=== PATIENT | male | born 1935 | race Caucasian/White ===

== ENCOUNTER 2023-03-13 15:35 | Outpatient (OUT) | payer MEDICARE, SELFPAY ==
--- NOTE | 2023-03-13 15:51 | XR_ITS ---
The [address] [address] Patient Name: UMESH DICKEY MRN: [id number] date: 1935 Sex: M Assigned Patient Location: LAB Current Patient Location: Accession/Order Number: [id number] Exam Date: 03/13/2023 16:05 Report Date: 03/14/2023 07:42 At the request of: LISA VELAZCO Procedure: XR sinus min 3V EXAMINATION: XR sinus min 3V HISTORY: CHRONIC SINUSITIS J32.9 COMPARISON: No relevant comparison available. FINDINGS: MAXILLARY: No mucosal thickening or fluid level. ETHMOID: No mucosal thickening or fluid level. FRONTAL: No mucosal thickening or fluid level. SPHENOID: No mucosal thickening or fluid level. OTHER: Negative. XR/XR sinus min 3V IMPRESSION: Clear paranasal sinuses Electronically authenticated by: FLO LEROY Date: 03/14/2023 07:42
== END 2023-03-13 15:36 | disposition home or self-care (01) ==
LOC: LAB 15:39
PROVIDERS: PCP Internal Medicine; Visit Provider Otolaryngology
DX: J32.9 Chronic sinusitis, unspecified (principal)
CPT/HCPCS: 70220

== ENCOUNTER 2023-07-31 20:53 | Outpatient (OUT) | payer MEDICARE, SELFPAY | END 2023-07-31 20:54 | disposition home or self-care (01) | LOC: SLEEP 20:54 | PROVIDERS: PCP Internal Medicine; Visit Provider Internal Medicine | DX: G47.33 Obstructive sleep apnea (adult) (pediatric) (principal) | CPT/HCPCS: 95810 ==

== ENCOUNTER 2024-03-29 11:13 | Outpatient (OUT) | payer MEDICARE, SELFPAY ==
--- OUTSIDE RECORDS SUMMARY | 2024-03-29 11:26 | XMS_ITS ---
Patient Summarization (C-CDA 2.1 CCD) Created on: March 29, 2024 Juan Oates : 1935 Sex: Male Author Organization Sample organization Care Team Providers Care Environmental Epidemiologist Name Role Phone MAGGIE WYNN Unavailable Unavailable AROBELIDZE, RASHI Unavailable Unavailable TABBAA, MOUSAB Unavailable Unavailable BALL, DR MONTANO Admitting Unavailable BALL, DR MONTANO Attending Unavailable BALL, DR MONTANO Primary Care Unavailable BALL, DR MONTANO Consulting Unavailable BALL, DR MONTANO Admitting Unavailable BALL, DR MONTANO Attending Unavailable BALL, DR MONTANO Primary Care Unavailable BALL, DR MONTANO Consulting Unavailable PARRA, FELICIA Admitting Unavailable PARRA, FELICIA Attending Unavailable BALL, DR MONTANO Primary Care Unavailable PARRA, FELICIA Consulting Unavailable BALL, DR MONTANO Admitting Unavailable BALL, DR MONTANO Attending Unavailable BALL, DR MONTANO Primary Care Unavailable BALL, DR MONTANO Admitting Unavailable BALL, DR MONTANO Attending Unavailable BALL, DR MONTANO Primary Care Unavailable BALL, DR MONTANO Consulting Unavailable Ball, Main Unavailable Main Holt DO Primary Care Provider Main Holt MD Primary Care Provider QUINTIN PERKINS Attending Unavailable NAYLA, QUINTIN G Referring Unavailable BALL, MAIN Botello Primary Care Unavailable NAYLA, QUINTIN G Referring Unavailable BALL, MAIN Botello Primary Care Unavailable BALL, MAIN Botello Referring Unavailable BALL, MAIN E Primary Care Unavailable NAYLA, QUINTIN G Attending Unavailable BALL, MAIN E Referring Unavailable BALL, MAIN Botello Primary Care Unavailable NAYLA, QUINTIN G Attending Unavailable BALL, MAIN Botello Referring Unavailable BALL, MAIN E Primary Care Unavailable NAYLA, QUINTIN G Referring Unavailable BALL, MAIN Botello Primary Care Unavailable Allergies Allergy Classification Reported Allergen(s) Allergy Type Date of Onset Reaction(s) Facility (1 source) patient allergy list reviewed by nurse or physicia Propensity to adverse reactions 8 Comment:Done [facility] Other Encounters Encounter Date Encounter Type Care Provider Facility Start: 03-28-2024 End: 03-28-2024 [facility] Work Phone: Start: 03-28-2024 End: 03-28-2024 Patient encounter procedure [facility] Work Phone: Start: 03-11-2024 End: 03-11-2024 [facility] Start: 01-08-2024 End: 01-08-2024 ambulatory QUINTIN G [facility] Start: 12-10-2023 End: 12-11-2023 ambulatory [facility] Start: 11-20-2023 End: 11-20-2023 ambulatory QUINTIN G NAYLA [facility] Start: 11-20-2023 End: 11-20-2023 Office outpatient visit 15 minutes Quintin Perkins MD Work Phone: [facility] Comment on above: Calculus of other lo wer urinary tract location (Primary Dx); Hypogonadism male Start: 11-13-2023 End: 11-14-2023 ambulatory QUINTIN PERKINS [facility] Start: 10-08-2023 Chart abstracting Evelia clements MD Work Phone: [facility] Start: 09-07-2023 Telephone encounter Quintin Perkins MD Work Phone: [facility] Start: 07-04-2023 End: 07-04-2023 ambulatory Main Holt Other [facility] Other Start: 07-04-2023 Office outpatient vi sit 15 minutes Main Holt [facility] Start: 02-13-2023 End: 02-13-2023 ambulatory Main Holt Other [facility] Other Start: 02-13-2023 Office outpatient vi sit 15 minutes Main Holt [facility] Start: 10-15-2022 End: 10-16-[address] MAIN HOLT Facility:[facility] Start: 10-14-2022 End: 10-15-[address] MAIN HOLT Facility:[facility] Start: 10-13-2022 Office outpatient vi sit 15 minutes Main Holt [facility] Start: 10-13-2022 End: 10-14-2022 ambulatory FELICIA PARRA Facility:[facility] Start: 04-24-2022 End: 04-25-[address] MAIN HOLT Facility:[facility] Start: 03-29-2022 Adult health examination Main Holt Other [facility] Other Start: 12-12-2021 End: 12-13-[address] MAIN HOLT Facility:[facility] Start: 02-17-2017 End: 02-19-2017 Evaluation and management of inpatient [facility] Medical Equipment Procedure Code Equipment Code Equipment Origin al Text Equipment Identifier Dates Stnt Uret 6fr 28 cm Pgtl Crv Rpl [id number] - Sna - [id number] Start: 03-12-2018 Stnt Uret 6fr 28 cm Pgtl Crv Rpl [id number] - [id number] Start: 04-10-2018 Goals Date Patient Goal Desired Activity /State Personal health goal Comment on above: Formatting of this n ote might be different from the original. Evaluation of progress towards goal: Patient plans to discharge home. Care Navigation team will continue to follow. - Kanika Traore RN [employer] 04/11/18 1:35 PM Immunizations Immunization Date Immunization Notes Care Provider Chad landry 04-21-2018 influenza virus vaccine, split virus (incl. purified surface antigen) Main Holt Other [facility] Other 04-21-2018 influenza virus vaccine, unspecified formulation [facility] 04-21-2018 pneumococcal conjuga te vaccine, 13 valent Main Holt Other [facility] Medications Current Medications Medication Drug Class(es) Dates Sig (Normalized) Sig (Original) acetaminophen 325 mg / HYDROcodone bitartrate 5 mg oral tablet (2 sources) Opioid Agonist Start: 09-23-2019 HYDROcodone-acetamin ophen (NORCO) 5-325 mg per tablet Indications: Calculus of other lower urinary tract location Take 1 tablet by mouth every 6 (six) hours as needed for pain for up to 8 doses. Max Daily Amount: 4 tablets 8 tablet 0 09/23/2019 Active Matilda Hives 24HR 180 MG (1 source) Start: 02-13-2023 take 1 tablet by mouth once daily Matilda Hives 24HR 180 MG 1 tablet Swallow whole with water; do not take with fruit juices. Orally Once a day for 30 days Jan, Active allopurinol 100 mg oral tablet (1 source) Xanthine Oxidase Inhibitor take 1 tablet by mouth in the morning allopurinol (Zyloprim) 100 MG tablet Take 100 mg by mouth in the morning. 0 Active amoxicillin 875 mg oral tablet (2 sources) Penicillin-class Antibacterial Start: 02-13-2023 take 1 tablet by mouth every twelve hours Amoxicillin 875 MG 1 tablet Orally Twice a day for 5 day(s) Jan, Active amoxicillin 875 mg / clavulanate 125 mg oral tablet (1 source) Penicillin-class Antibacterial Start: 07-04-2023 take 1 tablet by mouth every twelve hours Amoxicillin-Pot Clavulanate 875-125 MG 1 tablet Orally every 12 hrs for 7 days Jun, Active ascorbic acid 1000 mg oral tablet (2 sources) Vitamin C take 1 tablet by mouth in the morning ascorbic acid, vitamin C, (VITAMIN C) 1000 mg tablet Take 1 tablet (1,000 mg total) by mouth in the morning. 0 Active azelastine hydrochloride 0.5 mg/ml ophthalmic solution (1 source) Histamine-1 Receptor Antagonist Start: 05-14-2023 End: 05-13-2024 take 1 drop(s) into the eye(s) in the morning azelastine (Optivar) 0.05 % ophthalmic solution Indications: Allergic rhinitis due to pollen , Xerophthalmia Administer 1 drop into both eyes in the morning and 1 drop before bedtime. 18 mL 3 05/14/2023 05/13/2024 Active b complex vitamins capsule (2 sources) take 1 capsule by mouth in the morning b complex vitamins capsule Take 1 capsule by mouth in the morning. 0 Active cholecalciferol 0.075 mg oral tablet (1 source) Vitamin D cholecalciferol (Vitamin D-3) 75 MCG (3000 UT) tablet Take 7,000 Units by mouth. 0 Active DOCOSAHEXANOIC ACID/EPA (FISH OIL ORAL) (2 sources) take 1 capsule by mouth once daily DOCOSAHEXANOIC ACID/EPA (FISH OIL ORAL) Take 1 capsule by mouth daily. 0 Active erythromycin 0.005 mg/mg ophthalmic ointment (3 sources) Macrolide, Macrolide Antimicrobial Start: 10-13-2022 Erythromycin 5 MG/GM 1 application into the lower eyelid of affected eye Ophthalmic Four times a day for 10 day(s) Sep, Active fexofenadine hydrochloride 180 mg oral tablet (2 sources) Histamine-1 Receptor Antagonist Start: 03-28-2024 take 1 tablet by mouth once daily Fexofenadine (Matilda Allergy) 180 mg tablet Active 180 MG PO Daily March 28, 2024 12:00am Start: 02-13-2023 take 1 tablet by mouth once da kalani Matilda Hives 24HR 180 MG 1 tablet Swallow whole with water; do not take with fruit juices. Orally Once a day for 30 days Jan, Active Fish Oils (1 source) omega-3 (FISH OI L) 300 MG capsule 1,000 mg. 0 Active fluticasone propionate 0.05 mg/actuat metered dose nasal spray (2 sources) Corticosteroid Start: 02-14-20 take 1 spray(s) nasal route once daily Flonase Allergy Relief 50 MCG/ACT 1 spray in each nostril Nasally Once a day for 30 days Jan, Active garlic preparation 1 mg oral capsule (2 sources) Non-Standardized Food Allergenic Extract take 1 capsule by mouth once daily garlic 1 mg capsule Take 1 capsule by mouth daily. 0 Active ipratropium bromide 0.042 mg/actuat metered dose nasal spray (1 source) Anticholinergic Start: 03-07-20 End: 03-06-20 take 2 spray(s) nasal route in the morning, then take 2 spray(s) nasal route in the evening, then take 2 spray(s) nasal route at bedtime ipratropium (Atrovent) 0.06 % nasal spray Indications: Vasomotor rhinitis Administer 2 sprays into each nostril in the morning and 2 sprays in the evening and 2 sprays before bedtime. 15 mL 11 03/07/2023 03/06/2024 Active milk thistle extract 175 mg oral capsule (3 sources) take 175 mg by mouth in the morning MILK THISTLE EXTRACT PO Take 175 mg by mouth in the morning. 0 Active take 1 tablet by mouth in the mo rning milk thistle 175 mg tablet Take 1 tablet (175 mg total) by mouth in the morning. 0 Active multivitamin (Theragran) tablet (1 source) take 1 tablet by mouth in the morning multivitamin (Theragran) tablet Take 1 tablet by mouth in the morning. 0 Active Multivitamin preparation (2 sources) take 1 tablet by mouth once daily MULTIVITAMIN (MULTIPLE VITAMINS ORAL) Take 1 tablet by mouth daily. 0 Active tamsulosin hydrochloride 0.4 mg oral capsule (1 source) alpha-Adrenergic Ankur take 1 capsule by mouth every twenty-four hours in the morning tamsulosin (Flomax) 0.4 MG 24 hr capsule Take 0.4 mg by mouth in the morning. 0 Active 1 ml testosterone cypionate 200 mg/ml injection (3 sources) Androgen Start: 3 testosterone cypionate (Depo-Testosterone) 200 MG/ML injection Inject 200 mg into the shoulder, thigh, or buttocks every 14 (fourteen) days. 0 02/08/2023 Active Start: 05-07-2019 End: 11-20-2023 testosterone (ANDROGEL) 1 % (50 mg/5 gram) gel in packet Indications: Hypogonadism in male Place 1 packet (50 mg total) on the skin daily. 30 packet 5 05/07/2019 11/20/2023 Discontinued thiamine 100 mg oral tablet (1 source) take 1 tablet by humberto th in the morning thiamine (Vitamin B-1) 100 MG tablet Take 100 mg by mouth in the morning. 0 Active Thyroid (Pork) (Gypsum Thyroid) 60 mg tablet (1 source) Start: 10-15-2023 take 1 tablet by mouth once daily Thyroid (Pork) (Gypsum Thyroid) 60 mg tablet Active 60 MG PO Daily 90 90 October 15, 2023 1:00am thyroid (long-term) 120 mg oral tablet (6 sources) take 1 tablet by humberto th once daily thyroid, pork, (ARMOUR) 120 mg tablet Take 1 tablet (120 mg total) by mouth nightly. 0 Active take 1 tablet by mouth once lena y thyroid (Gypsum) 60 MG tablet Take 60 mg by mouth 1 (one) time each day at the same time. 0 Active ubidecarenone 30 mg oral capsule (3 sources) take 1 capsule by mo uth once in the morning, then take 1 capsule by mouth at bedtime coenzyme Q10 30 mg capsule Take 1 capsule (30 mg total) by mouth in the morning and 1 capsule (30 mg total) before bedtime. 0 Active take 1 capsule by mouth in the m orning co-enzyme Q-10 30 MG capsule Take 30 mg by mouth in the morning and 30 mg in the evening. 0 Active Payers Date Payer Category Payer Medicare [id number] 1959 Medicare [id number] 1935 Unknown [id number] 2.16.84 [id number] 1935 Unknown [id number] 2.16.84 [id number] 1935 Unknown [id number] 2.16.84 [id number] 1935 Unknown [id number] 2.16.84 [id number] 1935 Unknown [id number] 2.16.84 [id number] 1935 Unknown [id number] 2.16.8 [id number] 1935 Unknown [id number] 2.16.8 [id number] 1935 Unknown [id number] 2.16.8 [id number] 1935 Unknown [id number] 2.16.8 [id number] 1935 Unknown [id number] 2.16.8 [id number] 1935 Unknown [id number] 2.16.8 [id number] Self-pay Self Pay [id number] Plan of Treatment Date Care Activity Detail Author Start: 11-25-2024 End: 11-25-2024 Patient encounter procedure 11/25/2024 2:45 PM EDT Office Visit [facility] [address] [place] [phone] Quintin Perknis MD [address] [place] [id number] [facility] Start: 11-19-2024 End: 11-19-2025 XR Abdomen AP X-ray abdomen ap 1 view Imaging Routine Hypogonadism male Expected: 11/19/2024, Expires: 11/19/2025 [facility] Work Phone: Comment on above: Expected: 11/19/2024 , Expires: 11/19/2025 Start: 07-03-2024 Tobacco Screening Tobacco Screening [facility] Start: 01-04-2024 Adult BMI Screening Adult BMI Screen ing [facility] Start: 11-20-2023 End: 11-20-2023 Patient encounter procedure 11/20/2023 2:45 PM EDT Office Visit [facility] [address] [place] [phone] Quintin Perkins MD [address] [place] [id number] [facility] Start: 04-27-2023 Influenza vaccination Influenza Vacc ine [facility] Start: 11-26-2000 Fall Risk Screening Fall Risk Screen ing [facility] Start: 11-26-1985 Administration of varicella zoster vaccine Zoster (Shingles) Vaccine (1 of 2) [facility] Start: 11-26-1954 DTaP,Tdap and Td Vac cines (1 - Tdap) DTaP,Tdap and Td Vaccines (1 - Tdap) [facility] Start: 11-26-1953 Adult BMI Follow Up Plan Adult BMI Follow Up Plan [facility] Start: 1947 Depression Screening Depression Scre ening [facility] Start: 1935 Medicare Annual Well ness Visit Medicare [facility] Comprehensive metabo lic 2000 panel - Serum or Plasma [facility] End: 02-20-2024 Testosterone [Mass/volume] in Serum or Plasma Testosterone Lab Routine Hypogonadism male 1 month for 3 Occurrences starting 11/20/2023 until 02/20/2024 [facility] Comment on above: 1 month for 3 Occurr ences starting 11/20/2023 until 02/20/[address] [facility] Problems Active Problems Problem Classification Problem Date Documented Date Episodic/Chronic Aortic; peripheral; and visceral artery aneurysms (1 source) Dilatation of aorta; Translations: [Thoracic aortic ectasia] Onset: 05-03-2019 Chronic Calculus of urinary tract (16 sources) History of calculus of kidney; Translations: [Personal history of urinary calculi] Onset: 03-12-2018 Resolved: 02-20-2023 11-14-2022 Episodic Cancer of colon (7 sources) History of malignant neoplasm of colon; Translations: [Personal history of other malignant neoplasm of large intestine] Onset: 09-01-2015 03-27-2024 Episodic Complications of surgical procedures or medical care (2 sources) Postoperative hypothyroidism; Translations: [Postprocedural hypothyroidism] Onset: 09-01-2015 02-20-2023 Chronic Deficiency and other anemia (4 sources) Anemia; Translations: [Anemia, unspecified] Episodic Disorders of lipid metabolism (11 sources) Hyperlipidemia, unspecified; Translations: [Hypercholesterolemia ] Onset: 12-14-2021 Chronic Diverticulosis and diverticulitis (3 sources) Diverticular disease; Translations: [Diverticulosis of intestine, part unspecified, without perforation or abscess without bleeding] Onset: 12-30-2022 Resolved: 02-20-2023 01-03-2023 Chronic Genitourinary symptoms and ill-defined conditions (1 source) Delay when starting to pass urine; Translations: [Hesitancy of micturition] Episodic Hyperplasia of prostate (11 sources) Lower urinary tract symptoms due to benign prostatic hypertrophy; Translations: [Benign prostatic hyperplasia with lower urinary tract symptoms] Onset: 09-01-2015 Resolved: 02-20-2023 10-11-2021 Chronic Inflammation; infection of eye (except that caused by tuberculosis or sexually transmitteddisease) (6 sources) Unspecified blepharitis unspecified eye, unspecified eyelid; Translations: [Acute conjunctivitis] Onset: 10-15-2022 Episodic Inflammatory conditions of male genital organs (4 sources) Acute prostatitis; Translations: [Acute prostatitis] Episodic Malaise and fatigue (9 sources) Other fatigue; Translations: [Other malaise] Onset: 12-14-2021 Episodic Osteoarthritis (7 sources) Bilateral arthritis of knees; 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] Onset: 02-20-2023 Resolved: 02-20-2023 02-20-2023 Chronic Other connective tissue disease (1 source) Other symptoms and signs involving the nervous system Episodic Other ear and sense organ disorders (2 sources) Sensorineural hearing loss, bilateral; Translations: [Sensorineural hearing loss, bilateral] Onset: 02-20-2023 02-20-2023 Chronic Other ear and sense organ disorders (3 sources) Hearing loss; Translations: [Unspecified hearing loss, unspecified ear] Onset: 11-12-2018 Resolved: 02-20-2023 11-12-2018 Chronic Other endocrine disorders (7 sources) Testicular hypofunction; Translations: [TESTICULAR HYPOFUNCTION] Onset: 04-25-2022 Chronic Other endocrine disorders (3 sources) Deficiency of testosterone biosynthesis; 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 Other endocrine disorders (1 source) Androgen resistance syndrome; 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] Onset: 09-01-2015 Chronic Other endocrine disorders (1 source) Testicular hypofunction; 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 Other endocrine disorders (1 source) Hyperparathyroidism; Translations: [Hyperparathyroidism, unspecified] Chronic Other endocrine disorders (4 sources) Male hypogonadism; Translations: [Testicular hypofunction] Onset: 04-09-2017 Resolved: 02-20-2023 07-03-2023 Chronic Other fractures (1 source) Fracture of one rib; Translations: [Fracture of one rib, right side, subsequent encounter for fracture with routine healing] Episodic Other injuries and conditions due to external causes (1 source) History of fall; Translations: [History of falling] Episodic Other male genital disorders (3 sources) Male erectile dysfunction, unspecified; Translations: [Impotence of organic origin] Onset: 04-10-2017 Resolved: 02-20-2023 11-13-2022 Chronic Other nutritional; endocrine; and metabolic disorders (1 source) Body mass index 30+ - obesity; Translations: [Body mass index 31.0-31.9, adult] Onset: 05-15-2016 Chronic Other nutritional; endocrine; and metabolic disorders (1 source) Obesity; Translations: [Obesity, unspecified] Onset: 12-13-2021 Chronic Other nutritional; endocrine; and metabolic disorders (1 source) Simple obesity ; Translations: [Other obesity due to excess calories] Onset: 05-15-2016 Chronic Other upper respiratory disease (2 sources) Allergic rhinitis due to pollen; Translations: [Allergic rhinitis due to pollen] Chronic Other upper respiratory disease (1 source) Allergic rhinitis due to pollen Chronic Other upper respiratory disease (1 source) Vasomotor rhinitis; 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] Onset: 03-07-2023 03-07-2023 Chronic Other upper respiratory infections (1 source) Chronic sinusitis; Translations: [Chronic sinusitis, unspecified] Onset: 03-01-2023 03-01-2023 Chronic Other upper respiratory infections (3 sources) Acute maxillary sinusitis, unspecified; Translations: [Acute maxillary sinusitis] Episodic Residual codes; unclassified (5 sources) Obstructive sleep apnea syndrome; Translations: [Obstructive sleep apnea (adult) (pediatric)] 03-27-2024 Chronic Residual codes; unclassified (1 source) Obstructive sleep apnea (adult) (pediatric); Translations: [Obstructive sleep apnea (adult)(pediatric)] 03-28-2024 Chronic Retinal detachments; defects; vascular occlusion; and retinopathy (1 source) Retinal hemorrhage; Translations: [Retinal hemorrhage, unspecified eye] Onset: 03-04-2019 Chronic Spondylosis; intervertebral disc disorders; other back problems (1 source) Lumbosacral spondylosis without myelopathy; Translations: [Spondylosis without myelopathy or radiculopathy, lumbar region] Chronic Sprains and strains (1 source) Neck sprain; Translations: [Strain of muscle, fascia and tendon at neck level, initial encounter] Episodic Thyroid disorders (13 sources) Autoimmune thyroiditis; 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] Onset: 09-01-2015 Chronic Past or Other Problems Problem Classification Problem Date Documented Da te Episodic/Chronic Cancer of colon (5 sources) Malignant tumor of colon; Translations: [Malignant neoplasm of colon, unspecified] Onset: 3 Resolved: 3 02-20-2023 Chronic Fracture of neck of femur (hip) (1 source) Late effect of fracture of neck of femur; Translations: [Fracture of unspecified part of neck of right femur, sequela] Resolved: 2 Episodic Gastrointestinal hemorrhage (4 sources) Gastrointestinal hemorrhage, unspecified; Translations: [Blood-tinged feces] Onset: 7 Resolved: 3 01-03-2023 Episodic Gout and other crystal arthropathies (3 sources) Gout; Translations: [Gout, unspecified] Onset: 6 Resolved: 3 02-20-2023 Chronic Heart valve disorders (1 source) O/E - cardiac murmur; Translations: [Cardiac murmur, unspecified] Onset: 9 Episodic Other aftercare (1 source) Long-term current use of drug therapy; Translations: [Other residential (current) drug therapy] Resolved: 2 Episodic Other circulatory disease (1 source) Cardiovascular symptoms; Translations: [Other specified symptoms and signs involving the circulatory and respiratory systems] Onset: 9 Episodic Other ear and sense organ disorders (3 sources) Excessive cerumen in ear canal ; Translations: [Impacted cerumen, bilateral] Onset: 9 11-12-2018 Episodic Other ear and sense organ disorders (1 source) Bilateral tinnitus; Translations: [Tinnitus, bilateral] Onset: 3 02-20-2023 Episodic Other lower respiratory disease (1 source) Dyspnea; Translations: [Other forms of dyspnea] Onset: 6 Episodic Other nutritional; endocrine; and metabolic disorders (1 source) Overweight; Translations: [Overweight] Onset: 6 Episodic Septicemia (except in labor) (3 sources) Sepsis; Translations: [Sepsis, unspecified organism] Onset: 8 Resolved: 3 08-13-2018 Episodic Urinary tract infections (4 sources) Urinary tract infectious disease; Translations: [Urinary tract infection, site not specified] Onset: 1 Resolved: 3 06-15-2021 Episodic Procedures Date Procedure Procedure Detail Performing Clinician Start: 11-20-2023 Follow-up visit Follow-up QUINTIN PERKINS Start: 03-04-2019 Diabetes mellitus screening Main [facility] Other Start: 03-04-2019 Hyperlipidemia screening Main Holt Other Depression screening Almaz Holt Other Results Test Name Value Interpretation Reference Range Facility URINE CULTUREon 03-11-2024 Bacteria identified Cx Nom (U) SPECIMEN NOTES URINE RECEIVED WITHOUT PRESERVATIVE CULTURE RESULTS >100,000 ORGANISMS/mL KLEBSIELLA OXYTOCA URINE RECEIVED WITHOUT PRESERVATIVE-DELAYS IN TRANSPORT MAY AFFECT RESULTS.INTERPRET WITH CAUTION AND CLINICAL CORRELATION IS RECOMMENDED. [ S = SUSCEPTIBLE R = RESISTANT I = INTERMEDIATE S-DO = Susceptible-dose dependent NS = Non-suscceptible NO = No Interpretation ] Organism: KLEBSIELLA OXYTOCA Antibiotic Interpretation ELIESER Status AMPICILLIN R 16 F AMP/SULBACTAM S 4/2 F CEFAZOLIN S 8 F CEFTRIAXONE S <=1 F CIPROFLOXACIN S <=0.25 F GENTAMICIN S <=1 F LEVOFLOXACIN S <=0.12 F NITROFURANTOIN S <=16 F PIPERACIL/TAZOBACTAM S <=4 F TOBRAMYCIN S <=1 F TRIMETH/SULFAMETHOXAZOLE S <=1/19 F Susceptible [facility] Comment on above: Performed By: #### 6 30-4 #### [facility] ([id number]) Critical access hospital[facility], [address] [place] [address] Testosterone [Mass/Vol]on TESTOSTERONE 0.84 ng/mL Low 1.68-7.46 [facility] Comment on above: Performed By: #### 2 986-8 #### [facility] ([id number]) [address] [place] [address] XR ABDOMEN AP 1 VWon 024 XR ABDOMEN AP 1 VW XR ABDOMEN AP 1 VW XR ABDOMEN AP 1 VW HISTORY: Renal calculus screening and follow-up. COMPARISON: Abdominal radiograph 11/07/2022. CT abdomen pelvis with contrast 12/30/2022. FINDINGS: Nonobstructive bowel gas pattern. Moderate stool burden. 1 cm calcification projecting over the right renal fossa. There is a probable punctate calcification projecting over the left renal fossa, however evaluation of the left kidney is limited by overlying bowel content. IMPRESSION: * Bilateral nephrolithiasis. Approved by Resident Kris Goldsmith MD on 11/14/2023 7:36 AM I, Manjinder Lai MD have personally reviewed the image(s) and agree with and/or edited the report Finalized by Manjinder Lai MD on 11/14/2023 10:24 AM Normal [facility] COMPLETE BLOOD COUNTon 11-12 Erythrocyte distribution width (RBC) [Ratio] 13.1 % Normal 11.5-15.0 [facility] Comment on above: Performed By: #### Jones BRICENO 2986-8, LIVR #### [facility] ([id number]) [address] [place] [address] Hematocrit (Bld) [Volume fraction] 40.8 % Normal 39-49 [facility] Comment on above: Performed By: #### Jones BRICENO, 2986-8, LIVR #### [facility] ([id number]) [address] [place] [address] Hemoglobin (Bld) [Mass/Vol] 13.9 g/dL Normal 13.0-17.0 [facility] Comment on above: Performed By: #### Jones BRICENO, 2986-8, LIVR #### [facility] ([id number]) [address] [place] [address] MCH (RBC) [Entitic mass] 33.3 pg Normal 27-34 [facility] Comment on above: Performed By: #### Jones BRICENO, 2986-8, LIVR #### [facility] ([id number]) [address] [facility] [place] [address] MCHC (RBC) [Mass/Vol] 34.2 g/dL Normal 32-36 [facility] Comment on above: Performed By: #### Jones BRICENO 2986-8, LIVR #### [facility] ([id number]) [address] [facility] [address] [place] [address] MCV (RBC) [Entitic vol] 98 fL Normal 80-100 [facility] Comment on above: Performed By: #### Jones BRICENO, 2986-03, LIVR #### [facility] ([id number]) [address] [address] [place] [address] Platelet mean volume (Bld) [Entitic vol] 8.6 fL Normal 7-12 [facility] Comment on above: Performed By: #### Jones BRICENO 2988, LIVR #### [facility] ([id number]) [address] [facility] [address] [place] [address] Platelets (Bld) [#/Vol] 206 10*3/uL Normal 150-450 [facility] Comment on above: Performed By: #### Jones BRICENO 2986, LIVR #### [facility] ([id number]) [address] [facility] [address] [place] [address] RBC COUNT 4.19 X10E12/L Normal 4.10-5.70 [facility] Comment on above: Performed By: #### Jones BRICENO 2986, LIVR #### [facility] ([id number]) [address] [facility] [address] [place] [address] WBC (Bld) [#/Vol] 8.8 10*3/uL Normal 4.0-11.0 [facility] Comment on above: Performed By: #### Jones BRICENO 2986-8, LIVR #### [facility] ([id number]) [address], [address] [place] [address] LIVER PANELon 11-13-2023 Albumin [Mass/Vol] 4.0 g/dL Normal 3.2-5.3 [facility] Comment on above: Performed By: #### Jones BRICENO, 2986-8, LIVR #### [facility] ([id number]) [address], [address] [place] [address] ALP [Catalytic activity/Vol] 120 U/L Normal 39-130 [facility] Comment on above: Performed By: #### Jones BRICENO, 298-8, LIVR #### [facility] ([id number]) [address], [address] [place] [address] ALT [Catalytic activity/Vol] 12 U/L Normal 0-40 [facility] Comment on above: Performed By: #### Jones BRICENO, 2986-8, LIVR #### [facility] ([id number]) [address], [address] [place] [address] AST [Catalytic activity/Vol] 16 U/L Normal 0-41 [facility] Comment on above: Performed By: #### Jones BRICENO, 2986-8, LIVR #### [facility] ([id number]) [address], [address] [place] [address] Bilirubin [Mass/Vol] 1.0 mg/dL Normal 0.3-1.2 [facility] Comment on above: Performed By: #### Jones BRICENO, 29868, LIVR #### [facility] ([id number]) [address], [address] [place] [address] Bilirubin.direct [Mass/Vol] 0.2 mg/dL Normal 0.0-0.4 [facility] Comment on above: Performed By: #### Jones BRICENO, 2986-8, LIVR #### [facility] ([id number]) [address], [address] [place] [address] Protein [Mass/Vol] 6.7 g/dL Normal 6.0-8.0 [facility] Comment on above: Performed By: #### C BC, 2986-8, LIVR #### [facility] ([id number]) [address], [address] [place] [address] Testosterone [Mass/Vol]on TESTOSTERONE 1.74 ng/mL Normal 1.68-7.46 [facility] Comment on above: Performed By: #### C BC, 2986-8, LIVR #### [facility] ([id number]) [address] [place] [address] [facility] Thyroid Stimulating Hormone [employer] Other TESTOSTERONE, TOTALon 2022 Testosterone [Mass/Vol] 696 ng/dL Normal 264-916 [facility] Comment on above: Result Comment: Adul t male reference interval is based on a population of healthy nonobese males (BMI <30) between 19 and 39 years old. Nitish, et.al. JCEM 2017,102;3481-2082. PMID: [id number]. Performed By: #### T ESTTOT #### [facility] [address] [place] [address] Dr. Fatmata Mays TSHon 10-14-2022 TSH 0.698 uIU/mL Normal 0.358-3.740 [facility] Comment on above: Performed By: #### T SH #### [facility] [address] [address] [address] Fatmata Mays TESTOSTERONE, TOTALon 2021 Testosterone [Mass/Vol] 34 ng/dL Critically low 264-916 [facility] Comment on above: Result Comment: Adul t male reference interval is based on a population of healthy nonobese males (BMI <30) between 19 and 39 years old. Nitish et.al. JCEM 2017,102;2375-8593. PMID: 36996345. Performed By: #### T ESTTOT #### [facility] [address] [address] [address] Fatmata Mays TSHon 04-24-2022 TSH 0.878 uIU/mL Normal 0.358-3.740 [facility] Comment on above: Performed By: #### T SH #### [facility] [address] [place] [address] Dr. Fatmata Mays CBC AUTO DIFFon 12-12-2021 BASO # 0.0 103/ul Normal 0.0-0.1 [facility] Comment on above: Performed By: #### C BC #### [facility] [address] [place] [address] Dr. Fatmata Mays Basophils/100 WBC (Bld) 0.6 % Normal 0.2-2.0 [facility] Comment on above: Performed By: #### C BC #### [facility] [address] [place] [address] Dr. Fatmata Mays EO # 0.1 103/ul Normal 0.0-0.7 [facility] Comment on above: Performed By: #### C BC #### [facility] [address] [place] [address] Dr. Fatmata Mays Eosinophils/100 WBC (Bld) 1.0 % Normal 0.9-7.0 [facility] Comment on above: Performed By: #### C BC #### [facility] [address] [place] [address] Dr. Fatmata Mays Erythrocyte distribution width (RBC) [Ratio] 13.0 % Normal 11.0-15.0 [facility] Comment on above: Performed By: #### C BC #### [facility] [address] [place] [address] Dr. Fatmata Mays Hematocrit (Bld) [Volume fraction] 41.2 % Critically low 42.0-54.0 [facility] Comment on above: Performed By: #### C BC #### [facility] [address] [place] [address] Dr. Fatmata Mays Hemoglobin (Bld) [Mass/Vol] 13.8 g/dL Critically low 14.0-18.0 [facility] Comment on above: Performed By: #### C BC #### [facility] [address] [place] [address] Dr. Fatmata Mays IG # 0.02 10e3/ul Normal 0.00-0.03 [facility] Comment on above: Performed By: #### C BC #### [facility] [address] [place] [address] Dr. Fatmata Mays IG % 0.3 % Normal 0.0-0.5 [facility] Comment on above: Performed By: #### C BC #### [facility] [address] [place] [address] Dr. Fatmata Mays LYMPH # 1.5 103/ul Normal 1.2-3.8 [facility] Comment on above: Performed By: #### C BC #### [facility] [address] [place] [address] Dr. Fatmata Mays Lymphocytes/100 WBC (Bld) 21.9 % Normal 20.5-60.0 [facility] Comment on above: Performed By: #### C BC #### [facility] [address] [place] [address] Dr. Fatmata Mays MANUAL DIFF REQ NO Normal [facility] Comment on above: Performed By: #### C BC #### [facility] [address] [place] [address] Dr. Fatmata Mays MCH (RBC) [Entitic mass] 32.4 pg Normal 25.9-34.0 [facility] Comment on above: Performed By: #### C BC #### [facility] [address] [place] [address] Dr. Fatmata Mays MCHC (RBC) [Mass/Vol] 33.5 g/dL Normal 29.9-35.2 [facility] Comment on above: Performed By: #### C BC #### [facility] [address] [place] [address] Dr. Fatmata Mays MCV (RBC) [Entitic vol] 96.7 fL Critically high 80.0-94.0 [facility] Comment on above: Performed By: #### C BC #### [facility] [address] [address] [address] Fatmata Mays MONO # 1.0 103/ul Critically high 0.3-0.8 [facility] Comment on above: Performed By: #### C BC #### [facility] [address] [place] [address] Dr. Fatmata Mays Monocytes/100 WBC (Bld) 13.8 % Critically high 1.7-12.0 [facility] Comment on above: Performed By: #### C BC #### [facility] [address] [place] [address] Dr. Fatmata Mays NEUT # 4.4 103/ul Normal 1.4-6.5 [facility] Comment on above: Performed By: #### C BC #### [facility] [address] [place] [address] Dr. Fatmata Mays Neutrophils/100 WBC (Bld) 62.4 % Normal 43.0-75.0 [facility] Comment on above: Performed By: #### C BC #### [facility] [address] [place] [address] Dr. Fatmata Mays Platelet mean volume (Bld) [Entitic vol] 9.7 fL Normal 9.5-13.5 [facility] Comment on above: Performed By: #### C BC #### [facility] [address] [place] [address] Dr. Fatmata Mays PLT 163 103/ul Normal 150-450 [facility] Comment on above: Performed By: #### C BC #### [facility] [address] [place] [address] Dr. Fatmata Mays RBC 4.26 106/ul Critically low 4.70-6.10 [facility] Comment on above: Performed By: #### C BC #### [facility] [address] [place] [address] Dr. Fatmata Mays WBC 7.0 103/ul Normal 4.0-11.0 [facility] Comment on above: Performed By: #### C BC #### [facility] [address] [place] [address] Dr. Fatmata Mays LIPID PROFILEon 12-12-2021 CHOL-HDL RATIO NORM SEE BELOW Normal [facility] Comment on above: Result Comment: 3.3 - 4.4 LOW RISK 4.4 - 7.1 AVERAGE RISK 7.1 - 11.0 MODERATE RISK >11.0 HIGH RISK Performed By: #### C MP, TSH, LIPID #### [facility] [address] [place], [place] [address] Dr. Fatmata Mays Cholesterol [Mass/Vol] 193 mg/dL Normal <=200 [facility] Comment on above: Performed By: #### C MP, TSH, LIPID #### [facility] [address] [address] [address] Fatmata Mays Cholesterol in HDL [Mass/Vol] 81 mg/dL Critically high 40-60 [facility] Comment on above: Performed By: #### C MP, TSH, LIPID #### [facility] [address] [address] [address] Fatmata Mays Cholesterol in LDL [Mass/Vol] 94.0 mg/dL Normal [facility] Comment on above: Performed By: #### C MP, TSH, LIPID #### [facility] [address] [address] [address] Fatmata Mays Cholesterol.total/ Cholesterol in HDL [Mass ratio] 2.4 {ratio} Normal [facility] Comment on above: Performed By: #### C MP, TSH, LIPID #### [facility] [address] [address] [address] Fatmata Mays HDL NORMAL > or = 60 mg/dl - LO W CARDIOVASCULAR RISK <40 mg/dl - HIGH CARDIOVASCULAR RISK Normal [facility] Comment on above: Performed By: #### C MP, TSH, LIPID #### [facility] [address] [address] [address] Fatmata Mays LDL CALC NORMAL SEE BELOW Normal [facility] Comment on above: Result Comment: <100 mg/dl OPTIMAL 100 - 129 mg/dl NEAR OR ABOVE OPTIMAL 130 - 159 mg/dl BORDERLINE HIGH 160 - 189 mg/dl HIGH >190 mg/dl VERY HIGH Performed By: #### C MP, TSH, LIPID #### [facility] [address] [address] [address] Fatmata aMys Triglyceride [Mass/Vol] 90 mg/dL Normal <=150 [facility] Comment on above: Performed By: #### C MP, TSH, LIPID #### [facility] [address] [address] [address] Fatmata Mays VLDL CALC 18.0 mg/dL Normal [facility] Comment on above: Performed By: #### C MP, TSH, LIPID #### [facility] [address] [place] [address] Dr. Fatmata Mays PROF 14(COMP METB)on 022 Albumin [Mass/Vol] 3.3 g/dL Critically low 3.4-5.[address] [facility] Comment on above: Performed By: #### C MP, TSH, LIPID #### [facility] [address] [place] [address] Dr. Fatmata Mays Albumin/Globulin [Mass ratio] 1.0 {ratio} Normal [facility] Comment on above: Performed By: #### C MP, TSH, LIPID #### [facility] [address] [place] [address] Dr. Fatmata Mays ALP [Catalytic activity/Vol] 153 U/L Critically high 46-116 [facility] Comment on above: Performed By: #### C MP, TSH, LIPID #### [facility] [address] [place] [address] Dr. Fatmata Mays ALT [Catalytic activity/Vol] 22 U/L Normal 16-63 [facility] Comment on above: Performed By: #### C MP, TSH, LIPID #### [facility] [address] [place] [address] Dr. Fatmata Mays Anion gap [Moles/Vol] 10.6 mmol/L Normal [facility] Comment on above: Performed By: #### C MP, TSH, LIPID #### [facility] [address] [place] [address] Dr. Fatmata Mays AST [Catalytic activity/Vol] 11 U/L Critically low 15-37 [facility] Comment on above: Performed By: #### C MP, TSH, LIPID #### [facility] [address] [address] [address] Fatmata Mays Bilirubin [Mass/Vol] 0.8 mg/dL Normal 0.2-1.3 [facility] Comment on above: Performed By: #### C MP, TSH, LIPID #### [facility] [address] [place] [address] Dr. Fatmata Mays Calcium [Mass/Vol] 8.2 mg/dL Critically low 8.5-10.[address] [facility] Comment on above: Performed By: #### C MP, TSH, LIPID #### [facility] [address] [place] [address] Dr. Fatmata Mays Chloride [Moles/Vol] 104 mmol/L Normal 98-107 [facility] Comment on above: Performed By: #### C MP, TSH, LIPID #### [facility] [address] [place] [address] Dr. Fatmata Mays CO2 [Moles/Vol] 30.0 mmol/L Normal 22.0-30.0 [facility] Comment on above: Performed By: #### C MP, TSH, LIPID #### [facility] [address] [place] [address] Dr. Fatmata Mays Creatinine [Mass/Vol] 0.85 mg/dL Normal 0.66-1.25 [facility] Comment on above: Performed By: #### C MP, TSH, LIPID #### [facility] [address] [place] [address] Dr. Fatmata Mays EGFR-AF ETHIOPIAN >60 Normal >=60 [facility] Comment on above: Performed By: #### C MP, TSH, LIPID #### [facility] [address] [place] [address] Dr. Fatmata Mays EGFR-NON AF ETHIOPIAN >60 Normal >=60 [facility] Comment on above: Performed By: #### C MP, TSH, LIPID #### [facility] [address] [place] [address] Dr. Fatmata Mays Globulin (S) [Mass/Vol] 3.4 g/dL Normal [facility] Comment on above: Performed By: #### C MP, TSH, LIPID #### [facility] [address] [address] [address] Fatmata Mays Glucose [Mass/Vol] 113 mg/dL Critically high 74-106 [facility] Comment on above: Performed By: #### C MP, TSH, LIPID #### [facility] [address] [place] [address] Dr. Fatmata Mays Potassium [Moles/Vol] 4.6 mmol/L Normal 3.4-5.0 [facility] Comment on above: Performed By: #### C MP, TSH, LIPID #### [facility] [address] [place] [address] Dr. Fatmata Mays Protein [Mass/Vol] 6.7 g/dL Normal 6.1-8.2 [facility] Comment on above: Performed By: #### C MP, TSH, LIPID #### [facility] [address] [place] [address] Dr. Fatmata Mays Sodium [Moles/Vol] 140 mmol/L Normal 137-145 [facility] Comment on above: Performed By: #### C MP, TSH, LIPID #### [facility] [address] [place] [address] Dr. Fatmata Mays Urea nitrogen [Mass/Vol] 16.0 mg/dL Normal 7.0-18.0 [facility] Comment on above: Performed By: #### C MP, TSH, LIPID #### [facility] [address] [place] [address] Dr. Fatmata Mays Urea nitrogen/Creatinin e [Mass ratio] 18.8 mg/mg Normal [facility] Comment on above: Performed By: #### C MP, TSH, LIPID #### [facility] [address] [place] [address] Dr. Fatmata Mays TSHon 12-12-2021 TSH 1.468 uIU/mL Normal 0.470-4.680 [facility] Comment on above: Performed By: #### C MP, TSH, LIPID #### [facility] [address] [place] [address] Dr. Fatmata Mays TSH RANGE SEE BELOW Normal [facility] Comment on above: Result Comment: <0.3 4 UIU/ml HYPERTHYROID 0.34-5.60 UIU/ml EUTHYROID >5.60 UIU/ml HYPOTHYROID Performed By: #### C MP, TSH, LIPID #### [facility] [address] [address] [address] Fatmata Mays Otolaryngology Office/Clinic Noteon 07-13-2021 Otolaryngology Office/Clinic Note Chief Complaint Pt states here for ear cleaning, I want my hearing checked History of Present Illness History of Present Illness HPI: Pt here for ear cleaning. Pt also wants his hearing and sinuses checked.Pt complains of sinus pressure and heaviness Review of Systems General Adult ROS Fatigue: No Appetite change: No Other General: No Weakness: No Weight gain: No Weight Loss: No Cardiovascular EENMT Bleeding gums: No Dental pain: No Ear drainage: No Ear pain: No Facial pain: No Hearing loss: No Hoarseness: No Mouth lesions: No Nasal congestion: No Nasal discharge: No Nosebleeds: No Other EENMT: No Postnasal drainage: No Sore_throat: No Tinnitus: No Vision Changes: No Gastrointestinal Abdominal pain: No Constipation: No Diarrhea: No Dysphagia: No Heartburn: No Nausea: No Genitourinary Hematologic/Lymphatic Musculoskeletal Neurological Psychiatric Respiratory Cough: No Shortness_of_breath: No Snoring: No Wheezing: No Skin Physical Exam Vitals & Measurements T: 36.5 ?C (Temporal Artery) HT: 185 cm WT: 102.7 kg WT: 102.7 kg (Dosing) BMI: 30.01 Overall:[Communication mode is clear, normal] [Appearance- no acute distress, appears stated age and is well nourished] Assistive device:[ none] Head:[normocephalic, no trauma, lesions or asymmetry] Ocular appearance:[ Conjuctiva- clear and bright, no drainage or infection. EOM intact] Ears:[ external ear- normal shape, no signs of infection, mass, lesion or asymmetry bilaterally. Ear canal shows wax impaction, bilaterally. This was cleaned and removed with microinstrumentation as adequate view of eardrum was not possible. Once removed ear exam was normal] [Eardrum-healthy, no sign of infection, trauma, perforation or infection] [Middle ear- healthy, no obvious fluid present or infection] Nose:[ External- healthy, no sign of asymmetry, lesion or infection] Septum:[ Midline, no sign of perforation, infection or deviation] Turbinates:[ normal, no hypertrophy, mass or polyp] Nasal passages:[ clear, no infection, drainage or obstruction] Oral cavity:[ Normal, tongue healthy no mass, lesion or infection. Soft and hard palate normal. Bimanual palpation is normal. Mucosa moist, free from infection][ Benign gingiva, good dental hygiene][Tonsil size is normal, no asymmetry, mass or lesionn][oropharynx- clear, no evidence of post nasal drip, cobblestoning or other abnormalities] Mental Status:[Alert and oriented x3][Mood and affect normal][Gait is normal]. Additional Vitals No qualifying data available. Assessment/Plan 1. Impacted cerumen, bilateral Pt has wax present on exam , this was removed with microinstrumentation without issue. Pt was not scheduled for hearing test and was very upset about this. offered pt to wait 10 min for this. He said he would wait but if after 10 min he would leave and is never coming back Unfortunately pt left before this could be completed. Discussed flonase for sinus pressure and pt will pick otc Medical Decision Making Chronic conditions NOT treated during this visit that affected my overall medical decision making: [] Treatment plans discussed but not opted for at this time: [] Prescribed medication that requires intensive monitoring for toxicity: [] I have reviewed the patient?s medication list for medication interactions/contraindic ations and/or for upcoming procedures: [yes or no] Time Spent with the Patient I have personally spent [] minutes on this date, directly related to today's patient visit, including pre and post visit work, for this date of service. Time listed does not include time spent on separately billable services. Problem List/Past Medical History Ongoing Hypothyroid Historical No qualifying data Procedure/Surgical History Kidney stones Medications Gypsum Thyroid 60 mg oral tablet, 60 mg= 1 tabs, Daily Allergies No Known Medication Allergies Social History Alcohol Current, Beer, Several times per day Substance Abuse Denies All Tobacco Never (less than 100 in lifetime) Use:. Family History Family history is unknown Electronically signed by _ Lola Reardon PA-C 07/14/21 11:[address] [facility] Otolaryngology Office/Clinic Noteon 07-20-2020 Otolaryngology Office/Clinic Note Chief Complaint I want my ears cleaned per patient History of Present Illness History of Present Illness HPI: Patient is here today as a new patient, self referral for an ear cleaning. He feels he has occasional ringing but otherwise is hearing ok. He wanted to be sure his ears were not plugged with wax but he denies and significant issues. no other concerns today Review of Systems General Adult ROS Fatigue: No Appetite change: No Weight gain: No Weight Loss: No Cardiovascular Chest pain/pressure: No Palpitations: No EENMT Ear pain: No Hearing loss: Yes Hoarseness: No Nasal congestion: No Nasal discharge: No Sore_throat: No Tinnitus: No Gastrointestinal Dysphagia: No Heartburn: No Genitourinary Decreased urine output: No Frequency: No Hematologic/Lymphatic Bleeding tendencies: No Bruising: No Musculoskeletal Back pain: No Joint pain: Yes Joint stiffness: Yes Neurological Abnormal Gait: No Headache: No Psychiatric Anxiety: No Depression: No Respiratory Cough: No Shortness_of_breath: No Wheezing: No Skin Itching: No Rash: No Physical Exam Vitals & Measurements T: 36.4 ?C (Temporal Artery) HT: 185 cm WT: 106.7 kg BMI: 31.18 Overall:[Communication mode is clear, normal] [Appearance- no acute distress, appears stated age and is well nourished] Assistive device:[ none] Head:[normocephalic, no trauma, lesions or asymmetry] Ocular appearance:[ Conjuctiva- clear and bright, no drainage or infection. EOM intact] Ears:[ external ear- normal shape, no signs of infection, mass, lesion or asymmetry bilaterally. Ear canal is healthy, free from infection, bilaterally]He has bilateral mild cerumen, this was removed without issue [Eardrum-healthy, no sign of infection, trauma, perforation or infection] [Middle ear- healthy, no obvious fluid present or infection] Nose:[ External- healthy, no sign of asymmetry, lesion or infection] Septum:[ Midline, no sign of perforation, infection or deviation] Turbinates:[ normal, no hypertrophy, mass or polyp] Nasal passages:[ clear, no infection, drainage or obstruction] Oral cavity:[ Normal, tongue healthy no mass, lesion or infection. Soft and hard palate normal. Bimanual palpation is normal. Mucosa moist, free from infection][ Benign gingiva, good dental hygiene][Tonsil size is normal, no asymmetry, mass or lesionn][oropharynx- clear, no evidence of post nasal drip, cobblestoning or other abnormalities] Neck:[ Salivary gland exam is normal, no enlargement or tenderness. No lymph node enlargement. TMJ exam is normal, no tenderness noted][ Thyroid exam is normal, no masses or tenderness] Mental Status:[Alert and oriented x3][Mood and affect normal][Gait is normal]. Additional Vitals Body Mass Index Measured: 31.18 kg/m2 Assessment/Plan 1. Ceruminosis Ears checked and cleaned. Offered to have his hearing testing but hehas refused. Recheck prn problems Problem List/Past Medical History Ongoing Hypothyroid Historical No qualifying data Procedure/Surgical History Kidney stones Medications Gypsum Thyroid 60 mg oral tablet, 60 mg, 1 tabs, Daily Allergies No Known Medication Allergies Social History Tobacco Never (less than 100 in lifetime) Use:. Family History Family history is unknown Diagnostic Results No qualifying data available (XRay) No qualifying data available (CT) No qualifying data available (Ultrasound) No qualifying data available (MRI) Electronically signed by _ Lola Reardon PA-C 07/20/20 15:[address] [facility] Social History Date Type Detail Facility Start: 10-08-2023 Alcohol intake Ex-drinker (finding) [facility] Start: 10-07-2020 End: 07-03-2023 Sex Assigned At [facility] [email or web address] Other Start: 07-03-2023 End: 11-20-2023 Alcohol intake Current drinker of alcohol (finding) [facility] Start: 10-07-2020 End: 07-03-2023 Alcohol intake [facility] Start: 02-20-2023 Tobacco smoking stat [facility] Ex-smoker [facility] Start: 02-20-2023 Tobacco use and exposure Smokeless tobacco non-user [facility] Start: 12-30-2022 Alcohol Comment 2-3 drinks per day P [facility] Start: 11-14-2022 Tobacco smoking stat [facility] Never smoked tobacco [facility] Start: 11-14-2022 Tobacco use and exposure Former smokeless tobacco user [facility] Start: 1935 Sex Assigned At Not on file P [facility] Start: 1935 Sex Assigned At Male F [facility] End: 04-03-1988 History of tobacco use Snuff User [facility] Housing Instability Unknown [facility] End: 08-27-2012 History of tobacco use Current smoker [facility] End: 08-27-2012 History of tobacco use Cigarette Smoker [facility] Vital Signs Date Time Vital Sign Value Performing Clinician Facility 03-28-2024 11:47-0400 Body height 182.[address] [facility] 03-28-2024 11:47-0400 Body mass index (BMI) [Ratio] 26.3 kg/m2 [facility] 03-28-2024 11:47-0400 Body weight 88.[address] [facility] 03-28-2024 11:47-0400 Diastolic blood pressure 65 mm[Hg] [facility] 03-28-2024 11:47-0400 Heart rate 73 /min [facility] 03-28-2024 11:47-0400 Respiratory rate 12 /min [facility] 03-28-2024 11:47-0400 Systolic blood pressure 136 mm[Hg] [facility] 11-20-2023 15:01-0400 Body height 185.4 cm Quintin Perkins MD Work Phone: [facility] 11-20-2023 15:01-0400 Body mass index (BMI) [Ratio] 26.78 kg/m2 Quintin Perkins MD Work Phone: [facility] 11-20-2023 15:01-0400 Body weight 92.08 kg Quintin Perkins MD Work Phone: [facility] 11-20-2023 15:01-0400 Diastolic blood pressure 92 mm[Hg] Quintin Perkins MD Work Phone: [facility] 11-20-2023 15:01-0400 Heart rate 83 /min Quintin Perkins MD Work Phone: [facility] 11-20-2023 15:01-0400 Systolic blood pressure 153 mm[Hg] Quintin Perkins MD Work Phone: [facility] 07-04-2023 12:15-0500 Body height 182.88 cm [facility] Other 07-04-2023 12:15-0500 Body mass index (BMI) [Ratio] 28.07 kg/m2 [facility] Other 07-04-2023 12:15-0500 Body weight 93.9 kg [facility] Other 02-13-2023 10:45-0400 Body height 182.88 cm [facility] Other 02-13-2023 10:45-0400 Body mass index (BMI) [Ratio] 28.07 kg/m2 [facility] Other 02-13-2023 10:45-0400 Body weight 93.9 kg [facility] Other 02-13-2023 10:45-0400 Diastolic blood pressure 82 mm[Hg] [facility] Other 02-13-2023 10:45-0400 Respiratory rate 12 /min [facility] Other 02-13-2023 10:45-0400 Systolic blood pressure 169 mm[Hg] [facility] Other 10-13-2022 14:00-0500 Body height 182.88 cm [facility] Other 10-13-2022 14:00-0500 Body mass index (BMI) [Ratio] 28.91 kg/m2 [facility] Other 10-13-2022 14:00-0500 Body weight 96.71 kg [facility] Other 10-13-2022 14:00-0500 Diastolic blood pressure 68 mm[Hg] [facility] Other 10-13-2022 14:00-0500 Respiratory rate 20 /min [facility] Other [facility] Other 10-13-2022 14:00-0500 Systolic blood pressure 118 mm[Hg] [facility] Other Clinical Notes 10-13-2022 to 11-20-2023 Quintin Perkins MD - 11/20/2023 2:45 PM EDTTelephone Encounter - Emma E Pete - 09/07/2023 11:48 AM ESTTelephone Encounter - Emma E Pete - 09/07/2023 11:48 AM EST Note Date & Type Note Facility 11-20-2023 History of Presen t illness Narrative Images from the original note were not included. [address] [place] [address] [place] [id number] Patient: Juan Oates Date of : 1935 Encounter Date: 11/20/2023 History of Present Illness: The patient is a 87 y.o. male, an established patient, and is here for followup. He has a history of kidney stones and had a right ureteroscopy and a left percutaneous nephrolithotomy in March 2018. Also has a history of urinary retention. He was going to get a turp but elected not to proceed and has been performing intermittent self catheterization about 3 times per day. He is able to void about half of his bladder volume and then drains the rest with the catheter. He occasionally but not often gets a symptomatic breakthrough infection. he has a known right nonobstructing renal stone which is being followed and remains stable. Additionally patient with hypogonadism and had been on testosterone injections. This was switched to testopel injection June 2023 His follow-up blood work shows a normal testosterone still. Did a KUB which we reviewed together showing a stable right renal stone. He possibly has a small left renal stone on KUB which was not present on a CT in December 2022. Summary of old records: Urinalysis today: No results for input(s): EXTPOCURCO , EXTPOCURCH , EXTPOCAPP , EXTPOCURBS , EXTPOCURBIL , EXTPOCUKET , EXTPOCUSPG , EXTPOCUHGB , EXTPOCUPRO , EXTPOCUURO , EXTPOCULEU , EXTPOCUNIT , EXTPOCUWBC , EXTPOCUBLD , EXTPOCURBC , EXTPOCUCRY , EXTPOCUBAC , EXTPOCUTREP , EXTPOCUPH in the last 72 hours. Last BUN and creatinine: Lab Results Component Value Date BUN 8 01/02/2023 Lab Results Component Value Date CREATININE 0.77 01/02/2023 Last PSA: Lab Results Component Value Date PSA 3.19 11/20/2022 PSA 2.01 05/07/2019 PSA 1.46 03/09/2018 PSA 1.21 10/16/2017 PSA 1.22 03/28/2017 No results found for: PROSTATICSP Additional Lab/Culture results: None Imaging Reviewed during this Office Visit: None (Results were independently reviewed by physician and radiology report verified) Past Medical, Family, and Social History Update: The following portions of the patient's history were reviewed and updated as appropriate: allergies, current medications, past family history, past medical history, past social history, past surgical history and problem list. Past Medical History: Diagnosis Date Anemia Arthritis Back pain Benign prostatic hypertrophy without urinary obstruction Calculus, renal Disease of thyroid gland Hypertension Hypogonadism in male Hypothyroidism Sleep apnea has cpap doesnt use Urinary retention Urinary tract infection Visual impairment glasses Past Surgical History: Procedure Laterality Date ADENOIDECTOMY COLECTOMY COLONOSCOPY COLONOSCOPY N/A 01/02/2023 Performed by Loyd Marvin MD at [facility] CYSTO RETROGRADE GENERAL Right 09/23/2019 Performed by Quintin Perkins MD at [facility] CYSTOSCOPY HOLMIUM LASER BLADDER STONE N/A 03/12/2018 Performed by Quintin Perkins MD at [facility] CYSTOSCOPY HOLMIUM LASER URETEROSCOPY Right 09/23/2019 Performed by Quintin Perkins MD at [facility] CYSTOSCOPY HOLMIUM LASER URETEROSCOPY Left 03/12/2018 Performed by Quintin Perkins MD at [facility] CYSTOSCOPY INSERTION STENT Left 03/26/2018 Performed by Quintin Rangel MD at [facility] CYSTOSCOPY INSERTION STENT Bilateral 03/12/2018 Performed by Quintin Perkins MD at [facility] CYSTOSCOPY RETROGRADE PYELOGRAM Bilateral 03/12/2018 Performed by Quintin Perkins MD at [facility] CYSTOSCOPY URETEROSCOPY Right 03/12/2018 Performed by Quintin Perkins MD at [facility] CYSTOSCOPY URETEROSCOPY LEFT WITH HOLMIUM LASER; LEFT STENT REPLACEMENT Left 04/10/2018 Performed by Quintin Perkins MD at [facility] CYTOSCOPY WITH INSERTION BALLOON OCCLUSION CATHETER RIGHT Right 04/10/2018 Performed by Quintin Perkins MD at [facility] EXAM UNDER ANESTHESIA DIGITAL RECTAL N/A 06/10/2019 Performed by Quintin Perkins MD at [facility] EXTRACORPOREAL SHOCK WAVE LITHOTRIPSY Right 06/10/2019 Performed by Quintin Prekins MD at [facility] LITHOTRIPSY PARATHYROIDECTOMY PERCUTANEOUS NEPHROLITHOTOMY KIDNEY RIGHT Right 04/10/2018 Performed by Quintin Perkins MD at [facility] TESTOSTERONE TOTAL, 06/20/10 pellets implanted TONSILLECTOMY Family History Problem Relation Age of Onset Cancer Mother Heart attack Father Anesthesia problems Neg Hx Current Outpatient Medications Medication Sig Dispense Refill ascorbic acid, vitamin C, (VITAMIN C) 1000 mg tablet Take 1 tablet (1,000 mg total) by mouth in the morning. b complex vitamins capsule Take 1 capsule by mouth in the morning. coenzyme Q10 30 mg capsule Take 1 capsule (30 mg total) by mouth in the morning and 1 capsule (30 mg total) before bedtime. DOCOSAHEXANOIC ACID/EPA (FISH OIL ORAL) Take 1 capsule by mouth daily. garlic 1 mg capsule Take 1 capsule by mouth daily. milk thistle 175 mg tablet Take 1 tablet (175 mg total) by mouth in the morning. MULTIVITAMIN (MULTIPLE VITAMINS ORAL) Take 1 tablet by mouth daily. thyroid, pork, (ARMOUR) 120 mg tablet Take 1 tablet (120 mg total) by mouth nightly. HYDROcodone-acetaminophen (NORCO) 5-325 mg per tablet Take 1 tablet by mouth every 6 (six) hours as needed for pain for up to 8 doses. Max Daily Amount: 4 tablets (Patient not taking: Reported on 12/30/2022) 8 tablet 0 No current facility-administered medications for this visit. (All medications reviewed and updated by provider since last office visit or hospitalization) Allergies: Patient has no known allergies. Tobacco History: Social History Tobacco Use Smoking Status Never Smokeless Tobacco Former Types: Snuff Quit date: 04/03/1988 (If patient a smoker, smoking cessation counseling offered) Social History: Social History Substance and Sexual Activity Alcohol Use Yes Alcohol/week: 20.0 standard drinks of alcohol Types: 20 Cans of beer per week Comment: 2-3 drinks per day Review of Systems: General: Negative for chills and fever. Cardiovascular: Negative for chest pain and shortness of breath. Gastrointestinal: Negative for constipation, diarrhea, nausea, and vomitting. Physical Exam: BP (!) 153/92 Pulse 83 Ht 185.4 cm (6' 1 ) Wt 92.1 kg (203 lb) BMI 26.78 kg/m Assessment and Plan: Dejan was seen today for follow-up. Diagnoses and all orders for this visit: Calculus of other lower urinary tract location Hypogonadism male - X-ray abdomen ap 1 view; Future - Testosterone; Standing Problem List Endocrine Hypogonadism male Overview Hypogonadism treated successfully with AndroGel 5 g per day 04/02/18: He had decreased the use of this and is having fatigue. Recommended using daily 05/07/19: Refilled today. Will check labs and call with results 09/21/22: Recently started testosterone injections. He is not sure if it is helping with his fatigue we discussed a drug holiday. He will take this into consideration. We will check his testosterone levels in 1 week. 10/06/22: It appears he has decided to continue with injections 11/14/22: Doing well using testosterone replacement. vcheck labs now, 6 months and a year 07/03/23: testopel 6 pellets 11/20/23: Follow-up testosterone still normal. Plan to recheck monthly and replace testopel when hypo gonadal Relevant Orders X-ray abdomen ap 1 view Testosterone Genitourinary Stones, urinary tract - Primary Overview Bilateral ureteral stones, right partial staghorn 03/1303/12/18: Left ureteroscopy with laser of stone, right stent placement, no ureteral calculus, bladder stone seen next to ureter orifice which was removed 03/26/18: Left proximal stone s/p stent 04/02/18: Plan for right pcnl and left ureteroscopy with laser lithotripsy 05/07/19: 8-9 mm nonobstructing stone in the right kidney detected on CT from October 2018 and KUB 05/06/2019. Options discussed. He would like to undergo treatment, but would like some time to decide between ureteroscopy and ESWL. He will call with his decision 06/10/19: ESWL 06/24/19: KUB ordered. Will call with results 09/23/19: Right renal calcifications seen on KUB, additionally seen on CT; cysto showing bladder stone, right ureteroscopy with intrarenal calcifications, none within collecting system. Bladder stone removed with laser 10/08/19: Doing well after the procedure. We will see him back in 4 months with KUB or sooner if any problems 02/11/20: KUB shows 8mm calcification over right kidney which appears to be the same stone that was found to be parenchymal. He has had some bilateral lower back pain. Description is more consistent with a musculoskeletal issue but he wants to rule out Urologic source. We will check renal US to make sure there is no obstruction. 08/17/20: Plan kub when returns 04/20/21: Chronic lower back pain. Wants to make sure no new stones. We will check KUB and call with results. 04/21/21: KUB with bowel content. Right parenchymal stone visible but no other obvious stones 06/15/21: Bilateral lower back pain. No CVA tenderness. Appears to be musculoskeletal. 10/11/21: Stable stone right 01/18/22: Recent back pain. KUB stable. By description, his pain appears to be musculoskeletal. 11/14/22: kub with stable right calcifications. Plan KUB 1 year 11/20/23: kub with stable right calcifications, possible left small stone. Plan kub 1 year Follow-up: Quintin Perkins MD This note was created with the assistance of a speech recognition program. While intending to generate a timely document that accurately reflects the content of the visit, no guarantee can be provided that every grammatical or spelling mistake has been or will be identified or corrected. Thank you for your understanding. [facility] encounter [facility]-07-2023 Miscellaneous Notes Formattin g of this note might be different from the original. 09/07/23-Test[employer]el auth # [id number] good 04/03/23 to 08/26/24//fw-pgus documented in this encounter [facility] 09-07-2023 Telephone encount er Note 09/07/23-[employer] auth # [id number] good 04/03/23 to 08/26/24//fw-pgus [facility] 07-04-2023 Evaluation note Encounter Date Diagnosis Assessment Notes Jun, Subacute maxillary sinusitis (ICD-10 - J01.00) Instructed to use Robitussin or Mucinex for cough, saline or Flonase NS for congestion, Tylenol for pain and fever. Jun, Suspected sleep apnea (ICD-10 - R29.818) STOP BANG 4 Refer to sleep lab [facility] Other 06-20-2023 Evaluation note* Encounter Date Diagnosis Assessment Notes Treatment Notes Treatment Clinical Notes Jan, Seasonal allergic rhinitis due to pollen (ICD-10 - J30.1) Avoid allergens Begin Flonase and Matilda daily Jan, Acute non-recurrent maxillary sinusitis (ICD-10 - J01.00) Instructed to use Robitussin or Mucinex for cough, saline or Flonase NS for congestion, Tylenol for pain and fever. 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 [facility] Other Evaluation note* Diagnosis Calculus of other lower urinary tract location- Primary 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 [facility] Diagnosis Onset Date Resolution Status Benign prostatic hyperplasia with lower urinary tract symptoms acute History of nephrolithiasis a cute Hx of malignant neoplasm of colon acute Hypercholesterolemia acute Hypothyroid acute MARIXA (obstructive sleep apnea) acute Primary osteoarthritis of both knees acute [facility] Work Phone: History general Narrative - Reported* Type Description Date Medical History Androgen deficiency Medical History Primary osteoarthritis of knees, bilateral Medical History Obstructive sleep apnea Medical History Benign non-nodular p rostatic hyperplasia with lower urinary tract symptoms Medical History Acquired autoimmune hypothyroidi sm Medical History Anemia, unspecified type Medical History Malaise Medical History Acute prostatitis without hematu shun Medical History Fatigue Medical History History of colon cancer Medical History History of nephrolithiasis Medical History Hyperlipemia Surgical History CYSTOSCOPY 2019 Surgical History FRAGMENTING OF KIDNEY STONE 201 9 Surgical History COLONOSCOPY 2018 Surgical History HEMICOLECTOMY 2012 Surgical History APPENDECTOMY 2012 Hospitalization History SEE SURGICAL HX [facility] general Narrative - Reported* Type Description Date Medical History Androgen deficiency Medical History Primary osteoarthritis of knees, bilateral Medical History Obstructive sleep apnea Medical History Benign non-nodular p rostatic hyperplasia with lower urinary tract symptoms Medical History Acquired autoimmune hypothyroidi sm Medical History Anemia, unspecified type Medical History Malaise Medical History Acute prostatitis without hematu shun Medical History Fatigue Medical History History of colon cancer Medical History History of nephrolithiasis Medical History Hyperlipemia Surgical History CYSTOSCOPY 2019 Surgical History FRAGMENTING OF KIDNEY STONE 201 9 Surgical History COLONOSCOPY 2018 Surgical History HEMICOLECTOMY 2012 Surgical History APPENDECTOMY 2012 Surgical History Colonoscopy, polypectomy 12/2022 Hospitalization History SEE SURGICAL HX [facility] Other InstructionsNot on filedocumented in this encounter [facility]* Attachments The following attachments cannot be sent through Care Everywhere. * Benign prostatic hyperplasia (enlarged prostate) (Danish) documented in this encounterProThe Rainmaker Group [facility] SystemReason for referral (narrative)* Reason *FU 02/20 Referral for allergy symptoms Diagnosis 1 Seasonal allergic rh initis due to pollen (J30.1) Referral Organization [facility] Jonathon benavidez Referring Provider First Name Main Referring Provider Last Name Jonathon Referring Provider Specialty Internal Me dicine Referred Organization [facility] Referred Provider Saurabh Ramos Referred Address ,[place], [place],[address] Referred Provider Specialty Allergy/Immu nology Referral Priority Routine General Notes Patient w/ tearing, rhinorrhea, cough, phlegm and facial pressure. Requested referral for allergy evaluation. Fadia Oviedo 02/13/2023 12:48:55 PM >received today, notes locked, ins attached, referral faxed [facility] Other Summary Purpose Family History No Family History Records FoundNo Family History Records FoundNo Family History Records FoundNo Family History Records FoundNo Family History Records FoundNo Family History Records Found Advance Directives Latest Code Status on File Code Status Date Activated Date Inactivated Comments Full Code 12/30/2022 8:54 PM 01/03/2023 1:00 PM Code Status History Code Status Date Activated Date Inactivated Comments Full Code 04/08/2018 7:39 PM 04/12/2018 4:49 PM Full Code 03/25/2018 7:09 PM 03/27/2018 1:20 PM Advance Directive Response Recorded Date/ Time Advance Directives No March 28, 2 024 11:29am Chief Complaint and Reason for Visit Chief Complaint lower back pain, kne e pain Reason for Visit Benign prostatic hyp erplasia with lower urinary tract symptoms History of nephrolithiasis Hx of malignant neoplasm of colon Hypercholesterolemia Hypothyroid MARIXA (obstructive sleep apnea) Primary osteoarthritis of both knees Additional Source Comments (unrecognized sect ion and content) No Status Records FoundNo Status Records FoundNo Status Records FoundNo Status Records FoundNo Status Records FoundNo Status Records Found INFORMATION SOURCE (unrecogn ized section and content) DATE CREATED AUTHOR 02/20/2018 [facility] DATE CREATED AUTHOR AUTHOR'S ORGANIZ ATION 07/15/2021 [facility] DATE CREATED AUTHOR AUTHOR'S ORGANIZ ATION 10/19/2022 [facility] DATE CREATED AUTHOR AUTHOR'S ORGANIZ ATION 12/11/2023 [facility] DATE CREATED AUTHOR AUTHOR'S ORGANIZ ATION 01/10/2024 [facility] DATE CREATED AUTHOR AUTHOR'S ORGANIZ ATION 03/15/2024 [facility] REASON FOR VISIT (unrecogniz ed section and content) Reason Comments Follow-up Care Teams (unrecognized sec tion and content) Environmental Epidemiologist Relationship Specialty [place] [address] [place] [id number] PCP - General 03/28/17 Environmental Epidemiologist Relationship Specialty Start Date End Date Main Holt MD [address] [place] [id number] PCP - General Internal Medicine 02/14/23 Environmental Epidemiologist Relationship Specialty [place] [address] [place] [id number] PCP - General 03/28/17 Team Status: Active Member Role Status Dates Main Holt DO Primary Care Provider Active Team Status: Inactive Member Role Status Dates Main Holt DO Primary Care Provide r, Attending Provider Active Start: March 28, 2024 End: March 28, 2024 Goals (unrecognized section and content) Goals may be documented in a n alternate section FOR RECORDS PERTAINING TO PATIENTS WHO ARE OR HAVE BEEN ENROLLED IN A CHEMICAL DEPENDENCY/SUBSTANCEABUSE PROGRAM, SOME INFORMATION MAY BE OMITTED. This clinical summary was aggregated from multiple sources. Caution should be exercised in using it in the provision of clinical care. This summary normalizes information from multiple sources, and as a consequence, information in this document may materially change the coding, format and clinical context of patient data. In addition, data may be omitted in some cases. CLINICAL DECISIONS SHOULD BE BASED ON THE PRIMARY CLINICAL RECORDS. [facility] [employer] [facility]. provides no warranty or guarantee of the accuracy or completeness of information in this document.
[2024-03-29 11:45] LABS: Basophils Percent Auto 0.4 % (0.2-2.0); Eosinophils Percent Auto 0.5 % (0.9-7.0); Hematocrit 41.9 % (42.0-54.0); Hemoglobin 14.3 g/dL (14.0-18.0); Immature Granulocytes Abs Auto 0.02 10^3/uL (0.00-0.03); Immature Granulocytes Pct Auto 0.3 % (0.0-0.5); Lymphocytes Absolute Auto 1.9 10^3/uL (1.2-3.8); Lymphocytes Percent Auto 24.8 % (20.5-60.0); Mean Corpuscular HGB Conc 34.1 g/dL (29.9-35.2); Mean Corpuscular Hemoglobin 33.4 pg (25.9-34.0); Mean Corpuscular Volume 97.9 fL (80.0-94.0); Mean Platelet Volume 9.5 fL (9.5-13.5); Monocytes Absolute Auto 0.8 10^3/uL (0.3-0.8); Monocytes Percent Auto 10.6 % (1.7-12.0); Neutrophils Absolute Auto 4.9 10^3/uL (1.4-6.5); Neutrophils Percent Auto 63.4 % (43.0-75.0); Platelet Count 205 10^3/uL (150-450); Red Blood Count 4.28 10^6/uL (4.70-6.10); Red Cell Distribution Width 11.9 % (11.0-15.0); White Blood Count 7.7 10^3/uL (4.0-11.0)
[2024-03-29 12:19] LABS: Alanine Aminotransferase 15 U/L (16-63); Albumin Globulin Ratio 0.9; Albumin Level 3.2 g/dL (3.4-5.0); Alkaline Phosphatase 126 U/L (46-116); Anion Gap 8.8; Aspartate Amino Transferase 11 U/L (15-37); BUN Creatinine Ratio 15.6; Bilirubin Total 0.7 mg/dL (0.2-1.0); Calcium 8.5 mg/dL (8.5-10.1); Carbon Dioxide 31.3 mmol/L (21.0-32.0); Chloride 102 mmol/L (98-107); Estimated GFR (African America >60 (>=60); Estimated GFR (Non-African Ame >60 (>=60); Globulin 3.4 g/dL; Glucose 93 mg/dL (74-106); Potassium 4.1 mmol/L (3.5-5.1); Sodium 138 mmol/L (136-145); Thyroid Stimulating Hormone 0.996 uIU/mL (0.358-3.740); Total Protein 6.6 g/dL (6.4-8.2)
== END 2024-03-29 11:14 | disposition home or self-care (01) ==
LOC: LAB 11:23
PROVIDERS: PCP Internal Medicine; Visit Provider Internal Medicine
DX: E03.9 Hypothyroidism, unspecified (principal); Z85.038 Personal history of other malignant neoplasm of large intestine; Z87.442 Personal history of urinary calculi; R53.83 Other fatigue
CPT/HCPCS: 36415; 80053; 84443; 85025

== ENCOUNTER 2024-08-13 10:56 | Outpatient (OUT) | payer MEDICARE, SELFPAY ==
[2024-08-13 11:16] LABS: Basophils Percent Auto 0.5 % (0.2-2.0); Eosinophils Absolute Auto 0.1 10^3/uL (0.0-0.7); Eosinophils Percent Auto 1.3 % (0.9-7.0); Hematocrit 37.8 % (42.0-54.0); Hemoglobin 12.1 g/dL (14.0-18.0); Immature Granulocytes Abs Auto 0.01 10^3/uL (0.00-0.03); Immature Granulocytes Pct Auto 0.1 % (0.0-0.5); Lymphocytes Absolute Auto 2.1 10^3/uL (1.2-3.8); Lymphocytes Percent Auto 27.9 % (20.5-60.0); Mean Platelet Volume 9.2 fL (9.5-13.5); Monocytes Percent Auto 12.7 % (1.7-12.0); Neutrophils Absolute Auto 4.3 10^3/uL (1.4-6.5); Neutrophils Percent Auto 57.5 % (43.0-75.0); Platelet Count 221 10^3/uL (150-450); Red Blood Count 3.78 10^6/uL (4.70-6.10); Red Cell Distribution Width 12.8 % (11.0-15.0); White Blood Count 7.5 10^3/uL (4.0-11.0)
--- OUTSIDE RECORDS SUMMARY | 2024-08-13 11:18 | XMS_ITS | CCD ---
Author Organization [facility] Care Team Providers Care Salesperson Driver Name Role Phone MAGGIE WYNN Unavailable Unavailable [...] Unavailable BALL, DR MONTANO Primary Care Unavailable FIDEL, FELICIA Consulting Unavailable BALL, DR MONTANO Admitting Unavailable BALL, DR MONTANO Attending Unavailable BALL, DR MOTNANO Primary Care Unavailable BALL, DR MONTANO Admitting Unavailable BALL, DR MONTANO Attending Unavailable BALL, DR MONTANO Primary Care Unavailable BALL, DR MONTANO Consulting Unavailable Jonathon, Main Unavailable Main Holt DO Primary Care Provider Main Holt MD Primary Care Provider QUINTIN PERKINS Attending Unavailable NAYLA, QUINTIN Gaspar Referring Unavailable BALL, MAIN Botello Primary Care Unavailable NAYLA, QUINTIN Gaspar Referring Unavailable BALL, MAIN Botello Primary Care Unavailable BALL, MAIN Botello Referring Unavailable BALL, MAIN Botello Primary Care Unavailable NAYLA, QUINTIN G Attending Unavailable BALL, MAIN Botello Referring Unavailable BALL, MAIN Botello Primary Care Unavailable NAYLA, QUINTIN G Attending Unavailable BALL, MAIN Botello Referring Unavailable BALL, MAIN Botello Primary Care Unavailable NAYLA, QUINTIN Gaspar Attending Unavailable BALL, MAIN Botello Referring Unavailable BALL, MAIN Botello Primary Care Unavailable NAYLA, QUINTIN Gaspar Referring Unavailable BALL, MAIN Botello Primary Care Unavailable BALL, MAIN Botello Primary Care Unavailable CHARLEY ORTIZ Attending Unavailable CARMEN GUERRERO I Admitting Unavailable TTH ONLY, [facility] Consulting Unavailable AUGUSTIN COELHO Consulting Unavailable (TTH ONLY), SURGERY TEAM D Consulting Unava iljazmine AVILA, CAS Consulting Unavailable HEMATOLOGY, [facility] Consulting Lexie vailable Allergies Allergy Classification Reported Allergen(s) Allergy Type Date of Onset Reaction(s) Facility (1 source) patient allergy list reviewed by nurse or physicia Propensity to adverse reactions 8 Comment:Done [employer] Other Medications Current Medications Medication Drug Class(es) Dates Sig (Normalized) Sig (Original) acetaminophen 325 mg / HYDROcodone bitartrate 5 mg oral tablet (4 sources) Opioid Agonist Start: 09-23-2019 HYDROcodone-acetam inophen (NORCO) 5-325 mg per tablet Indications: Calculus of other lower urinary tract location Take 1 tablet by mouth every 6 (six) hours as needed for pain for up to 8 doses. Max Daily Amount: 4 tablets 8 tablet 09/23/2019 Active Matilda Hives 24HR 180 MG [...] Active ascorbic acid 1000 mg oral tablet (4 sources) Vitamin C take 1 tablet by mouth in the morning ascorbic acid, vitamin C, (VITAMIN C) 1000 mg tablet Take 1 tablet (1,000 mg total) by mouth in the morning. Active azelastine hydrochloride 0.5 mg/ml ophthalmic solution (1 source) Histamine-1 Receptor Antagonist Start: 05-14-2023 End: 05-13-2024 take 1 drop(s) into the eye(s) in the morning azelastine (Optivar) 0.05 % ophthalmic solution Indications: Allergic rhinitis due to pollen , Xerophthalmia Administer 1 drop into both eyes in the morning and 1 drop before bedtime. 18 mL 3 05/14/2023 05/13/2024 Active b complex vitamins capsule (4 sources) take 1 capsule by mouth in the morning b complex vitamins capsule Take 1 capsule by mouth in the morning. Active take 1 capsule by mouth in the m orning b complex vitamins capsule Take 1 capsule by mouth in the morning. 0 Active cholecalciferol 0.075 mg oral tablet (1 source) Vitamin D cholecalciferol (Vitamin D-3) 75 MCG (3000 UT) tablet Take 7,000 Units by mouth. 0 Active DOCOSAHEXANOIC ACID/EPA (FISH OIL ORAL) (4 sources) take 1 capsule by mouth once daily DOCOSAHEXANOIC ACID/EPA (FISH OIL ORAL) Take 1 capsule by mouth daily. Active take 1 capsule by mouth once aruna ly DOCOSAHEXANOIC ACID/EPA (FISH OIL ORAL) Take 1 [...] Active Fish Oils (1 source) omega-3 (FISH OIL) 300 MG capsule 1,000 mg. 0 Active fluticasone propionate 0.05 mg/actuat metered dose nasal spray (2 sources) Corticosteroid Start: take 1 spray(s) nasal route once daily Flonase Allergy Relief 50 MCG/ACT 1 spray in each nostril Nasally Once a day for 30 days Jan, Active garlic preparation 1 mg oral capsule (4 sources) Non-Standardized Food Allergenic Extract take 1 capsule by mouth once daily garlic 1 mg capsule Take 1 capsule by mouth daily. Active take 1 capsule by mouth once aruna ly garlic 1 mg capsule Take 1 capsule by mouth daily. 0 Active ipratropium bromide 0.042 mg/actuat metered dose nasal spray (1 source) Anticholinergic Start: 03-07-2023 End: 03-06-2024 take 2 spray(s) nasal route in the [...] milk thistle extract 175 mg oral capsule (5 sources) take 1 tablet by mouth in the morning milk thistle 175 mg tablet Take 1 tablet (175 mg total) by mouth in the morning. Active take 175 mg by mouth in the morn ing MILK THISTLE EXTRACT PO Take 175 mg by mouth in the morning. 0 Active take 1 tablet by mouth in the mo rning milk thistle 175 mg tablet Take 1 tablet (175 mg total) by mouth in the morning. 0 Active multivitamin (Theragran) tablet (1 source) take 1 tablet by humberto th in the morning multivitamin (Theragran) tablet Take 1 tablet by mouth in the morning. 0 Active Multivitamin preparation (4 sources) take 1 tablet by humberto th once daily MULTIVITAMIN (MULTIPLE VITAMINS ORAL) Take 1 tablet by mouth daily. Active take 1 tablet by mouth once lena y MULTIVITAMIN (MULTIPLE VITAMINS ORAL) Take 1 tablet by mouth daily. 0 Active tamsulosin hydrochloride 0.4 mg oral capsule (1 source) alpha-Adrenergic Ankur take 1 capsule by mouth every twenty-four hours in the morning tamsulosin (Flomax) 0.4 MG 24 hr capsule Take 0.4 mg by mouth in the morning. 0 Active thiamine 100 mg oral tablet (1 source) take 1 tablet by mouth in the morning thiamine (Vitamin B-1) 100 MG tablet Take 100 mg by mouth in the morning. 0 Active Thyroid (Pork) ([place] Thyroid) 60 mg tablet (1 source) Start: 024 take 1 tablet by mouth once daily Thyroid (Pork) ([place] Thyroid) 60 mg tablet Active 60 MG PO Daily 90 90 October 15, 2023 1:00am thyroid (alf) 120 mg oral tablet (8 sources) take 1 tablet by mouth once daily thyroid, pork, (ARMOUR) 120 mg tablet Take 1 tablet (120 mg total) by mouth nightly. Active take 1 tablet by mouth once lena y thyroid ([place]oughton) 60 MG tablet Take 60 mg by mouth 1 (one) time each day at the same time. 0 Active ubidecarenone 30 mg oral capsule (5 sources) take 1 capsule by mo uth once in the morning, then take 1 capsule by mouth at bedtime coenzyme Q10 30 mg capsule Take 1 capsule (30 mg total) by mouth in the morning and 1 capsule (30 mg total) before bedtime. Active take 1 capsule by mouth in the m orning co-enzyme Q-10 30 MG capsule Take 30 mg by mouth in the morning and 30 mg in the evening. 0 Active Completed/Discontinued Medications Medication Drug Class(es) Dates Sig (Normalized) Sig (Original) testosterone 75 mg drug implant (5 sources) Androgen Start: 07-08-2024 End: 07-08-2024 testosterone (TESTOPEL) implant 450 mg Start: 07-08-2024 End: 07-08-2024 450 mg, implant, Once, On 07/08/24 at 1645, For 1 dose, HAZARDOUS - Handle with care Start: 02-08-2023 testosterone c ypionate (Depo-Testosterone) 200 MG/ML injection Inject 200 mg into the shoulder, thigh, or buttocks every 14 (fourteen) days. 0 02/08/2023 Active Start: 05-07-2019 End: 11-20-2023 testosterone (ANDROGEL) 1 % (50 mg/5 gram) gel in packet Indications: Hypogonadism in male Place 1 packet (50 mg total) on the skin daily. 30 packet 5 05/07/2019 11/20/2023 Discontinued Problems Active Problems Problem Classification Problem Date Documented Da te Episodic/Chronic Aortic; peripheral; and visceral artery aneurysms (1 source) Dilatation of aorta; Translations: [Thoracic aortic ectasia] Onset: 9 Chronic Cancer of colon (7 sources) History of malignant neoplasm of colon; Translations: [Personal history of other malignant neoplasm of large intestine] Onset: 6 03-27-2024 Episodic Complications of surgical procedures or medical care (2 sources) Postoperative hypothyroidism; Translations: [Postprocedural hypothyroidism] Onset: 6 02-20-2023 Chronic Deficiency and other anemia (4 sources) Anemia; Translations: [Anemia, unspecified] Episodic Disorders of lipid metabolism (11 sources) Hyperlipidemia, unspecified; Translations: [Hypercholesterolemia] Onset: 2 Chronic Diverticulosis and diverticulitis (6 sources) Diverticular disease; Translations: [Diverticulosis of intestine, part unspecified, without perforation or abscess without bleeding] Onset: 3 Resolved: 3 01-03-2023 Chronic Gastrointestinal hemorrhage (10 sources) Gastrointestinal hemorrhage, unspecified; Translations: [Blood-tinged feces] Onset: 7 Resolved: 3 01-03-2023 Episodic Genitourinary symptoms and ill-defined conditions (1 source) Delay when starting to pass urine; Translations: [Hesitancy of micturition] Episodic Hyperplasia of prostate (14 sources) Lower urinary tract symptoms due to benign prostatic hypertrophy; Translations: [Benign prostatic hyperplasia with lower urinary tract symptoms] Onset: 6 Resolved: 3 10-11-2021 Chronic Inflammation; infection of eye (except that caused by tuberculosis or sexually transmitteddisease) (6 sources) Unspecified blepharitis unspecified eye, unspecified eyelid; Translations: [Acute conjunctivitis] Onset: 3 Episodic Inflammatory conditions of male genital organs (4 sources) Acute prostatitis; Translations: [Acute prostatitis] Episodic Malaise and fatigue (9 sources) Other fatigue; Translations: [Other malaise] Onset: 2 Episodic Osteoarthritis (7 sources) Bilateral arthritis of knees; 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] Onset: 3 Resolved: 3 02-20-2023 Chronic Other connective tissue disease (1 source) Other symptoms and signs involving the nervous system Episodic Other ear and sense organ disorders (2 sources) Sensorineural hearing loss, bilateral; Translations: [Sensorineural hearing loss, bilateral] Onset: 3 02-20-2023 Chronic Other ear and sense organ disorders (5 sources) Hearing loss; Translations: [Unspecified hearing loss, unspecified ear] Onset: 9 Resolved: 3 11-12-2018 Chronic Other endocrine disorders (7 sources) Testicular hypofunction; Translations: [TESTICULAR HYPOFUNCTION] Onset: 2 Chronic Other endocrine disorders (3 sources) Deficiency of testosterone biosynthesis; 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 Other endocrine disorders (1 source) Androgen resistance syndrome; 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] Onset: 6 Chronic Other endocrine disorders (1 source) Testicular hypofunction; 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 Other endocrine disorders (1 source) Hyperparathyroidism; Translations: [Hyperparathyroidism, unspecified] Chronic Other endocrine disorders (7 sources) Male hypogonadism; Translations: [Testicular hypofunction] Onset: 7 Resolved: 3 07-03-2023 Chronic Other fractures (1 source) Fracture of one rib; Translations: [Fracture of one rib, right side, subsequent encounter for fracture with routine healing] Episodic Other injuries and conditions due to external causes (1 source) History of fall; Translations: [History of falling] Episodic Other male genital disorders (5 sources) Male erectile dysfunction, unspecified; Translations: [Impotence of organic origin] Onset: 7 Resolved: 3 11-13-2022 Chronic Other nutritional; endocrine; and metabolic disorders (1 source) Body mass index 30+ - obesity; Translations: [Body mass index 31.0-31.9, adult] Onset: 6 Chronic Other nutritional; endocrine; and metabolic disorders (1 source) Obesity; Translations: [Obesity, unspecified] Onset: 2 Chronic Other nutritional; endocrine; and metabolic disorders (1 source) Simple obesity ; Translations: [Other obesity due to excess calories] Onset: 6 Chronic Other upper respiratory disease (2 sources) Allergic rhinitis due to pollen; Translations: [Allergic rhinitis due to pollen] Chronic Other upper respiratory disease (1 source) Allergic rhinitis due to pollen Chronic Other upper respiratory disease (1 source) Vasomotor rhinitis; 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] Onset: 3 03-07-2023 Chronic Other upper respiratory infections (1 source) Chronic sinusitis; Translations: [Chronic sinusitis, unspecified] Onset: 3 03-01-2023 Chronic Other upper respiratory infections (3 [...] hemorrhage; Translations: [Retinal hemorrhage, unspecified eye] Onset: 9 Chronic Spondylosis; intervertebral disc disorders; other back problems (1 source) Lumbosacral spondylosis without myelopathy; Translations: [Spondylosis without myelopathy or radiculopathy, lumbar region] Chronic Sprains and strains (1 source) Neck sprain; Translations: [Strain of muscle, fascia and tendon at neck level, initial encounter] Episodic Thyroid disorders (13 sources) Autoimmune thyroiditis; 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] Onset: 6 Chronic Unclassified (1 source) Testpel Procedure Onset: 4 Past or Other Problems Problem Classification Problem Date Documented Date Episodic/Chronic Calculus of urinary tract (20 sources) History of calculus of kidney; Translations: [Personal history of urinary calculi] Onset: 03-12-2018 Resolved: 02-20-2023 11-14-2022 Episodic Cancer of colon (5 sources) Malignant tumor of colon; Translations: [Malignant neoplasm of colon, unspecified] Onset: 10-04-2012 Resolved: 02-20-2023 02-20-2023 Chronic Fracture of neck of femur (hip) (1 source) Late effect of fracture of neck of femur; Translations: [Fracture of unspecified part of neck of right femur, sequela] Resolved: 12-13-2021 Episodic Gout and other crystal arthropathies (3 sources) Gout; Translations: [Gout, unspecified] Onset: 09-01-2015 Resolved: 02-20-2023 02-20-2023 Chronic Heart valve disorders (1 source) O/E - cardiac murmur; Translations: [Cardiac murmur, unspecified] Onset: 03-04-2019 Episodic Other aftercare (1 source) Long-term current use of drug therapy; Translations: [Other senior care (current) drug therapy] Resolved: 12-13-2021 Episodic Other circulatory disease (1 source) Cardiovascular symptoms; Translations: [Other specified symptoms and signs involving the circulatory and respiratory systems] Onset: 03-04-2019 Episodic Other ear and sense organ disorders (5 sources) Excessive cerumen in ear canal ; Translations: [Impacted cerumen, bilateral] Onset: 11-12-2018 11-12-2018 Episodic Other ear and sense organ disorders (1 source) Bilateral tinnitus; Translations: [Tinnitus, bilateral] Onset: 02-20-2023 02-20-2023 Episodic Other lower respiratory disease (1 source) Dyspnea; Translations: [Other forms of dyspnea] Onset: 05-15-2016 Episodic Other nutritional; endocrine; and metabolic disorders (1 source) Overweight; Translations: [Overweight] Onset: 05-15-2016 Episodic Septicemia (except in labor) (5 sources) Sepsis; Translations: [Sepsis, unspecified organism] Onset: 04-08-2018 Resolved: 02-20-2023 04-08-2018 Episodic Urinary tract infections (6 sources) Urinary tract infectious disease; Translations: [Urinary tract infection, site not specified] Onset: 06-15-2021 Resolved: 02-20-2023 06-15-2021 Episodic Results Test Name Value Interpretation Reference Range Facility CT CTA ABD AND PELVISon [address] PELVIS CT CTA ABD AND PELVIS *ADDENDUM*Addendum: IMPRESSION: Appropriate three-dimensional MIP reconstructions were obtained. Finalized by Kevin Gonzalez MD on 07/26/2024 10:55 AM Normal [facility] BASIC METABOLIC PANLon 07-22 Anion gap [Moles/Vol] 6 mmol/L Normal 5-15 [facility] Comment on above: Performed By: #### C BCA, CMP, FEPR, 2276-4, 2284-8, 2132-04 #### [facility] ([id number]) [address], [address] [place] [address] Calcium [Mass/Vol] 8.0 mg/dL Low 8.5-10.5 [facility] Comment on above: Performed By: #### C BCA, CMP, FEPR, 2276-4, 2283-8, 2132-04 #### [facility] ([id number]) [address], [address] [place] [address] Chloride [Moles/Vol] 106 mmol/L Normal 98-109 [facility] Comment on above: Performed By: #### C BCA, CMP, FEPR, 6-4, 2283-8, 2132-04 #### [facility] ([id number]) [address], [address] [place] [address] CO2 [Moles/Vol] 29 mmol/L Normal 22-32 [facility] Comment on above: Performed By: #### C BCA, CMP, FEPR, 2275-4, 2283-8, 2132-04 #### [facility] ([id number]) [address], [address] [place] [address] Creatinine [Mass/Vol] 0.85 mg/dL Normal 0.60-1.30 [facility] Comment on above: Result Comment: METH OD TRACEABLE TO IDMS STANDARD Performed By: #### C BCA, CMP, FEPR, 2276-4, 2284-8, 2132-04 #### [facility] ([id number]) [address] [address] [place] [address] GFR/1.73 sq M.predicted among non-blacks MDRD (S/P/Bld) [Vol rate/Area] 84 mL/min/{1.73_m2} Normal >59 [facility] Comment on above: Result Comment: Reported eGFR is based on the CKD-EPI 2020 equation that does not use a race coefficient. Performed By: #### C BCA, CMP, FEPR, 2275-4, 2284-03, 2132-04 #### [facility] ([id number]) [address] [address] [place] [address] Glucose [Mass/Vol] 113 mg/dL High 65-99 [facility] Comment on above: Performed By: #### C BCA, CMP, FEPR, 2275-11, 2284-03, 2132-04 #### [facility] ([id number]) [address] [address] Potassium [Moles/Vol] 4.0 mmol/L Normal 3.5-5.0 [facility] Comment on above: Performed By: #### C BCA, CMP, FEPR, 2275-11, 2284-03, 2132-04 #### [facility] ([id number]) [address] [address] Sodium [Moles/Vol] 141 mmol/L Normal 134-146 [facility] Comment on above: Performed By: #### C BCA, CMP, FEPR, 2275-11, 2284-03, 2132-04 #### [facility] ([id number]) [address] [address] Urea nitrogen [Mass/Vol] 11 mg/dL Normal 5-27 [facility] Comment on above: Performed By: #### C BCA, CMP, FEPR, 2275-4, 2284-03, 2132-04 #### [facility] ([id number]) [address] [address] CBC AND AUTO DIFFon 07-22-20 24 ABSOLUTE BASOPHIL 0.0 X10E9/L Normal 0.0-0.2 [facility] Comment on above: Performed By: #### C BCA, CMP, FEPR, 2275-, 2284-03, 2132-04 #### [facility] ([id number]) [address], [address] [place] [address] ABSOLUTE NEUTROPHIL 5.1 X10E9/L Normal 1.5-6.6 [facility] Comment on above: Performed By: #### C BCA, CMP, FEPR, 2275-11, 2284-03, 2132-04 #### [facility] ([id number]) [address], [address] [place] [address] Basophils/100 WBC (Bld) 0.3 % Normal [facility] Comment on above: Performed By: #### C BCA, CMP, FEPR, 2275-11, 2284-03, 2132-04 #### [facility] ([id number]) [address], [address] [place] [address] Eosinophils (Bld) [#/Vol] 0.1 10*3/uL Normal 0.0-0.4 [facility] Comment on above: Performed By: #### C BCA, CMP, FEPR, 2275-11, 2284-03, 2132-04 #### [facility] ([id number]) [address], [address] [place] [address] Eosinophils/100 WBC (Bld) 0.8 % Normal [facility] Comment on above: Performed By: #### C BCA, CMP, FEPR, 2275-11, 2284-03, 2132-04 #### [facility] ([id number]) [address], [address] [place] [address] Erythrocyte distribution width (RBC) [Ratio] 13.4 % Normal 11.5-15.0 [facility] Comment on above: Performed By: #### C BCA, CMP, FEPR, 2275-11, 2284-03, 2132-04 #### [facility] ([id number]) [address], [address] [place] [address] Hematocrit (Bld) [Volume fraction] 26.9 % Low 39-49 [facility] Comment on above: Performed By: #### C BCA, CMP, FEPR, 2275-4, 2284-03, 2132-04 #### [facility] ([id number]) [address], [facility] [address] [place] [address] Hemoglobin (Bld) [Mass/Vol] 9.2 g/dL Low 13.0-17.0 [facility] Comment on above: Performed By: #### C BCA, CMP, FEPR, 2275-4, 2284-03, 2132-04 #### [facility] ([id number]) [address] [address] Lymphocytes (Bld) [#/Vol] 1.8 10*3/uL Normal 1.0-3.5 [facility] Comment on above: Performed By: #### C BCA, CMP, FEPR, 2275-4, 2284-03, 2132-04 #### [facility] ([id number]) [address], [address] [address] Lymphocytes/100 WBC (Bld) 22.5 % Normal [facility] Comment on above: Performed By: #### C BCA, CMP, FEPR, 2275-4, 2284-03, 2132-04 #### [facility] ([id number]) [address], [facility] [address] [place] [address] MCH (RBC) [Entitic mass] 33.6 pg Normal 27-34 [facility] Comment on above: Performed By: #### C BCA, CMP, FEPR, 2275-4, 2284-03, 2132-04 #### [facility] ([id number]) [address], [address] [place] [address] MCHC (RBC) [Mass/Vol] 34.4 g/dL Normal 32-36 [facility] Comment on above: Performed By: #### C BCA, CMP, FEPR, 2276-4, 2284-8, 2132-04 #### [facility] ([id number]) [address], [address] [place] [address] MCV (RBC) [Entitic vol] 98 fL Normal 80-100 [facility] Comment on above: Performed By: #### C BCA, CMP, FEPR, 2276-4, 2284-8, 2132-04 #### [facility] ([id number]) [address], [address] [place] [address] Monocytes (Bld) [#/Vol] 1.1 10*3/uL High 0-0.9 [facility] Comment on above: Performed By: #### C BCA, CMP, FEPR, 2276-4, 228-8, 2132-04 #### [facility] ([id number]) [address], [address] [place] [address] Monocytes/100 WBC (Bld) 13.7 % Normal [facility] Comment on above: Performed By: #### C BCA, CMP, FEPR, 2276-4, 228-8, 2132-04 #### [facility] ([id number]) [address], [address] [place] [address] Neutrophils/100 WBC (Bld) 62.7 % Normal [facility] Comment on above: Performed By: #### C BCA, CMP, FEPR, 2276-4, 228-8, 2132-04 #### [facility] ([id number]) [address], [address] [place] [address] Platelet mean volume (Bld) [Entitic vol] 7.7 fL Normal 7-12 [facility] Comment on above: Performed By: #### C BCA, CMP, FEPR, 2276-4, 2284-8, 2132-04 #### [facility] ([id number]) [address], [address] [place] [address] Platelets (Bld) [#/Vol] 204 10*3/uL Normal 150-450 [facility] Comment on above: Performed By: #### C BCA, CMP, FEPR, 2276-4, 2283-8, 2132-04 #### [facility] ([id number]) [address], [address] [place] [address] RBC COUNT 2.75 X10E12/L Low 4.10-5.70 [facility] Comment on above: Performed By: #### C BCA, CMP, FEPR, 2275-4, 2283-, 2132-04 #### [facility] ([id number]) [address], [address] [place] [address] WBC (Bld) [#/Vol] 8.1 10*3/uL Normal 4.0-11.0 [facility] Comment on above: Performed By: #### C BCA, CMP, FEPR, 6-4, 2283-, 2132-04 #### [facility] ([id number]) [address], [address] [place] [address] BASIC METABOLIC PANLon 07-21 Anion gap [Moles/Vol] 10 mmol/L Normal 5-15 [facility] Comment on above: Performed By: #### C BCA, CMP, FEPR, 2275-4, 2283-, 2132-04 #### [facility] ([id number]) [address], [address] [place] [address] Calcium [Mass/Vol] 7.9 mg/dL Low 8.5-10.5 [facility] Comment on above: Performed By: #### C BCA, CMP, FEPR, 2276-4, 2283-8, 2132-04 #### [facility] [facility] ([id number]) [address], [address] [place] [address] Chloride [Moles/Vol] 106 mmol/L Normal 98-109 [facility] Comment on above: Performed By: #### C BCA, CMP, FEPR, 2275-4, 2283-8, 2132-04 #### [facility] ([id number]) [address], [address] [place] [address] CO2 [Moles/Vol] 28 mmol/L Normal 22-32 [facility] Comment on above: Performed By: #### C BCA, CMP, FEPR, 2275-4, 8, 2132-04 #### [facility] ([id number]) [address] [address] [place] [address] Creatinine [Mass/Vol] 0.64 mg/dL Normal 0.60-1.30 [facility] Comment on above: Result Comment: METH OD TRACEABLE TO IDMS STANDARD Performed By: #### C BCA, CMP, FEPR, 2275-4, 8, 2132-04 #### [facility] ([id number]) [address], [facility] [address] [place] [address] eGFR (CKD-EPI) NON-RACE DEPENDENT >90 Normal >59 [facility] Comment on above: Result Comment: Reported eGFR is based on the CKD-EPI 2020 equation that does not use a race coefficient. Performed By: #### C BCA, CMP, FEPR, 2275-4, 2284-03, 2132-04 #### [facility] ([id number]) [address], [address] [place] [address] Glucose [Mass/Vol] 92 mg/dL Normal 65-99 [facility] Comment on above: Performed By: #### C BCA, CMP, FEPR, 2275-4, 2284-03, 2132-04 #### [facility] ([id number]) [address] [address] [place] [address] Potassium [Moles/Vol] 3.8 mmol/L Normal 3.5-5.0 [facility] Comment on above: Performed By: #### C BCA, CMP, FEPR, 2275-4, 2284-03, 2132-04 #### [facility] ([id number]) [address], [address] [place] [address] Sodium [Moles/Vol] 144 mmol/L Normal 134-146 [facility] Comment on above: Performed By: #### C BCA, CMP, FEPR, 2275-4, 2284-03, 2132-04 #### [facility] ([id number]) [address], [address] [place] [address] Urea nitrogen [Mass/Vol] 7 mg/dL Normal 5-27 [facility] Comment on above: Performed By: #### C BCA, CMP, FEPR, 2275-11, 2284-03, 2132-04 #### [facility] ([id number]) [address], [address] [place] [address] CBC AND AUTO DIFFon 11-25-20 24 ABSOLUTE BASOPHIL 0.0 X10E9/L Normal 0.0-0.2 [facility] Comment on above: Performed By: #### C BCA, CMP, FEPR, 2275-, 2284-03, 2132-04 #### [facility] ([id number]) [address], [address] [place] [address] ABSOLUTE NEUTROPHIL 3.2 X10E9/L Normal 1.5-6.6 [facility] Comment on above: Performed By: #### C BCA, CMP, FEPR, 2275-4, 2284-03, 2132-04 #### [facility] ([id number]) [address] [address] [place] [address] Basophils/100 WBC (Bld) 0.6 % Normal [facility] Comment on above: Performed By: #### C BCA, CMP, FEPR, 2275-4, 2284-03, 2132-04 #### [facility] ([id number]) [address], [address] [place] [address] Eosinophils (Bld) [#/Vol] 0.0 10*3/uL Normal 0.0-0.4 [facility] Comment on above: Performed By: #### C BCA, CMP, FEPR, 2275-11, 2284-03, 2132-04 #### [facility] ([id number]) [address], [facility] [address] [place] [address] Eosinophils/100 WBC (Bld) 0.8 % Normal [facility] Comment on above: Performed By: #### C BCA, CMP, FEPR, 2275-11, 2284-03, 2132-04 #### [facility] ([id number]) [address] [address] [place] [address] Erythrocyte distribution width (RBC) [Ratio] 13.4 % Normal 11.5-15.0 [facility] Comment on above: Performed By: #### C BCA, CMP, FEPR, 2275-11, 2284-03, 2132-04 #### [facility] ([id number]) [address] [address] [place] [address] Hematocrit (Bld) [Volume fraction] 27.3 % Low 39-49 [facility] Comment on above: Performed By: #### C BCA, CMP, FEPR, 2275-11, 2284-03, 2132-04 #### [facility] ([id number]) [address] [address] [place] [address] Hemoglobin (Bld) [Mass/Vol] 9.6 g/dL Low 13.0-17.0 [facility] Comment on above: Performed By: #### C BCA, CMP, FEPR, 2275-11, 2284-03, 2132-04 #### [facility] ([id number]) [address] [address] [place] [address] Lymphocytes (Bld) [#/Vol] 1.6 10*3/uL Normal 1.0-3.5 [facility] Comment on above: Performed By: #### C BCA, CMP, FEPR, 2275-, 2284-03, 2132-04 #### [facility] ([id number]) [address], [facility] [address] [place] [address] Lymphocytes/100 WBC (Bld) 28.4 % Normal [facility] Comment on above: Performed By: #### C BCA, CMP, FEPR, 2275-11, 2284-03, 2132-04 #### [facility] ([id number]) [address] [address] MCH (RBC) [Entitic mass] 34.2 pg High 27-34 [facility] Comment on above: Performed By: #### C BCA, CMP, FEPR, 2275-11, 2284-03, 2132-04 #### [facility] ([id number]) [address] [address] MCHC (RBC) [Mass/Vol] 35.2 g/dL Normal 32-36 [facility] Comment on above: Performed By: #### C BCA, CMP, FEPR, 2275-11, 2284-03, 2132-04 #### [facility] ([id number]) [address] [address] MCV (RBC) [Entitic vol] 97 fL Normal 80-100 [facility] Comment on above: Performed By: #### C BCA, CMP, FEPR, 2275-11, 2284-03, 2132-04 #### [facility] ([id number]) [address] [address] [place] [address] Monocytes (Bld) [#/Vol] 0.8 10*3/uL Normal 0-0.9 [facility] Comment on above: Performed By: #### C BCA, CMP, FEPR, 2276-4, 2284-8, 2132-04 #### [facility] ([id number]) [address], [address] [place] [address] Monocytes/100 WBC (Bld) 14.0 % Normal [facility] Comment on above: Performed By: #### C BCA, CMP, FEPR, 2276-4, 228-8, 2132-04 #### [facility] ([id number]) [address], [facility] [address] [place] [address] Neutrophils/100 WBC (Bld) 56.2 % Normal [facility] Comment on above: Performed By: #### C BCA, CMP, FEPR, 2276-4, 2283-8, 2132-04 #### [facility] ([id number]) [address], [facility] [address] [place] [address] Platelet mean volume (Bld) [Entitic vol] 7.9 fL Normal 7-12 [facility] Comment on above: Performed By: #### C BCA, CMP, FEPR, 2276-4, 2283-, 2132-04 #### [facility] ([id number]) [address], [address] [address] Platelets (Bld) [#/Vol] 172 10*3/uL Normal 150-450 [facility] Comment on above: Performed By: #### C BCA, CMP, FEPR, 2276-4, 2284-8, 2132-04 #### [facility] ([id number]) [address] [address] [place] [address] RBC COUNT 2.81 X10E12/L Low 4.10-5.70 [facility] Comment on above: Performed By: #### C BCA, CMP, FEPR, 2276-4, 2284-8, 2132-04 #### [facility] ([id number]) [address], [address] [place] [address] WBC (Bld) [#/Vol] 5.7 10*3/uL Normal 4.0-11.0 [facility] Comment on above: Performed By: #### C BCA, CMP, FEPR, 2276-4, 228-8, 2132-04 #### [facility] ([id number]) [address], [address] [place] [address] CRP [Mass/Vol]on 07-21-2024 C REACTIVE PROTEIN 0.4 mg/dL Normal 0.000-0.744 [facility] Comment on above: Performed By: #### C BCA, CMP, FEPR, 6-4, 2283-8, 2132-04 #### [facility] ([id number]) [address], [address] [place] [address] Calcium.ionized (Bld) [Mass/ Vol]on 07-21-2024 IONIZED CALCIUM 4.6 mg/dL Normal 4.5-5.3 [facility] Comment on above: Performed By: #### C BCA, CMP, FEPR, 2275-4, 2283-8, 2132-04 #### [facility] ([id number]) [address], [address] [place] [address] ESR Photometric method (Bld) [Velocity]on 07-21-2024 ESR, ERYTHROCYTE SEDIMENTATION RATE 1 mm/h Normal 0-20 [facility] Comment on above: Performed By: #### C BCA, CMP, FEPR, 6-4, 2284-8, 2132-04 #### [facility] ([id number]) [address], [address] [place] [address] HGB AND HCTon 07-21-2024 Hematocrit (Bld) [Volume fraction] 29.8 % Low 39-49 [facility] Comment on above: Performed By: #### C BCA, CMP, FEPR, 2276-4, 228-8, 2132-04 #### [facility] ([id number]) [address], [address] [place] [address] Hemoglobin (Bld) [Mass/Vol] 10.4 g/dL Low 13.0-17.0 [facility] Comment on above: Performed By: #### C BCA, CMP, FEPR, 2276-4, 2284-8, 2132-04 #### [facility] ([id number]) [address], [address] [place] [address] Reticulocytes/100 RBC (Bld)o n 07-21-2024 RETICULOCYTE COUNT 1.3 % Normal 0.4-2.2 [facility] Comment on above: Performed By: #### C BCA, CMP, FEPR, 2276-4, 2283-8, 2132-04 #### [facility] ([id number]) [address], [address] [place] [address] BASIC METABOLIC PANLon 07-20 Anion gap [Moles/Vol] 6 mmol/L Normal 5-15 [facility] Comment on above: Performed By: #### C BCA, CMP, FEPR, 2276-4, 2283-8, 2132-04 #### [facility] ([id number]) [address], [address] [place] [address] Calcium [Mass/Vol] 8.1 mg/dL Low 8.5-10.5 [facility] Comment on above: Performed By: #### C BCA, CMP, FEPR, 2276-4, 2284-8, 2132-04 #### [facility] ([id number]) [address], [address] [place] [address] Chloride [Moles/Vol] 105 mmol/L Normal 98-109 [facility] Comment on above: Performed By: #### C BCA, CMP, FEPR, 2276-4, 2284-8, 2132-04 #### [facility] ([id number]) [address], [address] [place] [address] CO2 [Moles/Vol] 32 mmol/L Normal 22-32 [facility] Comment on above: Performed By: #### C BCA, CMP, FEPR, 2275-4, 8, 2132-04 #### [facility] ([id number]) [address], [address] [place] [address] Creatinine [Mass/Vol] 0.78 mg/dL Normal 0.60-1.30 [facility] Comment on above: Result Comment: METH OD TRACEABLE TO IDMS STANDARD Performed By: #### C BCA, CMP, FEPR, 2275-11, 2284-03, 2132-04 #### [facility] ([id number]) [address], [facility] [address] [place] [address] GFR/1.73 sq M.predicted among non-blacks MDRD (S/P/Bld) [Vol rate/Area] 86 mL/min/{1.73_m2} Normal >59 [facility] Comment on above: Result Comment: Reported eGFR is based on the CKD-EPI 2020 equation that does not use a race coefficient. Performed By: #### C BCA, CMP, FEPR, 4, 2284-03, 2132-04 #### [facility] ([id number]) [address], [address] [place] [address] Glucose [Mass/Vol] 100 mg/dL High 65-99 [facility] Comment on above: Performed By: #### C BCA, CMP, FEPR, 2275-4, 2284-03, 2132-04 #### [facility] ([id number]) [address], [address] [place] [address] Potassium [Moles/Vol] 4.1 mmol/L Normal 3.5-5.0 [facility] Comment on above: Performed By: #### C BCA, CMP, FEPR, 2276-4, 2283-8, 2132-04 #### [facility] ([id number]) [address], [address] [place] [address] Sodium [Moles/Vol] 143 mmol/L Normal 134-146 [facility] Comment on above: Performed By: #### C BCA, CMP, FEPR, 6-4, 2283-8, 2132-04 #### [facility] ([id number]) [address], [address] [place] [address] Urea nitrogen [Mass/Vol] 13 mg/dL Normal 5-27 [facility] Comment on above: Performed By: #### C BCA, CMP, FEPR, 6-4, 2283-8, 2132-04 #### [facility] ([id number]) [address], [address] [place] [address] CBC AND AUTO DIFFon 11-24-20 24 ABSOLUTE BASOPHIL 0.0 X10E9/L Normal 0.0-0.2 [facility] Comment on above: Performed By: #### C BCA, CMP, FEPR, 2275-4, 2283-, 2132-04 #### [facility] ([id number]) [address], [address] [place] [address] ABSOLUTE NEUTROPHIL 3.1 X10E9/L Normal 1.5-6.6 [facility] Comment on above: Performed By: #### C BCA, CMP, FEPR, 6-4, 2283-8, 2132-04 #### [facility] ([id number]) [address], [facility] [address] [place] [address] Basophils/100 WBC (Bld) 0.8 % Normal [facility] Comment on above: Performed By: #### C BCA, CMP, FEPR, 2276-4, 2283-8, 2132-04 #### [facility] ([id number]) [address] [place] [address] Eosinophils (Bld) [#/Vol] 0.1 10*3/uL Normal 0.0-0.4 [facility] Comment on above: Performed By: #### C BCA, CMP, FEPR, 6-4, 2283-8, 2132-04 #### [facility] ([id number]) [address], [facility] [address] [place] [address] Eosinophils/100 WBC (Bld) 1.2 % Normal [facility] Comment on above: Performed By: #### C BCA, CMP, FEPR, 2275-, 2284-03, 2132-04 #### [facility] ([id number]) [address] [address] [place] [address] Erythrocyte distribution width (RBC) [Ratio] 13.1 % Normal 11.5-15.0 [facility] Comment on above: Performed By: #### C BCA, CMP, FEPR, 2275-, 2284-03, 2132-04 #### [facility] ([id number]) [address] [address] [place] [address] Hematocrit (Bld) [Volume fraction] 27.7 % Low 39-49 [facility] Comment on above: Performed By: #### C BCA, CMP, FEPR, 2275-, 2284-03, 2132-04 #### [facility] ([id number]) [address] [address] [place] [address] Hemoglobin (Bld) [Mass/Vol] 9.5 g/dL Low 13.0-17.0 [facility] Comment on above: Performed By: #### C BCA, CMP, FEPR, 2275-4, 2284-03, 2132-04 #### [facility] ([id number]) [address] [address] [place] [address] Lymphocytes (Bld) [#/Vol] 1.4 10*3/uL Normal 1.0-3.5 [facility] Comment on above: Performed By: #### C BCA, CMP, FEPR, 2275-, 2284-03, 2132-04 #### [facility] ([id number]) [address] [place] [address] Lymphocytes/100 WBC (Bld) 26.2 % Normal [facility] Comment on above: Performed By: #### C BCA, CMP, FEPR, 2275-, 2284-03, 2132-04 #### [facility] ([id number]) [address], [facility] [address] [place] [address] MCH (RBC) [Entitic mass] 33.5 pg Normal 27-34 [facility] Comment on above: Performed By: #### C BCA, CMP, FEPR, 2275-11, 2284-03, 2132-04 #### [facility] ([id number]) [address], [address] [place] [address] MCHC (RBC) [Mass/Vol] 34.3 g/dL Normal 32-36 [facility] Comment on above: Performed By: #### C BCA, CMP, FEPR, 2275-, 2284-03, 2132-04 #### [facility] ([id number]) [address], [address] [place] [address] MCV (RBC) [Entitic vol] 98 fL Normal 80-100 [facility] Comment on above: Performed By: #### C BCA, CMP, FEPR, 2275-, 2284-03, 2132-04 #### [facility] ([id number]) [address], [address] [place] [address] Monocytes (Bld) [#/Vol] 0.7 10*3/uL Normal 0-0.9 [facility] Comment on above: Performed By: #### C BCA, CMP, FEPR, 2275-, 228-8, 2132-04 #### [facility] ([id number]) [address], [address] [place] [address] Monocytes/100 WBC (Bld) 13.9 % Normal [facility] Comment on above: Performed By: #### C BCA, CMP, FEPR, 2276-4, 228-8, 2132-04 #### [facility] ([id number]) [address], [facility] [address] [place] [address] Neutrophils/100 WBC (Bld) 57.9 % Normal [facility] Comment on above: Performed By: #### C BCA, CMP, FEPR, 2276-4, 2283-8, 2132-04 #### [facility] ([id number]) [address] [address] [place] [address] Platelet mean volume (Bld) [Entitic vol] 7.9 fL Normal 7-12 [facility] Comment on above: Performed By: #### C BCA, CMP, FEPR, 2276-4, 2283-8, 2132-04 #### [facility] ([id number]) [address] [address] Platelets (Bld) [#/Vol] 176 10*3/uL Normal 150-450 [facility] Comment on above: Performed By: #### C BCA, CMP, FEPR, 2276-4, 2284-8, 2132-04 #### [facility] ([id number]) [address] [address] [place] [address] RBC COUNT 2.83 X10E12/L Low 4.10-5.70 [facility] Comment on above: Performed By: #### C BCA, CMP, FEPR, 2276-4, 2284-8, 2132-04 #### [facility] ([id number]) [address] [address] [place] [address] WBC (Bld) [#/Vol] 5.4 10*3/uL Normal 4.0-11.0 [facility] Comment on above: Performed By: #### C BCA, CMP, FEPR, 2275-4, 8, 2132-04 #### [facility] ([id number]) [address] [place] [address] HGB AND HCTon 07-20-2024 Hematocrit (Bld) [Volume fraction] 31.3 % Low 39-49 [facility] Comment on above: Performed By: #### C BCA, CMP, FEPR, 2275-4, 2284-03, 2132-04 #### [facility] ([id number]) [address] [place] [address] Hemoglobin (Bld) [Mass/Vol] 10.8 g/dL Low 13.0-17.0 [facility] Comment on above: Performed By: #### C BCA, CMP, FEPR, 2275-4, 2284-03, 2132-04 #### [facility] ([id number]) [address], [facility] [address] [place] [address] CBC AND AUTO DIFFon 07-19-20 ABSOLUTE BASOPHIL 0.0 X10E9/L Normal 0.0-0.2 [facility] Comment on above: Performed By: #### C BCA, CMP, FEPR, 2275-4, 2284-03, 2132-04 #### [facility] ([id number]) [address] [place] [address] ABSOLUTE NEUTROPHIL 5.2 X10E9/L Normal 1.5-6.6 [facility] Comment on above: Performed By: #### C BCA, CMP, FEPR, 2275-4, 2284-03, 2132-04 #### [facility] ([id number]) [address] [place] [address] Basophils/100 WBC (Bld) 0.5 % Normal [facility] Comment on above: Performed By: #### C BCA, CMP, FEPR, 2275-4, 2283-, 2132-04 #### [facility] ([id number]) [address] [place] [address] Eosinophils (Bld) [#/Vol] 0.0 10*3/uL Normal 0.0-0.4 [facility] Comment on above: Performed By: #### C BCA, CMP, FEPR, 2275-4, 2283-8, 2132-04 #### [facility] ([id number]) [address] [address] [place] [address] Eosinophils/100 WBC (Bld) 0.3 % Normal [facility] Comment on above: Performed By: #### C BCA, CMP, FEPR, 2275-11, 2284-03, 2132-04 #### [facility] ([id number]) [address] [address] [place] [address] Erythrocyte distribution width (RBC) [Ratio] 13.3 % Normal 11.5-15.0 [facility] Comment on above: Performed By: #### C BCA, CMP, FEPR, 2275-4, 2283-, 2132-04 #### [facility] ([id number]) [address] [place] [address] Hematocrit (Bld) [Volume fraction] 30.7 % Low 39-49 [facility] Comment on above: Performed By: #### C BCA, CMP, FEPR, 2275-4, 2283-, 2132-04 #### [facility] ([id number]) [address] [place] [address] Hemoglobin (Bld) [Mass/Vol] 10.6 g/dL Low 13.0-17.0 [facility] Comment on above: Performed By: #### C BCA, CMP, FEPR, 2276-4, 2283-8, 2132-04 #### [facility] ([id number]) [address] [place] [address] Lymphocytes (Bld) [#/Vol] 1.8 10*3/uL Normal 1.0-3.5 [facility] Comment on above: Performed By: #### C BCA, CMP, FEPR, 2276-4, 2283-8, 2132-04 #### [facility] ([id number]) [address] [place] [address] Lymphocytes/100 WBC (Bld) 22.1 % Normal [facility] Comment on above: Performed By: #### C BCA, CMP, FEPR, 6-4, 2283-, 2132-04 #### [facility] ([id number]) [address], [address] [place] [address] MCH (RBC) [Entitic mass] 33.3 pg Normal 27-34 [facility] Comment on above: Performed By: #### C BCA, CMP, FEPR, 2275-4, 2284-03, 2132-04 #### [facility] ([id number]) [address], [address] [place] [address] MCHC (RBC) [Mass/Vol] 34.5 g/dL Normal 32-36 [facility] Comment on above: Performed By: #### C BCA, CMP, FEPR, 2276-4, 2283-8, 2132-04 #### [facility] ([id number]) [address] [place] [address] MCV (RBC) [Entitic vol] 97 fL Normal 80-100 [facility] Comment on above: Performed By: #### C BCA, CMP, FEPR, 2276-4, 2283-8, 2132-04 #### [facility] ([id number]) [address] [place] [address] Monocytes (Bld) [#/Vol] 1.0 10*3/uL High 0-0.9 [facility] Comment on above: Performed By: #### C BCA, CMP, FEPR, 2276-4, 2283-8, 2132-04 #### [facility] ([id number]) [address] [facility] [address] [place] [address] Monocytes/100 WBC (Bld) 12.2 % Normal [facility] Comment on above: Performed By: #### C BCA, CMP, FEPR, 6-4, 2283-, 2132-04 #### [facility] ([id number]) [address], [address] [place] [address] Neutrophils/100 WBC (Bld) 64.9 % Normal [facility] Comment on above: Performed By: #### C BCA, CMP, FEPR, 2275-4, 2283-, 2132-04 #### [facility] ([id number]) [address], [address] [place] [address] Platelet mean volume (Bld) [Entitic vol] 8.1 fL Normal 7-12 [facility] Comment on above: Performed By: #### C BCA, CMP, FEPR, 6-4, 2283-8, 2132-04 #### [facility] ([id number]) [address], [address] [place] [address] Platelets (Bld) [#/Vol] 192 10*3/uL Normal 150-450 [facility] Comment on above: Performed By: #### C BCA, CMP, FEPR, 6-4, 2283-, 2132-04 #### [facility] ([id number]) [address], [address] [place] [address] RBC COUNT 3.18 X10E12/L Low 4.10-5.70 [facility] Comment on above: Performed By: #### C BCA, CMP, FEPR, 2276-4, 2284-8, 2132-04 #### [facility] ([id number]) [address], [address] [place] [address] WBC (Bld) [#/Vol] 8.0 10*3/uL Normal 4.0-11.0 [facility] Comment on above: Performed By: #### C BCA, CMP, FEPR, 2276-4, 2284-8, 2132-04 #### [facility] ([id number]) [address], [address] [place] [address] COMPREHENSIVE METABOLIC PANE Josr 07-19-2024 Albumin [Mass/Vol] 3.4 g/dL Normal 3.2-5.3 [facility] Comment on above: Performed By: #### C BCA, CMP, FEPR, 2276-4, 4-8, 2132-04 #### [facility] ([id number]) [address], [address] [place] [address] ALP [Catalytic activity/Vol] 90 U/L Normal 39-130 [facility] Comment on above: Performed By: #### C BCA, CMP, FEPR, 2276-4, 2283-8, 2132-04 #### [facility] ([id number]) [address], [address] [place] [address] ALT [Catalytic activity/Vol] 6 U/L Normal 0-40 [facility] Comment on above: Performed By: #### C BCA, CMP, FEPR, 2276-4, 2284-8, 2132-04 #### [facility] ([id number]) [address], [address] [place] [address] Anion gap [Moles/Vol] 7 mmol/L Normal 5-15 [facility] Comment on above: Performed By: #### C BCA, CMP, FEPR, 2276-4, 2284-8, 2132-04 #### [facility] ([id number]) [address], [address] [place] [address] AST [Catalytic activity/Vol] 15 U/L Normal 0-41 [facility] Comment on above: Performed By: #### C BCA, CMP, FEPR, 2275-4, 2283-8, 2132-04 #### [facility] ([id number]) [address], [address] [place] [address] Bilirubin [Mass/Vol] 0.6 mg/dL Normal 0.3-1.2 [facility] Comment on above: Performed By: #### C BCA, CMP, FEPR, 2275-4, 2284-03, 2132-04 #### [facility] ([id number]) [address], [address] [place] [address] Calcium [Mass/Vol] 8.0 mg/dL Low 8.5-10.5 [facility] Comment on above: Performed By: #### C BCA, CMP, FEPR, 2275-, 2284-03, 2132-04 #### [facility] ([id number]) [address], [address] [place] [address] Chloride [Moles/Vol] 102 mmol/L Normal 98-109 [facility] Comment on above: Performed By: #### C BCA, CMP, FEPR, 2275-4, 2283-8, 2132-04 #### [facility] ([id number]) [address], [address] [place] [address] CO2 [Moles/Vol] 29 mmol/L Normal 22-32 [facility] Comment on above: Performed By: #### C BCA, CMP, FEPR, 2275-4, 2283-8, 2132-04 #### [facility] ([id number]) [address], [address] [place] [address] Creatinine [Mass/Vol] 0.95 mg/dL Normal 0.60-1.30 [facility] Comment on above: Result Comment: METH OD TRACEABLE TO IDMS STANDARD Performed By: #### C BCA, CMP, FEPR, 2276-4, 2283-8, 2132-04 #### [facility] ([id number]) [address], [address] [place] [address] GFR/1.73 sq M.predicted among non-blacks MDRD (S/P/Bld) [Vol rate/Area] 77 mL/min/{1.73_m2} Normal >59 [facility] Comment on above: Result Comment: Reported eGFR is based on the CKD-EPI 2020 equation that does not use a race coefficient. Performed By: #### C BCA, CMP, FEPR, 6-4, 8, 2132-04 #### [facility] ([id number]) [address], [address] [place] [address] Glucose [Mass/Vol] 98 mg/dL Normal 65-99 [facility] Comment on above: Performed By: #### C BCA, CMP, FEPR, 2275-4, 2284-03, 2132-04 #### [facility] ([id number]) [address], [address] [place] [address] Potassium [Moles/Vol] 4.2 mmol/L Normal 3.5-5.0 [facility] Comment on above: Performed By: #### C BCA, CMP, FEPR, 6-4, 8, 2132-04 #### [facility] ([id number]) [address], [address] [place] [address] Protein [Mass/Vol] 5.9 g/dL Low 6.0-8.0 [facility] Comment on above: Performed By: #### C BCA, CMP, FEPR, 2276-4, 8, 2132-04 #### [facility] ([id number]) [address] [place] [address] Sodium [Moles/Vol] 138 mmol/L Normal 134-146 [facility] Comment on above: Performed By: #### C BCA, CMP, FEPR, 2276-4, 228-8, 2132-04 #### [facility] ([id number]) [address] [place] [address] Urea nitrogen [Mass/Vol] 20 mg/dL Normal 5-27 [facility] Comment on above: Performed By: #### C BCA, CMP, FEPR, 2276-4, 2283-8, 2132-04 #### [facility] ([id number]) [address], [address] [place] [address] FERRITINon 07-19-2024 Ferritin [Mass/Vol] 88 ng/mL Normal 24-336 [facility] Comment on above: Performed By: #### C BCA, CMP, FEPR, 2276-4, 2283-8, 2132-04 #### [facility] ([id number]) [address], [address] [place] [address] Folate [Mass/Vol]on 07-19-20 24 FOLIC ACID 20.9 ng/mL Normal >5.8 [facility] Comment on above: Result Comment: NEW REFERENCE RANGE Performed By: #### C BCA, CMP, FEPR, 2276-4, 2283-8, 2132-04 #### [facility] ([id number]) [address], [address] [place] [address] HGB AND HCTon 07-19-2024 Hematocrit (Bld) [Volume fraction] 28.9 % Low 39-49 [facility] Comment on above: Performed By: #### C BCA, CMP, FEPR, 2276-4, 2284-8, 2132-04 #### [facility] ([id number]) [address] [place] [address] Hemoglobin (Bld) [Mass/Vol] 9.9 g/dL Low 13.0-17.0 [facility] Comment on above: Performed By: #### C BCA, CMP, FEPR, 2276-4, 2283-8, 2132-04 #### [facility] ([id number]) [address], [facility] [address] [place] [address] IRON PROFILEon 07-19-2024 Iron [Mass/Vol] 105 ug/dL Normal 50-212 [facility] Comment on above: Performed By: #### C BCA, CMP, FEPR, 6-4, 2283-8, 2132-04 #### [facility] ([id number]) [address], [address] [address] IRON BINDING 311 ug/dL Normal 250-425 [facility] Comment on above: Performed By: #### C BCA, CMP, FEPR, 6-4, 2283-8, 2132-04 #### [facility] ([id number]) [address] [address] IRON SATURATION 34 % SATURATION Normal 20-50 [facility] Comment on above: Performed By: #### C BCA, CMP, FEPR, 2276-4, 2283-8, 2132-04 #### [facility] ([id number]) [address], [address] [address] Lactate (P marita) [Moles/Vol]o n 07-19-2024 LACTATE W/REFLEX 0.6 mmol/L Normal 0.4-2.0 [facility] Comment on above: Result Comment: Result did not trigger repeat Lactate, re-order if needed. Performed By: #### C BCA, CMP, FEPR, 2276-4, 228-8, 2132-04 #### [facility] ([id number]) [address], [address] [place] [address] PROTIME AND INRon 07-19-2024 INR Coag (PPP) [Relative time] 1.0 {INR} Normal 0.8-1.1 [facility] Comment on above: Performed By: #### P INR, 36759-0 #### [facility] ([id number]) [address], [address] [place] [address] PT Coag (PPP) [Time] 11.6 s Normal 9.8-13.2 [facility] Comment on above: Performed By: #### P INR, 99030-2 #### [facility] ([id number]) [address], [address] [place] [address] VITAMIN B12on 07-19-2024 Cobalamin (Vitamin B12) [Mass/Vol] 425 pg/mL Normal 180-914 [facility] Comment on above: Performed By: #### C BCA, CMP, FEPR, 2276-4, 2284-8, 2131-9 #### [facility] ([id number]) [address], [address] [place] [address] aPTT Coag (PPP) [Time]on aPTT Coag (Bld) [Time] 29 s Normal 26-37 [facility] Comment on above: Performed By: #### P INR, 25962-7 #### [facility] ([id number]) [address], [address] [place] [address] URINE CULTUREon 03-11-2024 Bacteria identified Cx Nom [...] F TOBRAMYCIN S <=1 F TRIMETH/SULFAMETHOXAZOLE S <=/ F Susceptible [facility] Comment on above: Performed By: #### 6 30-4 #### [facility] ([id number]) [address], [address] [place] [address] Testosterone [Mass/Vol]on TESTOSTERONE 0.84 ng/mL Low 1.68-7.46 [facility] Comment on above: Performed By: #### 2 986-8 #### [facility] ([id number]) [address], [address] [place] [address] XR ABDOMEN AP 1 VWon 024 XR [...] Lai MD on 11/14/2023 10:24 AM Normal [facility] COMPLETE BLOOD COUNTon 11-12 Erythrocyte distribution width (RBC) [Ratio] 13.1 % Normal 11.5-15.0 [facility] Comment on above: Performed By: #### C BC, 2986-8, LIVR #### [facility] ([id number]) [address], [address] [place] [address] Hematocrit (Bld) [Volume fraction] 40.8 % Normal 39-49 [facility] Comment on above: Performed By: #### Jones BRICENO, 2986-8, LIVR #### [facility] ([id number]) [address], [address] [place] [address] Hemoglobin (Bld) [Mass/Vol] 13.9 g/dL Normal 13.0-17.0 [facility] Comment on above: Performed By: #### Jones BRICENO, 29868, LIVR #### [facility] ([id number]) [address] [place] [address] MCH (RBC) [Entitic mass] 33.3 pg Normal 27-34 [facility] Comment on above: Performed By: #### Jones BRICENO, 298[address], LIVR #### [facility] ([id number]) [address] [place] [address] MCHC (RBC) [Mass/Vol] 34.2 g/dL Normal 32-36 [facility] Comment on above: Performed By: #### Jones BRICENO [address], LIVR #### [facility] ([id number]) [address] [place] [address] MCV (RBC) [Entitic vol] 98 fL Normal 80-100 [facility] Comment on above: Performed By: #### Jones BRICENO [address], LIVR #### [facility] ([id number]) [address] [place] [address] Platelet mean volume (Bld) [Entitic vol] 8.6 fL Normal 7-12 [facility] Comment on above: Performed By: #### Jones BRICENO [address], LIVR #### [facility] ([id number]) [address], [address] [place] [address] Platelets (Bld) [#/Vol] 206 10*3/uL Normal 150-450 [facility] Comment on above: Performed By: #### Jones BRICENO, 2986-8, LIVR #### [facility] ([id number]) [address], [address] [place] [address] RBC COUNT 4.19 X10E12/L Normal 4.10-5.70 [facility] Comment on above: Performed By: #### Jones BRICENO, 2986-8, LIVR #### [facility] ([id number]) [address] [place] [address] WBC (Bld) [#/Vol] 8.8 10*3/uL Normal 4.0-11.0 [facility] Comment on above: Performed By: #### Jones BRICENO, 2986-8, LIVR #### [facility] ([id number]) [address] [place] [address] LIVER PANELon 11-13-2023 Albumin [Mass/Vol] 4.0 g/dL Normal 3.2-5.3 [facility] Comment on above: Performed By: #### Jones BRICENO, 2986-8, LIVR #### [facility] ([id number]) [address] [place] [address] ALP [Catalytic activity/Vol] 120 U/L Normal 39-130 [facility] Comment on above: Performed By: #### Jones BRICENO, 2986-8, LIVR #### [facility] ([id number]) [address] [place] [address] ALT [Catalytic activity/Vol] 12 U/L Normal 0-40 [facility] Comment on above: Performed By: #### Jones BRICENO, 2986-8, LIVR #### [facility] ([id number]) [address], [address] [place] [address] AST [Catalytic activity/Vol] 16 U/L Normal 0-41 [facility] Comment on above: Performed By: #### Jones BRICENO 2986-8, LIVR #### [facility] ([id number]) [address], [address] [place] [address] Bilirubin [Mass/Vol] 1.0 mg/dL Normal 0.3-1.2 [facility] Comment on above: Performed By: #### Jones , 2986-8, LIVR #### [facility] ([id number]) [address], [address] [place] [address] Bilirubin.direct [Mass/Vol] 0.2 mg/dL Normal 0.0-0.4 [facility] Comment on above: Performed By: #### Jones BRICENO, 2986-8, LIVR #### [facility] ([id number]) [address], [address] [place] [address] Protein [Mass/Vol] 6.7 g/dL Normal 6.0-8.0 [facility] Comment on above: Performed By: #### Jones BRICENO, 2986-8, LIVR #### [facility] ([id number]) [address], [address] [place] [address] Testosterone [Mass/Vol]on TESTOSTERONE 1.74 ng/mL Normal 1.68-7.46 [facility] Comment on above: Performed By: #### Jones BRICENO, 2986-8, LIVR #### [facility] ([id number]) [address], [address] [place] [address] Thyroid Stimulating Hormoneo n 10-17-2022 Thyroid Stimulating Hormone [employer] Other TESTOSTERONE, TOTALon 2022 Testosterone [Mass/Vol] 696 ng/dL Normal 264-916 [facility] Comment on above: Result Comment: Adul t male reference interval is based on a population of healthy nonobese males (BMI <30) between 19 and 39 years old. Nitish et.al. JCEM 2017,102;6211-0362. PMID: [id number]. Performed By: #### T ESTTOT #### [facility] [address] [place] [address] Dr. Fatmata Mays TSHon 10-14-2022 TSH 0.698 uIU/mL Normal 0.358-3.740 [facility] Comment on above: Performed By: #### T SH #### [facility] [address] [place] [address] Dr. Fatmata Mays TESTOSTERONE, TOTALon 2021 Testosterone [Mass/Vol] 34 ng/dL Critically low 264-916 [facility] Comment on above: Result Comment: Adul t male reference interval is based on a population of healthy nonobese males (BMI <30) between 19 and 39 years old. pratik Talbert.al. JCEM 2017,102;4337-6767. PMID: [id number]. Performed By: #### T ESTTOT #### [facility] [address] [place] [address] Dr. Fatmata Mays TSHon 04-24-2022 TSH 0.878 uIU/mL Normal 0.358-3.740 [facility] Comment on above: Performed By: #### T SH #### [facility] [address] [place] [address] Dr. Fatmata Mays CBC AUTO DIFFon 12-12-2021 BASO # 0.0 103/ul Normal 0.0-0.1 [facility] Comment on above: Performed By: #### C BC #### [facility] [address] [place] [address] Dr. Fatmata Mays Basophils/100 WBC (Bld) 0.6 % Normal 0.2-2.0 [facility] Comment on above: Performed By: #### C BC #### [facility] [address] [place] [address] Dr. Fatmata Mays EO # 0.1 103/ul Normal 0.0-0.7 [facility] Comment on above: Performed By: #### C BC #### [facility] [address] [place] [address] Dr. Fatmata Mays Eosinophils/100 WBC (Bld) 1.0 % Normal 0.9-7.0 [facility] Comment on above: Performed By: #### C BC #### [facility] [address] [place] [address] Dr. Fatmata Mays Erythrocyte distribution width (RBC) [Ratio] 13.0 % Normal 11.0-15.0 [facility] Comment on above: Performed By: #### C BC #### [facility] [address] [place] [address] Dr. Fatmata Mays Hematocrit (Bld) [Volume fraction] 41.2 % Critically low 42.0-54.0 [facility] Comment on above: Performed By: #### C BC #### [facility] [address] [place] [address] Dr. Fatmata Mays Hemoglobin (Bld) [Mass/Vol] 13.8 g/dL Critically low 14.0-18.0 [facility] Comment on above: Performed By: #### C BC #### [facility] [address] [place] [address] Dr. Fatmata Mays IG # 0.02 10e3/ul Normal 0.00-0.03 [facility] Comment on above: Performed By: #### C BC #### [facility] [address] [place] [address] Dr. Fatmata Mays IG % 0.3 % Normal 0.0-0.5 [facility] Comment on above: Performed By: #### C BC #### [facility] [address] [place] [address] Dr. Fatmata Mays LYMPH # 1.5 103/ul Normal 1.2-3.8 [facility] Comment on above: Performed By: #### C BC #### [facility] [address] [place] [address] Dr. Fatmata Mays Lymphocytes/100 WBC (Bld) 21.9 % Normal 20.5-60.0 [facility] Comment on above: Performed By: #### C BC #### [facility] [address] [place] [address] Dr. Fatmata Mays MANUAL DIFF REQ NO Normal [facility] Comment on above: Performed By: #### C BC #### [facility] [address] [place] [address] Dr. Fatmata Mays MCH (RBC) [Entitic mass] 32.4 pg Normal 25.9-34.0 [facility] Comment on above: Performed By: #### C BC #### [facility] [address] [place] [address] Dr. Fatmata Mays MCHC (RBC) [Mass/Vol] 33.5 g/dL Normal 29.9-35.2 [facility] Comment on above: Performed By: #### C BC #### [facility] [address] [place] [address] Dr. Fatmata Mays MCV (RBC) [Entitic vol] 96.7 fL Critically high 80.0-94.0 [facility] Comment on above: Performed By: #### C BC #### [facility] [address] [place] [address] Dr. Fatmata Mays MONO # 1.0 103/ul Critically high 0.3-0.8 [facility] Comment on above: Performed By: #### C BC #### [facility] [address] [place] [address] Dr. Fatmata Mays Monocytes/100 WBC (Bld) 13.8 % Critically high 1.7-12.0 [facility] Comment on above: Performed By: #### C BC #### [facility] [address] [place] [address] Dr. Fatmata Mays NEUT # 4.4 103/ul Normal 1.4-6.5 [facility] Comment on above: Performed By: #### C BC #### [facility] [address] [place] [address] Dr. Fatmata Mays Neutrophils/100 WBC (Bld) 62.4 % Normal 43.0-75.0 [facility] Comment on above: Performed By: #### C BC #### [facility] [address] [place] [address] Dr. Fatmata Mays Platelet mean volume (Bld) [Entitic vol] 9.7 fL Normal 9.5-13.5 [facility] Comment on above: Performed By: #### C BC #### [facility] [address] [address] [address] Fatmata Mays PLT 163 103/ul Normal 150-450 [facility] Comment on above: Performed By: #### C BC #### [facility] [address] [address] [address] Fatmata Mays RBC 4.26 106/ul Critically low 4.70-6.10 [facility] Comment on above: Performed By: #### C BC #### [facility] [address] [address] [address] Fatmata Mays WBC 7.0 103/ul Normal 4.0-11.0 [facility] Comment on above: Performed By: #### C BC #### [facility] [address] [place] [address] Dr. Fatmata Mays LIPID PROFILEon 12-12-2021 CHOL-HDL RATIO NORM SEE BELOW Normal [facility] Comment on above: Result Comment: 3.3 - 4.4 LOW RISK 4.4 - 7.1 AVERAGE RISK 7.1 - 11.0 MODERATE RISK >11.0 HIGH RISK Performed By: #### C MP, TSH, LIPID #### [facility] [address] [place] [address] Dr. Fatmata Mays Cholesterol [Mass/Vol] 193 mg/dL Normal <=200 [facility] Comment on above: Performed By: #### C MP, TSH, LIPID #### [facility] [address] [place] [address] Dr. Fatmata Mays Cholesterol in HDL [Mass/Vol] 81 mg/dL Critically high 40-60 [facility] Comment on above: Performed By: #### C MP, TSH, LIPID #### [facility] [address] [place] [address] Dr. Fatmata Mays Cholesterol in LDL [Mass/Vol] 94.0 mg/dL Normal [facility] Comment on above: Performed By: #### C MP, TSH, LIPID #### [facility] [address] [address] [address] Fatmata Mays Cholesterol.total/ Cholesterol in HDL [Mass ratio] 2.4 {ratio} Normal [facility] Comment on above: Performed By: #### C MP, TSH, LIPID #### [facility] [address] [place] [address] Dr. Fatmata Mays HDL NORMAL > or = 60 mg/dl - LO W CARDIOVASCULAR RISK <40 mg/dl - HIGH CARDIOVASCULAR RISK Normal [facility] Comment on above: Performed By: #### C MP, TSH, LIPID #### [facility] [address] [place] [address] Dr. Fatmata Mays LDL CALC NORMAL SEE BELOW Normal [facility] Comment on above: Result Comment: <100 mg/dl OPTIMAL 100 - 129 mg/dl NEAR OR ABOVE OPTIMAL 130 - 159 mg/dl BORDERLINE HIGH 160 - 189 mg/dl HIGH >190 mg/dl VERY HIGH Performed By: #### C MP, TSH, LIPID #### [facility] [address] [address] [address] Fatmata Mays Triglyceride [Mass/Vol] 90 mg/dL Normal <=150 [facility] Comment on above: Performed By: #### C MP, TSH, LIPID #### [facility] [address] [place] [address] Dr. Fatmata Mays VLDL CALC 18.0 mg/dL Normal [facility] Comment on above: Performed By: #### C MP, TSH, LIPID #### [facility] [address] [place] [address] Dr. Fatmata Mays PROF 14(COMP METB)on 022 Albumin [Mass/Vol] 3.3 g/dL Critically low 3.4-5.0 [facility] Comment on above: Performed By: #### C MP, TSH, LIPID #### [facility] [address] [place] [address] Dr. Fatmata Mays Albumin/Globulin [Mass ratio] 1.0 {ratio} Normal [facility] Comment on above: Performed By: #### C MP, TSH, LIPID #### [facility] [address] [place] [address] Dr. Fatmata Mays ALP [Catalytic activity/Vol] 153 U/L Critically high 46-116 [facility] Comment on above: Performed By: #### C MP, TSH, LIPID #### [facility] [address] [address] [address] Fatmata Mays ALT [Catalytic activity/Vol] 22 U/L Normal 16-63 [facility] Comment on above: Performed By: #### C MP, TSH, LIPID #### [facility] [address] [address] [address] Fatmata Mays Anion gap [Moles/Vol] 10.6 mmol/L Normal [facility] Comment on above: Performed By: #### C MP, TSH, LIPID #### [facility] [address] [place] [address] Dr. Fatmata Mays AST [Catalytic activity/Vol] 11 U/L Critically low 15-37 [facility] Comment on above: Performed By: #### C MP, TSH, LIPID #### [facility] [address] [place] [address] Dr. Fatmata Mays Bilirubin [Mass/Vol] 0.8 mg/dL Normal 0.2-1.3 [facility] Comment on above: Performed By: #### C MP, TSH, LIPID #### [facility] [address] [place] [address] Dr. Fatmata Mays Calcium [Mass/Vol] 8.2 mg/dL Critically low 8.5-10.1 Th [facility] Comment on above: Performed By: #### C MP, TSH, LIPID #### [facility] [address] [place] [address] Dr. Fatmata Mays Chloride [Moles/Vol] 104 mmol/L Normal 98-107 [facility] Comment on above: Performed By: #### C MP, TSH, LIPID #### [facility] [address] [place], [place] [address] [address] Fatmata Mays CO2 [Moles/Vol] 30.0 mmol/L Normal 22.0-30.0 [facility] Comment on above: Performed By: #### C MP, TSH, LIPID #### [facility] [address] [address] [address] Fatmata Mays Creatinine [Mass/Vol] 0.85 mg/dL Normal 0.66-1.25 [facility] Comment on above: Performed By: #### C MP, TSH, LIPID #### [facility] [address] [address] [address] Fatmata Mays EGFR-AF UKRAINIAN >60 Normal >=60 [facility] Comment on above: Performed By: #### C MP, TSH, LIPID #### [facility] [address] [address] [address] Fatmata Mays EGFR-NON AF UKRAINIAN >60 Normal >=60 [facility] Comment on above: Performed By: #### C MP, TSH, LIPID #### [facility] [address] [address] [address] Fatmata Mays Globulin (S) [Mass/Vol] 3.4 g/dL Normal [facility] Comment on above: Performed By: #### C MP, TSH, LIPID #### [facility] [address] [address] [address] Fatmata Mays Glucose [Mass/Vol] 113 mg/dL Critically high 74-106 [facility] Comment on above: Performed By: #### C MP, TSH, LIPID #### [facility] [address] [address] [address] Fatmata Mays Potassium [Moles/Vol] 4.6 mmol/L Normal 3.4-5.0 [facility] Comment on above: Performed By: #### C MP, TSH, LIPID #### [facility] [address] [address] [address] Fatmata Mays Protein [Mass/Vol] 6.7 g/dL Normal 6.1-8.2 [facility] Comment on above: Performed By: #### C MP, TSH, LIPID #### [facility] [address] [address] [address] Fatmata Mays Sodium [Moles/Vol] 140 mmol/L Normal 137-145 [facility] Comment on above: Performed By: #### C MP, TSH, LIPID #### [facility] [address] [address] [address] Fatmata Mays Urea nitrogen [Mass/Vol] 16.0 mg/dL Normal 7.0-18.0 [facility] Comment on above: Performed By: #### C MP, TSH, LIPID #### [facility] [address] [place] [address] Dr. Fatmata Mays Urea nitrogen/Creatinin e [Mass ratio] 18.8 mg/mg Normal [facility] Comment on above: Performed By: #### C MP, TSH, LIPID #### [facility] [address] [place] [address] Dr. Fatmata Mays TSHon 12-12-2021 TSH 1.468 uIU/mL Normal 0.470-4.680 [facility] Comment on above: Performed By: #### C MP, TSH, LIPID #### [facility] [address] [place] [address] Dr. Fatmata Mays TSH RANGE SEE BELOW Normal [facility] Comment on above: Result Comment: <0.3 4 UIU/ml HYPERTHYROID 0.34-5.60 UIU/ml EUTHYROID >5.60 UIU/ml HYPOTHYROID Performed By: #### C MP, TSH, LIPID #### [facility] [address] [place] [address] Dr. Fatmata Mays Otolaryngology Office/Clinic Noteon 07-13-2021 [...] qualifying data Procedure/Surgical History Kidney stones Medications [place] Thyroid 60 mg oral tablet, 60 mg= 1 tabs, Daily Allergies No Known Medication Allergies Social History Alcohol Current, Beer, Several times per day Substance Abuse Denies All Tobacco Never (less than 100 in lifetime) Use:. Family History Family history is unknown Electronically signed by _ Lola Reardon PA-C 07/14/21 11:49 EST Normal [facility] Otolaryngology Office/Clinic Noteon 07-20-2020 Otolaryngology Office/Clinic Note [...] qualifying data Procedure/Surgical History Kidney stones Medications [place] Thyroid 60 mg oral tablet, 60 mg, [...] Lola Reardon PA-C 07/20/20 15:06 EST Normal [facility] Vital Signs Date Time Vital Sign Value Performing Clinician Facility 03-28-2024 11:47-0400 Body height 182.88 cm [facility] 03-28-2024 11:47-0400 Body mass index (BMI) [Ratio] 26.3 kg/m2 [facility] 03-28-2024 11:47-0400 Body weight 88.11 kg [facility] 03-28-2024 11:47-0400 Diastolic blood pressure 65 mm[Hg] [facility] 03-28-2024 11:47-0400 Heart rate 73 /min [facility] 03-28-2024 11:47-0400 Respiratory rate 12 /min [facility] 03-28-2024 11:47-0400 Systolic blood pressure 136 mm[Hg] [facility] 11-20-2023 15:01-0400 Body height 185.4 cm Quintin Perkins MD Work Phone: [facility] 11-20-2023 15:01-0400 Body mass index (BMI) [Ratio] 26.78 kg/m2 Quintin Perkins MD Work Phone: [facility] 11-20-2023 15:01-0400 Body weight 92.08 kg Quintin Perkins MD Work Phone: [facility] 11-20-2023 15:01-0400 Diastolic blood pressure 92 mm[Hg] Quintin Perkins MD Work Phone: [facility] 11-20-2023 15:01-0400 Heart rate 83 /min Quintin Perkins MD Work Phone: [facility] 11-20-2023 15:01-0400 Systolic blood pressure 153 mm[Hg] Quintin Perkins MD Work Phone: [facility] 07-04-2023 12:15-0500 Body height 182.88 cm [facility] Other 07-04-2023 12:15-0500 Body mass index (BMI) [Ratio] 28.07 kg/m2 [facility] Other 07-04-2023 12:15-0500 Body weight 93.9 kg [facility] Other [facility] Other 02-13-2023 10:45-0400 Body height 182.88 cm [facility] Other [facility] Other 02-13-2023 10:45-0400 Body mass index (BMI) [Ratio] 28.07 kg/m2 [facility] Other [facility] Other 02-13-2023 10:45-0400 Body weight 93.9 kg [facility] Other [facility] Other 02-13-2023 10:45-0400 Diastolic blood pressure 82 mm[Hg] [facility] Other [facility] Other 02-13-2023 10:45-0400 Respiratory rate 12 /min [facility] Other [facility] Other 02-13-2023 10:45-0400 Systolic blood pressure 169 mm[Hg] [facility] Other [facility] Other 10-13-2022 14:00-0500 Body height 182.88 cm [facility] [employer] Other [facility] Other 10-13-2022 14:00-0500 Body mass index (BMI) [Ratio] 28.91 kg/m2 [facility] [employer] Other [facility] Other 10-13-2022 14:00-0500 Body weight 96.71 kg Main [employer] Other [employer] Other 10-13-2022 14:00-0500 Diastolic blood pressure 68 mm[Hg] [facility] Other [facility] Other 10-13-2022 14:00-0500 Respiratory rate 20 /min [employer] Other [facility] Other 10-13-2022 14:00-0500 Systolic blood pressure 118 mm[Hg] Main [employer] Other [employer] Other Encounters Encounter Date Encounter Type Care Provider Facility Start: 07-19-2024 End: 07-22-2024 ambulatory MAIN HOLT [facility] Start: 07-19-2024 End: 07-19-2024 Telephone encounter Erin Irwin [facility] Maribel cobb Comment on above: Rectal Bleeding Start: 07-08-2024 End: 07-08-2024 ambulatory QUINTIN PERKINS [facility] Start: 07-08-2024 End: 07-08-2024 Patient encounter procedure Quintin Perkins MD Work Phone: [facility] Comment on above: 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); Benign prostatic hyperplasia with urinary retention Start: 03-28-2024 End: 03-28-2024 ambulatory [facility] Work Phone: Start: 03-28-2024 End: 03-28-2024 Patient encounter procedure [facility] Work Phone: Start: 03-11-2024 End: 03-11-2024 ambulatory QUINTIN Gaspar [facility] Start: 01-08-2024 End: 01-08-2024 ambulatory QUINTIN G [facility] Start: 12-10-2023 End: 12-11-2023 ambulatory [facility] Start: 11-20-2023 End: 11-20-2023 ambulatory QUINTIN G [facility] Start: 11-20-2023 End: 11-20-2023 Office outpatient visit 15 minutes Quintin Perkins MD Work Phone: [facility] Comment on above: Calculus of other lo wer urinary tract location (Primary Dx); Hypogonadism male Start: 11-13-2023 End: 11-14-2023 ambulatory QUINTIN Hubert NAYLA [facility] Start: 10-08-2023 Chart abstracting Evelia clements MD Work Phone: [facility] Start: 09-07-2023 Telephone encounter Quintin Perkins MD Work Phone: [facility] Start: 07-04-2023 End: 07-04-2023 ambulatory Main [facility] Other [facility] Other Start: 07-04-2023 Office outpatient vi sit 15 minutes Main [facility] Start: 02-13-2023 End: 02-13-2023 ambulatory Main [facility] Other [facility] Other Start: 02-13-2023 Office outpatient vi sit 15 minutes Main [facility] Start: 10-15-2022 End: 10-16-[address] MAIN HOLT Facility:[facility]1 Start: 10-14-2022 End: 10-15-[address] MAIN HOLT Facility:[facility] Start: 10-13-2022 Office outpatient vi sit 15 minutes Main [facility] Start: 10-13-2022 End: 10-14-2022 ambulatory FELICIA PARRA Facility:[facility] Start: 04-24-2022 End: 04-25-[address] MAIN HOLT Facility:[facility] Start: 03-29-2022 Adult health examination Hans [facility] Other [employer] Other Start: 12-12-2021 End: 12-13-[address] MAIN HOLT Facility:[facility] Start: 02-17-2017 End: 02-19-2017 Evaluation and management of inpatient [facility] Procedures Date Procedure Procedure Detail Performing Clinician Start: 11-20-2023 Follow-up visit Follow-up QUINTIN PERKINS Start: 03-04-2019 Diabetes mellitus screening [facility] Other Start: 03-04-2019 Hyperlipidemia screening [facility] Other Depression screening Almaz [facility] Other Plan of Treatment Date Care Activity Detail Author Start: 07-19-2025 Tobacco Screening Tobacco Screening [facility] Start: 01-07-2025 Tobacco Screening Tobacco Screening [facility] Start: 01-06-2025 End: 01-06-2025 Patient encounter procedure 01/06/2025 11:30 AM EDT Office Visit [facility] [address] [place] [id number] Quintin Perkins MD [address] [place] [id number] [facility] Start: 11-25-2024 End: 11-25-2024 Patient encounter procedure 11/25/2024 2:45 PM EDT Office Visit [facility] [address] [place] [address] [place] [address] Quintin Perkins MD [address] [place] [id number] [facility] Start: 11-19-2024 End: 11-19-2025 XR Abdomen AP X-ray abdomen ap 1 view Imaging Routine Hypogonadism male Expected: 11/19/2024, Expires: 11/19/2025 [employer] Work Phone: Comment on above: Expected: 11/19/2024 , Expires: 11/19/2025 Start: 08-07-2024 End: 07-08-2025 CBC panel - Blood by Automated count CBC without diff Lab Routine Hypogonadism male Expected: 08/07/2024 (Approximate), Expires: 07/08/2025 [facility] Comment on above: Expected: 08/07/2024 (Approximate), Expires: 07/08/2025 Start: 08-07-2024 End: 07-08-2025 Liver panel Liver panel Lab Routine Hypogonadism male Expected: 08/07/2024 (Approximate), Expires: 07/08/2025 [facility] Comment on above: Expected: 08/07/2024 (Approximate), Expires: 07/08/2025 Start: 08-07-2024 End: 07-08-2025 Prostatic specific antigen, diagnostic Prostatic specific antigen, diagnostic Lab Routine Benign prostatic hyperplasia with urinary retention Expected: 08/07/2024 (Approximate), Expires: 07/08/2025 [facility] Comment on above: Expected: 08/07/2024 (Approximate), Expires: 07/08/2025 Start: 08-07-2024 End: 07-08-2025 Testosterone [Mass/volume] in Serum or Plasma Testosterone Lab Routine Hypogonadism male Expected: 08/07/2024 (Approximate), Expires: 07/08/2025 [employer] Work Phone: Comment on above: Expected: 08/07/2024 (Approximate), Expires: 07/08/2025 Start: 07-03-2024 Tobacco Screening [facility] Start: 04-27-2024 Influenza vaccination Influenza Vacc ine [facility] Start: 01-04-2024 Adult BMI Screening Adult BMI Screen ing [facility] Start: 11-20-2023 End: 11-20-2023 Patient encounter procedure 11/20/2023 2:45 PM EDT Office Visit [facility] [address] [place] [address] A [facility] [place] [address] Quintin Perkins MD [address] [place] [id number] [facility] Start: 04-27-2023 Influenza vaccination Influenza Vacc ine [facility] Start: 11-26-2000 Fall Risk Screening Fall Risk Screen ing [facility] Start: 11-26-1985 Administration of varicella zoster vaccine Zoster (Shingles) Vaccine (1 of 2) [facility] Start: 11-26-1954 DTaP,Tdap and Td Vac cines (1 - Tdap) DTaP,Tdap and Td Vaccines (1 - Tdap) [facility] Start: 11-26-1953 Adult BMI Follow Up Plan Adult BMI Follow Up Plan [facility] Start: 1947 Depression Screening Depression Scre ening [facility] Start: 1935 Medicare Annual Well ness Visit Medicare Annual Wellness Visit [facility] Comprehensive metabo lic 2000 panel - Serum or Plasma [facility] End: 02-20-2024 Testosterone [Mass/volume] in Serum or Plasma Testosterone Lab Routine Hypogonadism male 1 month for 3 Occurrences starting 11/20/2023 until 02/20/2024 [facility] Comment on above: 1 month for 3 Occurr ences starting 11/20/2023 until 02/20/2024 [facility] Immunizations Immunization Date Immunization Notes Care Provider Fa cility 04-21-2018 influenza virus vaccine, split virus (incl. purified surface antigen) [facility] Other [facility] Other 04-21-2018 influenza virus vaccine, unspecified formulation [facility] 04-21-2018 pneumococcal conjuga te vaccine, 13 valent [facility] Other [facility] Payers Date Payer Category Payer Medicare [id number] 2012 Medicare HMO [employer] [id number] 1959 Medicare [id number] 1935 Unknown [id number] 3 1935 Unknown [id number] 3 1935 Unknown [id number] 3 1935 Unknown [id number] 3 1935 Unknown [id number] 3 1935 Unknown [id number] 86 1935 Unknown [id number] 86 1935 Unknown [id number] 86 1935 Unknown [id number] [id number] 86 1935 Unknown [id number] [id number] 86 1935 Unknown [id number] 86 1935 Unknown [id number] [id number] 86 1935 Unknown [id number] 86 Self-pay Self Pay [id number] Social History Date Type Detail Facility Start: 10-07-2020 End: 07-03-2023 Sex Assigned At [facility] Other Start: 11-14-2022 Tobacco smoking stat [facility] Never smoked tobacco [facility] Start: 11-14-2022 Tobacco use and exposure Former smokeless tobacco user [facility] End: 04-03-1988 History of tobacco use Snuff User [facility] Start: 07-03-2023 End: 07-19-2024 Alcohol intake Current drinker of alcohol (finding) [facility] Start: 10-07-2020 End: 07-03-2023 Alcohol intake [facility] tem Housing Instability Unknown [facility] Start: 12-30-2022 Alcohol Comment 2-3 drinks per day P [facility] Start: 1935 Sex Assigned At Not on file P [facility] Start: 02-20-2023 Tobacco smoking stat [facility] Ex-smoker [facility] End: 08-27-2012 History of tobacco use Current smoker [facility] End: 08-27-2012 History of tobacco use Cigarette Smoker [facility] Start: 02-20-2023 Tobacco use and exposure Smokeless tobacco non-user [facility] Start: 10-08-2023 Alcohol intake Ex-drinker (finding) [facility] Start: 1935 Sex Assigned At Male F [facility] Start: 04-01-2015 Sex Male (finding) [facility] Medical Equipment Procedure Code Equipment Code Equipment Origin al Text Equipment Identifier Dates Stnt Uret 6fr 28 cm Pgtl Crv [facility] [id number] - [id number] - [id number] [facility] Start: 03-12-2018 Stnt Uret 6fr 28 cm Pgtl Crv Rpl [id number] - [id number] Start: 04-10-2018 Goals Date Patient Goal Desired Activity /State Personal health goal Comment on above: Formatting of this n ote might be different from the original. Evaluation of progress towards goal: Patient plans to discharge home. Care Navigation team will continue to follow. - Kanika Traore RN [employer] 04/11/18 1:35 PM Clinical Notes 10-13-2022 to 07-19-2024 Telephone Encounter - Erin Acosta Dc - 07/19/2024 5:56 PM ESTTelephone Encounter - Erin Acosta Dc - 07/19/2024 5:56 PM ESTTelephone Encounter - Erin Acosta Dc - 07/19/2024 5:56 PM EST Note Date & Type Note Facility 07-19-2024 Miscellaneous Notes Formattin g of this note might be different from the original. Contract: [address] [facility] ER New Consult Rectal Bleeding Contract: 19 Sent Secure chat to Ada Esparza documented in this encounter [facility] 07-19-2024 Telephone encount er Note Contract: [address] [facility] ER New Consult Rectal Bleeding [facility] 07-19-2024 Telephone encount er Note Contract: 19 Sent Secure chat to Ada Esparza [facility] 07-08-2024 History of Presen t illness Narrative Testopel insertion: Patient was placed in the right lateral position in the outer quadrant of the right hip was prepped with Betadine and draped in sterile fashion. Skin was infiltrated with 5 mL of 1% lidocaine with epinephrine. Each of the to subcutaneous tracts was infiltrated with local anesthetic as well. The # 11 blade was pierced through the skin in the testicle sheath and sharp dump motor operator in place was advanced subcutaneously. The trocar was removed and 3 pellets were loaded into the sheath. The blunt obturator was advanced through the sheath while the sheath was removed thereby leaving the pellets behind in the tract. The sheath was redirected with a sharp operating room place along the opposite arm of the V and advanced. Three additional pellets were placed in an identical manner and the sheath was then removed in its entirety leaving all the pellets within the tract. Steri-Strips were applied incision as well as a 2 x 2 gauze and op site. Patient tolerated procedure without difficulty. Total number of pellets inserted: 6 Repeat testosterone , CBC, LFTs and PSA ordered 1 month documented in this encounter [facility] 07-08-2024 Miscellaneous Notes Addended by: ENEIDA WEBER on: 07/08/2024 04:37 PM Modules accepted: Orders documented in this encounter [facility] 07-08-2024 Note Addended by: ENEIDA WEBER on: 07/08/2024 04:37 PM Modules accepted: Orders [facility] 11-20-2023 History of Presen t illness Narrative Images from the original note were not included. [address] [place] [address] [facility] [id number] Patient: Juan Oates Date of : 1935 [...] 01/02/2023 Performed by Loyd Marvin MD at [facility] CYSTO RETROGRADE GENERAL Right 09/23/2019 Performed by Quintin Perkins MD at [facility] CYSTOSCOPY HOLMIUM LASER BLADDER STONE N/A 03/12/2018 Performed by Quintin Perkins MD at [facility] CYSTOSCOPY HOLMIUM LASER URETEROSCOPY Right 09/23/2019 Performed by Quintin Perkins MD at [facility] CYSTOSCOPY HOLMIUM LASER URETEROSCOPY Left 03/12/2018 Performed by Quintin Perkins MD at [facility] CYSTOSCOPY INSERTION STENT Left 03/26/2018 Performed by Quintin Rangel MD at [facility] CYSTOSCOPY INSERTION STENT Bilateral 03/12/2018 Performed by Quintin Perkins MD at [facility] CYSTOSCOPY RETROGRADE PYELOGRAM Bilateral 03/12/2018 Performed by Quintin Perkins MD at [facility] CYSTOSCOPY URETEROSCOPY Right 03/12/2018 Performed by Quintin Perkins MD at [facility] CYSTOSCOPY URETEROSCOPY LEFT WITH HOLMIUM LASER; LEFT STENT REPLACEMENT Left 04/10/2018 Performed by Quintin Perkins MD at [facility] CYTOSCOPY WITH INSERTION BALLOON OCCLUSION CATHETER RIGHT Right 04/10/2018 Performed by Quintin Perkins MD at [facility] EXAM UNDER ANESTHESIA DIGITAL RECTAL N/A 06/10/2019 Performed by Quintin Perkins MD at [facility] EXTRACORPOREAL SHOCK WAVE LITHOTRIPSY Right 06/10/2019 Performed by Quintin Perkins MD at [facility] LITHOTRIPSY PARATHYROIDECTOMY PERCUTANEOUS NEPHROLITHOTOMY KIDNEY RIGHT Right 04/10/2018 Performed by Quintin Perkins MD at [facility] TESTOSTERONE TOTAL, 06/20/10 pellets implanted TONSILLECTOMY [...] for your understanding. documented in this encounter [facility] 09-07-2023 Miscellaneous Notes Formattin g of this note might be different from the original. 09/07/23-[employer] auth # [id number] good 04/03/23 to 08/26/24//fw-pgus documented in this encounter [facility] 09-07-2023 Telephone encount er Note 09/07/23-[employer] auth # [id number] [facility] 04/03/23 to 08/26/24//fw-pgus [facility] 07-04-2023 Evaluation note Encounter Date Diagnosis Assessment Notes Jun, Subacute maxillary sinusitis (ICD-10 - J01.00) Instructed to use Robitussin or Mucinex for cough, saline or Flonase NS for congestion, Tylenol for pain and fever. Jun, Suspected sleep apnea (ICD-10 - R29.818) STOP BANG 4 Refer to sleep lab [facility] Other 06-20-2023 Evaluation note* Encounter Date Diagnosis Assessment Notes Treatment Notes Treatment Clinical Notes Jan, Seasonal allergic rhinitis due to pollen (ICD-10 - J30.1) Avoid allergens Begin Flonase and Matilda daily Jan, Acute non-recurrent maxillary sinusitis (ICD-10 - J01.00) Instructed to use Robitussin or Mucinex for cough, saline or Flonase NS for congestion, Tylenol for pain and fever. 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 Work Phone: Evaluation note* Diagnosis Calculus of other lower urinary tract location- Primary Abnormal finding on urinalysis Benign prostatic hyperplasia with urinary retention Urinary tract infection without hematuria, site unspecified- Primary Calculus of other lower urinary tract location Calculus of other lower urinary tract location- Primary Abnormal finding on urinalysis Hypogonadism male- Primary Other testicular hypofunction Calculus of other lower urinary tract location Hypogonadism male- Primary Other testicular hypofunction Benign prostatic hyperplasia with urinary retention documented in this encounter [facility] [employer] [facility] general Narrative - Reported* Type Description Date [...] KIDNEY STONE 201 9 Surgical History COLONOSCOPY 2019 Surgical History HEMICOLECTOMY 2013 Surgical History APPENDECTOMY 2013 Hospitalization History SEE SURGICAL HX [facility] Other History general Narrative - Reported* Type Description [...] KIDNEY STONE 201 9 Surgical History COLONOSCOPY 2019 Surgical History HEMICOLECTOMY 2013 Surgical History APPENDECTOMY 2012 Surgical History Colonoscopy, polypectomy 12/2022 Hospitalization History SEE SURGICAL HX [employer] Other InstructionsNot on filedocumented in this encounter [facility] [employer] SystemInstructions* Attachments The following attachments cannot be sent through Care Everywhere. * Benign prostatic hyperplasia (enlarged prostate) ([place]) documented in this encounterProPlayArt Labs SystemInstructionsNot on file documented in this encounterProPlayArt Labs SystemInstructionsNot on file documented in this encounterProUltrivaReason for referral (narrative)* Reason *FU 02/20 Referral for allergy symptoms Diagnosis 1 Seasonal allergic rh initis due to pollen (J30.1) Referral Organization [facility] Jonathon benavidez Referring Provider First Name Main Referring Provider Last Name Jonathon Referring Provider Specialty Internal Me dicine Referred Organization [facility] Referred Provider Saurabh Ramos Referred Address ,[place], [place],[address] Referred Provider Specialty Allergy/Immu nology Referral Priority Routine General Notes Patient w/ tearing, rhinorrhea, cough, phlegm and facial pressure. Requested referral for allergy evaluation. Fadia Oviedo 02/13/2023 12:48:55 PM >received today, notes locked, ins attached, referral faxed [employer] Other Summary Purpose Family History No Family History Records FoundNo Family History Records FoundNo Family History Records FoundNo Family History Records FoundNo Family History Records FoundNo Family History Records Found Advance Directives No Advanced Directives Records FoundLatest Code Status on File Code Status Date Activated Date Inactivated Comments Full Code 12/30/2022 8:54 PM 01/03/2023 1:00 PM Code Status History Code Status Date Activated Date Inactivated Comments Full Code 04/08/2018 7:39 PM 04/12/2018 4:49 PM Full Code 03/25/2018 7:09 PM 03/27/2018 1:20 PM Advance Directive Response Recorded Date/ Time Advance Directives No March 28, 2 024 11:29am Date Activated Date Inactivated Comments 12/30/2022 8:54 PM 01/03/2023 1:00 PM Date Activated Date Inactivated Comments 04/08/2018 7:39 PM 04/12/2018 4:49 PM Date Activated Date Inactivated Comments 03/25/2018 7:09 PM 03/27/2018 1:20 PM Chief Complaint and Reason for Visit Chief [...] section and content) DATE CREATED AUTHOR 02/20/2018 [facility] DATE CREATED AUTHOR AUTHOR'S ORGANIZ ATION 07/15/2021 [facility] DATE CREATED AUTHOR AUTHOR'S ORGANIZ ATION 10/19/2022 [facility] DATE CREATED AUTHOR AUTHOR'S ORGANIZ ATION 12/11/2023 [facility] DATE CREATED AUTHOR AUTHOR'S ORGANIZ ATION 07/10/2024 [facility] DATE CREATED AUTHOR AUTHOR'S ORGANIZ ATION 07/27/2024 [facility] REASON FOR VISIT (unrecogniz ed section and content) Reason Comments Follow-up Reason Comments Testpel Procedure Reason Onset Date Comments Rectal Bleeding 07/19/2024 Care Teams (unrecognized sec tion and content) Salesperson Driver Relationship Specialty Start Date End Date Main Holt DO [address] [place] [id number] PCP - General 03/28/17 Salesperson Driver Relationship Specialty Start Date End Date Main Holt MD [address] [place] [id number] PCP - General Internal Medicine 02/14/23 Salesperson Driver Relationship Specialty Start Date End Date Main Holt DO [address] [place] [id number] PCP - General 03/28/17 Team Status: Active Member Role Status Dates Main Holt DO Primary Care Provider Active Team Status: Inactive Member Role Status Dates Main Holt DO Primary Care Provide r, Attending Provider Active Start: March 28, 2024 End: March 28, 2024 Salesperson Driver Relationship Specialty [place] [address] [place], [place] [id number] PCP - General 03/28/17 Salesperson Driver Relationship Specialty Start Date End Date Main Holt DO [address] [place] [id number] PCP - General 03/28/17 Goals (unrecognized section and content) Goals may [...] BE BASED ON THE PRIMARY CLINICAL RECORDS. [facility] [employer] [facility]. provides no warranty or guarantee of the accuracy or completeness of information in this document.
[2024-08-13 12:25] LABS: Percent Iron Saturation 9.8 %
== END 2024-08-13 10:57 | disposition home or self-care (01) ==
LOC: LAB 10:56
PROVIDERS: PCP Internal Medicine; Visit Provider Internal Medicine
DX: K62.5 Hemorrhage of anus and rectum (principal); D64.9 Anemia, unspecified
CPT/HCPCS: 36415; 82728; 83540; 83550; 85025

== ENCOUNTER 2024-10-15 11:42 | Outpatient (OUT) | payer MEDICARE, SELFPAY ==
--- OUTSIDE RECORDS SUMMARY | 2024-10-15 11:55 | XMS_ITS | CCD ---
Author Organization [facility] Care Team Providers Care Communications Advisor Name Role Phone MAGGIE WYNN Unavailable Unavailable [...] Care Unavailable BALL, DR MONTANO Consulting Unavailable Main Holt Unavailable Main Holt MD Primary Care Provider Main Holt DO Primary Care Provider QUINTIN PERKINS Attending Unavailable JONATHON, MAIN Botello Referring Unavailable JONATHON, MAIN Botello Primary Care Unavailable NAYLA, QUINTIN G Attending Unavailable JONATHON, MAIN Botello Referring Unavailable BALL, MAIN Botello Primary Care Unavailable NAYLA, QUINTIN G Attending Unavailable BALL, MAIN Botello Referring Unavailable BALL, MAIN Botello Primary Care Unavailable NAYLA, QUINTIN G Referring Unavailable BALL, MAIN Botello Primary Care Unavailable JONATHON, MAIN Botello Primary Care Unavailable CHARLEY ORTIZ Attending Unavailable CARMEN GUERRERO I Admitting Unavailable TTH ONLY, [facility] Consulting Unavailable AUGUSTIN COELHO Consulting Unavailable (TTH ONLY), SURGERY TEAM D Consulting Unava ilable AMRGARITACAS Consulting Unavailable HEMATOLOGY, [facility] Consulting Lexie vailable QUINTIN PERKINS Attending Unavailable NAYLA, QUINTIN Referring Unavailable MAIN HOLT Primary Care Unavailable QUINTIN PERKINS Referring Unavailable BALL, MAIN E Primary Care Unavailable MAIN HOLT Referring Unavailable JONATHON MAIN Rosmery Primary Care Unavailable QUINTIN PERKINS Referring Unavailable JONATHON MAIN Botello Primary Care Unavailable Allergies Allergy Classification Reported Allergen(s) Allergy Type Date of Onset Reaction(s) Facility (1 source) patient allergy list reviewed by nurse or physicia Propensity to adverse reactions 8 Comment:Done Zounds Other Medications Current Medications Medication Drug Class(es) Dates Sig (Normalized) Sig (Original) acetaminophen 325 mg / HYDROcodone bitartrate 5 mg oral tablet (9 sources) Opioid Agonist Start: 09-23-2019 HYDROcodone-acetam inophen [...] Active ascorbic acid 1000 mg oral tablet (10 sources) Vitamin C take 1 tablet by [...] 05/14/2023 05/13/2024 Active b complex vitamins capsule (10 sources) take 1 capsule by mouth in [...] 0 Active DOCOSAHEXANOIC ACID/EPA (FISH OIL ORAL) (10 sources) take 1 capsule by mouth once [...] Active garlic preparation 1 mg oral capsule (10 sources) Non-Standardized Food Allergenic Extract take 1 [...] milk thistle extract 175 mg oral capsule (11 sources) take 1 tablet by mouth in [...] in the morning. 0 Active Multivitamin preparation (10 sources) take 1 tablet by humberto th [...] in the morning. 0 Active Thyroid (Pork) ([place] Thyroid) 60 mg tablet (1 source) Start: 024 take 1 tablet by mouth once daily Thyroid (Pork) ([place] Thyroid) 60 mg tablet Active 60 MG PO Daily 90 90 October 15, 2023 1:00am thyroid (custodial) 60 mg oral tablet (14 sources) take 1 tablet by mouth once daily thyroid, pork, (ARMOUR) 60 mg tablet Take 1 tablet (60 mg total) by mouth nightly. Active take 1 tablet by mouth once lena y thyroid, pork, (ARMOUR) 120 mg tablet Take 1 tablet (120 mg total) by mouth nightly. Active ubidecarenone 30 mg oral capsule (11 sources) take 1 capsule by mo uth [...] Sig (Original) testosterone 75 mg drug implant (6 sources) Androgen Start: 07-08-2024 End: 07-08-2024 testosterone (TESTOPEL) implant 450 mg Start: 07-08-2024 End: 07-08-2024 450 mg, implant, Once, On 07/08/24 at 1645, For 1 dose, HAZARDOUS - Handle with care Start: 01-08-2024 testosterone ( TESTOPEL) implant 75 mg Start: 02-08-2023 testosterone c ypionate (Depo-Testosterone) 200 [...] ectasia] Onset: 9 Chronic Cancer of colon (6 sources) Malignant tumor of colon; Translations: [Malignant neoplasm of colon, unspecified] Onset: 3 Resolved: 3 02-20-2023 Chronic Cancer of colon (7 sources) History [...] [Hypercholesterolemia] Onset: 2 Chronic Diverticulosis and diverticulitis (12 sources) Diverticular disease; Translations: [Diverticulosis of intestine, part unspecified, without perforation or abscess without bleeding] Onset: 3 Resolved: 3 02-20-2023 Chronic Gastrointestinal hemorrhage (17 sources) Gastrointestinal hemorrhage, unspecified; Translations: [Blood-tinged feces] Onset: 7 Resolved: 3 02-20-2023 Episodic Hyperplasia of prostate (20 sources) Lower urinary tract symptoms due to benign prostatic hypertrophy; Translations: [Benign prostatic hyperplasia with lower urinary tract symptoms] Onset: 6 Resolved: 3 02-20-2023 Chronic Inflammation; infection of eye (except that [...] Chronic Other ear and sense organ disorders (11 sources) Hearing loss; Translations: [Unspecified hearing loss, unspecified ear] Onset: 9 Resolved: 3 02-20-2023 Chronic Other endocrine disorders (7 sources) Testicular [...] Translations: [Hyperparathyroidism, unspecified] Chronic Other endocrine disorders (14 sources) Male hypogonadism; Translations: [Testicular hypofunction] Onset: 7 Resolved: 3 02-20-2023 Chronic Other fractures (1 source) Fracture of one rib; Translations: [Fracture of one rib, right side, subsequent encounter for fracture with routine healing] Episodic Other injuries and conditions due to external causes (1 source) History of fall; Translations: [History of falling] Episodic Other male genital disorders (11 sources) Male erectile dysfunction, unspecified; Translations: [Impotence of organic origin] Onset: 7 Resolved: 3 02-20-2023 Chronic Other nutritional; endocrine; and metabolic disorders [...] Problem Classification Problem Date Documented Date Episodic/Chronic Abdominal pain (1 source) Flank pain; Translations: [Unspecified abdominal pain] 03-11-2024 Episodic Calculus of urinary tract (20 sources) History of calculus of kidney; Translations: [Personal history of urinary calculi] Onset: 03-12-2018 Resolved: 02-20-2023 02-20-2023 Episodic Fracture of neck of femur (hip) (1 source) Late effect of fracture of neck of femur; Translations: [Fracture of unspecified part of neck of right femur, sequela] Resolved: 12-13-2021 Episodic Genitourinary symptoms and ill-defined conditions (2 sources) Delay when starting to pass urine; Translations: [Hesitancy of micturition] Onset: 10-11-2021 Episodic Gout and other crystal arthropathies (3 sources) Gout; Translations: [Gout, unspecified] Onset: 09-01-2015 Resolved: 02-20-2023 02-20-2023 Chronic Heart valve disorders (1 source) O/E - cardiac murmur; Translations: [Cardiac murmur, unspecified] Onset: 03-04-2019 Episodic Mood disorders (1 source) Mood disorders Onset: 07-20-2024 07-20-2024 Other aftercare (1 source) Long-term current use of drug therapy; Translations: [Other senior care (current) drug therapy] Resolved: 12-13-2021 Episodic Other circulatory disease (1 source) Cardiovascular symptoms; Translations: [Other specified symptoms and signs involving the circulatory and respiratory systems] Onset: 03-04-2019 Episodic Other ear and sense organ disorders (1 source) Bilateral tinnitus; Translations: [Tinnitus, bilateral] Onset: 02-20-2023 02-20-2023 Episodic Other ear and sense organ disorders (11 sources) Excessive cerumen in ear canal ; Translations: [Impacted cerumen, bilateral] Onset: 11-12-2018 02-20-2023 Episodic Other lower respiratory disease (1 source) Dyspnea; Translations: [Other forms of dyspnea] Onset: 05-15-2016 Episodic Other nutritional; endocrine; and metabolic disorders (1 source) Overweight; Translations: [Overweight] Onset: 05-15-2016 Episodic Septicemia (except in labor) (11 sources) Sepsis; Translations: [Sepsis, unspecified organism] Onset: 04-08-2018 Resolved: 02-20-2023 02-20-2023 Episodic Urinary tract infections (13 sources) Urinary tract infectious disease; Translations: [Urinary tract infection, site not specified] Onset: 06-15-2021 Resolved: 02-20-2023 02-20-2023 Episodic Results Test Name Value Interpretation Reference Range Facility COMPLETE BLOOD COUNTon 08-13 Erythrocyte distribution width (RBC) [Ratio] 13.5 % Normal 11.5-15.0 [facility] Comment on above: Performed By: #### Jones BRICENO, 2986-8, LIVR, 285- #### [facility] ([id number]) [address], [address] [place] [address] Hematocrit (Bld) [Volume fraction] 38.5 % Low 39-49 [facility] Comment on above: Performed By: #### Jones BRICENO, 2986-8, LIVR, 285- #### [facility] ([id number]) [address], [address] [place] [address] Hemoglobin (Bld) [Mass/Vol] 12.6 g/dL Low 13.0-17.0 [facility] Comment on above: Performed By: #### Jones BRICENO, 2986-8, LIVR, 285- #### [facility] ([id number]) [address], [address] [place] [address] MCH (RBC) [Entitic mass] 32.5 pg Normal 27-34 [facility] Comment on above: Performed By: #### Jones BRICENO, 2986-8, LIVR, 2856- #### [facility] ([id number]) [address], [address] [place] [address] MCHC (RBC) [Mass/Vol] 32.8 g/dL Normal 32-36 [facility] Comment on above: Performed By: #### Jones BRICENO, 2986-8, LIVR, 285- #### [facility] ([id number]) [address], [address] [place] [address] MCV (RBC) [Entitic vol] 99 fL Normal 80-100 [facility] Comment on above: Performed By: #### Jones BRICENO, 2986-8, LIVR, 2857-1 #### [facility] ([id number]) [address], [address] [place] [address] Platelet mean volume (Bld) [Entitic vol] 8.4 fL Normal 7-12 [facility] Comment on above: Performed By: #### Jones BRICENO, 2986-8, LIVR, 2857-1 #### [facility] ([id number]) [address], [address] [place] [address] Platelets (Bld) [#/Vol] 224 10*3/uL Normal 150-450 [facility] Comment on above: Performed By: #### Jones BRICENO, 2986-8, LIVR, 2857-1 #### [facility] ([id number]) [address], [address] [place] [address] RBC COUNT 3.88 X10E12/L Low 4.10-5.70 [facility] Comment on above: Performed By: #### Jones BRICENO, 2986-8, LIVR, 2857-1 #### [facility] ([id number]) [address] [place] [address] WBC (Bld) [#/Vol] 6.4 10*3/uL Normal 4.0-11.0 [facility] Comment on above: Performed By: #### Jones BRICENO, 2986-8, LIVR, 2857-1 #### [facility] ([id number]) [address], [address] [place] [address] LIVER PANELon 08-13-2024 Albumin [Mass/Vol] 3.9 g/dL Normal 3.2-5.3 [facility] Comment on above: Performed By: #### Jones BRICENO, 2986-8, LIVR, 2857-1 #### [facility] ([id number]) [address], [address] [place] [address] ALP [Catalytic activity/Vol] 126 U/L Normal 39-130 [facility] Comment on above: Performed By: #### Jones BRICENO, 2986-8, LIVR, 2857-1 #### [facility] ([id number]) [address], [address] [place] [address] ALT [Catalytic activity/Vol] 9 U/L Normal 0-40 [facility] Comment on above: Performed By: #### Jones BRICENO, 2986-8, LIVR, 2857-1 #### [facility] ([id number]) [address], [address] [place] [address] AST [Catalytic activity/Vol] 17 U/L Normal 0-41 [facility] Comment on above: Performed By: #### Jones BRICENO, 2986-8, LIVR, 2857-1 #### [facility] ([id number]) [address], [address] [place] [address] Bilirubin [Mass/Vol] 0.6 mg/dL Normal 0.3-1.2 [facility] Comment on above: Performed By: #### Jones BRICENO, 2986-8, LIVR, 2857-1 #### [facility] ([id number]) [address], [address] [place] [address] Bilirubin.direct [Mass/Vol] 0.1 mg/dL Normal 0.0-0.4 [facility] Comment on above: Performed By: #### Jones BRICENO, 2986-8, LIVR, 2857-1 #### [facility] ([id number]) [address] [address] [place] [address] Protein [Mass/Vol] 6.5 g/dL Normal 6.0-8.0 [facility] Comment on above: Performed By: #### Jones BRICENO, 2986-8, LIVR, 2857-1 #### [facility] ([id number]) [address], [address] [place] [address] Prostate specific Ag [Mass/V ol]on 08-13-2024 PROSTATIC SPEC ANT 3.30 ng/mL Normal 0.00-4.00 [facility] Comment on above: Result Comment: The method used for this test is Antonio [place] DXI chemiluminescent immunoassay. Values obtained by different assay methods cannot be used interchangeably. Performed By: #### C BC, 2986-8, LIVR, 2857-1 #### [facility] ([id number]) [address], [address] [place] [address] Testosterone [Mass/Vol]on TESTOSTERONE 2.89 ng/mL Normal 1.68-7.46 [facility] Comment on above: Performed By: #### C BC, 2986-8, LIVR, 2857-1 #### [facility] ([id number]) [address], [address] [address] [address] CTA ABD AND PELVISon 06-29 CT CTA ABD AND PELVIS CT CTA ABD AND PELVIS *ADDENDUM*Addendum: IMPRESSION: Appropriate three-dimensional MIP reconstructions were obtained. Finalized by Kevin Gonzalez MD on 07/26/2024 10:55 AM Normal [facility] BASIC METABOLIC PANLon 07-22 Anion gap [Moles/Vol] 6 mmol/L Normal 5-15 [facility] Comment on above: Performed By: #### C BCA, CMP, FEPR, 6-4, 2283-8, 2132-04 #### [facility] ([id number]) [address] [place] [address] Calcium [Mass/Vol] 8.0 mg/dL Low 8.5-10.5 [facility] Comment on above: Performed By: #### C BCA, CMP, FEPR, 6-4, 2283-8, 2132-04 #### [facility] ([id number]) [address], [address] [place] [address] Chloride [Moles/Vol] 106 mmol/L Normal 98-109 [facility] Comment on above: Performed By: #### C BCA, CMP, FEPR, 2276-4, 2284-03, 2132-04 #### [facility] ([id number]) [address], [address] [place] [address] CO2 [Moles/Vol] 29 mmol/L Normal 22-32 [facility] Comment on above: Performed By: #### C BCA, CMP, FEPR, 2275-4, 2284-03, 2132-04 #### [facility] ([id number]) [address], [address] [place] [address] Creatinine [Mass/Vol] 0.85 mg/dL Normal 0.60-1.30 [facility] Comment on above: Result Comment: METH OD TRACEABLE TO IDMS STANDARD Performed By: #### C BCA, CMP, FEPR, 2275-11, 2284-03, 2132-04 #### [facility] ([id number]) [address] [place] [address] GFR/1.73 sq M.predicted among non-blacks MDRD (S/P/Bld) [Vol rate/Area] 84 mL/min/{1.73_m2} Normal >59 [facility] Comment on above: Result Comment: Reported eGFR is based on the CKD-EPI 2020 equation that does not use a race coefficient. Performed By: #### C BCA, CMP, FEPR, 4, 2284-03, 2132-04 #### [facility] ([id number]) [address], [address] [place] [address] Glucose [Mass/Vol] 113 mg/dL High 65-99 [facility] Comment on above: Performed By: #### C BCA, CMP, FEPR, 2275-, 2284-03, 2132-04 #### [facility] ([id number]) [address], [address] [place] [address] Potassium [Moles/Vol] 4.0 mmol/L Normal 3.5-5.0 [facility] Comment on above: Performed By: #### C BCA, CMP, FEPR, 2276-4, 2283-8, 2132-04 #### [facility] ([id number]) [address], [address] [place] [address] Sodium [Moles/Vol] 141 mmol/L Normal 134-146 [facility] Comment on above: Performed By: #### C BCA, CMP, FEPR, 6-4, 2283-8, 2132-04 #### [facility] ([id number]) [address], [address] [place] [address] Urea nitrogen [Mass/Vol] 11 mg/dL Normal 5-27 [facility] Comment on above: Performed By: #### C BCA, CMP, FEPR, 6-4, 2283-8, 2132-04 #### [facility] ([id number]) [address], [address] [place] [address] CBC AND AUTO DIFFon 07-22-20 24 ABSOLUTE BASOPHIL 0.0 X10E9/L Normal 0.0-0.2 [facility] Comment on above: Performed By: #### C BCA, CMP, FEPR, 2275-4, 2283-, 2132-04 #### [facility] ([id number]) [address], [address] [place] [address] ABSOLUTE NEUTROPHIL 5.1 X10E9/L Normal 1.5-6.6 [facility] Comment on above: Performed By: #### C BCA, CMP, FEPR, 6-4, 2283-8, 2132-04 #### [facility] ([id number]) [address] [address] [place] [address] Basophils/100 WBC (Bld) 0.3 % Normal [facility] Comment on above: Performed By: #### C BCA, CMP, FEPR, 2276-4, 228-8, 2132-04 #### [facility] ([id number]) [address] [address] [place] [address] Eosinophils (Bld) [#/Vol] 0.1 10*3/uL Normal 0.0-0.4 [facility] Comment on above: Performed By: #### C BCA, CMP, FEPR, 6-4, 2283-8, 2132-04 #### [facility] ([id number]) [address] [address] [place] [address] Eosinophils/100 WBC (Bld) 0.8 % Normal [facility] Comment on above: Performed By: #### C BCA, CMP, FEPR, 2275-, 2284-03, 2132-04 #### [facility] ([id number]) [address] [address] [place] [address] Erythrocyte distribution width (RBC) [Ratio] 13.4 % Normal 11.5-15.0 [facility] Comment on above: Performed By: #### C BCA, CMP, FEPR, 2275-, 2284-03, 2132-04 #### [facility] ([id number]) [address] [address] [place] [address] Hematocrit (Bld) [Volume fraction] 26.9 % Low 39-49 [facility] Comment on above: Performed By: #### C BCA, CMP, FEPR, 2275-4, 2284-03, 2132-04 #### [facility] ([id number]) [address] [address] [place] [address] Hemoglobin (Bld) [Mass/Vol] 9.2 g/dL Low 13.0-17.0 [facility] Comment on above: Performed By: #### C BCA, CMP, FEPR, 2275-4, 2283-, 2132-04 #### [facility] ([id number]) [address] [address] [place] [address] Lymphocytes (Bld) [#/Vol] 1.8 10*3/uL Normal 1.0-3.5 [facility] Comment on above: Performed By: #### C BCA, CMP, FEPR, 2275-4, 2284-03, 2132-04 #### [facility] ([id number]) [address], [address] [place] [address] Lymphocytes/100 WBC (Bld) 22.5 % Normal [facility] Comment on above: Performed By: #### C BCA, CMP, FEPR, 2275-4, 2284-03, 2132-04 #### [facility] ([id number]) [address] [place] [address] MCH (RBC) [Entitic mass] 33.6 pg Normal 27-34 [facility] Comment on above: Performed By: #### C BCA, CMP, FEPR, 2275-, 2284-03, 2132-04 #### [facility] ([id number]) [address], [address] [place] [address] MCHC (RBC) [Mass/Vol] 34.4 g/dL Normal 32-36 [facility] Comment on above: Performed By: #### C BCA, CMP, FEPR, 2275-4, 2284-03, 2132-04 #### [facility] ([id number]) [address], [address] [place] [address] MCV (RBC) [Entitic vol] 98 fL Normal 80-100 [facility] Comment on above: Performed By: #### C BCA, CMP, FEPR, 2275-4, 2284-03, 2132-04 #### [facility] ([id number]) [address], [address] [place] [address] Monocytes (Bld) [#/Vol] 1.1 10*3/uL High 0-0.9 [facility] Comment on above: Performed By: #### C BCA, CMP, FEPR, 2275-4, 2284-8, 2132-04 #### [facility] ([id number]) [address] [place] [address] Monocytes/100 WBC (Bld) 13.7 % Normal [facility] Comment on above: Performed By: #### C BCA, CMP, FEPR, 2276-4, 2283-8, 2132-04 #### [facility] ([id number]) [address], [address] [address] Neutrophils/100 WBC (Bld) 62.7 % Normal [facility] Comment on above: Performed By: #### C BCA, CMP, FEPR, 2276-4, 2283-8, 2132-04 #### [facility] ([id number]) [address] [address] [place] [address] Platelet mean volume (Bld) [Entitic vol] 7.7 fL Normal 7-12 [facility] Comment on above: Performed By: #### C BCA, CMP, FEPR, 2276-4, 2283-8, 2132-04 #### [facility] ([id number]) [address] [address] Platelets (Bld) [#/Vol] 204 10*3/uL Normal 150-450 [facility] Comment on above: Performed By: #### C BCA, CMP, FEPR, 2276-4, 4-8, 2132-04 #### [facility] ([id number]) [address] [address] [place] [address] RBC COUNT 2.75 X10E12/L Low 4.10-5.70 [facility] Comment on above: Performed By: #### C BCA, CMP, FEPR, 2276-4, 2284-8, 2132-04 #### [facility] ([id number]) [address] [address] [place] [address] WBC (Bld) [#/Vol] 8.1 10*3/uL Normal 4.0-11.0 [facility] Comment on above: Performed By: #### C BCA, CMP, FEPR, 6-4, 2283-8, 2132-04 #### [facility] ([id number]) [address], [address] [place] [address] BASIC METABOLIC PANLon 07-21 Anion gap [Moles/Vol] 10 mmol/L Normal 5-15 [facility] Comment on above: Performed By: #### C BCA, CMP, FEPR, 2275-4, 8, 2132-04 #### [facility] ([id number]) [address], [address] [place] [address] Calcium [Mass/Vol] 7.9 mg/dL Low 8.5-10.5 [facility] Comment on above: Performed By: #### C BCA, CMP, FEPR, 2275-4, 2284-03, 2132-04 #### [facility] ([id number]) [address], [address] [place] [address] Chloride [Moles/Vol] 106 mmol/L Normal 98-109 [facility] Comment on above: Performed By: #### C BCA, CMP, FEPR, 2275-4, 2284-03, 2132-04 #### [facility] ([id number]) [address] [place] [address] CO2 [Moles/Vol] 28 mmol/L Normal 22-32 [facility] Comment on above: Performed By: #### C BCA, CMP, FEPR, 2275-4, 2283-, 2132-04 #### [facility] ([id number]) [address], [address] [place] [address] Creatinine [Mass/Vol] 0.64 mg/dL Normal 0.60-1.30 [facility] Comment on above: Result Comment: METH OD TRACEABLE TO IDMS STANDARD Performed By: #### C BCA, CMP, FEPR, 2276-4, 2284-8, 2132-04 #### [facility] ([id number]) [address], [address] [place] [address] eGFR (CKD-EPI) NON-RACE DEPENDENT >90 Normal >59 [facility] Comment on above: Result Comment: Reported eGFR is based on the CKD-EPI 2020 equation that does not use a race coefficient. Performed By: #### C BCA, CMP, FEPR, 2276-4, 228-8, 2132-04 #### [facility] ([id number]) [address], [address] [place] [address] Glucose [Mass/Vol] 92 mg/dL Normal 65-99 [facility] Comment on above: Performed By: #### C BCA, CMP, FEPR, 2276-4, 2283-8, 2132-04 #### [facility] ([id number]) [address], [address] [place] [address] Potassium [Moles/Vol] 3.8 mmol/L Normal 3.5-5.0 [facility] Comment on above: Performed By: #### C BCA, CMP, FEPR, 2276-4, 228-8, 2132-04 #### [facility] ([id number]) [address], [address] [place] [address] Sodium [Moles/Vol] 144 mmol/L Normal 134-146 [facility] Comment on above: Performed By: #### C BCA, CMP, FEPR, 2276-4, 2284-8, 2132-04 #### [facility] ([id number]) [address], [address] [place] [address] Urea nitrogen [Mass/Vol] 7 mg/dL Normal 5-27 [facility] Comment on above: Performed By: #### C BCA, CMP, FEPR, 6-4, 2283-8, 2132-04 #### [facility] ([id number]) [address], [address] [place] [address] CBC AND AUTO DIFFon 07-21- 24 ABSOLUTE BASOPHIL 0.0 X10E9/L Normal 0.0-0.2 [facility] Comment on above: Performed By: #### C BCA, CMP, FEPR, 6-4, 2283-8, 2132-04 #### [facility] ([id number]) [address], [address] [place] [address] ABSOLUTE NEUTROPHIL 3.2 X10E9/L Normal 1.5-6.6 [facility] Comment on above: Performed By: #### C BCA, CMP, FEPR, 2275-4, 2283-8, 2132-04 #### [facility] ([id number]) [address], [address] [place] [address] Basophils/100 WBC (Bld) 0.6 % Normal [facility] Comment on above: Performed By: #### C BCA, CMP, FEPR, 2275-4, 2284-03, 2132-04 #### [facility] ([id number]) [address], [address] [place] [address] Eosinophils (Bld) [#/Vol] 0.0 10*3/uL Normal 0.0-0.4 [facility] Comment on above: Performed By: #### C BCA, CMP, FEPR, 2275-4, 2283-8, 2132-04 #### [facility] ([id number]) [address], [address] [place] [address] Eosinophils/100 WBC (Bld) 0.8 % Normal [facility] Comment on above: Performed By: #### C BCA, CMP, FEPR, 6-4, 2283-8, 2132-04 #### [facility] ([id number]) [address] [address] [place] [address] Erythrocyte distribution width (RBC) [Ratio] 13.4 % Normal 11.5-15.0 [facility] Comment on above: Performed By: #### C BCA, CMP, FEPR, 2275-4, 2284-03, 2132-04 #### [facility] ([id number]) [address] [address] [place] [address] Hematocrit (Bld) [Volume fraction] 27.3 % Low 39-49 [facility] Comment on above: Performed By: #### C BCA, CMP, FEPR, 2275-11, 2284-03, 2132-04 #### [facility] ([id number]) [address] [address] [place] [address] Hemoglobin (Bld) [Mass/Vol] 9.6 g/dL Low 13.0-17.0 [facility] Comment on above: Performed By: #### C BCA, CMP, FEPR, 2275-11, 2284-03, 2132-04 #### [facility] ([id number]) [address] [address] [place] [address] Lymphocytes (Bld) [#/Vol] 1.6 10*3/uL Normal 1.0-3.5 [facility] Comment on above: Performed By: #### C BCA, CMP, FEPR, 2275-, 2284-03, 2132-04 #### [facility] ([id number]) [address] [address] [place] [address] Lymphocytes/100 WBC (Bld) 28.4 % Normal [facility] Comment on above: Performed By: #### C BCA, CMP, FEPR, 2275-, 2284-03, 2132-04 #### [facility] ([id number]) [address] [address] [place] [address] MCH (RBC) [Entitic mass] 34.2 pg High 27-34 [facility] Comment on above: Performed By: #### C BCA, CMP, FEPR, 2275-, 2284-03, 2132-04 #### [facility] ([id number]) [address], [address] [place] [address] MCHC (RBC) [Mass/Vol] 35.2 g/dL Normal 32-36 [facility] Comment on above: Performed By: #### C BCA, CMP, FEPR, 2275-4, 2284-03, 2132-04 #### [facility] ([id number]) [address], [address] [place] [address] MCV (RBC) [Entitic vol] 97 fL Normal 80-100 [facility] Comment on above: Performed By: #### C BCA, CMP, FEPR, 2275-, 2284-03, 2132-04 #### [facility] ([id number]) [address], [address] [place] [address] Monocytes (Bld) [#/Vol] 0.8 10*3/uL Normal 0-0.9 [facility] Comment on above: Performed By: #### C BCA, CMP, FEPR, 2275-, 2284-03, 2132-04 #### [facility] ([id number]) [address], [address] [place] [address] Monocytes/100 WBC (Bld) 14.0 % Normal [facility] Comment on above: Performed By: #### C BCA, CMP, FEPR, 2275-, 2284-03, 2132-04 #### [facility] ([id number]) [address], [address] [place] [address] Neutrophils/100 WBC (Bld) 56.2 % Normal [facility] Comment on above: Performed By: #### C BCA, CMP, FEPR, 2275-, 2284-03, 2132-04 #### [facility] ([id number]) [address], [address] [place] [address] Platelet mean volume (Bld) [Entitic vol] 7.9 fL Normal 7-12 [facility] Comment on above: Performed By: #### C BCA, CMP, FEPR, 2275-4, 2283-8, 2132-04 #### [facility] ([id number]) [address], [address] [place] [address] Platelets (Bld) [#/Vol] 172 10*3/uL Normal 150-450 [facility] Comment on above: Performed By: #### C BCA, CMP, FEPR, 2275-, 2284-03, 2132-04 #### [facility] ([id number]) [address], [address] [place] [address] RBC COUNT 2.81 X10E12/L Low 4.10-5.70 [facility] Comment on above: Performed By: #### C BCA, CMP, FEPR, 2275-11, 2284-03, 2132-04 #### [facility] ([id number]) [address], [address] [place] [address] WBC (Bld) [#/Vol] 5.7 10*3/uL Normal 4.0-11.0 [facility] Comment on above: Performed By: #### C BCA, CMP, FEPR, 2275-4, 2284-03, 2132-04 #### [facility] ([id number]) [address], [address] [place] [address] CRP [Mass/Vol]on 07-21-2024 C REACTIVE PROTEIN 0.4 mg/dL Normal 0.000-0.744 [facility] Comment on above: Performed By: #### C BCA, CMP, FEPR, 2275-, 2284-03, 2132-04 #### [facility] ([id number]) [address] [place] [address] Calcium.ionized (Bld) [Mass/ Vol]on 07-21-2024 IONIZED CALCIUM 4.6 mg/dL Normal 4.5-5.3 [facility] Comment on above: Performed By: #### C BCA, CMP, FEPR, 6-4, 2283-8, 2132-04 #### [facility] ([id number]) [address] [place] [address] ESR Photometric method (Bld) [Velocity]on 07-21-2024 ESR, ERYTHROCYTE SEDIMENTATION RATE 1 mm/h Normal 0-20 [facility] Comment on above: Performed By: #### C BCA, CMP, FEPR, 2275-4, 2283-8, 2132-04 #### [facility] ([id number]) [address], [address] [address] HGB AND HCTon 07-21-2024 Hematocrit (Bld) [Volume fraction] 29.8 % Low 39-49 [facility] Comment on above: Performed By: #### C BCA, CMP, FEPR, 2275-4, 2284-03, 2132-04 #### [facility] ([id number]) [address] [address] Hemoglobin (Bld) [Mass/Vol] 10.4 g/dL Low 13.0-17.0 [facility] Comment on above: Performed By: #### C BCA, CMP, FEPR, 6-4, 2283-8, 2132-04 #### [facility] ([id number]) [address] [address] Reticulocytes/100 RBC (Bld)o n 07-21-2024 RETICULOCYTE COUNT 1.3 % Normal 0.4-2.2 [facility] Comment on above: Performed By: #### C BCA, CMP, FEPR, 2276-4, 2283-8, 2132-04 #### [facility] ([id number]) [address], [address] [place] [address] BASIC METABOLIC PANLon 07-20 Anion gap [Moles/Vol] 6 mmol/L Normal 5-15 [facility] Comment on above: Performed By: #### C BCA, CMP, FEPR, 2276-4, 2283-8, 2132-04 #### [facility] ([id number]) [address], [address] [place] [address] Calcium [Mass/Vol] 8.1 mg/dL Low 8.5-10.5 [facility] Comment on above: Performed By: #### C BCA, CMP, FEPR, 6-4, 2283-8, 2132-04 #### [facility] ([id number]) [address], [address] [place] [address] Chloride [Moles/Vol] 105 mmol/L Normal 98-109 [facility] Comment on above: Performed By: #### C BCA, CMP, FEPR, 2275-4, 2283-, 2132-04 #### [facility] ([id number]) [address], [address] [place] [address] CO2 [Moles/Vol] 32 mmol/L Normal 22-32 [facility] Comment on above: Performed By: #### C BCA, CMP, FEPR, 6-4, 2283-8, 2132-04 #### [facility] ([id number]) [address], [address] [place] [address] Creatinine [Mass/Vol] 0.78 mg/dL Normal 0.60-1.30 [facility] Comment on above: Result Comment: METH OD TRACEABLE TO IDMS STANDARD Performed By: #### C BCA, CMP, FEPR, 6-4, 228-8, 2132-04 #### [facility] ([id number]) [address] [address] [place] [address] GFR/1.73 sq M.predicted among non-blacks MDRD (S/P/Bld) [Vol rate/Area] 86 mL/min/{1.73_m2} Normal >59 [facility] Comment on above: Result Comment: Reported eGFR is based on the CKD-EPI 2020 equation that does not use a race coefficient. Performed By: #### C BCA, CMP, FEPR, 2276-4, 2283-8, 2132-04 #### [facility] ([id number]) [address] [address] [place] [address] Glucose [Mass/Vol] 100 mg/dL High 65-99 [facility] Comment on above: Performed By: #### C BCA, CMP, FEPR, 6-4, 2284-03, 2132-04 #### [facility] ([id number]) [address] [address] [place] [address] Potassium [Moles/Vol] 4.1 mmol/L Normal 3.5-5.0 [facility] Comment on above: Performed By: #### C BCA, CMP, FEPR, 2276-4, 2283-8, 2132-04 #### [facility] ([id number]) [address] [address] [place] [address] Sodium [Moles/Vol] 143 mmol/L Normal 134-146 [facility] Comment on above: Performed By: #### C BCA, CMP, FEPR, 2276-4, 2283-8, 2132-04 #### [facility] ([id number]) [address] [address] [place] [address] Urea nitrogen [Mass/Vol] 13 mg/dL Normal 5-27 [facility] Comment on above: Performed By: #### C BCA, CMP, FEPR, 2276-4, 2283-8, 2132-04 #### [facility] ([id number]) [address], [address] [place] [address] CBC AND AUTO DIFFon 11-24-20 24 ABSOLUTE BASOPHIL 0.0 X10E9/L Normal 0.0-0.2 [facility] Comment on above: Performed By: #### C BCA, CMP, FEPR, 2275-4, 2284-03, 2132-04 #### [facility] ([id number]) [address] [place] [address] ABSOLUTE NEUTROPHIL 3.1 X10E9/L Normal 1.5-6.6 [facility] Comment on above: Performed By: #### C BCA, CMP, FEPR, 2275-11, 2284-03, 2132-04 #### [facility] ([id number]) [address], [address] [place] [address] Basophils/100 WBC (Bld) 0.8 % Normal [facility] Comment on above: Performed By: #### C BCA, CMP, FEPR, 2275-11, 2284-03, 2132-04 #### [facility] ([id number]) [address] [address] Eosinophils (Bld) [#/Vol] 0.1 10*3/uL Normal 0.0-0.4 [facility] Comment on above: Performed By: #### C BCA, CMP, FEPR, 2275-4, 2284-03, 2132-04 #### [facility] ([id number]) [address] [address] Eosinophils/100 WBC (Bld) 1.2 % Normal [facility] Comment on above: Performed By: #### C BCA, CMP, FEPR, 2275-, 2284-03, 2132-04 #### [facility] ([id number]) [address], [address] [place] [address] Erythrocyte distribution width (RBC) [Ratio] 13.1 % Normal 11.5-15.0 [facility] Comment on above: Performed By: #### C BCA, CMP, FEPR, 2275-, 2284-03, 2132-04 #### [facility] ([id number]) [address], [address] [place] [address] Hematocrit (Bld) [Volume fraction] 27.7 % Low 39-49 [facility] Comment on above: Performed By: #### C BCA, CMP, FEPR, 2275-11, 2284-03, 2132-04 #### [facility] ([id number]) [address], [address] [place] [address] Hemoglobin (Bld) [Mass/Vol] 9.5 g/dL Low 13.0-17.0 [facility] Comment on above: Performed By: #### C BCA, CMP, FEPR, 2275-11, 2284-03, 2132-04 #### [facility] ([id number]) [address], [address] [place] [address] Lymphocytes (Bld) [#/Vol] 1.4 10*3/uL Normal 1.0-3.5 [facility] Comment on above: Performed By: #### C BCA, CMP, FEPR, 2275-11, 2284-03, 2132-04 #### [facility] ([id number]) [address], [address] [place] [address] Lymphocytes/100 WBC (Bld) 26.2 % Normal [facility] Comment on above: Performed By: #### C BCA, CMP, FEPR, 2275-11, 2284-03, 2132-04 #### [facility] ([id number]) [address] [place] [address] MCH (RBC) [Entitic mass] 33.5 pg Normal 27-34 [facility] Comment on above: Performed By: #### C BCA, CMP, FEPR, 2275-4, 2284-03, 2132-04 #### [facility] ([id number]) [address], [address] [place] [address] MCHC (RBC) [Mass/Vol] 34.3 g/dL Normal 32-36 [facility] Comment on above: Performed By: #### C BCA, CMP, FEPR, 2275-4, 2284-03, 2132-04 #### [facility] ([id number]) [address], [address] [place] [address] MCV (RBC) [Entitic vol] 98 fL Normal 80-100 [facility] Comment on above: Performed By: #### C BCA, CMP, FEPR, 2275-, 2284-03, 2132-04 #### [facility] ([id number]) [address], [address] [place] [address] Monocytes (Bld) [#/Vol] 0.7 10*3/uL Normal 0-0.9 [facility] Comment on above: Performed By: #### C BCA, CMP, FEPR, 2275-, 2284-03, 2132-04 #### [facility] ([id number]) [address], [address] [place] [address] Monocytes/100 WBC (Bld) 13.9 % Normal [facility] Comment on above: Performed By: #### C BCA, CMP, FEPR, 2275-4, 2283-, 2132-04 #### [facility] ([id number]) [address], [address] [place] [address] Neutrophils/100 WBC (Bld) 57.9 % Normal [facility] Comment on above: Performed By: #### C BCA, CMP, FEPR, 2275-, 2284-03, 2132-04 #### [facility] ([id number]) [address] [place] [address] Platelet mean volume (Bld) [Entitic vol] 7.9 fL Normal 7-12 [facility] Comment on above: Performed By: #### C BCA, CMP, FEPR, 2276-4, 2283-8, 2132-04 #### [facility] ([id number]) [address], [address] [place] [address] Platelets (Bld) [#/Vol] 176 10*3/uL Normal 150-450 [facility] Comment on above: Performed By: #### C BCA, CMP, FEPR, 2275-4, 2284-03, 2132-04 #### [facility] ([id number]) [address] [address] [place] [address] RBC COUNT 2.83 X10E12/L Low 4.10-5.70 [facility] Comment on above: Performed By: #### C BCA, CMP, FEPR, 6-4, 2284-03, 2132-04 #### [facility] ([id number]) [address] [address] [place] [address] WBC (Bld) [#/Vol] 5.4 10*3/uL Normal 4.0-11.0 [facility] Comment on above: Performed By: #### C BCA, CMP, FEPR, 2275-4, 2284-03, 2132-04 #### [facility] ([id number]) [address] [address] [place] [address] HGB AND HCTon 07-20-2024 Hematocrit (Bld) [Volume fraction] 31.3 % Low 39-49 [facility] Comment on above: Performed By: #### C BCA, CMP, FEPR, 6-4, 2283-, 2132-04 #### [facility] ([id number]) [address] [place] [address] Hemoglobin (Bld) [Mass/Vol] 10.8 g/dL Low 13.0-17.0 [facility] Comment on above: Performed By: #### C BCA, CMP, FEPR, 2275-, 2284-03, 2132-04 #### [facility] ([id number]) [address], [address] [place] [address] CBC AND AUTO DIFFon 07-19-20 ABSOLUTE BASOPHIL 0.0 X10E9/L Normal 0.0-0.2 [facility] Comment on above: Performed By: #### C BCA, CMP, FEPR, 2275-11, 2284-03, 2132-04 #### [facility] ([id number]) [address] [place] [address] ABSOLUTE NEUTROPHIL 5.2 X10E9/L Normal 1.5-6.6 [facility] Comment on above: Performed By: #### C BCA, CMP, FEPR, 2275-11, 2284-03, 2132-04 #### [facility] ([id number]) [address] [place] [address] Basophils/100 WBC (Bld) 0.5 % Normal [facility] Comment on above: Performed By: #### C BCA, CMP, FEPR, 2275-11, 2284-03, 2132-04 #### [facility] ([id number]) [address] [place] [address] Eosinophils (Bld) [#/Vol] 0.0 10*3/uL Normal 0.0-0.4 [facility] Comment on above: Performed By: #### C BCA, CMP, FEPR, 2275-11, 2284-03, 2132-04 #### [facility] ([id number]) [address] [place] [address] Eosinophils/100 WBC (Bld) 0.3 % Normal [facility] Comment on above: Performed By: #### C BCA, CMP, FEPR, 2275-4, 2283-, 2132-04 #### [facility] ([id number]) [address] [place] [address] Erythrocyte distribution width (RBC) [Ratio] 13.3 % Normal 11.5-15.0 [facility] Comment on above: Performed By: #### C BCA, CMP, FEPR, 2275-4, 8, 2132-04 #### [facility] ([id number]) [address] [address] [place] [address] Hematocrit (Bld) [Volume fraction] 30.7 % Low 39-49 [facility] Comment on above: Performed By: #### C BCA, CMP, FEPR, 2275-, 2284-03, 2132-04 #### [facility] ([id number]) [address] [place] [address] Hemoglobin (Bld) [Mass/Vol] 10.6 g/dL Low 13.0-17.0 [facility] Comment on above: Performed By: #### C BCA, CMP, FEPR, 2275-4, 2284-03, 2132-04 #### [facility] ([id number]) [address] [place] [address] Lymphocytes (Bld) [#/Vol] 1.8 10*3/uL Normal 1.0-3.5 [facility] Comment on above: Performed By: #### C BCA, CMP, FEPR, 2275-4, 2283-, 2132-04 #### [facility] ([id number]) [address] [address] [place] [address] Lymphocytes/100 WBC (Bld) 22.1 % Normal [facility] Comment on above: Performed By: #### C BCA, CMP, FEPR, 2276-4, 2284-03, 2132-04 #### [facility] ([id number]) [address] [place] [address] MCH (RBC) [Entitic mass] 33.3 pg Normal 27-34 [facility] Comment on above: Performed By: #### C BCA, CMP, FEPR, 2275-11, 2284-03, 2132-04 #### [facility] ([id number]) [address] [place] [address] MCHC (RBC) [Mass/Vol] 34.5 g/dL Normal 32-36 [facility] Comment on above: Performed By: #### C BCA, CMP, FEPR, 2275-11, 2284-03, 2132-04 #### [facility] ([id number]) [address] [place] [address] MCV (RBC) [Entitic vol] 97 fL Normal 80-100 [facility] Comment on above: Performed By: #### C BCA, CMP, FEPR, 2275-11, 2284-03, 2132-04 #### [facility] ([id number]) [address] [address] Monocytes (Bld) [#/Vol] 1.0 10*3/uL High 0-0.9 [facility] Comment on above: Performed By: #### C BCA, CMP, FEPR, 2275-11, 2284-03, 2132-04 #### [facility] ([id number]) [address] [address] [place] [address] Monocytes/100 WBC (Bld) 12.2 % Normal [facility] Comment on above: Performed By: #### C BCA, CMP, FEPR, 2275-11, 2284-03, 2132-04 #### [facility] ([id number]) [address] [place] [address] Neutrophils/100 WBC (Bld) 64.9 % Normal [facility] Comment on above: Performed By: #### C BCA, CMP, FEPR, 6-4, 2283-, 2132-04 #### [facility] ([id number]) [address] [place] [address] Platelet mean volume (Bld) [Entitic vol] 8.1 fL Normal 7-12 [facility] Comment on above: Performed By: #### C BCA, CMP, FEPR, 2275-4, 2283-8, 2132-04 #### [facility] ([id number]) [address] [place] [address] Platelets (Bld) [#/Vol] 192 10*3/uL Normal 150-450 [facility] Comment on above: Performed By: #### C BCA, CMP, FEPR, 2275-, 2284-03, 2132-04 #### [facility] ([id number]) [address] [place] [address] RBC COUNT 3.18 X10E12/L Low 4.10-5.70 [facility] Comment on above: Performed By: #### C BCA, CMP, FEPR, 2275-4, 2284-03, 2132-04 #### [facility] ([id number]) [address], [address] [place] [address] WBC (Bld) [#/Vol] 8.0 10*3/uL Normal 4.0-11.0 [facility] Comment on above: Performed By: #### C BCA, CMP, FEPR, 2275-4, 2284-03, 2132-04 #### [facility] ([id number]) [address], [address] [place] [address] COMPREHENSIVE METABOLIC PANE Josr 07-19-2024 Albumin [Mass/Vol] 3.4 g/dL Normal 3.2-5.3 [facility] Comment on above: Performed By: #### C BCA, CMP, FEPR, 2276-4, 2284-8, 2132-04 #### [facility] ([id number]) [address], [address] [place] [address] ALP [Catalytic activity/Vol] 90 U/L Normal 39-130 [facility] Comment on above: Performed By: #### C BCA, CMP, FEPR, 2276-4, 228-8, 2132-04 #### [facility] ([id number]) [address], [address] [place] [address] ALT [Catalytic activity/Vol] 6 U/L Normal 0-40 [facility] Comment on above: Performed By: #### C BCA, CMP, FEPR, 2276-4, 228-8, 2132-04 #### [facility] ([id number]) [address], [address] [place] [address] Anion gap [Moles/Vol] 7 mmol/L Normal 5-15 [facility] Comment on above: Performed By: #### C BCA, CMP, FEPR, 2276-4, 228-8, 2132-04 #### [facility] ([id number]) [address], [address] [place] [address] AST [Catalytic activity/Vol] 15 U/L Normal 0-41 [facility] Comment on above: Performed By: #### C BCA, CMP, FEPR, 2276-4, 2284-8, 2132-04 #### [facility] ([id number]) [address], [address] [place] [address] Bilirubin [Mass/Vol] 0.6 mg/dL Normal 0.3-1.2 [facility] Comment on above: Performed By: #### C BCA, CMP, FEPR, 2276-4, 2284-8, 2132-04 #### [facility] ([id number]) [address], [address] [place] [address] Calcium [Mass/Vol] 8.0 mg/dL Low 8.5-10.5 [facility] Comment on above: Performed By: #### C BCA, CMP, FEPR, 2276-4, 2283-8, 2132-04 #### [facility] ([id number]) [address], [address] [place] [address] Chloride [Moles/Vol] 102 mmol/L Normal 98-109 [facility] Comment on above: Performed By: #### C BCA, CMP, FEPR, 6-4, 8, 2132-04 #### [facility] ([id number]) [address], [address] [place] [address] CO2 [Moles/Vol] 29 mmol/L Normal 22-32 [facility] Comment on above: Performed By: #### C BCA, CMP, FEPR, 6-4, 2283-8, 2132-04 #### [facility] ([id number]) [address] [facility] [place] [address] Creatinine [Mass/Vol] 0.95 mg/dL Normal 0.60-1.30 [facility] Comment on above: Result Comment: METH OD TRACEABLE TO IDMS STANDARD Performed By: #### C BCA, CMP, FEPR, 2276-4, 2283-8, 2132-04 #### [facility] ([id number]) [address] [place] [address] GFR/1.73 sq M.predicted among non-blacks MDRD (S/P/Bld) [Vol rate/Area] 77 mL/min/{1.73_m2} Normal >59 [facility] Comment on above: Result Comment: Reported eGFR is based on the CKD-EPI 2020 equation that does not use a race coefficient. Performed By: #### C BCA, CMP, FEPR, 2276-4, 2284-8, 2132-04 #### [facility] ([id number]) [address], [address] [place] [address] Glucose [Mass/Vol] 98 mg/dL Normal 65-99 [facility] Comment on above: Performed By: #### C BCA, CMP, FEPR, 6-4, 2283-8, 2132-04 #### [facility] ([id number]) [address], [address] [place] [address] Potassium [Moles/Vol] 4.2 mmol/L Normal 3.5-5.0 [facility] Comment on above: Performed By: #### C BCA, CMP, FEPR, 2275-4, 8, 2132-04 #### [facility] ([id number]) [address], [address] [place] [address] Protein [Mass/Vol] 5.9 g/dL Low 6.0-8.0 [facility] Comment on above: Performed By: #### C BCA, CMP, FEPR, 2275-4, 2283-8, 2132-04 #### [facility] ([id number]) [address], [address] [place] [address] Sodium [Moles/Vol] 138 mmol/L Normal 134-146 [facility] Comment on above: Performed By: #### C BCA, CMP, FEPR, 2275-4, 2283-8, 2132-04 #### [facility] ([id number]) [address], [address] [place] [address] Urea nitrogen [Mass/Vol] 20 mg/dL Normal 5-27 [facility] Comment on above: Performed By: #### C BCA, CMP, FEPR, 2276-4, 2283-8, 2132-04 #### [facility] ([id number]) [address], [address] [place] [address] FERRITINon 07-19-2024 Ferritin [Mass/Vol] 88 ng/mL Normal 24-336 [facility] Comment on above: Performed By: #### C BCA, CMP, FEPR, 2276-4, 2283-8, 2132-04 #### [facility] ([id number]) [address], [address] [place] [address] Folate [Mass/Vol]on 07-19-20 24 FOLIC ACID 20.9 ng/mL Normal >5.8 [facility] Comment on above: Result Comment: NEW REFERENCE RANGE Performed By: #### C BCA, CMP, FEPR, 2276-4, 2283-8, 2132-04 #### [facility] ([id number]) [address], [address] [place] [address] HGB AND HCTon 07-19-2024 Hematocrit (Bld) [Volume fraction] 28.9 % Low 39-49 [facility] Comment on above: Performed By: #### C BCA, CMP, FEPR, 2276-4, 2283-8, 2132-04 #### [facility] ([id number]) [address], [address] [place] [address] Hemoglobin (Bld) [Mass/Vol] 9.9 g/dL Low 13.0-17.0 [facility] Comment on above: Performed By: #### C BCA, CMP, FEPR, 2276-4, 2283-8, 2132-04 #### [facility] ([id number]) [address], [address] [place] [address] IRON PROFILEon 07-19-2024 Iron [Mass/Vol] 105 ug/dL Normal 50-212 [facility] Comment on above: Performed By: #### C BCA, CMP, FEPR, 2276-4, 2283-8, 2132-04 #### [facility] ([id number]) [address], [address] [place] [address] IRON BINDING 311 ug/dL Normal 250-425 [facility] Comment on above: Performed By: #### C BCA, CMP, FEPR, 6-4, 2283-8, 2132-04 #### [facility] ([id number]) [address], [address] [place] [address] IRON SATURATION 34 % SATURATION Normal 20-50 [facility] Comment on above: Performed By: #### C BCA, CMP, FEPR, 2275-4, 2283-8, 2132-04 #### [facility] ([id number]) [address], [address] [place] [address] Lactate (P marita) [Moles/Vol]o n 07-19-2024 LACTATE W/REFLEX 0.6 mmol/L Normal 0.4-2.0 [facility] Comment on above: Result Comment: Result did not trigger repeat Lactate, re-order if needed. Performed By: #### C BCA, CMP, FEPR, 2275-4, 2284-03, 2132-04 #### [facility] ([id number]) [address], [address] [place] [address] PROTIME AND INRon 07-19-2024 INR Coag (PPP) [Relative time] 1.0 {INR} Normal 0.8-1.1 [facility] Comment on above: Performed By: #### P INR, 28432-4 #### [facility] ([id number]) [address], [address] [place] [address] PT Coag (PPP) [Time] 11.6 s Normal 9.8-13.2 [facility] Comment on above: Performed By: #### P INR, 84989-0 #### [facility] ([id number]) [address], [address] [place] [address] VITAMIN B12on 07-19-2024 Cobalamin (Vitamin B12) [Mass/Vol] 425 pg/mL Normal 180-914 [facility] Comment on above: Performed By: #### C BCA, CMP, FEPR, 2276-4, 2284-8, 2132-9 #### [facility] ([id number]) [address], [address] [place] [address] aPTT Coag (PPP) [Time]on aPTT Coag (Bld) [Time] 29 s Normal 26-37 [facility] Comment on above: Performed By: #### P INR, 72400-1 #### [facility] ([id number]) [address], [address] [place] [address] URINE CULTUREon 03-11-2024 Bacteria identified Cx Nom [...] <=1 F TRIMETH/SULFAMETHOXAZOLE S <=1/19 F Susceptible [facility] Comment on above: Performed By: #### 6 30-4 #### [facility] ([id number]) [address], [address] [place] [address] Testosterone [Mass/Vol]on TESTOSTERONE 0.84 ng/mL Low 1.68-7.46 [facility] Comment on above: Performed By: #### 2 986-8 #### [facility] ([id number]) [address], [address] [place] [address] XR ABDOMEN AP 1 VWon 024 XR [...] with and/or edited the report Finalized by Majninder Lai MD on 11/14/2023 10:[address] [facility] COMPLETE BLOOD COUNTon 11-12 Erythrocyte distribution width (RBC) [Ratio] 13.1 % Normal 11.5-15.0 [facility] Comment on above: Performed By: #### Jones BRICENO, 2986-8, LIVR #### [facility] ([id number]) [address], [address] [place] [address] Hematocrit (Bld) [Volume fraction] 40.8 % Normal 39-49 [facility] Comment on above: Performed By: #### Jones BRICENO, 2986-8, LIVR #### [facility] ([id number]) [address], [address] [place] [address] Hemoglobin (Bld) [Mass/Vol] 13.9 g/dL Normal 13.0-17.0 [facility] Comment on above: Performed By: #### Jones BRICENO, 2986-8, LIVR #### [facility] ([id number]) [address] [place] [address] MCH (RBC) [Entitic mass] 33.3 pg Normal 27-34 [facility] Comment on above: Performed By: #### Jones BRICENO, 2986-8, LIVR #### [facility] ([id number]) [address], [address] [place] [address] MCHC (RBC) [Mass/Vol] 34.2 g/dL Normal 32-36 [facility] Comment on above: Performed By: #### Jones BRICENO, 2986-8, LIVR #### [facility] ([id number]) [address], [address] [place] [address] MCV (RBC) [Entitic vol] 98 fL Normal 80-100 [facility] Comment on above: Performed By: #### Jones BRICENO, 2985-, LIVR #### [facility] ([id number]) [address], [address] [place] [address] Platelet mean volume (Bld) [Entitic vol] 8.6 fL Normal 7-12 [facility] Comment on above: Performed By: #### Jones BRICENO, 2986-03, LIVR #### [facility] ([id number]) [address], [address] [place] [address] Platelets (Bld) [#/Vol] 206 10*3/uL Normal 150-450 [facility] Comment on above: Performed By: #### Jones BRICENO, 29868, LIVR #### [facility] ([id number]) [address], [address] [place] [address] RBC COUNT 4.19 X10E12/L Normal 4.10-5.70 [facility] Comment on above: Performed By: #### Jones BRICENO, 2986, LIVR #### [facility] ([id number]) [address] [place] [address] WBC (Bld) [#/Vol] 8.8 10*3/uL Normal 4.0-11.0 [facility] Comment on above: Performed By: #### Jones BRICENO, 2986, LIVR #### [facility] ([id number]) [address], [address] [place] [address] LIVER PANELon 11-13-2023 Albumin [Mass/Vol] 4.0 g/dL Normal 3.2-5.3 [facility] Comment on above: Performed By: #### Jones BRICENO, 2986-8, LIVR #### [facility] ([id number]) [address], [address] [place] [address] ALP [Catalytic activity/Vol] 120 U/L Normal 39-130 [facility] Comment on above: Performed By: #### Jones BRICENO, 2986-8, LIVR #### [facility] ([id number]) [address], [address] [place] [address] ALT [Catalytic activity/Vol] 12 U/L Normal 0-40 [facility] Comment on above: Performed By: #### Jones BRICENO, 2986-8, LIVR #### [facility] ([id number]) [address], [address] [place] [address] AST [Catalytic activity/Vol] 16 U/L Normal 0-41 [facility] Comment on above: Performed By: #### Jones BRICENO, 2986-8, LIVR #### [facility] ([id number]) [address], [address] [place] [address] Bilirubin [Mass/Vol] 1.0 mg/dL Normal 0.3-1.2 [facility] Comment on above: Performed By: #### Jones BRICENO, 2986-8, LIVR #### [facility] ([id number]) [address], [address] [place] [address] Bilirubin.direct [Mass/Vol] 0.2 mg/dL Normal 0.0-0.4 [facility] Comment on above: Performed By: #### Jones BRICENO, 2986-8, LIVR #### [facility] ([id number]) [address], [address] [place] [address] Protein [Mass/Vol] 6.7 g/dL Normal 6.0-8.0 [facility] Comment on above: Performed By: #### C BC, 2986-8, LIVR #### [facility] ([id number]) [address], [address] [place] [address] Testosterone [Mass/Vol]on TESTOSTERONE 1.74 ng/mL Normal 1.68-7.46 [facility] Comment on above: Performed By: #### C BC, 2986-8, LIVR #### [facility] ([id number]) [address], [address] [place] [address] Thyroid Stimulating Hormoneo n 10-17-2022 Thyroid Stimulating Hormone Zounds Other TESTOSTERONE, TOTALon 2022 Testosterone [Mass/Vol] 696 ng/dL Normal 264-916 [facility] Comment on above: Result Comment: Adul t male reference interval is based on a population of healthy nonobese males (BMI <30) between 19 and 39 years old. Nitish, et.al. JCEM 2017,102;7101-5055. PMID: 59061760. Performed By: #### T ESTTOT #### [facility] [address] [address] [address] Fatmata Mays TSHon 10-14-2022 TSH 0.698 uIU/mL Normal 0.358-3.740 [facility] Comment on above: Performed By: #### T SH #### [facility] [address] [address] [address] Fatmata Mays TESTOSTERONE, TOTALon 2021 Testosterone [Mass/Vol] 34 ng/dL Critically low 264-916 [facility] Comment on above: Result Comment: Adul t male reference interval is based on a population of healthy nonobese males (BMI <30) between 19 and 39 years old. Nitish, et.al. JCEM 2017,102;8987-8914. PMID: 52793484. Performed By: #### T ESTTOT #### [facility] [address] [place] [address] Dr. Fatmata Mays TSHon 04-24-2022 TSH 0.878 uIU/mL Normal 0.358-3.740 [facility] Comment on above: Performed By: #### T SH #### [facility] [address] [place] [address] Dr. Fatmata Mays CBC AUTO DIFFon 12-12-2021 BASO # 0.0 103/ul Normal 0.0-0.1 [facility] Comment on above: Performed By: #### C BC #### [facility] [address] [place] [address] Dr. Fatmata Mays Basophils/100 WBC (Bld) 0.6 % Normal 0.2-2.0 [facility] Comment on above: Performed By: #### C BC #### [facility] [address] [place] [address] Dr. Fatmata Mays EO # 0.1 103/ul Normal 0.0-0.7 [facility] Comment on above: Performed By: #### C BC #### [facility] [address] [place] [address] Dr. Fatmata Mays Eosinophils/100 WBC (Bld) 1.0 % Normal 0.9-7.0 [facility] Comment on above: Performed By: #### C BC #### [facility] [address] [place] [address] Dr. Fatmata Mays Erythrocyte distribution width (RBC) [Ratio] 13.0 % Normal 11.0-15.0 [facility] Comment on above: Performed By: #### C BC #### [facility] [address] [place] [address] Dr. Fatmata Mays Hematocrit (Bld) [Volume fraction] 41.2 % Critically low 42.0-54.0 [facility] Comment on above: Performed By: #### C BC #### [facility] [address] [place] [address] Dr. Fatmata Mays Hemoglobin (Bld) [Mass/Vol] 13.8 g/dL Critically low 14.0-18.0 [facility] Comment on above: Performed By: #### C BC #### [facility] [address] [place] [address] Dr. Fatmata Mays IG # 0.02 10e3/ul Normal 0.00-0.03 [facility] Comment on above: Performed By: #### C BC #### [facility] [address] [place] [address] Dr. Fatmata Mays IG % 0.3 % Normal 0.0-0.5 [facility] Comment on above: Performed By: #### C BC #### [facility] [address] [place] [address] Dr. Fatmata Mays LYMPH # 1.5 103/ul Normal 1.2-3.8 [facility] Comment on above: Performed By: #### C BC #### [facility] [address] [place] [address] Dr. Fatmata Mays Lymphocytes/100 WBC (Bld) 21.9 % Normal 20.5-60.0 [facility] Comment on above: Performed By: #### C BC #### [facility] [address] [place] [address] Dr. Fatmata Mays MANUAL DIFF REQ NO Normal [facility] Comment on above: Performed By: #### C BC #### [facility] [address] [place] [address] Dr. Fatmata Mays MCH (RBC) [Entitic mass] 32.4 pg Normal 25.9-34.0 [facility] Comment on above: Performed By: #### C BC #### [facility] [address] [place] [address] Dr. Fatmata Mays MCHC (RBC) [Mass/Vol] 33.5 g/dL Normal 29.9-35.2 [facility] Comment on above: Performed By: #### C BC #### [facility] [address] [place] [address] Dr. Fatmata Mays MCV (RBC) [Entitic vol] 96.7 fL Critically high 80.0-94.0 [facility] Comment on above: Performed By: #### C BC #### [facility] [address] [address] [address] Fatmata Mays MONO # 1.0 103/ul Critically high 0.3-0.8 [facility] Comment on above: Performed By: #### C BC #### [facility] [address] [address] [address] Fatmata Mays Monocytes/100 WBC (Bld) 13.8 % Critically high 1.7-12.0 [facility] Comment on above: Performed By: #### C BC #### [facility] [address] [address] [address] Fatmata Mays NEUT # 4.4 103/ul Normal 1.4-6.5 [facility] Comment on above: Performed By: #### C BC #### [facility] [address] [place] [address] Dr. Fatmata Mays Neutrophils/100 WBC (Bld) 62.4 % Normal 43.0-75.0 [facility] Comment on above: Performed By: #### C BC #### [facility] [address] [address] [address] Fatmata Mays Platelet mean volume (Bld) [Entitic vol] 9.7 fL Normal 9.5-13.5 [facility] Comment on above: Performed By: #### C BC #### [facility] [address] [place] [address] Dr. Fatmata Mays PLT 163 103/ul Normal 150-450 [facility] Comment on above: Performed By: #### C BC #### [facility] [address] [address] [address] Fatmata Mays RBC 4.26 106/ul Critically low 4.70-6.10 [facility] Comment on above: Performed By: #### C BC #### [facility] [address] [address] [address] Fatmata Mays WBC 7.0 103/ul Normal 4.0-11.0 [facility] Comment on above: Performed By: #### C BC #### [facility] [address] [address] [address] Fatmata Mays LIPID PROFILEon 12-12-2021 CHOL-HDL RATIO NORM SEE BELOW Normal [facility] Comment on above: Result Comment: 3.3 - 4.4 LOW RISK 4.4 - 7.1 AVERAGE RISK 7.1 - 11.0 MODERATE RISK >11.0 HIGH RISK Performed By: #### C MP, TSH, LIPID #### [facility] [address] [address] [address] Fatmata Mays Cholesterol [Mass/Vol] 193 mg/dL Normal <=200 [facility] Comment on above: Performed By: #### C MP, TSH, LIPID #### [facility] [address] [address] [address] Fatmata Mays Cholesterol in HDL [Mass/Vol] 81 mg/dL Critically high 40-60 [facility] Comment on above: Performed By: #### C MP, TSH, LIPID #### [facility] [address] [address] [address] Fatmata Mays Cholesterol in LDL [Mass/Vol] 94.0 mg/dL Normal [facility] Comment on above: Performed By: #### C MP, TSH, LIPID #### [facility] [address] [address] [address] Fatmata Mays Cholesterol.total/ Cholesterol in HDL [Mass ratio] 2.4 {ratio} Normal [facility] Comment on above: Performed By: #### C MP, TSH, LIPID #### [facility] [address] [address] [address] Fatmata Mays HDL NORMAL > or = 60 mg/dl - LO W CARDIOVASCULAR RISK <40 mg/dl - HIGH CARDIOVASCULAR RISK Normal [facility] Comment on above: Performed By: #### C MP, TSH, LIPID #### [facility] [address] [address] [address] Fatmata Mays LDL CALC NORMAL SEE BELOW Normal [facility] Comment on above: Result Comment: <100 mg/dl OPTIMAL 100 - 129 mg/dl NEAR OR ABOVE OPTIMAL 130 - 159 mg/dl BORDERLINE HIGH 160 - 189 mg/dl HIGH >190 mg/dl VERY HIGH Performed By: #### C MP, TSH, LIPID #### [facility] [address] [address] [address] Fatmata Mays Triglyceride [Mass/Vol] 90 mg/dL Normal <=150 [facility] Comment on above: Performed By: #### C MP, TSH, LIPID #### [facility] [address] [address] [address] Fatmata Mays VLDL CALC 18.0 mg/dL Normal [facility] Comment on above: Performed By: #### C MP, TSH, LIPID #### [facility] [address] [address] [address] Fatmata Mays PROF 14(COMP METB)on 022 Albumin [Mass/Vol] 3.3 g/dL Critically low 3.4-5.0 [facility] Comment on above: Performed By: #### C MP, TSH, LIPID #### [facility] [address] [place] [address] Dr. Fatmata Mays Albumin/Globulin [Mass ratio] 1.0 {ratio} Normal [facility] Comment on above: Performed By: #### C MP, TSH, LIPID #### [facility] [address] [place] [address] Dr. Fatmata Mays ALP [Catalytic activity/Vol] 153 U/L Critically high 46-116 [facility] Comment on above: Performed By: #### C MP, TSH, LIPID #### [facility] [address] [place] [address] Dr. Fatmata Mays ALT [Catalytic activity/Vol] 22 U/L Normal 16-63 [facility] Comment on above: Performed By: #### C MP, TSH, LIPID #### [facility] [address] [place] [address] Dr. Fatmata Mays Anion gap [Moles/Vol] 10.6 mmol/L Normal [facility] Comment on above: Performed By: #### C MP, TSH, LIPID #### [facility] [address] [place] [address] Dr. Fatmata Mays AST [Catalytic activity/Vol] 11 U/L Critically low 15-37 [facility] Comment on above: Performed By: #### C MP, TSH, LIPID #### [facility] [address] [place] [address] Dr. Fatmata Mays Bilirubin [Mass/Vol] 0.8 mg/dL Normal 0.2-1.3 [facility] Comment on above: Performed By: #### C MP, TSH, LIPID #### [facility] [address] [place] [address] Dr. Fatmata Mays Calcium [Mass/Vol] 8.2 mg/dL Critically low 8.5-10.1 Th [facility] Comment on above: Performed By: #### C MP, TSH, LIPID #### [facility] [address] [place] [address] Dr. Fatmata Mays Chloride [Moles/Vol] 104 mmol/L Normal 98-107 [facility] Comment on above: Performed By: #### C MP, TSH, LIPID #### [facility] [address] [place] [address] Dr. Fatmata Mays CO2 [Moles/Vol] 30.0 mmol/L Normal 22.0-30.0 [facility] Comment on above: Performed By: #### C MP, TSH, LIPID #### [facility] [address] [place] [address] Dr. Fatmata Mays Creatinine [Mass/Vol] 0.85 mg/dL Normal 0.66-1.25 [facility] Comment on above: Performed By: #### C MP, TSH, LIPID #### [facility] [address] [place] [address] Dr. Fatmata Mays EGFR-AF MOSOTHO >60 Normal >=60 [facility] Comment on above: Performed By: #### C MP, TSH, LIPID #### [facility] [address] [place] [address] Dr. Fatmata Mays EGFR-NON AF MOSOTHO >60 Normal >=60 [facility] Comment on above: Performed By: #### C MP, TSH, LIPID #### [facility] [address] [place] [address] Dr. Fatmata Mays Globulin (S) [Mass/Vol] 3.4 g/dL Normal [facility] Comment on above: Performed By: #### C MP, TSH, LIPID #### [facility] [address] [place] [address] Dr. Fatmata Mays Glucose [Mass/Vol] 113 mg/dL Critically high 74-106 [facility] Comment on above: Performed By: #### C MP, TSH, LIPID #### [facility] [address] [place] [address] Dr. Fatmata Mays Potassium [Moles/Vol] 4.6 mmol/L Normal 3.4-5.0 [facility] Comment on above: Performed By: #### C MP, TSH, LIPID #### [facility] [address] [place] [address] Dr. Fatmata Mays Protein [Mass/Vol] 6.7 g/dL Normal 6.1-8.2 [facility] Comment on above: Performed By: #### C MP, TSH, LIPID #### [facility] [address] [place] [address] Dr. Fatmata Mays Sodium [Moles/Vol] 140 mmol/L Normal 137-145 [facility] Comment on above: Performed By: #### C MP, TSH, LIPID #### [facility] [address] [place] [address] Dr. Fatmata Mays Urea nitrogen [Mass/Vol] 16.0 mg/dL Normal 7.0-18.0 [facility] Comment on above: Performed By: #### C MP, TSH, LIPID #### [facility] [address] [place] [address] Dr. Fatmata Mays Urea nitrogen/Creatinin e [Mass ratio] 18.8 mg/mg Normal [facility] Comment on above: Performed By: #### C MP, TSH, LIPID #### [facility] [address] [place] [address] Dr. Fatmata Mays TSHon 12-12-2021 TSH 1.468 uIU/mL Normal 0.470-4.680 [facility] Comment on above: Performed By: #### C MP, TSH, LIPID #### [facility] [address] [place], [place] [address] Dr. Fatmata Mays TSH RANGE SEE BELOW Normal [facility] Comment on above: Result Comment: <0.3 4 UIU/ml HYPERTHYROID 0.34-5.60 UIU/ml EUTHYROID >5.60 UIU/ml HYPOTHYROID Performed By: #### C MP, TSH, LIPID #### [facility] [id number] Fatmata Mays Otolaryngology Office/Clinic Noteon 07-13-2021 [...] qualifying data Procedure/Surgical History Kidney stones Medications [place] Thyroid 60 mg oral tablet, 60 mg= 1 tabs, Daily Allergies No Known Medication Allergies Social History Alcohol Current, Beer, Several times per day Substance Abuse Denies All Tobacco Never (less than 100 in lifetime) Use:. Family History Family history is unknown Electronically signed by _ Alexys STACYLola 07/14/21 11:49 EST Normal [facility] Otolaryngology Office/Clinic Noteon 07-20-2020 Otolaryngology Office/Clinic [...] qualifying data Procedure/Surgical History Kidney stones Medications [place] Thyroid 60 mg oral tablet, 60 mg, [...] Lola Reardon PA-C 07/20/20 15:06 EST Normal [facility] Vital Signs Date Time Vital Sign Value Performing Clinician Facility 03-28-2024 11:47-0400 Body height 182.88 cm [facility] 03-28-2024 11:47-0400 Body mass index (BMI) [Ratio] 26.3 kg/m2 [facility] 03-28-2024 11:47-0400 Body weight 88.11 kg [facility] 03-28-2024 11:47-0400 Diastolic blood pressure 65 mm[Hg] [facility] 03-28-2024 11:47-0400 Heart rate 73 /min [facility] 03-28-2024 11:47-0400 Respiratory rate 12 /min [facility] 03-28-2024 11:47-0400 Systolic blood pressure 136 mm[Hg] [facility] 01-08-2024 12:53-0400 Diastolic blood pressure 89 mm[Hg] Quintin Perkins MD Work Phone: [facility] 01-08-2024 12:53-0400 Heart rate 83 /min Quintin Perkins MD Work Phone: [facility] 01-08-2024 12:53-0400 Systolic blood pressure 144 mm[Hg] Quintin Perkins MD Work Phone: [facility] 11-20-2023 15:01-0400 Body height 185.4 cm Quintin Perkins MD Work Phone: [facility] 11-20-2023 15:01-0400 Body mass index (BMI) [Ratio] 26.78 kg/m2 Quintin Perkins MD Work Phone: [facility] 11-20-2023 15:01-0400 Body weight 92.08 kg Quintin Perkins MD Work Phone: [facility] 11-20-2023 15:01-0400 Diastolic blood pressure 92 mm[Hg] Quintin Perkins MD Work Phone: [facility] 11-20-2023 15:01-0400 Heart rate 83 /min Quintin Perkins MD Work Phone: [facility] 11-20-2023 15:01-0400 Systolic blood pressure 153 mm[Hg] Quintin Perkins MD Work Phone: [facility] 07-04-2023 12:15-0500 Body height 182.88 cm [facility] Other 07-04-2023 12:15-0500 Body mass index (BMI) [Ratio] 28.07 kg/m2 [facility] Other 07-04-2023 12:15-0500 Body weight 93.9 kg [facility] Other 02-13-2023 10:45-0400 Body height 182.88 cm [facility] Other 02-13-2023 10:45-0400 Body mass index (BMI) [Ratio] 28.07 kg/m2 [facility] Other 02-13-2023 10:45-0400 Body weight 93.9 kg [facility] Other 02-13-2023 10:45-0400 Diastolic blood pressure 82 mm[Hg] [facility] Other 02-13-2023 10:45-0400 Respiratory rate 12 /min [facility] Other 02-13-2023 10:45-0400 Systolic blood pressure 169 mm[Hg] [facility] Other 10-13-2022 14:00-0500 Body height 182.88 cm [facility] Other 10-13-2022 14:00-0500 Body mass index (BMI) [Ratio] 28.91 kg/m2 [facility] Other 10-13-2022 14:00-0500 Body weight 96.71 kg [facility] Other 10-13-2022 14:00-0500 Diastolic blood pressure 68 mm[Hg] [facility] Other 10-13-2022 14:00-0500 Respiratory rate 20 /min Main [employer] Other [facility] Other 10-13-2022 14:00-0500 Systolic blood pressure 118 mm[Hg] [employer] Other [facility] Other Encounters Encounter Date Encounter Type Care Provider Facility Start: 10-03-2024 End: 10-03-2024 Telephone encounter U[facility] Start: 08-13-2024 End: 08-13-2024 ambulatory QUINTIN [facility] Start: 07-19-2024 End: 07-22-2024 ambulatory MAIN Botello [facility] Start: 07-19-2024 End: 07-19-2024 Telephone encounter Erin Irwin [facility] Maribel cobb Comment on above: Rectal Bleeding Start: 07-08-2024 End: 07-08-2024 ambulatory QUINTIN Gas[facility] Start: 07-08-2024 End: 07-08-2024 Patient encounter procedure Quintin Perkins MD Work Phone: [facility] Comment on above: 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); Benign prostatic hyperplasia with urinary retention Start: 03-28-2024 End: 03-28-2024 ambulatory [facility] Work Phone: Start: 03-28-2024 End: 03-28-2024 Patient encounter procedure [facility] Work Phone: Start: 03-11-2024 End: 03-11-2024 Telephone encounter Elbert Weber LPN [facility] Comment on above: Urinary tract infect ion without hematuria, site unspecified (Primary Dx) Start: 03-11-2024 End: 03-11-2024 ambulatory [facility] Start: 01-08-2024 End: 01-08-2024 Telephone encounter [facility] Start: 01-08-2024 End: 01-08-2024 ambulatory [facility] Comment on above: 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) Start: 12-14-2023 End: 12-14-2023 Documentation procedure Quintin Perkins MD Work Phone: [facility] Start: 12-10-2023 End: 12-10-2023 ambulatory MAIN Rosmery [facility] Start: 11-20-2023 End: 11-20-2023 ambulatory [facility] Start: 11-20-2023 End: 11-20-2023 Office outpatient visit 15 minutes Quintin Perkins MD Work Phone: [facility] Comment on above: Calculus of other lo wer urinary tract location (Primary Dx); Hypogonadism male Start: 11-13-2023 End: 11-13-2023 ambulatory [facility] Start: 10-08-2023 Chart abstracting Evelia clements MD Work Phone: [facility] Start: 09-07-2023 Telephone encounter Quintin Perkins MD Work Phone: [facility] Start: 07-04-2023 End: 07-04-2023 ambulatory [facility] Other Start: 07-04-2023 Office outpatient vi sit 15 minutes [facility] Start: 02-13-2023 End: 02-13-2023 ambulatory [facility] Other Start: 02-13-2023 Office outpatient vi sit 15 minutes [facility] Start: 10-15-2022 End: 10-16-[address] MAIN HOLT Facility:[facility]1 Start: 10-14-2022 End: 10-15-[address] MAIN HOLT Facility:[facility] Start: 10-13-2022 Office outpatient vi sit 15 minutes Main [facility] Start: 10-13-2022 End: 10-14-2022 ambulatory FELICIA FIDEL Facility:[facility] Start: 04-24-2022 End: 04-25-[address] MAIN HOLT Facility:[facility] Start: 03-29-2022 Adult health examination Hans justin [facility] Other Start: 12-12-2021 End: 12-13-[address] MAIN HOLT Facility:[facility] Start: 02-17-2017 End: 02-19-2017 Evaluation and management of inpatient [facility] Procedures Date Procedure Procedure Detail Performing Clinician Start: 07-20-2024 Adult depression scr eening assessment Uma Call Start: 11-20-2023 Follow-up visit Follow-up QUINTIN Hubert PERKINS Start: 03-04-2019 Diabetes mellitus screening [facility] Other Start: 03-04-2019 Hyperlipidemia screening Mani [facility] Other Depression screening Almaz [facility] Other Plan of Treatment Date Care Activity Detail Author Start: 07-21-2025 Tobacco Screening Tobacco Screening [facility] Start: 07-20-2025 Depression Screening Depression Scre ening [facility] Start: 07-19-2025 Tobacco Screening Tobacco Screening [facility] Start: 01-07-2025 Tobacco Screening Tobacco Screening [facility] Start: 01-06-2025 End: 01-06-2025 Patient encounter procedure 01/06/2025 11:30 AM EDT Office Visit [facility] [address] [place] [phone] Quintin Perkins MD [address] [place] [phone] [facility] Start: 11-25-2024 End: 11-25-2024 Patient encounter procedure 11/25/2024 2:45 PM EDT Office Visit [facility] [address] [place] [address] [place] [address] [address] [place] [phone] Quintin Perkins MD [address] [place] [id number] [facility] Start: 11-19-2024 Adult BMI Screening Adult BMI Screen ing [facility] Start: 11-19-2024 Tobacco Screening [facility] Start: 11-19-2024 End: 11-19-2025 XR Abdomen AP X-ray abdomen ap 1 view Imaging Routine Hypogonadism male Expected: 11/19/2024, Expires: 11/19/2025 [employer] Work Phone: Comment on above: Expected: 11/19/2024 , Expires: 11/19/2025 Start: 08-07-2024 End: 07-08-2025 CBC panel - Blood by Automated count CBC without diff Lab Routine Hypogonadism male Expected: 08/07/2024 (Approximate), Expires: 07/08/2025 [facility] Comment on above: Expected: 08/07/2024 (Approximate), Expires: 07/08/2025 Start: 08-07-2024 End: 07-08-2025 Liver panel Liver panel Lab Routine Hypogonadism male Expected: 08/07/2024 (Approximate), Expires: 07/08/2025 [facility] Comment on above: Expected: 08/07/2024 (Approximate), Expires: 07/08/2025 Start: 08-07-2024 End: 07-08-2025 Prostatic specific antigen, diagnostic Prostatic specific antigen, diagnostic Lab Routine Benign prostatic hyperplasia with urinary retention Expected: 08/07/2024 (Approximate), Expires: 07/08/2025 [facility] Comment on above: Expected: 08/07/2024 (Approximate), Expires: 07/08/2025 Start: 08-07-2024 End: 07-08-2025 Testosterone [Mass/volume] in Serum or Plasma Testosterone Lab Routine Hypogonadism male Expected: 08/07/2024 (Approximate), Expires: 07/08/2025 [facility] Work [facility]: Comment on above: Expected: 08/07/2024 (Approximate), Expires: 07/08/2025 Start: 07-08-2024 End: 07-08-2024 Patient encounter procedure 07/08/2024 12:00 PM EST Office Visit [facility] [address] [place] [phone] Quintin Perkins MD [address] [place] [address] [phone] [facility] Start: 07-03-2024 Tobacco Screening Tobacco Screening [facility] Start: 04-27-2024 Influenza vaccination Influenza Vacc ine [facility] Start: 03-11-2024 End: 03-11-2025 Bacteria identified in Urine by Culture Urine Culture Microbiology Routine Urinary tract infection without hematuria, site unspecified Expected: 03/11/2024 (Approximate), Expires: 03/11/2025 [facility] Work [facility]: Comment on above: Expected: 03/11/2024 (Approximate), Expires: 03/11/2025 Start: 01-04-2024 Adult BMI Screening Adult BMI Screen ing [facility] Start: 11-20-2023 End: 11-20-2023 Patient encounter procedure 11/20/2023 2:45 PM EDT Office Visit [facility] [address] [place] [phone] Quintin Perkins MD [address] [place] [address] [phone] (work) [facility] Start: 04-27-2023 Influenza vaccination Influenza Vacc ine [facility] Start: 11-26-2000 Fall Risk Screening Fall Risk Screen ing [facility] Start: 11-26-1985 Administration of varicella zoster vaccine Zoster (Shingles) Vaccine (1 of 2) [facility] Start: 11-26-1954 Administration of varicella zoster vaccine Zoster (Shingles) Vaccine (1 of 2) [facility] Start: 11-26-1954 DTaP,Tdap and Td Vac cines (1 - Tdap) DTaP,Tdap and Td Vaccines (1 - Tdap) [facility] Start: 11-26-1953 Adult BMI Follow Up Plan Adult BMI Follow Up Plan [facility] Start: 1947 Depression Screening Depression Scre ening [facility] Start: 1935 Medicare Annual Well ness Visit Medicare Annual Wellness Visit [facility] Comprehensive metabo lic 2000 panel - Serum or Plasma [facility] End: 02-20-2024 Testosterone [Mass/volume] in Serum or Plasma Testosterone Lab Routine Hypogonadism male 1 month for 3 Occurrences starting 11/20/2023 until 02/20/2024 [facility] Comment on above: 1 month for 3 Occurr ences starting 11/20/2023 until 02/20/2024 [facility] Immunizations Immunization Date Immunization Notes Care Provider Fa cility 04-21-2018 influenza virus vaccine, split virus (incl. purified surface antigen) [facility] Other 04-21-2018 influenza virus vaccine, unspecified formulation [facility] 04-21-2018 pneumococcal conjuga te vaccine, 13 valent [facility] Other [facility] Payers Date Payer Category Payer Medicare [id number] 2012 Medicare HMO [employer] MEDICARE [id number] 1959 Medicare [id number] 1935 Unknown [id number] 3 1935 Unknown [id number] [id number] 3 1935 Unknown [id number] [id number] 3 1935 Unknown [id number] [id number] 3 1935 Unknown [id number] 2.16.840.1.825111.3.579.2.59 3 1935 Unknown [id number] [id number] 86 1935 Unknown [id number] 2.16.840.1.801307.3.579.2.12 86 1935 Unknown [id number] 2.16.840.1.090170.3.579.2.12 86 1935 Unknown [id number] 2.16.840.1.097164.3.579.2.12 86 1935 Unknown [id number] 2.16.840.1.544551.3.579.2.12 86 1935 Unknown [id number] 2.16.840.1.123904.3.579.2.12 86 1935 Unknown [id number] [id number] 86 1935 Unknown [id number] [id number] 86 1935 Unknown [id number] [id number] 86 Self-pay Self Pay [id number] Social History Date Type Detail Facility Start: 10-07-2020 End: 05-14-2023 Sex Assigned At [facility] [employer] Other Start: 02-20-2023 Tobacco smoking stat [facility] Ex-smoker [facility] End: 08-27-2012 History of tobacco use Current smoker [facility] End: 08-27-2012 History of tobacco use Cigarette Smoker [facility] Start: 02-20-2023 Tobacco use and exposure Smokeless tobacco non-user [facility] Start: 10-08-2023 Alcohol intake Ex-drinker (finding) [facility] Start: 10-07-2020 End: 05-14-2023 History of Social function [facility] Start: 1935 Sex Assigned At Not on file P [facility] Start: 1935 Sex Assigned At Male F [facility] Start: 11-14-2022 Tobacco smoking stat [facility] Never smoked tobacco [facility] Start: 11-14-2022 Tobacco use and exposure Former smokeless tobacco user [facility] End: 04-03-1988 History of tobacco use Snuff User [facility] Start: 11-20-2023 End: 01-08-2024 Alcoholic beverage intake Current drinker of alcohol (finding) [facility] Childcare Unknown [facility] Start: 12-30-2022 Alcohol Comment 2-3 drinks per day P [facility] Start: 04-01-2015 Sex Male (finding) [facility] Has the electric, [employer], [employer], or water company threatened to shut off services in your home in past 12Mo No [facility] Medical Equipment Procedure Code Equipment Code Equipment Origin al Text Equipment Identifier Dates Stnt Uret 6fr 28 cm Pgtl Crv Rpl [id number] - [facility] - [id number] Start: 03-12-2018 Stnt Uret 6fr 28 cm Pgtl Crv Rpl [id number] - [id number] Start: 04-10-2018 Goals Date Patient Goal Desired Activity /State Personal health goal Comment on above: Formatting of this n ote might be different from the original. Evaluation of progress towards goal: Patient plans to discharge home. Care Navigation team will continue to follow. - Kanika Traore RN [employer] 04/11/18 1:35 PM Personal health goal Comment on above: Formatting of this n ote might be different from the original. Evaluation of progress towards goal: Return home with family support Clinical Notes 10-13-2022 to 10-03-2024 Telephone Encounter - Uma aCll - 10/03/2024 10:28 AM ESTTelephone Encounter - Uma Call - 10/03/2024 10:28 AM ESTTelephone Encounter - Elbert Weber LPN - 10/03/2024 10:28 AM EST Note Date & Type Note Facility 10-03-2024 Miscellaneous Notes Formattin g of this note might be different from the original. ----- Message from DEREK Monique sent at 10/03/2024 9:50 AM EST ----- Regarding: Testopel Procedure Malik Eaton there. When you get time, I need you to do a prior auth for this guys testopel. I was checking meds to see if I had to order more testopel for his procedure and saw that he will need a new prior auth as well. His next procedure is not until 01/06/2025, so we have a little bit of time. Thank you! Elbert Per Availity portal, no PA required for Testopel. Ok, Thank you! documented in this encounter [facility] 10-03-2024 Telephone encount er Note ----- Message from DEREK Monique sent at 10/03/2024 9:50 AM EST ----- Regarding: Testopel Procedure Malik Eaton there. When you get time, I need you to do a prior auth for this guys testopel. I was checking meds to see if I had to order more testopel for his procedure and saw that he will need a new prior auth as well. His next procedure is not until 01/06/2025, so we have a little bit of time. Thank you! Elbert [facility] 10-03-2024 Telephone encount er Note Per Availity portal, no PA required for Testopel. [facility] 10-03-2024 Telephone encount er Note Ok, Thank you! [facility] 07-19-2024 Miscellaneous Notes Formattin g of this note might be different from the original. Contract: 19 [facility] New Consult Rectal Bleeding Contract: 19 Sent Secure chat to Ada Esparza documented in this encounter [facility] 07-19-2024 Telephone encount er Note Contract: 19 [facility] New Consult Rectal Bleeding [facility] 07-19-2024 Telephone encount er Note Contract: 19 Sent Secure chat to Ada Esparza [facility] 07-08-2024 History of Presen t illness Narrative [...] skin in the testicle sheath and sharp brim pouncer machine operator in place was advanced subcutaneously. The [...] ordered 1 month documented in this encounter [facility] 07-08-2024 Miscellaneous Notes Addended by: ELBERT WEBER on: 07/08/2024 04:37 PM Modules accepted: Orders documented in this encounter [facility] 07-08-2024 Note Addended by: ELBERT WEBER on: 07/08/2024 04:37 PM Modules accepted: Orders [facility] 03-11-2024 Miscellaneous Notes Formattin g of this note might be different from the original. error documented in this encounter [facility] 03-11-2024 Telephone encount er Note error [facility] 01-08-2024 Miscellaneous Notes Formattin g of this note might be different from the original. Please schedule him for testopel injection in 6 months Scheduled. Auth is good through July 2024. documented in this encounter [facility] 01-08-2024 Telephone encount er Note Please schedule him for testopel injection in 6 months [facility] 01-08-2024 Telephone encount er Note Scheduled. Auth is good through July 2024. [facility] 01-08-2024 History of Presen t illness Narrative Testopel insertion: Patient was placed in the left lateral position in the outer quadrant of the right hip was prepped with Betadine and draped in sterile fashion. Skin was infiltrated with 5 mL of 1% lidocaine with epinephrine. Each of the to subcutaneous tracts was infiltrated with local anesthetic as well. The # 11 blade was pierced through the skin in the testicle sheath and sharp brim pouncer machine operator in place was advanced subcutaneously. The [...] number of pellets inserted: 6 Repeat testosterone planned annually documented in this encounter [facility] 01-08-2024 Miscellaneous Notes Addended by: SANDRA KNIGHT on: 01/08/2024 06:06 PM Modules accepted: Orders documented in this encounter [facility] 01-08-2024 Note Addended by: SANDRA RODGERS on: 01/08/2024 06:06 PM Modules accepted: Orders [facility] 12-14-2023 History of Presen t illness Narrative His repeat testosterone is now low. Can you schedule him for testpel injection in the office? documented in this encounter [facility] 11-20-2023 History of Presen t illness Narrative Images from the original note were not included. [address] [place] [address] A [facility] [phone] Patient: Juan Oates Date of : 1935 [...] 01/02/2023 Performed by Loyd Marvin MD at [facility] CYSTO RETROGRADE GENERAL Right 09/23/2019 Performed by Quintin Perkins MD at [facility] CYSTOSCOPY HOLMIUM LASER BLADDER STONE N/A 03/12/2018 Performed by Quintin Perkins MD at [facility] CYSTOSCOPY HOLMIUM LASER URETEROSCOPY Right 09/23/2019 Performed by Quintin Perkins MD at [facility] CYSTOSCOPY HOLMIUM LASER URETEROSCOPY Left 03/12/2018 Performed by Quintin Perkins MD at [facility] CYSTOSCOPY INSERTION STENT Left 03/26/2018 Performed by Quintin Rangel MD at [facility] CYSTOSCOPY INSERTION STENT Bilateral 03/12/2018 Performed by Qiuntin Perkins MD at [facility] CYSTOSCOPY RETROGRADE PYELOGRAM Bilateral 03/12/2018 Performed by Quintin Perkins MD at [facility] CYSTOSCOPY URETEROSCOPY Right 03/12/2018 Performed by Quintin Perkins MD at [facility] CYSTOSCOPY URETEROSCOPY LEFT WITH HOLMIUM LASER; LEFT STENT REPLACEMENT Left 04/10/2018 Performed by Quintin Perkins MD at [facility] CYTOSCOPY WITH INSERTION BALLOON OCCLUSION CATHETER RIGHT Right 04/10/2018 Performed by Quintin Perkins MD at [facility] EXAM UNDER ANESTHESIA DIGITAL RECTAL N/A 06/10/2019 Performed by Quintin Perkins MD at [facility] EXTRACORPOREAL SHOCK WAVE LITHOTRIPSY Right 06/10/2019 Performed by Quintin Perkins MD at [facility] LITHOTRIPSY PARATHYROIDECTOMY PERCUTANEOUS NEPHROLITHOTOMY KIDNEY RIGHT Right 04/10/2018 Performed by Quintin Perkins MD at [facility] TESTOSTERONE TOTAL, 06/20/10 pellets implanted TONSILLECTOMY Family [...] for your understanding. [facility] 09-07-2023 Miscellaneous Notes Formattin g of this note might be different from the original. 09/07/23-Testopel auth # [id number] good 04/03/23 to 08/26/24//fw-pgus documented in this encounter [facility] 09-07-2023 Telephone encount er Note 09/07/23-Testopel auth # [id number] good 04/03/23 to 08/26/24//fw-pgus [facility] 07-04-2023 Evaluation note Encounter Date Diagnosis Assessment Notes Jun, Subacute maxillary sinusitis (ICD-10 - J01.00) Instructed to use Robitussin or Mucinex for cough, saline or Flonase NS for congestion, Tylenol for pain and fever. Jun, Suspected sleep apnea (ICD-10 - R29.818) STOP BANG 4 Refer to sleep lab [facility] Other 06-20-2023 Evaluation note* Encounter Date Diagnosis Assessment Notes Treatment Notes Treatment Clinical Notes Jan, Seasonal allergic rhinitis due to pollen (ICD-10 - J30.1) Avoid allergens Begin Flonase and Matilda daily Jan, Acute non-recurrent maxillary sinusitis (ICD-10 - J01.00) Instructed to use Robitussin or Mucinex for cough, saline or Flonase NS for congestion, Tylenol for pain and fever. 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 documented in this encounter [facility]* Diagnosis Flank pain- Primary Abdominal pain, unspecified site documented in this [facility]* Diagnosis Urinary tract infection without hematuria, site unspecified- Primary documented in this encounter [facility]* Diagnosis Calculus of other lower urinary tract location- Primary 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 documented in this [facility] Narrative - Reported* Type Description Date Medical History Androgen deficiency Medical History Primary osteoarthritis of knees, bilateral Medical History Obstructive sleep apnea Medical History Benign non-nodular p rostatic hyperplasia with lower urinary tract symptoms Medical History Acquired autoimmune hypothyroidi Medical History Anemia, unspecified type Medical History Malaise Medical History Acute prostatitis without hematu shun Medical History Fatigue Medical History History of colon cancer Medical History History of nephrolithiasis Medical History Hyperlipemia Surgical History CYSTOSCOPY 2019 Surgical History FRAGMENTING OF KIDNEY STONE 201 9 Surgical History COLONOSCOPY 2019 Surgical History HEMICOLECTOMY 2013 Surgical History APPENDECTOMY 2013 Hospitalization History SEE SURGICAL HX [facility] Other History general Narrative - Reported* Type [...] Surgical History COLONOSCOPY 2019 Surgical History HEMICOLECTOMY 2012 Surgical History APPENDECTOMY 2012 Surgical History Colonoscopy, polypectomy 12/2022 Hospitalization History SEE SURGICAL HX [facility] Other InstructionsNot on filedocumented in this encounter [facility] filedocumented in [facility] filedocumented in this encounter [facility] filedocumented in this encounter [facility] on filedocumented in this encounter [facility]* Attachments The following attachments cannot be sent through Care Everywhere. * Benign prostatic hyperplasia (enlarged prostate) (Frisian) [facility] (n[facility]ative)* Reason *FU 02/20 Referral for allergy symptoms Diagnosis 1 Seasonal allergic rh initis due to pollen (J30.1) Referral Organization [facility] Jonathon [facility] Jones benavidez Referring Provider First Name Main Referring Provider Last Name Jonathon Referring Provider Specialty Internal Ma dicine Referred Organization [facility] Referred Provider Saurabh Ramos Referred Address ,[place], [place],[address] Referred Provider Specialty Allergy/Immu nology Referral Priority Routine General Notes Patient w/ tearing, rhinorrhea, cough, phlegm and facial pressure. Requested referral for allergy evaluation. Fadia Oviedo 02/13/2023 12:48:55 PM >received today, notes locked, ins attached, referral faxed [facility] Other Summary Purpose Family History No Family History Records FoundNo Family History Records FoundNo Family History Records FoundNo Family History Records FoundNo Family History Records FoundNo Family History Records Found Advance Directives Advance Directive Response Recorded Date/ Time Advance Directives No March 28, 2 024 11:29am Date Activated Date Inactivated Comments 12/30/2022 8:54 PM 01/03/2023 1:00 PM Date Activated Date Inactivated Comments 04/08/2018 7:39 PM 04/12/2018 4:49 PM Date Activated Date Inactivated Comments 03/25/2018 7:09 PM 03/27/2018 1:20 PM Date Activated Date Inactivated Comments 07/20/2024 12:55 PM 07/22/2024 3:28 PM Date Activated Date Inactivated Comments 12/30/2022 8:54 PM 01/03/2023 1:00 PM Date Activated Date Inactivated Comments 04/08/2018 7:39 PM 04/12/2018 4:49 PM Date Activated Date Inactivated Comments 03/25/2018 7:09 PM 03/27/2018 1:20 PM Latest Code Status on File Code Status Date Activated Date Inactivated Comments Full Code 12/30/2022 8:54 PM 01/03/2023 1:00 PM Code Status History Code Status Date Activated Date Inactivated Comments Full Code 04/08/2018 7:39 PM 04/12/2018 4:49 PM Full Code 03/25/2018 7:09 PM 03/27/2018 1:20 PM Chief [...] section and content) DATE CREATED AUTHOR 02/20/2018 [facility] DATE CREATED AUTHOR AUTHOR'S ORGANIZ ATION 07/15/2021 [facility] DATE CREATED AUTHOR AUTHOR'S ORGANIZ ATION 10/19/2022 [facility] DATE CREATED AUTHOR AUTHOR'S ORGANIZ ATION 07/10/2024 [facility] DATE CREATED AUTHOR AUTHOR'S ORGANIZ ATION 07/27/2024 [facility] DATE CREATED AUTHOR AUTHOR'S ORGANIZ ATION 08/16/2024 [facility] REASON FOR VISIT (unrecogniz ed section and content) Reason Comments Testpel Procedure Reason Onset Date Comments Rectal Bleeding 07/19/2024 Reason Comments Follow-up Care Teams (unrecognized sec tion and content) Communications Advisor Relationship Specialty Start Date End Date Main Holt MD [address] [place] [id number] PCP - General Internal Medicine 02/14/23 Team Status: Active Member Role Status Dates Main Holt DO Primary Care Provider Active Team Status: Inactive Member Role Status Dates Main Holt DO Primary Care Provide r, Attending Provider Active Start: March 28, 2024 End: March 28, 2024 Communications Advisor Relationship Specialty Start Date End Date Main Holt DO [address] [place] [address] PCP - General 03/28/17 Communications Advisor Relationship Specialty Start Date End Date Main Holt DO [address] [place] [address] PCP - General 03/28/17 Communications Advisor Relationship Specialty Start Date End Date Main Holt DO [address] [place] [address] PCP - General 03/28/17 Communications Advisor Relationship Specialty Start Date End Date Main Holt DO [address] [place] [address] PCP - General 03/28/17 Communications Advisor Relationship Specialty Start Date End Date Main Holt DO [address] [place] [address] PCP - General 03/28/17 Communications Advisor Relationship Specialty Start Date End Date Main Holt DO [address] [place] [address] PCP - General 03/28/17 Communications Advisor Relationship Specialty Start Date End Date Main Holt DO [address] [place] [address] PCP - General 03/28/17 Goals (unrecognized section [...] BE BASED ON THE PRIMARY CLINICAL RECORDS. [facility] [employer] [facility]. provides no warranty or guarantee of the accuracy or completeness of information in this document.
[2024-10-15 12:10] LABS: Basophils Percent Auto 0.6 % (0.2-2.0); Eosinophils Absolute Auto 0.1 10^3/uL (0.0-0.7); Eosinophils Percent Auto 1.6 % (0.9-7.0); Hemoglobin 12.7 g/dL (14.0-18.0); Immature Granulocytes Abs Auto 0.01 10^3/uL (0.00-0.03); Immature Granulocytes Pct Auto 0.1 % (0.0-0.5); Lymphocytes Absolute Auto 2.1 10^3/uL (1.2-3.8); Lymphocytes Percent Auto 30.5 % (20.5-60.0); Mean Corpuscular HGB Conc 32.6 g/dL (29.9-35.2); Mean Corpuscular Hemoglobin 31.1 pg (25.9-34.0); Mean Corpuscular Volume 95.4 fL (80.0-94.0); Mean Platelet Volume 9.8 fL (9.5-13.5); Monocytes Absolute Auto 0.9 10^3/uL (0.3-0.8); Monocytes Percent Auto 13.4 % (1.7-12.0); Neutrophils Absolute Auto 3.7 10^3/uL (1.4-6.5); Neutrophils Percent Auto 53.8 % (43.0-75.0); Platelet Count 193 10^3/uL (150-450); Red Blood Count 4.09 10^6/uL (4.70-6.10); Reticulocyte Pct Auto 1.13 % (0.60-3.10); White Blood Count 6.8 10^3/uL (4.0-11.0)
[2024-10-15 13:02] LABS: Percent Iron Saturation 12.8 %
[2024-10-16 02:07] LABS: Vitamin B12 550 pg/mL (232-1245)
== END 2024-10-15 11:43 | disposition home or self-care (01) ==
LOC: LAB 11:42
PROVIDERS: PCP Internal Medicine; Visit Provider Internal Medicine
DX: D64.9 Anemia, unspecified (principal)
CPT/HCPCS: 36415; 82607; 82728; 82746; 83540; 83550; 85025; 85045

== ENCOUNTER 2025-02-14 08:34 | Outpatient (OUT) | payer MEDICARE, SELFPAY ==
--- OUTSIDE RECORDS SUMMARY | 2025-02-14 08:37 | XMS_ITS | Encounter Summary ---
Author Organization [employer] Address [facility] [id number] [address] [place] [address] Care Team Providers Care Blockmason Name Role Phone Main Holt DO Primary Care Provider [phone] Encounter Details Date Type Department Care Team (Late st Contact Info) Description 05/15/2023 Orders Only [facility] [address] [place] [address] [place] [address] Eneida Cordova LPN Social History Tobacco Use Types Packs/Day Years Used Date Smoking Tobacco: Never Smokeless Tobacco: Former Snuff Quit: 04/03/1988 Alcohol Use Standard Drinks/Week Comments Yes 20 (1 standard drink = 0.6 oz pu re alcohol) 2-3 drinks per day Childcare Answer Date Recorded Childcare Unknown 02/05/2019 Employment Answer Date Recorded Employment Unknown 02/05/2019 Hunger Screening Answer Date Recorded Within the past 12 months we worried whether our food would run out before we got money to buy more. Never True 11/14/2022 Within the past 12 months th e food we bought just didn't last and we didn't have money to get more. Never True 11/14/2022 Purpose - Life Answer Date Recorded Purpose and direction in life Unknown Sex and Gender Information Value Date Recorded Sex Assigned at Not on file Legal Sex Male 11:32 AM EDT Gender Identity Not on file Sexual Orientation Not on file documented as of this encounter Plan of Treatment Upcoming Encounters Date Type Department Care Team (Late st Contact Info) Description 07/07/2025 12:00 PM EST Office Visit [facility] [address] [place] [address] [address] Quintin Perkins MD [address] [place], [place] [phone] documented as of this encounter Visit Diagnoses Not on filedocumented in this encounter Care Teams Blockmason Relationship Specialty Start Date End Date Main Holt DO [address] [place] [address] PCP - General 03/28/17 documented as of this encounter
--- OUTSIDE RECORDS SUMMARY | 2025-02-14 08:37 | XMS_ITS | Encounter Summary ---
Author Organization [employer] Address [facility] [place] [place]-[id number] [address] [place] [address] Care Team Providers Care Swim Coach Name Role Phone Main Holt DO Primary Care Provider [phone] Encounter Details Date Type Department Care Team (Late st Contact Info) Description 11/13/2022 Orders Only [facility] [address] [place] [phone] Adenike Duong Hypogonadism male Social History Tobacco Use Types Packs/Day Years Used Date Smoking Tobacco: Never Smokeless Tobacco: Former Snuff Quit: 04/03/1988 Alcohol Use Standard Drinks/Week Comments Yes 14 (1 standard drink = 0.6 oz pu re alcohol) 1-2 drinks per day Childcare Answer Date Recorded [...] on file Sexual Orientation Not on file COVID-19 Exposure Response Date Recorded In the last month, have you been in contact with someone who was confirmed or suspected to have Coronavirus / COVID-19? No / Unsure 11/14/2022 1:57 PM EDT documented as of this encounter Plan of Treatment Upcoming Encounters Date Type Department Care Team (Late st Contact Info) Description 07/07/2025 12:00 PM EST Office Visit [facility] [address] [facility] [place] [address] Quintin Perkins MD [address] [place], [place] [phone] documented as of this encounter Procedures Procedure Name Priority Date/Time Associated Diagnosis Comments TESTOSTERONE Routine 10/13/2022 Hypogonadism male documented in this encounter Results * Testosterone (10/13/2022) 10/13/2022 us Janet GUTIERREZ LAB BLOOD ORDERABLES Final Result [facility] documented in this encounter Visit Diagnoses Diagnosis 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
--- OUTSIDE RECORDS SUMMARY | 2025-02-14 08:37 | XMS_ITS | Encounter Summary ---
Author Organization [employer] Address [id number] [address] [place] [address] Care Team Providers Care Tank Farm Attendant Name Role Phone Main Holt DO Primary Care Provider Reason for Visit * Reason Onset Date Comments Med Refill 07/04/2017 Encounter Details Date Type Department Care Team (Late st Contact Info) Description 07/04/2017 Refill [facility] [place] [phone] Janet Alexis RMA Hypogonadism in male (Primary Dx) Social History Tobacco Use Types Packs/Day Years Used Date Smoking Tobacco: Former Sex and Gender Information Value Date Recorded Sex Assigned at Not on file Legal Sex Male 11:32 AM EDT Gender Identity Not on file Sexual Orientation Not on file documented as of this encounter Plan of Treatment Upcoming Encounters Date Type Department Care Team (Late st Contact Info) Description 07/07/2025 12:00 PM EST Office Visit [facility] [address] [place] [address] [place] [phone] Quintin Perkins MD [address] [place] [address] documented as of this encounter Visit Diagnoses Diagnosis Hypogonadism in male- Primary documented in this encounter Care Teams Tank Farm Attendant Relationship Specialty Start Date End Date Main Holt DO [address] [place] [address] PCP - General 03/28/17 documented as of this encounter
--- OUTSIDE RECORDS SUMMARY | 2025-02-14 08:37 | XMS_ITS | Encounter Summary ---
Author Organization [employer] Sys tem Address [id number] [address] [place] [address] Care Team Providers Care Supervisor Respiratory Name Role Phone Main Holt DO Primary Care Provider [phone] Encounter Details Date Type Department Care Team (Late Contact Info) Description 04/26/2022 Abstract [facility] [address] [place] [phone] External, Scanning Provider Social History Tobacco Use Types Packs/Day Years Used Date Smoking Tobacco: Never Smokeless Tobacco: Former Snuff Quit: 04/03/1988 Alcohol Use Standard Drinks/Week Comments Yes 14 (1 standard drink = 0.6 oz pu re alcohol) 1-2 drinks per day Childcare Answer Date Recorded Childcare Unknown 02/05/2019 Employment Answer Date Recorded Employment Unknown 02/05/2019 Purpose - Life Answer Date Recorded Purpose [...] have Coronavirus / COVID-19? No / Unsure 04/28/2022 2:10 PM EDT documented as of this encounter Plan of Treatment Upcoming Encounters Date Type Department Care Team (Late Contact Info) Description 07/07/2025 12:00 PM EST Office Visit [facility] [address] [facility] [place] [phone] Quintin Perkins MD [address] [place] [address] documented as of this encounter Procedures Procedure Name Priority Date/Time Associated Diagnosis Comments TSH Routine 04/24/2022 documented in this encounter Results * TSH (04/24/2022) 04/24/2022 us Scanning Provider External LAB BLOOD ORDERABLES Final Result MANUALLY TRANSCRIBED RESULTS documented in this encounter Visit Diagnoses Not on filedocumented in this encounter Care Teams Supervisor Respiratory Relationship Specialty [place] [address] [place] [address] PCP - General 03/28/17 documented as of this encounter
--- OUTSIDE RECORDS SUMMARY | 2025-02-14 08:37 | XMS_ITS | Encounter Summary ---
Author Organization [employer] Address [facility] [id number] [address] [place] [address] Care Team Providers Care Wage Analyst Name Role Phone Main Holt DO Primary Care Provider [phone] Reason for Visit * Reason Comments Med Refill Encounter Details Date Type Department Care Team (Late Contact Info) Description 04/04/2019 Refill [facility] [address] [place] [phone] Quintin Perkins MD [address] [place] [phone] Hypogonadism in male Social History Tobacco Use Types Packs/Day Years Used Date Smoking Tobacco: Never Smokeless Tobacco: Former Snuff Quit: 04/03/1988 Alcohol Use Standard Drinks/Week Comments Yes 0 (1 standard drink = 0.6 oz pur e alcohol) 1-2 drinks per day Childcare Answer Date Recorded Childcare Unknown 02/05/2019 Employment Answer Date Recorded Employment Unknown 02/05/2019 Sex and Gender Information Value Date Recorded Sex Assigned at Not on file Legal Sex Male 11:32 AM EDT Gender Identity Not on file Sexual Orientation Not on file documented as of this encounter Plan of Treatment Upcoming Encounters Date Type Department Care Team ([facility] Contact Info) Description 07/07/2025 12:00 PM EST Office Visit [facility] [address] [place] [address] [place] [phone] Quintin Perkins MD [address] [place] [address] documented as of this encounter Visit Diagnoses Diagnosis Hypogonadism in male documented in this encounter Care Teams Wage Analyst Relationship Specialty Start Date End Date Main Holt DO [address] [place] [address] PCP - General 03/28/17 documented as of this encounter
--- OUTSIDE RECORDS SUMMARY | 2025-02-14 08:37 | XMS_ITS | Encounter Summary ---
Author Organization [employer] Address [facility]-[id number] [address] [place] [address] Care Team Providers Care Formulation Scientist Name Role Phone Main Holt DO Primary Care Provider [phone] Reason for Visit * Reason Onset Date Comments Med Refill 07/10/2017 Encounter Details Date Type Department Care Team (Late st Contact Info) Description 07/10/2017 Refill [facility] [address] [place] [phone] Sepideh Cordova RMA Hypogonadism in male Social History Tobacco Use Types Packs/Day Years Used Date Smoking Tobacco: Former Sex and Gender Information Value Date Recorded Sex Assigned at Not on file Legal Sex Male 11:32 AM EDT Gender Identity Not on file Sexual Orientation Not on file documented as of this encounter Miscellaneous Notes * Telephone Encounter - Suzan Eugene CMA - 07/13/2017 1:07 PM EST PA pending for Androgel. Suzan Eugene CMA 07/13/17 1343 documented in this encounter Plan of Treatment Upcoming Encounters Date Type Department Care Team (Late st Contact Info) Description 07/07/2025 12:00 PM EST Office Visit [facility] [address] [place] [address] [place] [address] Quintin Perkins MD [facility] [place] [address] documented as of this encounter Visit Diagnoses Diagnosis Hypogonadism in male documented in this encounter Care Teams Formulation Scientist Relationship Specialty Start Date End Date Main Holt DO [address] [place] [phone] PCP - General 03/28/17 documented as of this encounter
--- OUTSIDE RECORDS SUMMARY | 2025-02-14 08:37 | XMS_ITS | Encounter Summary ---
Author Organization [employer] Address [facility]-[id number] [address] [place] [address] Care Team Providers Care Sfdc Technical Architect Name Role Phone Main Holt DO Primary Care Provider [phone] Encounter Details Date Type Department Care Team (Late Contact Info) Description 04/26/2022 Abstract [facility] [address] [place] [phone] External, Scanning Provider Social History Tobacco Use [...] Visit [facility] [address] [facility] [place] [phone] Quintin Perkins MD [address] [place] [address] documented as of this encounter Procedures Procedure Name Priority Date/Time Associated Diagnosis Comments TESTOSTERONE Routine 04/24/2022 documented in this encounter Results * Testosterone (04/24/2022) Testosterone 34 MANUALL Y TRANSCRIBED RESULTS Comment:[facility] 04/24/2022 us Scanning Provider External LAB BLOOD ORDERABLES Final Result MANUALLY TRANSCRIBED RESULTS documented in this encounter Visit Diagnoses Not on filedocumented in this encounter Care Teams Sfdc Technical Architect Relationship Specialty Start Date End Date Main Holt DO [address] [place] [address] PCP - General 03/28/17 documented as of this encounter
--- OUTSIDE RECORDS SUMMARY | 2025-02-14 08:37 | XMS_ITS | Encounter Summary ---
Author Organization [employer] Address [facility] [id number] [address] [place] [address] Care Team Providers Care Sole Edge Inker Machine Name Role Phone Main Holt Primary Care Provider [phone] Encounter Details Date Type Department Care Team (Late st Contact Info) Description 08/02/2022 Telephone [facility] [address] [place] [address] Amy Hook, RN Social History Tobacco Use Types Packs/Day Years [...] have Coronavirus / COVID-19? No / Unsure 07/27/2022 4:01 PM EST documented as of this encounter Miscellaneous Notes * Telephone Encounter - Amy Hook LPN - 08/02/2022 2:47 PM EST Pt called in asking when he should get his Testosterone levels rechecked? He states he would like an order for that blood work placed and someone to call him back and let him know when he needs to have that re-checked. * Telephone Encounter - MATT Paredes - 08/02/2022 2:47 PM EST He had it checked in Apr after he started his injections and it was normal, so no need to recheck it at this time. * Telephone Encounter - Amy Hook LPN - 08/02/2022 2:47 PM EST Pt notified. He states he has some concerns about the levels getting too high, but he does have an appt with you on 08/15 and he states he will discuss those concerns with you at that time. documented in this encounter Plan of Treatment Upcoming Encounters Date Type Department Care Team (Late st Contact Info) Description 07/07/2025 12:00 PM EST Office Visit [facility] [address] [place] [address] [address] [facility] [place] [address] Quintin Perkins MD [address] [place] [address] documented as of this encounter Visit Diagnoses Not on filedocumented in this encounter Care Teams Sole Edge Inker Machine Relationship Specialty Start Date End Date Main Holt DO [facility] [place] [address] PCP - General 03/28/17 documented as of this encounter
--- OUTSIDE RECORDS SUMMARY | 2025-02-14 08:37 | XMS_ITS | Clinical Summary ---
Author Organization [facility] Address [facility] [place] [address] Care Team Providers Care Auto Phone Installer Name Role Phone JonathonMain Rosmery CASTANEDA Primary Care Provider [phone] Allergies No known active allergies Medications ALLOPURINOL 100 MG TAB Take one(1) tablet daily. 0 9 Active OTC PRODUCT Vitamin B Take one(1) tablet daily. 0 0 9 Active OTC PRODUCT Vitamin C 2000mg PO daily 0 0 9 Active omega-3 fatty acids/vitamin e(FISH OIL 1,000 MG CAP) Take one(1) tablet daily. 0 0 9 Active levothyroxine (SYNTHROID) 100 mcg tablet Take 100 mcg by mouth daily at bedtime. Active tamsulosin 0.4 mg Cp24 Take 1 capsule by mouth daily at bedtime. 30 capsule 2 3 Active Additional Information Patient not taking.Reason: Discontinued by Patient, Reported on 2018 Cholecalciferol, Vitamin D3, 3,000 unit tab Take 7,000 Units by mouth. Active coenzyme Q10 (COQ-10) 100 mg cap capsule Take 100 mg by mouth twice daily. Active multivitamin tablet Take 1 tablet by mouth twice daily. Active ARMOUR THYROID 60 mg tab Take by mouth once daily. Active omega-3 fatty acids (SUPER OMEGA-3 ORAL) Take by mouth once daily. Active COMPOUNDED PRESCRIPTION once daily. master mineral once daily Active Garlic tab Take 1 tablet by mouth once daily. Active COMPOUNDED PRESCRIPTION silymarin once daily Active saw palmetto xtr/zinc picolin (SAW PALMETTO EXTRACT ORAL) Take by mouth once daily. 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 Other Other No h/o colon can cer Relation Status Comments Father Mother Other Social History Tobacco Use Types Packs/Day Years Used Date Smoking Tobacco: Never Smokeless Tobacco: Former Chew Quit: 08/27/1992 Comments:FOR 20 YEARS, 1 CAN DAILY Alcohol Use Standard Drinks/Week Comments Yes 28 (1 standard drink = 0.6 oz pu re alcohol) 2-3 drinks daily Area Deprivation Index Answer Date Kenny rded National Score (1-100), lower number is lower ri sk Not on file 08/02/2020 State Score (1-10), lower number is lower risk N ot on file 08/02/2020 Data from: https://www.neighborhoodatlas.medicine.[facility] [place].edu/. Last address used for calculation Not on file 08/02/2020 Sex and Gender Information Value Date Recorded Sex Assigned at Not on file Legal Sex Male 8:19 AM EST Gender Identity Not on file Sexual Orientation Not on file Last Filed Vital Signs Vital Sign Reading Time Taken Comments Blood Pressure 167/82 11/19/2018 1:06 PM EDT Pulse 84 11/19/2018 1:06 PM EDT Temperature 36.6 C (97.8 F) 11/19/2018 1:06 PM EDT Respiratory Rate 16 02/19/2017 5:43 AM EDT Oxygen Saturation 95% 11/19/2018 1:06 PM EDT Inhaled Oxygen Concentration - - Weight 107.5 kg (237 lb) 11/19/2018 1:06 PM EDT Height 185.4 cm (6' 1 ) 11/19/2018 1:06 PM EDT Body Mass Index 31.27 11/19/2018 1:06 PM EDT Plan of Treatment Health Maintenance Due Date Last Done Comments Anxiety Screening 11[birth year]26/1953 Depression Screening 11/26/1953 DTaP,Tdap,Td Vaccine (1 - Tdap) 11/26/1954 Pneumococcal Vaccine: 50+ (1 of 1 - PCV) 11/26/1985 Shingrix Vaccine (1 of 2) 11/26/1985 RSV Vaccine (1 - 1-dose 75+ series) 11/26/2010 Diabetes Screening 05/07/2022 05/07/2019, 1 , 04/11/2018, Additional history exists Covid-19 Vaccine (1 - 2023-2 5 season) 2024 Advance Directive Discussion 08/27/2024 Influenza Vaccine (Season Ended) 2025 Procedures Procedure Name Priority Date/Time Associated Diagnosis Comments BASIC METABOLIC PANEL (EU,FV,HL,RAFIA,MM,SP) TOM 02/19/2017 3:38 AM EDT from Last 3 Months or Most Recently Relevant to Health Maintenance Results * (ABNORMAL) BASIC METABOLIC PANEL (AV,EU,FV,HL,RAFIA,MM,SP) (02/19/2017 3:38 AM EDT) Glucose 108(H) 74 - 99 mg/dL 02/19/2017 4:17 AM T [facility] Comment: The [place] Diabetes Association (ADA) provides guidance for cutoff values for fasting glucose and random glucose. The ADA defines fasting as no caloric intake for at least 8 hours. Fasting plasma glucose results between 100 to 125 mg/dL indicate increased risk for diabetes (prediabetes). Fasting plasma glucose results greater than or equal to 126 mg/dL meet the criteria for diagnosis of diabetes. In the absence of unequivocal hyperglycemia, results should be confirmed by repeat testing. In a patient with classic symptoms of hyperglycemia or hyperglycemic crisis, random plasma glucose results greater than or equal to 200 mg/dL meet the criteria for diagnosis of diabetes. Reference: Standards of Medical Care in Diabetes 2016, [place] [employer] Association. Diabetes Care. 2016.39(Suppl 1). BUN 8(L) 9 - 24 mg/dL 02/19/2017 4:17 AM T [facility] Creatinine 0.98 0.73 - 1.22 mg/dL 02/19/2017 4:17 AM [facility] Sodium 140 136 - 144 mmol/L 02/19/2017 4:17 AM [facility] Potassium 4.1 3.7 - 5.1 mmol/L 02/19/2017 4:17 AM [facility] Chloride 104 97 - 105 mmol/L 02/19/2017 4:17 AM [facility] CO2 27 22 - 30 mmol/L 02/19/2017 4:17 AM [facility] Anion Gap 9 9 - 18 mmol/L 02/19/2017 4:17 AM [facility] Calcium 7.7(L) 8.6 - 10.0 mg/dL 02/19/2017 4:17 AM [facility] eGFR- >60 02/19/2017 4:17 AM [facility] eGFR-All Other Races >60 . 02/19/2017 4:17 AM [facility] Comment: eGFR (Estimated GFR) Units of measure: mL/min/1.73 meters squared eGFR is derived from the reexpressed MDRD Study equation using the following parameters: serum creatinine, age, gender and race. The creatinine assay has been calibrated to be traceable to IDMS. An eGFR <60 mL/min/1.73m2 for >3 months is consistent with chronic kidney disease. Refer to KDOQI guidelines for clinical interpretation. In patients with unstable renal function, e.g. those with acute kidney injury, the eGFR may not accurately reflect actual GFR. Blood specimen (specimen) BLOOD SPECIMEN / Unknown 02/19/2017 3:38 AM EDT 02/19/2017 3:39 AM EDT us Teresa Salcedo MD [facility] Final Result [facility] [id number] [facility] [place] [address], [place] from Last 3 Months or Most Recently Relevant to Health Maintenance Insurance [employer] Care Teams Auto Phone Installer Relationship Specialty Start Date End Date Main Holt DO PCP - General 12/03/08
--- OUTSIDE RECORDS SUMMARY | 2025-02-14 08:37 | XMS_ITS | CCD ---
Author Organization [facility] Care Team Providers Care Services Engineer Name Role Phone MAGGIE WYNN Unavailable Unavailable AROBELIDZE, RASHI Unavailable Unavailable TABBAA, MOUSAB Unavailable Unavailable BALL, DR MONTANO Admitting Unavailable BALL, DR MONTANO Attending Unavailable BALL, DR MONTANO Primary Care Unavailable BALL, DR MONTANO Consulting Unavailable CARL, DR MONTANO Admitting Unavailable BALL, DR MONTANO Attending Unavailable BALL, DR MONTANO Primary Care Unavailable CARL, DR MONTANO Consulting Unavailable FIDEL, FELICIA Admitting Unavailable FIDEL, FELICIA Attending Unavailable CARL, DR MONTANO Primary Care Unavailable FIDEL, FELICIA Consulting Unavailable BALL, DR MONTANO Admitting Unavailable BALL, DR MONTANO Attending Unavailable BALL, DR MONTANO Primary Care Unavailable BALL, DR MONTANO Admitting Unavailable BALL, DR MONTANO Attending Unavailable BALL, DR MONTANO Primary Care Unavailable BALL, DR MONTANO Consulting Unavailable Main Holt Unavailable Main Holt MD Primary Care Provider LUIS ALBERTO PERKINS Referring Unavailable MAIN HOLT Primary Care Unavailable MAIN HOLT Primary Care Unavailable CHARLEY ORTIZ Attending Unavailable CARMEN GUERRERO I Admitting Unavailable TTH ONLY, [facility] GI CONSULT SERVICE Consulting Unavailable AUGUSTIN COELHO Consulting Unavailable (TTH ONLY), SURGERY TEAM D Consulting Unava ilable CAS AVILA Consulting Unavailable HEMATOLOGY, [facility] Consulting Lexie vailable Main Holt DO Primary Care Provider LUIS ALBERTO PERKINS Attending Unavailable MAIN HOLT Referring Unavailable AMIN HOLT Primary Care Unavailable LUIS ALBERTO PERKINS Attending Unavailable MAIN HOLT Referring Unavailable MAIN HOLT Primary Care Unavailable MAIN HOLT Primary Care Unavailable LUIS ALBERTO PERKINS Referring Unavailable MAIN HOLT Primary Care Unavailable LUIS ALBERTO PERKINS Attending Unavailable LUIS ALBERTO PERKINS Referring Unavailable MAIN HOLT Primary Care Unavailable LUIS ALBERTO PERKINS Referring Unavailable Allergies Allergy Classification Reported Allergen(s) Allergy Type Date of Onset Reaction(s) Facility (1 source) patient allergy list reviewed by nurse or physicia Propensity to adverse reactions 8 Comment:Done Riffyn Other Medications Current Medications Medication Drug Class(es) [...] Active ascorbic acid 1000 mg oral tablet (19 sources) Vitamin C take 1 tablet by [...] 05/14/2023 05/13/2024 Active b complex vitamins capsule (19 sources) take 1 capsule by mouth in the morning b complex vitamins capsule Take 1 capsule by mouth in the morning. Active take 1 capsule by mouth in the m orning b complex vitamins capsule Take 1 capsule by mouth in the morning. 0 Active cefdinir 300 mg oral capsule (1 source) Cephalosporin Antibacterial Start: 01-23-2025 End: 01-30-2025 take 1 capsule by mouth in the morning, then take 1 capsule by mouth at bedtime cefDINIR (OMNICEF) 300 mg capsule Take 1 capsule (300 mg total) by mouth in the morning and 1 capsule (300 mg total) before bedtime. Do all this for 7 days. 14 capsule 01/23/2025 01/30/2025 Active cholecalciferol 0.075 mg oral tablet (1 source) Vitamin D cholecalciferol (Vitamin D-3) 75 MCG (3000 UT) tablet Take 7,000 Units by mouth. 0 Active DOCOSAHEXANOIC ACID/EPA (FISH OIL ORAL) (19 sources) take 1 capsule by mouth once [...] Active fexofenadine hydrochloride 180 mg oral tablet (3 sources) Histamine-1 Receptor Antagonist Start: 03-28-2024 take 1 tablet by mouth once daily Fexofenadine (Matilda Allergy) 180 mg tablet Active 180 MG PO Daily March 27, 2024 11:00pm Start: 02-13-2023 take 1 tablet by mouth [...] Active garlic preparation 1 mg oral capsule (19 sources) Non-Standardized Food Allergenic Extract take 1 [...] milk thistle extract 175 mg oral capsule (20 sources) take 1 tablet by mouth in [...] in the morning. 0 Active Multivitamin preparation (19 sources) take 1 tablet by humberto th once daily MULTIVITAMIN (MULTIPLE VITAMINS ORAL) Take 1 tablet by mouth daily. Active take 1 tablet by mouth once lena y MULTIVITAMIN (MULTIPLE VITAMINS ORAL) Take 1 tablet by mouth daily. 0 Active polysaccharide iron complex 150 mg oral capsule (2 sources) Start: 08-13-2024 End: 08-13-2024 Polysaccharide Iron Complex (Ferrex 150) 150 mg iron capsule Active 150 MG PO .COMPLEX 14 August 13, 2024 2:57pm 150 mg orally Mon, Sun and Sunday; tamsulosin hydrochloride 0.4 mg oral capsule (1 source) alpha-Adrenerg ic Ankur take 1 capsule by mouth every twenty-four hours in the morning tamsulosin (Flomax) 0.4 MG 24 hr capsule Take 0.4 mg by mouth in the morning. 0 Active thiamine 100 mg oral tablet (1 source) take 1 tablet by mouth in the morning thiamine (Vitamin B-1) 100 MG tablet Take 100 mg by mouth in the morning. 0 Active thyroid (nursing home) 60 mg oral tablet (20 sources) Start: 09-03-2024 Thyroid (Pork) ([place] Thyroid) 60 mg tablet Active 0 .ROUTE .COMPLEX September 03, 2024 1:38pm TAKE 1 TABLET EVERY DAY take 1 tablet by mouth once lena y thyroid, pork, (ARMOUR) 60 mg tablet Take 1 tablet (60 mg total) by mouth nightly. Active take 1 tablet by mouth once lena y thyroid, pork, (ARMOUR) 120 mg tablet Take 1 tablet (120 mg total) by mouth nightly. Active ubidecarenone 30 mg oral capsule (20 sources) take 1 capsule by mo ut once in the morning, then take 1 [...] Sig (Original) testosterone 75 mg drug implant (8 sources) Androgen Start: 01-06-2025 End: 01-06-2025 testosterone (TESTOPEL) implant 450 mg Start: 01-06-2025 End: 01-06-2025 450 mg, implant, Once, On 01/06/25 at 1645, For 1 dose, HAZARDOUS - Handle with care Start: 07-08-2024 End: 07-08-2024 testosterone (TESTOPEL) impl ant 450 mg Start: 07-08-2024 End: 07-08-2024 450 [...] daily. 30 packet 5 05/07/2019 11/20/2023 Discontinued Thyroid (Pork) (Plano Thyroid) 60 mg tablet (2 sources) Start: 10-15-2023 End: 09-03-2024 take 1 tablet by mouth once daily Thyroid (Pork) ([place]ano Thyroid) 60 mg tablet Discontinued 60 MG PO Daily October 15, 2023 12:00am September 03, 2024 1:38pm Start: 10-15-2023 take 1 tablet by mouth once da kalani Thyroid (Pork) (Plano Thyroid) 60 mg tablet Active 60 MG PO Daily October 15, 2023 1:00am Problems Active Problems Problem Classification Problem Date Documented Date Episodic/Chronic Aortic; peripheral; and visceral artery aneurysms (1 source) Dilatation of aorta; Translations: [Thoracic aortic ectasia] Onset: 05-03-2019 Chronic Cancer of colon (15 sources) Malignant tumor of colon; Translations: [Malignant neoplasm of colon, unspecified] Onset: 10-04-2012 Resolved: 02-20-2023 02-20-2023 Chronic Cancer of colon (10 sources) History of malignant neoplasm of colon; Translations: [Personal history of other malignant neoplasm of large intestine] Onset: 09-01-2015 03-27-2024 Episodic Complications of surgical procedures or medical care (2 sources) Postoperative hypothyroidism; Translations: [Postprocedural hypothyroidism] Onset: 09-01-2015 02-20-2023 Chronic Deficiency and other anemia (4 sources) Anemia; Translations: [Anemia, unspecified] Episodic Deficiency and other anemia (1 source) Anemia, unspecified; Translations: [Anemia, unspecified] 07-29-2024 Episodic Disorders of lipid metabolism (12 sources) Hyperlipidemia, unspecified; Translations: [Hypercholesterolemia ] Onset: 12-14-2021 Chronic Diverticulosis and diverticulitis (20 sources) Diverticular disease; Translations: [Diverticulosis of intestine, part unspecified, without perforation or abscess without bleeding] Onset: 12-30-2022 Resolved: 02-20-2023 02-20-2023 Chronic Essential hypertension (3 sources) Hypertensive disorder; Translations: [Essential (primary) hypertension] 07-28-2024 Chronic Hyperplasia of prostate (20 sources) Lower urinary tract symptoms due to benign prostatic hypertrophy; Translations: [Benign prostatic hyperplasia with lower urinary tract symptoms] Onset: 09-01-2015 Resolved: 02-20-2023 02-20-2023 Chronic Inflammation; infection of eye (except that caused by tuberculosis or sexually transmitteddisease) (6 sources) Unspecified blepharitis unspecified eye, unspecified eyelid; Translations: [Acute conjunctivitis] Onset: 10-15-2022 Episodic Inflammatory conditions of male genital organs (4 sources) Acute prostatitis; Translations: [Acute prostatitis] Episodic Malaise and fatigue (9 sources) Other fatigue; Translations: [Other malaise] Onset: 12-14-2021 Episodic Osteoarthritis (9 sources) Bilateral arthritis of knees; 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] Onset: 02-20-2023 Resolved: 02-20-2023 02-20-2023 Chronic Other connective tissue disease (1 source) Other symptoms and signs involving the nervous system Episodic Other ear and sense organ disorders (2 sources) Sensorineural hearing loss, bilateral; Translations: [Sensorineural hearing loss, bilateral] Onset: 02-20-2023 02-20-2023 Chronic Other ear and sense organ disorders (20 sources) Hearing loss; Translations: [Unspecified hearing loss, unspecified ear] Onset: 11-12-2018 Resolved: 02-20-2023 02-20-2023 Chronic Other endocrine disorders (7 sources) [...] Translations: [Hyperparathyroidism, unspecified] Chronic Other endocrine disorders (20 sources) Male hypogonadism; Translations: [Testicular hypofunction] Onset: 04-09-2017 Resolved: 02-20-2023 02-20-2023 Chronic Other endocrine disorders (1 source) Hypogonadism Onset: 01-06-2025 Chronic Other fractures (1 source) Fracture of one rib; Translations: [Fracture of one rib, right side, subsequent encounter for fracture with routine healing] Episodic Other injuries and conditions due to external causes (1 source) History of fall; Translations: [History of falling] Episodic Other male genital disorders (20 sources) Male erectile dysfunction, unspecified; Translations: [Impotence of organic origin] Onset: 04-10-2017 Resolved: 02-20-2023 02-20-2023 Chronic Other nutritional; endocrine; and metabolic [...] [Acute maxillary sinusitis] Episodic Residual codes; unclassified (6 sources) Obstructive sleep apnea syndrome; Translations: [Obstructive sleep apnea (adult) (pediatric)] 03-27-2024 Chronic Residual codes; unclassified (3 sources) Obstructive sleep apnea (adult) (pediatric); Translations: [Obstructive sleep apnea (adult)(pediatric)] 03-28-2024 Chronic Retinal detachments; defects; vascular occlusion; and retinopathy (1 source) Retinal hemorrhage; Translations: [Retinal hemorrhage, unspecified eye] Onset: 03-04-2019 Chronic Spondylosis; intervertebral disc disorders; other back problems (4 sources) Lumbosacral spondylosis without myelopathy; Translations: [Spondylosis without myelopathy or radiculopathy, lumbar region] 03-28-2024 Chronic Sprains and strains (1 source) Neck sprain; Translations: [Strain of muscle, fascia and tendon at neck level, initial encounter] Episodic Thyroid disorders (16 sources) Autoimmune thyroiditis; 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] Onset: 09-01-2015 Chronic Unclassified (1 source) Testpel Procedure Onset: 07-08-2024 Past or Other Problems Problem Classification Problem Date Documented Da te Episodic/Chronic Abdominal pain (1 source) Flank pain; Translations: [Unspecified abdominal pain] 03-11-2024 Episodic Calculus of urinary tract (20 sources) History of calculus of kidney; Translations: [Personal history of urinary calculi] Onset: 8 Resolved: 3 02-20-2023 Episodic Fracture of neck of femur (hip) (1 source) Late effect of fracture of neck of femur; Translations: [Fracture of unspecified part of neck of right femur, sequela] Resolved: 2 Episodic Gastrointestinal hemorrhage (20 sources) Gastrointestinal hemorrhage, unspecified; Translations: [Blood-tinged feces] Onset: 7 Resolved: 3 02-20-2023 Episodic Genitourinary symptoms and ill-defined conditions (2 sources) Delay when starting to pass urine; Translations: [Hesitancy of micturition] Onset: 2 Episodic Gout and other crystal arthropathies (3 sources) Gout; Translations: [Gout, unspecified] Onset: 6 Resolved: 3 02-20-2023 Chronic Heart valve disorders (1 source) O/E - cardiac murmur; Translations: [Cardiac murmur, unspecified] Onset: 9 Episodic Mood disorders (10 sources) Mood disorders Onset: 4 07-20-2024 Other aftercare (1 source) Long-term current use of drug therapy; Translations: [Other longwall foreman (current) drug therapy] Resolved: 2 Episodic Other circulatory disease (1 source) Cardiovascular symptoms; Translations: [Other specified symptoms and signs involving the circulatory and respiratory systems] Onset: 9 Episodic Other ear and sense organ disorders (1 source) Bilateral tinnitus; Translations: [Tinnitus, bilateral] Onset: 3 02-20-2023 Episodic Other ear and sense organ disorders (20 sources) Excessive cerumen in ear canal ; Translations: [Impacted cerumen, bilateral] Onset: 9 02-20-2023 Episodic Other lower respiratory disease (1 source) Dyspnea; Translations: [Other forms of dyspnea] Onset: 6 Episodic Other nutritional; endocrine; and metabolic disorders (1 source) Overweight; Translations: [Overweight] Onset: 6 Episodic Septicemia (except in labor) (20 sources) Sepsis; Translations: [Sepsis, unspecified organism] Onset: 8 Resolved: 3 02-20-2023 Episodic Urinary tract infections (20 sources) Urinary tract infectious disease; Translations: [Urinary tract infection, site not specified] Onset: 1 Resolved: 3 02-20-2023 Episodic Results Test Name Value Interpretation Reference Range Facility URINE CULTUREon 01-20-2025 Bacteria identified Cx Nom (U) CULTURE RESULTS CITROBACTER FREUNDII >100,000 CFU/mL Citrobacter freundii KLEBSIELLA OXYTOCA 50,000-100,000 CFU/mL Klebsiella oxytoca [ S = SUSCEPTIBLE R = RESISTANT I = INTERMEDIATE S-DO = Susceptible-dose dependent NS = Non-suscceptible NO = No Interpretation ] Organism: CITROBACTER FREUNDII Antibiotic Interpretation ELIESER Status PIPERACIL/TAZOBACTAM S <=^4.0 F Cefazolin (non-urinary) R >=^32.0 F Cefazolin (urinary) R >=^32.0 F Ceftriaxone S <=^0.25 F Gentamicin S <=^1.0 F Ciprofloxacin S <=^0.06 F Levofloxacin S <=^0.12 F Nitrofurantoin S <=^16.0 F Trimethoprim + Sulfamethoxazole S <=^1.0 F [ S = SUSCEPTIBLE R = RESISTANT I = INTERMEDIATE S-DO = Susceptible-dose dependent NS = Non-suscceptible NO = No Interpretation ] Organism: KLEBSIELLA OXYTOCA Antibiotic Interpretation ELIESER Status Ampicillin R >=^32.0 F AMP/SULBACTAM S 8.0 F PIPERACIL/TAZOBACTAM S <=^4.0 F Cefazolin (non-urinary) R >=^32.0 F Cefazolin (urinary) R >=^32.0 F Ceftriaxone S <=^0.25 F Gentamicin S <=^1.0 F Ciprofloxacin S <=^0.06 F Levofloxacin S <=^0.12 F Nitrofurantoin S 32 F Trimethoprim + Sulfamethoxazole S <=^1.0 F Susceptible [facility] Comment on above: Performed By: #### U C #### [facility] (TT) [address] [place] [address] VIR XR ABDOMEN AP 1 VWon 025 XR ABDOMEN AP 1 VW XR ABDOMEN AP 1 VW History: Nephrolithiasis. EXAM: Abdomen supine COMPARISON: CT of the pelvis 07/19/2024 FINDINGS: Nonobstructive bowel gas pattern. Moderate stool burden. 1 cm stone projects over the mid right kidney. Pelvic phleboliths. IMPRESSION: Right nephrolithiasis. Finalized by Mango Whitney MD on 11/22/2024 6:16 PM Normal [facility] Basophils Auto (Bld) [#/Vol] on 10-15-2024 Basophils (Bld) [#/Vol] Automated basophil count 0.0-0.1 [facility] Basophils/100 WBC Auto (Bld) on 10-15-2024 Basophils/100 WBC (Bld) Automated basophil % 0.2-2.0 [facility] Eosinophils/100 WBC Auto (Bl d)on 10-15-2024 Eosinophils/100 WBC (Bld) Automated eosinophil % 0.9-7.0 [facility] Erythrocyte distribution wid th Auto (RBC) [Ratio]on 10-15-2024 Erythrocyte distribution width (RBC) [Ratio] Erythrocyte distribution width [Ratio] by Automated count 11.0-15.0 [facility] Hematocrit Auto (Bld) [Volum e fraction]on 10-15-2024 Hematocrit (Bld) [Volume fraction] Hematocrit [Volume Fraction] of Blood by Automated count Low 42.0-54.0 [facility] Hemoglobin [Mass/volume] in Bloodon 10-15-2024 Hemoglobin (Bld) [Mass/Vol] Hemoglobin [Mass/volume] in Blood Low 14.0-18.0 [facility] Iron binding capacity [Mass/ volume] in Serum or Plasmaon 10-15-2024 Iron binding capacity [Mass/Vol] Iron binding capacity [Mass/volume] in Serum or Plasma 250.0-450.0 [facility] Iron saturation [Mass Fracti on] in Serum or Plasmaon 10-15-2024 Iron saturation [Mass fraction] Iron saturation [Mass Fraction] in Serum or Plasma [facility] - Chemistry and C hemistry - challengeon 10-15-2024 Cobalamin (Vitamin B12) [Mass/Vol] 550 pg/mL 232-1245 [facility] Comment on above: Performed at: [address] [id number] Director: Christos Chinchilla PhD, Phone: [phone] Ferritin [Mass/Vol] 48.0 ng/mL 26.0-388.0 [facility] Iron [Mass/Vol] 49.0 ug/dL Low 65.0-175.0 [facility] - Hematology and Cell countson 10-15-2024 Immature granulocytes/100 WBC (Bld) 0.1 % 0.0-0.5 [facility] Leukocytes [#/volume] correc sang for nucleated erythrocytes in Blood by Automated counon 10-15-2024 WBC corrected for nucl RBC Auto (Bld) [#/Vol] Leukocytes [#/volume] corrected for nucleated erythrocytes in Blood by Automated coun 4.0-11.0 [facility] Lymphocytes Auto (Bld) [#/Vo l]on 10-15-2024 Lymphocytes (Bld) [#/Vol] Lymphocytes [#/volume] in Blood by Automated count 1.2-3.8 [facility] Lymphocytes/100 WBC Auto (Bl d)on 10-15-2024 Lymphocytes/100 WBC (Bld) Lymphocytes/100 leukocytes in Blood by Automated count 20.5-60.0 [facility] MCH Auto (RBC) [Entitic mass ]on 10-15-2024 MCH (RBC) [Entitic mass] MCH [Entitic mass] by Automated count 25.9-34.0 [facility] MCHC Auto (RBC) [Mass/Vol]on 10-15-2024 MCHC (RBC) [Mass/Vol] MCHC [Mass/volume] by Automated count 29.9-35.2 [facility] MCV Auto (RBC) [Entitic vol] on 10-15-2024 MCV (RBC) [Entitic vol] MCV [Entitic volume] by Automated count High 80.0-94.0 [facility] Monocytes Auto (Bld) [#/Vol] on 10-15-2024 Monocytes (Bld) [#/Vol] Automated blood monocyte count High 0.3-0.8 [facility] Monocytes/100 WBC Auto (Bld) on 10-15-2024 Monocytes/100 WBC (Bld) Automated monocyte % High 1.7-12.0 [facility] Neutrophils Auto (Bld) [#/Vo l]on 10-15-2024 Neutrophils (Bld) [#/Vol] Neutrophils [#/volume] in Blood by Automated count 1.4-6.5 [facility] Neutrophils/100 WBC Auto (Bl d)on 10-15-2024 Neutrophils/100 WBC (Bld) Automated neutrophil % 43.0-75.0 [facility] No Panel Informationon 10-15 Eosinophils # (Auto) 0.1 10 3/uL 0.0-0.7 [facility] Folate 14.70 ng/mL 8.60-58.90 [facility] Immature Granulocyte # (Auto) 0.01 10 3/uL 0.00-0.03 [facility] Platelet mean volume Auto (B ld) [Entitic vol]on 10-15-2024 Platelet mean volume (Bld) [Entitic vol] Platelet mean volume [Entitic volume] in Blood by Automated count 9.5-13.5 [facility] Platelets Auto (Bld) [#/Vol] on 10-15-2024 Platelets (Bld) [#/Vol] Platelets [#/volume] in Blood by Automated count 150-450 [facility] RBC Auto (Bld) [#/Vol]on RBC (Bld) [#/Vol] Erythrocytes [#/volu me] in Blood by Automated count Low 4.70-6.10 [facility] Reticulocytes/100 RBC Auto ( Bld)on 10-15-2024 Reticulocytes/100 RBC (Bld) Reticulocyte % auto 0.60-3.10 [facility] Basophils Auto (Bld) [#/Vol] on 08-13-2024 Basophils (Bld) [#/Vol] Automated basophil count 0.0-0.1 [facility] Basophils/100 WBC Auto (Bld) on 08-13-2024 Basophils/100 WBC (Bld) Automated basophil % 0.2-2.0 [facility] COMPLETE BLOOD COUNTon 08-13 Erythrocyte distribution width (RBC) [Ratio] 13.5 % Normal 11.5-15.[address] [facility] Comment on above: Performed By: #### 2 986-8, LIVR, CBC, 2856- #### [facility] ([id number]) [address], [address] [place] [address] Hematocrit (Bld) [Volume fraction] 38.5 % Low 39-[address] [facility] Comment on above: Performed By: #### 2 986-8, LIVR, CBC, 2856- #### [facility] ([id number]) [address], [address] [place] [address] Hemoglobin (Bld) [Mass/Vol] 12.6 g/dL Low 13.0-17.[address] [facility] Comment on above: Performed By: #### 2 986-8, LIVR, CBC, 2857- #### [facility] ([id number]) [address], [address] [place] [address] MCH (RBC) [Entitic mass] 32.5 pg Normal 27-[address] [facility] Comment on above: Performed By: #### 2 986-8, LIVR, CBC, 285-1 #### [facility] ([id number]) [address], [address] [place] [address] MCHC (RBC) [Mass/Vol] 32.8 g/dL Normal 32-[address] [facility] Comment on above: Performed By: #### 2 986-8, LIVR, CBC, 285- #### [facility] ([id number]) [address] [address] [place] [address] MCV (RBC) [Entitic vol] 99 fL Normal 80-[address] [facility] Comment on above: Performed By: #### 2 986-8, LIVR, CBC, 285- #### [facility] ([id number]) [address], [facility] [address] [place] [address] Platelet mean volume (Bld) [Entitic vol] 8.4 fL Normal 7-[address] [facility] Comment on above: Performed By: #### 2 986-8, LIVR, CBC, 285- #### [facility] ([id number]) [address], [address] [place] [address] Platelets (Bld) [#/Vol] 224 10*3/uL Normal 150-[address] [facility] Comment on above: Performed By: #### 2 986-8, LIVR, CBC, 285-1 #### [facility] ([id number]) [address], [address] [place] [address] RBC COUNT 3.88 X10E12/L Low 4.10-5.[address] [facility] Comment on above: Performed By: #### 2 986-8, LIVR, CBC, 2857-1 #### [facility] ([id number]) [address], [address] [place] [address] WBC (Bld) [#/Vol] 6.4 10*3/uL Normal 4.0-11.0 [facility] Comment on above: Performed By: #### 2 986-8, LIVR, CBC, 2856-1 #### [facility] ([id number]) [address], [address] [place] [address] Eosinophils/100 WBC Auto (Bl d)on 08-13-2024 Eosinophils/100 WBC (Bld) Automated eosinophil % 0.9-7.0 [facility] Erythrocyte distribution wid th Auto (RBC) [Ratio]on 08-13-2024 Erythrocyte distribution width (RBC) [Ratio] Erythrocyte distribution width [Ratio] by Automated count 11.0-15.0 [facility] Hematocrit Auto (Bld) [Volum e fraction]on 08-13-2024 Hematocrit (Bld) [Volume fraction] Hematocrit [Volume Fraction] of Blood by Automated count Low 42.0-54.0 [facility] Hemoglobin [Mass/volume] in Bloodon 08-13-2024 Hemoglobin (Bld) [Mass/Vol] Hemoglobin [Mass/volume] in Blood Low 14.0-18.0 [facility] Iron binding capacity [Mass/ volume] in Serum or Plasmaon 08-13-2024 Iron binding capacity [Mass/Vol] Iron binding capacity [Mass/volume] in Serum or Plasma 250.0-450.0 [facility] Iron saturation [Mass Fracti on] in Serum or Plasmaon 08-13-2024 Iron saturation [Mass fraction] Iron saturation [Mass Fraction] in Serum or Plasma [facility] LIVER PANELon 08-13-2024 Albumin [Mass/Vol] 3.9 g/dL Normal 3.2-5.3 [facility] Comment on above: Performed By: #### 2 986-8, LIVR, CBC, 285-1 #### [facility] [facility] ([id number]) [address], [address] [place] [address] ALP [Catalytic activity/Vol] 126 U/L Normal 39-[address] [facility] Comment on above: Performed By: #### 2 986-8, LIVR, CBC, 2857-1 #### [facility] ([id number]) [address], [address] [place] [address] ALT [Catalytic activity/Vol] 9 U/L Normal 0-[address] [facility] Comment on above: Performed By: #### 2 986-8, LIVR, CBC, 2857-1 #### [facility] ([id number]) [address], [address] [place] [address] AST [Catalytic activity/Vol] 17 U/L Normal 0-[address] [facility] Comment on above: Performed By: #### 2 986-8, LIVR, CBC, 2857-1 #### [facility] ([id number]) [address], [address] [place] [address] Bilirubin [Mass/Vol] 0.6 mg/dL Normal 0.3-1.[address] [facility] Comment on above: Performed By: #### 2 986-8, LIVR, CBC, 2857-1 #### [facility] ([id number]) [address], [address] [place] [address] Bilirubin.direct [Mass/Vol] 0.1 mg/dL Normal 0.0-0.[address] [facility] Comment on above: Performed By: #### 2 986-8, LIVR, CBC, 2857-1 #### [facility] ([id number]) [address], [address] [place] [address] Protein [Mass/Vol] 6.5 g/dL Normal 6.0-8.0 [facility] Comment on above: Performed By: #### 2 986-8, LIVR, CBC, 2857-1 #### [facility] ([id number]) [address] [facility], [address] [place] [address] Laboratory - Chemistry and C hemistry - challengeon 08-13-2024 Ferritin [Mass/Vol] 38.0 ng/mL 26.0-388.0 [facility] Iron [Mass/Vol] 41.0 ug/dL Low 65.0-175.0 [facility] Laboratory - Hematology and Cell countson 08-13-2024 Immature granulocytes/100 WBC (Bld) 0.1 % 0.0-0.5 [facility] Leukocytes [#/volume] correc sang for nucleated erythrocytes in Blood by Automated counon 08-13-2024 WBC corrected for nucl RBC Auto (Bld) [#/Vol] Leukocytes [#/volume] corrected for nucleated erythrocytes in Blood by Automated coun 4.0-11.0 [facility] Lymphocytes Auto (Bld) [#/Vo l]on 08-13-2024 Lymphocytes (Bld) [#/Vol] Lymphocytes [#/volume] in Blood by Automated count 1.2-3.8 [facility] Lymphocytes/100 WBC Auto (Bl d)on 08-13-2024 Lymphocytes/100 WBC (Bld) Lymphocytes/100 leukocytes in Blood by Automated count 20.5-60.0 [facility] MCH Auto (RBC) [Entitic mass ]on 08-13-2024 MCH (RBC) [Entitic mass] MCH [Entitic mass] by Automated count 25.9-34.0 [facility] MCHC Auto (RBC) [Mass/Vol]on 08-13-2024 MCHC (RBC) [Mass/Vol] MCHC [Mass/volume] by Automated count 29.9-35.2 [facility] MCV Auto (RBC) [Entitic vol] on 08-13-2024 MCV (RBC) [Entitic vol] MCV [Entitic volume] by Automated count High 80.0-94.0 [facility] Monocytes Auto (Bld) [#/Vol] on 08-13-2024 Monocytes (Bld) [#/Vol] Automated blood monocyte count High 0.3-0.8 [facility] Monocytes/100 WBC Auto (Bld) on 08-13-2024 Monocytes/100 WBC (Bld) Automated monocyte % High 1.7-12.0 [facility] Neutrophils Auto (Bld) [#/Vo l]on 08-13-2024 Neutrophils (Bld) [#/Vol] Neutrophils [#/volume] in Blood by Automated count 1.4-6.5 [facility] Neutrophils/100 WBC Auto (Bl d)on 08-13-2024 Neutrophils/100 WBC (Bld) Automated neutrophil % 43.0-75.0 [facility] No Panel Informationon 08-13 Eosinophils # (Auto) 0.1 10 3/uL 0.0-0.7 [facility] Immature Granulocyte # (Auto) 0.01 10 3/uL 0.00-0.03 [facility] Platelet mean volume Auto (B ld) [Entitic vol]on 08-13-2024 Platelet mean volume (Bld) [Entitic vol] Platelet mean volume [Entitic volume] in Blood by Automated count Low 9.5-13.5 [facility] Platelets Auto (Bld) [#/Vol] on 08-13-2024 Platelets (Bld) [#/Vol] Platelets [#/volume] in Blood by Automated count 150-450 [facility] Prostate specific Ag [Mass/V ol]on 08-13-2024 PROSTATIC SPEC ANT 3.30 ng/mL Normal 0.00-4.00 [facility] Comment on above: Result Comment: The method used for this test is Antonio Seward DXI chemiluminescent immunoassay. Values obtained by different assay methods cannot be used interchangeably. Performed By: #### 2 986-8, LIVR, CBC, 2857-1 #### [facility] ([id number]) [address] [place] [address] RBC Auto (Bld) [#/Vol]on RBC (Bld) [#/Vol] Erythrocytes [#/volu me] in Blood by Automated count Low 4.70-6.10 [facility] Testosterone [Mass/Vol]on TESTOSTERONE 2.89 ng/mL Normal 1.68-7.[address] [facility] Comment on above: Performed By: #### 2 986-8, LIVR, CBC, 2857-1 #### [facility] ([id number]) [address], [address] [place] [address] CT CTA ABD AND PELVISon 06-29 CT CTA ABD AND PELVIS CT CTA ABD AND PELVIS *ADDENDUM*Addendum: IMPRESSION: Appropriate three-dimensional MIP reconstructions were obtained. Finalized by Kevin Gonzalez MD on 07/26/2024 10:55 AM Normal [facility] BASIC METABOLIC PANLon 07-22 Anion gap [Moles/Vol] 6 mmol/L Normal 5-15 [facility] Comment on above: Performed By: #### C BCA, CMP, FEPR, 2276-4, 2284-8, 2132-04 #### [facility] ([id number]) [address], [address] [place] [address] Calcium [Mass/Vol] 8.0 mg/dL Low 8.5-10.5 [facility] Comment on above: Performed By: #### C BCA, CMP, FEPR, 2276-4, 2284-8, 2132-04 #### [facility] ([id number]) [address], [address] [place] [address] Chloride [Moles/Vol] 106 mmol/L Normal 98-109 [facility] Comment on above: Performed By: #### C BCA, CMP, FEPR, 2276-4, 2284-8, 2132-04 #### [facility] ([id number]) [address], [address] [place] [address] CO2 [Moles/Vol] 29 mmol/L Normal 22-32 [facility] Comment on above: Performed By: #### C BCA, CMP, FEPR, 2276-4, 2284-8, 9 #### [facility] ([id number]) [address], [address] [place] [address] Creatinine [Mass/Vol] 0.85 mg/dL Normal 0.60-1.30 [facility] Comment on above: Result Comment: METH OD TRACEABLE TO IDMS STANDARD Performed By: #### C BCA, CMP, FEPR, 2276-4, 2283-8, 2132-04 #### [facility] ([id number]) [address], [facility] [address] [place] [address] GFR/1.73 sq M.predicted among non-blacks MDRD (S/P/Bld) [Vol rate/Area] 84 mL/min/{1.73_m2} Normal >59 [facility] Comment on above: Result Comment: Reported eGFR is based on the CKD-EPI 2020 equation that does not use a race coefficient. Performed By: #### C BCA, CMP, FEPR, 6-4, 8, 2132-04 #### [facility] ([id number]) [address], [address] [address] Glucose [Mass/Vol] 113 mg/dL High 65-99 [facility] Comment on above: Performed By: #### C BCA, CMP, FEPR, 2275-4, 2284-03, 2132-04 #### [facility] ([id number]) [address] [address] [place] [address] Potassium [Moles/Vol] 4.0 mmol/L Normal 3.5-5.0 [facility] Comment on above: Performed By: #### C BCA, CMP, FEPR, 2276-4, 2283-8, 2132-04 #### [facility] ([id number]) [address] [address] [place] [address] Sodium [Moles/Vol] 141 mmol/L Normal 134-146 [facility] Comment on above: Performed By: #### C BCA, CMP, FEPR, 2276-4, 2283-8, 2132-04 #### [facility] ([id number]) [address], [address] [place] [address] Urea nitrogen [Mass/Vol] 11 mg/dL Normal 5-27 [facility] Comment on above: Performed By: #### C BCA, CMP, FEPR, 6-4, 2283-8, 2132-04 #### [facility] ([id number]) [address], [address] [place] [address] CBC AND AUTO DIFFon 07-22-20 ABSOLUTE BASOPHIL 0.0 X10E9/L Normal 0.0-0.2 [facility] Comment on above: Performed By: #### C BCA, CMP, FEPR, 2275-4, 2284-03, 2132-04 #### [facility] ([id number]) [address], [address] [place] [address] ABSOLUTE NEUTROPHIL 5.1 X10E9/L Normal 1.5-6.6 [facility] Comment on above: Performed By: #### C BCA, CMP, FEPR, 2275-4, 2284-03, 2132-04 #### [facility] ([id number]) [address] [address] [place] [address] Basophils/100 WBC (Bld) 0.3 % Normal [facility] Comment on above: Performed By: #### C BCA, CMP, FEPR, 2275-4, 2284-03, 2132-04 #### [facility] ([id number]) [address], [address] [place] [address] Eosinophils (Bld) [#/Vol] 0.1 10*3/uL Normal 0.0-0.4 [facility] Comment on above: Performed By: #### C BCA, CMP, FEPR, 6-4, 2283-8, 2132-04 #### [facility] ([id number]) [address], [address] [place] [address] Eosinophils/100 WBC (Bld) 0.8 % Normal [facility] Comment on above: Performed By: #### C BCA, CMP, FEPR, 6-4, 2283-8, 2132-04 #### [facility] ([id number]) [address], [address] [place] [address] Erythrocyte distribution width (RBC) [Ratio] 13.4 % Normal 11.5-15.0 [facility] Comment on above: Performed By: #### C BCA, CMP, FEPR, 2275-4, 2283-8, 2132-04 #### [facility] ([id number]) [address], [facility] [address] [place] [address] Hematocrit (Bld) [Volume fraction] 26.9 % Low 39-49 [facility] Comment on above: Performed By: #### C BCA, CMP, FEPR, 2275-4, 2284-03, 2132-04 #### [facility] ([id number]) [address], [address] [place] [address] Hemoglobin (Bld) [Mass/Vol] 9.2 g/dL Low 13.0-17.0 [facility] Comment on above: Performed By: #### C BCA, CMP, FEPR, 2275-4, 2284-03, 2132-04 #### [facility] ([id number]) [address], [address] [place] [address] Lymphocytes (Bld) [#/Vol] 1.8 10*3/uL Normal 1.0-3.5 [facility] Comment on above: Performed By: #### C BCA, CMP, FEPR, 2275-4, 2284-03, 2132-04 #### [facility] ([id number]) [address] [address] [place] [address] Lymphocytes/100 WBC (Bld) 22.5 % Normal [facility] Comment on above: Performed By: #### C BCA, CMP, FEPR, 2276-4, 2283-8, 2132-04 #### [facility] ([id number]) [address], [address] [place] [address] MCH (RBC) [Entitic mass] 33.6 pg Normal 27-34 [facility] Comment on above: Performed By: #### C BCA, CMP, FEPR, 2275-4, 2283-, 2132-04 #### [facility] ([id number]) [address], [address] [place] [address] MCHC (RBC) [Mass/Vol] 34.4 g/dL Normal 32-36 [facility] Comment on above: Performed By: #### C BCA, CMP, FEPR, 2275-4, 2283-, 2132-04 #### [facility] ([id number]) [address], [facility] [address] [place] [address] MCV (RBC) [Entitic vol] 98 fL Normal 80-100 [facility] Comment on above: Performed By: #### C BCA, CMP, FEPR, 2275-, 2284-03, 2132-04 #### [facility] ([id number]) [address], [facility] [address] [place] [address] Monocytes (Bld) [#/Vol] 1.1 10*3/uL High 0-0.9 [facility] Comment on above: Performed By: #### C BCA, CMP, FEPR, 6-4, 2283-, 2132-04 #### [facility] ([id number]) [address] [address] [place] [address] Monocytes/100 WBC (Bld) 13.7 % Normal [facility] Comment on above: Performed By: #### C BCA, CMP, FEPR, 6-4, 2283-, 2132-04 #### [facility] ([id number]) [address], [address] [place] [address] Neutrophils/100 WBC (Bld) 62.7 % Normal [facility] Comment on above: Performed By: #### C BCA, CMP, FEPR, 2275-4, 2284-03, 2132-04 #### [facility] ([id number]) [address], [facility] [address] [place] [address] Platelet mean volume (Bld) [Entitic vol] 7.7 fL Normal 7-12 [facility] Comment on above: Performed By: #### C BCA, CMP, FEPR, 2275-, 2284-03, 2132-04 #### [facility] ([id number]) [address], [facility] [address] [place] [address] Platelets (Bld) [#/Vol] 204 10*3/uL Normal 150-450 [facility] Comment on above: Performed By: #### C BCA, CMP, FEPR, 2275-, 2284-03, 2132-04 #### [facility] ([id number]) [address], [facility] [address] [place] [address] RBC COUNT 2.75 X10E12/L Low 4.10-5.70 [facility] Comment on above: Performed By: #### C BCA, CMP, FEPR, 2275-, 2284-03, 2132-04 #### [facility] ([id number]) [address], [address] [place] [address] WBC (Bld) [#/Vol] 8.1 10*3/uL Normal 4.0-11.0 [facility] Comment on above: Performed By: #### C BCA, CMP, FEPR, 2275-, 2284-03, 2132-04 #### [facility] ([id number]) [address], [address] [place] [address] BASIC METABOLIC PANLon 07-21 Anion gap [Moles/Vol] 10 mmol/L Normal 5-15 [facility] Comment on above: Performed By: #### C BCA, CMP, FEPR, 6-4, 2283-8, 2132-04 #### [facility] ([id number]) [address], [address] [place] [address] Calcium [Mass/Vol] 7.9 mg/dL Low 8.5-10.5 [facility] Comment on above: Performed By: #### C BCA, CMP, FEPR, 6-4, 2283-8, 2132-04 #### [facility] ([id number]) [address], [address] [place] [address] Chloride [Moles/Vol] 106 mmol/L Normal 98-109 [facility] Comment on above: Performed By: #### C BCA, CMP, FEPR, 2275-4, 2283-8, 2132-04 #### [facility] ([id number]) [address], [address] [place] [address] CO2 [Moles/Vol] 28 mmol/L Normal 22-32 [facility] Comment on above: Performed By: #### C BCA, CMP, FEPR, 2275-4, 2283-8, 2132-04 #### [facility] ([id number]) [address], [address] [place] [address] Creatinine [Mass/Vol] 0.64 mg/dL Normal 0.60-1.30 [facility] Comment on above: Result Comment: METH OD TRACEABLE TO IDMS STANDARD Performed By: #### C BCA, CMP, FEPR, 6-4, 2283-8, 2132-04 #### [facility] ([id number]) [address], [address] [place] [address] eGFR (CKD-EPI) NON-RACE DEPENDENT >90 Normal >59 [facility] Comment on above: Result Comment: Reported eGFR is based on the CKD-EPI 2020 equation that does not use a race coefficient. Performed By: #### C BCA, CMP, FEPR, 6-4, 2283-8, 2132-04 #### [facility] ([id number]) [address] [address] [place] [address] Glucose [Mass/Vol] 92 mg/dL Normal 65-99 [facility] Comment on above: Performed By: #### C BCA, CMP, FEPR, 2275-4, 2283-8, 2132-04 #### [facility] ([id number]) [address] [address] Potassium [Moles/Vol] 3.8 mmol/L Normal 3.5-5.0 [facility] Comment on above: Performed By: #### C BCA, CMP, FEPR, 2275-4, 2284-03, 2132-04 #### [facility] ([id number]) [address] [address] Sodium [Moles/Vol] 144 mmol/L Normal 134-146 [facility] Comment on above: Performed By: #### C BCA, CMP, FEPR, 2275-4, 2284-03, 2132-04 #### [facility] ([id number]) [address] [address] Urea nitrogen [Mass/Vol] 7 mg/dL Normal 5-27 [facility] Comment on above: Performed By: #### C BCA, CMP, FEPR, 2275-4, 8, 2132-04 #### [facility] ([id number]) [address] [address] CBC AND AUTO DIFFon 11-25-20 24 ABSOLUTE BASOPHIL 0.0 X10E9/L Normal 0.0-0.2 [facility] Comment on above: Performed By: #### C BCA, CMP, FEPR, 2275-4, 2284-03, 2132-04 #### [facility] ([id number]) [address], [address] [place] [address] ABSOLUTE NEUTROPHIL 3.2 X10E9/L Normal 1.5-6.6 [facility] Comment on above: Performed By: #### C BCA, CMP, FEPR, 2275-4, 2284-03, 2132-04 #### [facility] ([id number]) [address], [address] [place] [address] Basophils/100 WBC (Bld) 0.6 % Normal [facility] Comment on above: Performed By: #### C BCA, CMP, FEPR, 2275-11, 2284-03, 2132-04 #### [facility] ([id number]) [address], [address] [place] [address] Eosinophils (Bld) [#/Vol] 0.0 10*3/uL Normal 0.0-0.4 [facility] Comment on above: Performed By: #### C BCA, CMP, FEPR, 2275-11, 2284-03, 2132-04 #### [facility] ([id number]) [address], [address] [place] [address] Eosinophils/100 WBC (Bld) 0.8 % Normal [facility] Comment on above: Performed By: #### C BCA, CMP, FEPR, 2275-11, 2284-03, 2132-04 #### [facility] ([id number]) [address], [address] [place] [address] Erythrocyte distribution width (RBC) [Ratio] 13.4 % Normal 11.5-15.0 [facility] Comment on above: Performed By: #### C BCA, CMP, FEPR, 2275-, 2284-03, 2132-04 #### [facility] ([id number]) [address], [address] [place] [address] Hematocrit (Bld) [Volume fraction] 27.3 % Low 39-49 [facility] Comment on above: Performed By: #### C BCA, CMP, FEPR, 2275-4, 2284-03, 2132-04 #### [facility] ([id number]) [address], [address] [place] [address] Hemoglobin (Bld) [Mass/Vol] 9.6 g/dL Low 13.0-17.0 [facility] Comment on above: Performed By: #### C BCA, CMP, FEPR, 2275-4, 2284-03, 2132-04 #### [facility] ([id number]) [address], [facility] [address] [place] [address] Lymphocytes (Bld) [#/Vol] 1.6 10*3/uL Normal 1.0-3.5 [facility] Comment on above: Performed By: #### C BCA, CMP, FEPR, 2275-, 2284-03, 2132-04 #### [facility] ([id number]) [address], [address] [place] [address] Lymphocytes/100 WBC (Bld) 28.4 % Normal [facility] Comment on above: Performed By: #### C BCA, CMP, FEPR, 2275-4, 2284-03, 2132-04 #### [facility] ([id number]) [address], [address] [place] [address] MCH (RBC) [Entitic mass] 34.2 pg High 27-34 [facility] Comment on above: Performed By: #### C BCA, CMP, FEPR, 2275-4, 2284-03, 2132-04 #### [facility] ([id number]) [address], [address] [place] [address] MCHC (RBC) [Mass/Vol] 35.2 g/dL Normal 32-36 [facility] Comment on above: Performed By: #### C BCA, CMP, FEPR, 2276-4, 2284-8, 2132-04 #### [facility] ([id number]) [address], [address] [place] [address] MCV (RBC) [Entitic vol] 97 fL Normal 80-100 [facility] Comment on above: Performed By: #### C BCA, CMP, FEPR, 2276-4, 2283-8, 2132-04 #### [facility] ([id number]) [address], [address] [place] [address] Monocytes (Bld) [#/Vol] 0.8 10*3/uL Normal 0-0.9 [facility] Comment on above: Performed By: #### C BCA, CMP, FEPR, 2276-4, 2283-8, 2132-04 #### [facility] ([id number]) [address], [address] [place] [address] Monocytes/100 WBC (Bld) 14.0 % Normal [facility] Comment on above: Performed By: #### C BCA, CMP, FEPR, 2276-4, 2283-8, 2132-04 #### [facility] ([id number]) [address], [address] [place] [address] Neutrophils/100 WBC (Bld) 56.2 % Normal [facility] Comment on above: Performed By: #### C BCA, CMP, FEPR, 2276-4, 2284-8, 2132-04 #### [facility] ([id number]) [address], [address] [place] [address] Platelet mean volume (Bld) [Entitic vol] 7.9 fL Normal 7-12 [facility] Comment on above: Performed By: #### C BCA, CMP, FEPR, 2276-4, 2284-8, 2132-04 #### [facility] ([id number]) [address], [address] [place] [address] Platelets (Bld) [#/Vol] 172 10*3/uL Normal 150-450 [facility] Comment on above: Performed By: #### C BCA, CMP, FEPR, 2276-4, 4-8, 2132-04 #### [facility] ([id number]) [address], [address] [place] [address] RBC COUNT 2.81 X10E12/L Low 4.10-5.70 [facility] Comment on above: Performed By: #### C BCA, CMP, FEPR, 6-4, 2283-8, 2132-04 #### [facility] ([id number]) [address], [address] [place] [address] WBC (Bld) [#/Vol] 5.7 10*3/uL Normal 4.0-11.0 [facility] Comment on above: Performed By: #### C BCA, CMP, FEPR, 6-4, 2283-8, 2132-04 #### [facility] ([id number]) [address], [address] [place] [address] CRP [Mass/Vol]on 07-21-2024 C REACTIVE PROTEIN 0.4 mg/dL Normal 0.000-0.744 [facility] Comment on above: Performed By: #### C BCA, CMP, FEPR, 6-4, 2283-8, 2132-04 #### [facility] ([id number]) [address], [address] [place] [address] Calcium.ionized (Bld) [Mass/ Vol]on 07-21-2024 IONIZED CALCIUM 4.6 mg/dL Normal 4.5-5.3 [facility] Comment on above: Performed By: #### C BCA, CMP, FEPR, 2276-4, 4-8, 2132-04 #### [facility] ([id number]) [address], [address] [place] [address] ESR Photometric method (Bld) [Velocity]on 07-21-2024 ESR, ERYTHROCYTE SEDIMENTATION RATE 1 mm/h Normal 0-20 [facility] Comment on above: Performed By: #### C BCA, CMP, FEPR, 2276-4, 2283-8, 2132-04 #### [facility] ([id number]) [address], [address] [place] [address] HGB AND HCTon 07-21-2024 Hematocrit (Bld) [Volume fraction] 29.8 % Low 39-49 [facility] Comment on above: Performed By: #### C BCA, CMP, FEPR, 2276-4, 2283-8, 2132-04 #### [facility] ([id number]) [address], [address] [place] [address] Hemoglobin (Bld) [Mass/Vol] 10.4 g/dL Low 13.0-17.0 [facility] Comment on above: Performed By: #### C BCA, CMP, FEPR, 2275-4, 2284-03, 2132-04 #### [facility] ([id number]) [address], [address] [place] [address] Reticulocytes/100 RBC (Bld)o n 07-21-2024 RETICULOCYTE COUNT 1.3 % Normal 0.4-2.2 [facility] Comment on above: Performed By: #### C BCA, CMP, FEPR, 2276-4, 2283-8, 2132-04 #### [facility] ([id number]) [address], [address] [place] [address] BASIC METABOLIC PANLon 07-20 Anion gap [Moles/Vol] 6 mmol/L Normal 5-15 [facility] Comment on above: Performed By: #### C BCA, CMP, FEPR, 2276-4, 2283-8, 2132-04 #### [facility] ([id number]) [address], [address] [place] [address] Calcium [Mass/Vol] 8.1 mg/dL Low 8.5-10.5 [facility] Comment on above: Performed By: #### C BCA, CMP, FEPR, 6-4, 2283-8, 2132-04 #### [facility] ([id number]) [address], [address] [place] [address] Chloride [Moles/Vol] 105 mmol/L Normal 98-109 [facility] Comment on above: Performed By: #### C BCA, CMP, FEPR, 2275-4, 2283-8, 2132-04 #### [facility] ([id number]) [address], [address] [place] [address] CO2 [Moles/Vol] 32 mmol/L Normal 22-32 [facility] Comment on above: Performed By: #### C BCA, CMP, FEPR, 2275-4, 2283-8, 2132-04 #### [facility] ([id number]) [address], [address] [place] [address] Creatinine [Mass/Vol] 0.78 mg/dL Normal 0.60-1.30 [facility] Comment on above: Result Comment: METH OD TRACEABLE TO IDMS STANDARD Performed By: #### C BCA, CMP, FEPR, 6-4, 2283-8, 2132-04 #### [facility] ([id number]) [address], [address] [place] [address] GFR/1.73 sq M.predicted among non-blacks MDRD (S/P/Bld) [Vol rate/Area] 86 mL/min/{1.73_m2} Normal >59 [facility] Comment on above: Result Comment: Reported eGFR is based on the CKD-EPI 2020 equation that does not use a race coefficient. Performed By: #### C BCA, CMP, FEPR, 2276-4, 2283-8, 2132-04 #### [facility] ([id number]) [address], [address] [place] [address] Glucose [Mass/Vol] 100 mg/dL High 65-99 [facility] Comment on above: Performed By: #### C BCA, CMP, FEPR, 6-4, 2283-8, 2132-04 #### [facility] ([id number]) [address], [address] [place] [address] Potassium [Moles/Vol] 4.1 mmol/L Normal 3.5-5.0 [facility] Comment on above: Performed By: #### C BCA, CMP, FEPR, 6-4, 2283-8, 2132-04 #### [facility] ([id number]) [address], [address] [place] [address] Sodium [Moles/Vol] 143 mmol/L Normal 134-146 [facility] Comment on above: Performed By: #### C BCA, CMP, FEPR, 6-4, 2283-8, 2132-04 #### [facility] ([id number]) [address], [address] [place] [address] Urea nitrogen [Mass/Vol] 13 mg/dL Normal 5-27 [facility] Comment on above: Performed By: #### C BCA, CMP, FEPR, 6-4, 2283-8, 2132-04 #### [facility] ([id number]) [address], [address] [place] [address] CBC AND AUTO DIFFon 11-24-20 24 ABSOLUTE BASOPHIL 0.0 X10E9/L Normal 0.0-0.2 [facility] Comment on above: Performed By: #### C BCA, CMP, FEPR, 6-4, 4-8, 2132-04 #### [facility] ([id number]) [address], [address] [place] [address] ABSOLUTE NEUTROPHIL 3.1 X10E9/L Normal 1.5-6.6 [facility] Comment on above: Performed By: #### C BCA, CMP, FEPR, 6-4, 2283-8, 2132-04 #### [facility] ([id number]) [address], [address] [place] [address] Basophils/100 WBC (Bld) 0.8 % Normal [facility] Comment on above: Performed By: #### C BCA, CMP, FEPR, 2275-4, 2284-03, 2132-04 #### [facility] ([id number]) [address], [address] [place] [address] Eosinophils (Bld) [#/Vol] 0.1 10*3/uL Normal 0.0-0.4 [facility] Comment on above: Performed By: #### C BCA, CMP, FEPR, 2275-, 2284-03, 2132-04 #### [facility] ([id number]) [address], [address] [place] [address] Eosinophils/100 WBC (Bld) 1.2 % Normal [facility] Comment on above: Performed By: #### C BCA, CMP, FEPR, 2275-, 2284-03, 2132-04 #### [facility] ([id number]) [address], [address] [place] [address] Erythrocyte distribution width (RBC) [Ratio] 13.1 % Normal 11.5-15.0 [facility] Comment on above: Performed By: #### C BCA, CMP, FEPR, 2275-, 2284-03, 2132-04 #### [facility] ([id number]) [address], [address] [place] [address] Hematocrit (Bld) [Volume fraction] 27.7 % Low 39-49 [facility] Comment on above: Performed By: #### C BCA, CMP, FEPR, 6-4, 2283-8, 2132-04 #### [facility] ([id number]) [address], [address] [place] [address] Hemoglobin (Bld) [Mass/Vol] 9.5 g/dL Low 13.0-17.0 [facility] Comment on above: Performed By: #### C BCA, CMP, FEPR, 6-4, 2283-8, 2132-04 #### [facility] ([id number]) [address], [facility] [address] [place] [address] Lymphocytes (Bld) [#/Vol] 1.4 10*3/uL Normal 1.0-3.5 [facility] Comment on above: Performed By: #### C BCA, CMP, FEPR, 2275-4, 2284-03, 2132-04 #### [facility] ([id number]) [address], [address] [place] [address] Lymphocytes/100 WBC (Bld) 26.2 % Normal [facility] Comment on above: Performed By: #### C BCA, CMP, FEPR, 2275-4, 2284-03, 2132-04 #### [facility] ([id number]) [address], [address] [place] [address] MCH (RBC) [Entitic mass] 33.5 pg Normal 27-34 [facility] Comment on above: Performed By: #### C BCA, CMP, FEPR, 2275-4, 2283-, 2132-04 #### [facility] ([id number]) [address], [address] [place] [address] MCHC (RBC) [Mass/Vol] 34.3 g/dL Normal 32-36 [facility] Comment on above: Performed By: #### C BCA, CMP, FEPR, 2276-4, 2284-03, 2132-04 #### [facility] ([id number]) [address], [address] [place] [address] MCV (RBC) [Entitic vol] 98 fL Normal 80-100 [facility] Comment on above: Performed By: #### C BCA, CMP, FEPR, 2275-4, 2283-8, 2132-04 #### [facility] ([id number]) [address], [address] [place] [address] Monocytes (Bld) [#/Vol] 0.7 10*3/uL Normal 0-0.9 [facility] Comment on above: Performed By: #### C BCA, CMP, FEPR, 2275-, 2284-03, 2132-04 #### [facility] ([id number]) [address], [address] [place] [address] Monocytes/100 WBC (Bld) 13.9 % Normal [facility] Comment on above: Performed By: #### C BCA, CMP, FEPR, 2275-, 2284-03, 2132-04 #### [facility] ([id number]) [address], [address] [place] [address] Neutrophils/100 WBC (Bld) 57.9 % Normal [facility] Comment on above: Performed By: #### C BCA, CMP, FEPR, 2275-, 2284-03, 2132-04 #### [facility] ([id number]) [address], [address] [place] [address] Platelet mean volume (Bld) [Entitic vol] 7.9 fL Normal 7-12 [facility] Comment on above: Performed By: #### C BCA, CMP, FEPR, 2275-4, 2284-03, 2132-04 #### [facility] ([id number]) [address], [address] [place] [address] Platelets (Bld) [#/Vol] 176 10*3/uL Normal 150-450 [facility] Comment on above: Performed By: #### C BCA, CMP, FEPR, 2275-4, 2283-8, 2132-04 #### [facility] ([id number]) [address], [address] [place] [address] RBC COUNT 2.83 X10E12/L Low 4.10-5.70 [facility] Comment on above: Performed By: #### C BCA, CMP, FEPR, 2275-4, 2283-8, 2132-04 #### [facility] ([id number]) [address] [address] [place] [address] WBC (Bld) [#/Vol] 5.4 10*3/uL Normal 4.0-11.0 [facility] Comment on above: Performed By: #### C BCA, CMP, FEPR, 2275-4, 2284-03, 2132-04 #### [facility] ([id number]) [address], [address] [place] [address] HGB AND HCTon 07-20-2024 Hematocrit (Bld) [Volume fraction] 31.3 % Low 39-49 [facility] Comment on above: Performed By: #### C BCA, CMP, FEPR, 2275-4, 2284-03, 2132-04 #### [facility] ([id number]) [address], [address] [place] [address] Hemoglobin (Bld) [Mass/Vol] 10.8 g/dL Low 13.0-17.0 [facility] Comment on above: Performed By: #### C BCA, CMP, FEPR, 2275-4, 2284-03, 2132-04 #### [facility] ([id number]) [address] [address] [place] [address] CBC AND AUTO DIFFon 07-19-20 ABSOLUTE BASOPHIL 0.0 X10E9/L Normal 0.0-0.2 [facility] Comment on above: Performed By: #### C BCA, CMP, FEPR, 2275-, 2284-03, 2132-04 #### [facility] ([id number]) [address], [address] [place] [address] ABSOLUTE NEUTROPHIL 5.2 X10E9/L Normal 1.5-6.6 [facility] Comment on above: Performed By: #### C BCA, CMP, FEPR, 2275-, 2284-03, 2132-04 #### [facility] ([id number]) [address], [address] [place] [address] Basophils/100 WBC (Bld) 0.5 % Normal [facility] Comment on above: Performed By: #### C BCA, CMP, FEPR, 2275-11, 2284-03, 2132-04 #### [facility] ([id number]) [address], [address] [place] [address] Eosinophils (Bld) [#/Vol] 0.0 10*3/uL Normal 0.0-0.4 [facility] Comment on above: Performed By: #### C BCA, CMP, FEPR, 2275-, 2284-03, 2132-04 #### [facility] ([id number]) [address], [address] [place] [address] Eosinophils/100 WBC (Bld) 0.3 % Normal [facility] Comment on above: Performed By: #### C BCA, CMP, FEPR, 2275-, 2284-03, 2132-04 #### [facility] ([id number]) [address], [address] [place] [address] Erythrocyte distribution width (RBC) [Ratio] 13.3 % Normal 11.5-15.0 [facility] Comment on above: Performed By: #### C BCA, CMP, FEPR, 2275-4, 2284-03, 2132-04 #### [facility] ([id number]) [address] [address] [place] [address] Hematocrit (Bld) [Volume fraction] 30.7 % Low 39-49 [facility] Comment on above: Performed By: #### C BCA, CMP, FEPR, 2275-4, 2283-8, 2132-04 #### [facility] ([id number]) [address] [address] [place] [address] Hemoglobin (Bld) [Mass/Vol] 10.6 g/dL Low 13.0-17.0 [facility] Comment on above: Performed By: #### C BCA, CMP, FEPR, 2275-4, 2284-03, 2132-04 #### [facility] ([id number]) [address] [address] Lymphocytes (Bld) [#/Vol] 1.8 10*3/uL Normal 1.0-3.5 [facility] Comment on above: Performed By: #### C BCA, CMP, FEPR, 2275-, 2284-03, 2132-04 #### [facility] ([id number]) [address] [address] Lymphocytes/100 WBC (Bld) 22.1 % Normal [facility] Comment on above: Performed By: #### C BCA, CMP, FEPR, 2275-4, 2283-, 2132-04 #### [facility] ([id number]) [address] [address] [place] [address] MCH (RBC) [Entitic mass] 33.3 pg Normal 27-34 [facility] Comment on above: Performed By: #### C BCA, CMP, FEPR, 2275-4, 2283-8, 2132-04 #### [facility] ([id number]) [address] [address] [place] [address] MCHC (RBC) [Mass/Vol] 34.5 g/dL Normal 32-36 [facility] Comment on above: Performed By: #### C BCA, CMP, FEPR, 6-4, 2283-8, 2132-04 #### [facility] ([id number]) [address], [facility] [address] [place] [address] MCV (RBC) [Entitic vol] 97 fL Normal 80-100 [facility] Comment on above: Performed By: #### C BCA, CMP, FEPR, 2275-4, 2283-, 2132-04 #### [facility] ([id number]) [address], [address] [address] Monocytes (Bld) [#/Vol] 1.0 10*3/uL High 0-0.9 [facility] Comment on above: Performed By: #### C BCA, CMP, FEPR, 2275-, 2283-, 2132-04 #### [facility] ([id number]) [address], [address] [address] Monocytes/100 WBC (Bld) 12.2 % Normal [facility] Comment on above: Performed By: #### C BCA, CMP, FEPR, 2275-, 2284-03, 2132-04 #### [facility] ([id number]) [address], [address] [address] Neutrophils/100 WBC (Bld) 64.9 % Normal [facility] Comment on above: Performed By: #### C BCA, CMP, FEPR, 2275-, 2284-03, 2132-04 #### [facility] ([id number]) [address], [address] [place] [address] Platelet mean volume (Bld) [Entitic vol] 8.1 fL Normal 7-12 [facility] Comment on above: Performed By: #### C BCA, CMP, FEPR, 2276-4, 2284-8, 2132-04 #### [facility] ([id number]) [address], [address] [place] [address] Platelets (Bld) [#/Vol] 192 10*3/uL Normal 150-450 [facility] Comment on above: Performed By: #### C BCA, CMP, FEPR, 2276-4, 228-8, 2132-04 #### [facility] ([id number]) [address], [address] [place] [address] RBC COUNT 3.18 X10E12/L Low 4.10-5.70 [facility] Comment on above: Performed By: #### C BCA, CMP, FEPR, 2276-4, 2283-8, 2132-04 #### [facility] ([id number]) [address], [address] [place] [address] WBC (Bld) [#/Vol] 8.0 10*3/uL Normal 4.0-11.0 [facility] Comment on above: Performed By: #### C BCA, CMP, FEPR, 2276-4, 2283-8, 2132-04 #### [facility] ([id number]) [address], [address] [place] [address] COMPREHENSIVE METABOLIC PANE Josr 07-19-2024 Albumin [Mass/Vol] 3.4 g/dL Normal 3.2-5.3 [facility] Comment on above: Performed By: #### C BCA, CMP, FEPR, 2276-4, 228-8, 2132-04 #### [facility] ([id number]) [address], [address] [place] [address] ALP [Catalytic activity/Vol] 90 U/L Normal 39-130 [facility] Comment on above: Performed By: #### C BCA, CMP, FEPR, 2276-4, 2284-8, 2132-04 #### [facility] ([id number]) [address], [address] [place] [address] ALT [Catalytic activity/Vol] 6 U/L Normal 0-40 [facility] Comment on above: Performed By: #### C BCA, CMP, FEPR, 6-4, 2283-8, 2132-04 #### [facility] ([id number]) [address], [address] [place] [address] Anion gap [Moles/Vol] 7 mmol/L Normal 5-15 [facility] Comment on above: Performed By: #### C BCA, CMP, FEPR, 2275-4, 2283-8, 2132-04 #### [facility] ([id number]) [address], [address] [place] [address] AST [Catalytic activity/Vol] 15 U/L Normal 0-41 [facility] Comment on above: Performed By: #### C BCA, CMP, FEPR, 2275-4, 2283-8, 2132-04 #### [facility] ([id number]) [address], [address] [place] [address] Bilirubin [Mass/Vol] 0.6 mg/dL Normal 0.3-1.2 [facility] Comment on above: Performed By: #### C BCA, CMP, FEPR, 2275-4, 2283-8, 2132-04 #### [facility] ([id number]) [address], [address] [place] [address] Calcium [Mass/Vol] 8.0 mg/dL Low 8.5-10.5 [facility] Comment on above: Performed By: #### C BCA, CMP, FEPR, 6-4, 2283-8, 2132-04 #### [facility] ([id number]) [address], [address] [place] [address] Chloride [Moles/Vol] 102 mmol/L Normal 98-109 [facility] Comment on above: Performed By: #### C BCA, CMP, FEPR, 2276-4, 228-8, 2132-04 #### [facility] ([id number]) [address], [address] [place] [address] CO2 [Moles/Vol] 29 mmol/L Normal 22-32 [facility] Comment on above: Performed By: #### C BCA, CMP, FEPR, 2276-4, 228-8, 2132-04 #### [facility] ([id number]) [address], [facility] [address] [place] [address] Creatinine [Mass/Vol] 0.95 mg/dL Normal 0.60-1.30 [facility] Comment on above: Result Comment: METH OD TRACEABLE TO IDMS STANDARD Performed By: #### C BCA, CMP, FEPR, 2276-4, 2283-8, 2132-04 #### [facility] ([id number]) [address], [facility] [address] [place] [address] GFR/1.73 sq M.predicted among non-blacks MDRD (S/P/Bld) [Vol rate/Area] 77 mL/min/{1.73_m2} Normal >59 [facility] Comment on above: Result Comment: Reported eGFR is based on the CKD-EPI 2020 equation that does not use a race coefficient. Performed By: #### C BCA, CMP, FEPR, 2276-4, 2284-8, 2132-04 #### [facility] ([id number]) [address], [address] [place] [address] Glucose [Mass/Vol] 98 mg/dL Normal 65-99 [facility] Comment on above: Performed By: #### C BCA, CMP, FEPR, 2276-4, 2284-8, 2132-04 #### [facility] ([id number]) [address], [address] [place] [address] Potassium [Moles/Vol] 4.2 mmol/L Normal 3.5-5.0 [facility] Comment on above: Performed By: #### C BCA, CMP, FEPR, 2275-4, 8, 2132-04 #### [facility] ([id number]) [address], [address] [place] [address] Protein [Mass/Vol] 5.9 g/dL Low 6.0-8.0 [facility] Comment on above: Performed By: #### C BCA, CMP, FEPR, 2275-4, 2284-03, 2132-04 #### [facility] ([id number]) [address], [address] [place] [address] Sodium [Moles/Vol] 138 mmol/L Normal 134-146 [facility] Comment on above: Performed By: #### C BCA, CMP, FEPR, 2275-4, 2284-03, 2132-04 #### [facility] ([id number]) [address], [address] [place] [address] Urea nitrogen [Mass/Vol] 20 mg/dL Normal 5-27 [facility] Comment on above: Performed By: #### C BCA, CMP, FEPR, 2275-4, 2284-03, 2132-04 #### [facility] ([id number]) [address], [address] [place] [address] FERRITINon 07-19-2024 Ferritin [Mass/Vol] 88 ng/mL Normal 24-336 [facility] Comment on above: Performed By: #### C BCA, CMP, FEPR, 2275-4, 2284-03, 2132-04 #### [facility] ([id number]) [address], [address] [place] [address] Folate [Mass/Vol]on 07-19-20 24 FOLIC ACID 20.9 ng/mL Normal >5.8 [facility] Comment on above: Result Comment: NEW REFERENCE RANGE Performed By: #### C BCA, CMP, FEPR, 2276-4, 228-8, 2132-04 #### [facility] ([id number]) [address], [address] [place] [address] HGB AND HCTon 07-19-2024 Hematocrit (Bld) [Volume fraction] 28.9 % Low 39-49 [facility] Comment on above: Performed By: #### C BCA, CMP, FEPR, 2276-4, 2283-8, 2132-04 #### [facility] ([id number]) [address], [address] [place] [address] Hemoglobin (Bld) [Mass/Vol] 9.9 g/dL Low 13.0-17.0 [facility] Comment on above: Performed By: #### C BCA, CMP, FEPR, 2276-4, 2283-8, 2132-04 #### [facility] ([id number]) [address], [address] [place] [address] IRON PROFILEon 07-19-2024 Iron [Mass/Vol] 105 ug/dL Normal 50-212 [facility] Comment on above: Performed By: #### C BCA, CMP, FEPR, 2276-4, 2283-8, 2132-04 #### [facility] ([id number]) [address], [address] [place] [address] IRON BINDING 311 ug/dL Normal 250-425 [facility] Comment on above: Performed By: #### C BCA, CMP, FEPR, 2276-4, 2283-8, 2132-04 #### [facility] ([id number]) [address], [address] [place] [address] IRON SATURATION 34 % SATURATION Normal 20-50 [facility] Comment on above: Performed By: #### C BCA, CMP, FEPR, 2276-4, 2284-8, 2132-04 #### [facility] ([id number]) [address], [address] [place] [address] Lactate (P marita) [Moles/Vol]o n 07-19-2024 LACTATE W/REFLEX 0.6 mmol/L Normal 0.4-2.0 [facility] Comment on above: Result Comment: Result did not trigger repeat Lactate, re-order if needed. Performed By: #### C BCA, CMP, FEPR, 2275-4, 2284-03, 2132-04 #### [facility] ([id number]) [address] [place] [address] PROTIME AND INRon 07-19-2024 INR Coag (PPP) [Relative time] 1.0 {INR} Normal 0.8-1.1 [facility] Comment on above: Performed By: #### P INR, 04092-7 #### [facility] ([id number]) [address], [address] [place] [address] PT Coag (PPP) [Time] 11.6 s Normal 9.8-13.2 [facility] Comment on above: Performed By: #### P INR, 53116-7 #### [facility] ([id number]) [address] [place] [address] VITAMIN B12on 07-19-2024 Cobalamin (Vitamin B12) [Mass/Vol] 425 pg/mL Normal 180-914 [facility] Comment on above: Performed By: #### C BCA, CMP, FEPR, 2275-4, 2284-03, 2132-04 #### [facility] ([id number]) [address], [address] [place] [address] aPTT Coag (PPP) [Time]on aPTT Coag (Bld) [Time] 29 s Normal 26-37 [facility] Comment on above: Performed By: #### P INR, 04138-3 #### [facility] ([id number]) [address], [address] [place] [address] URINE CULTUREon 03-11-2024 Bacteria identified Cx Nom [...] <=1 F TRIMETH/SULFAMETHOXAZOLE S <=1/19 F Susceptible [facility] Comment on above: Performed By: #### 6 30-4 #### [facility] ([id number]) [address], [address] [place] [address] Thyroid Stimulating Hormoneo n 10-17-2022 Thyroid Stimulating Hormone Bascom Yo Other TESTOSTERONE, TOTALon 2022 Testosterone [Mass/Vol] 696 ng/dL Normal 264-916 [facility] Comment on above: Result Comment: Adul t male reference interval is based on a population of healthy nonobese males (BMI <30) between 19 and 39 years old. Nitish et.al. JCEM 2017,102;1439-8072. PMID: [id number]. Performed By: #### T ESTTOT #### [facility] [address] [place] [id number] Fatmata Mays TSHon 10-14-2022 TSH 0.698 uIU/mL Normal 0.358-3.740 [facility] Comment on above: Performed By: #### T SH #### [facility] [address] [place] [address] Dr. Fatmata Mays TESTOSTERONE, TOTALon 2021 Testosterone [Mass/Vol] 34 ng/dL Critically low 264-916 [facility] Comment on above: Result Comment: Adul t male reference interval is based on a population of healthy nonobese males (BMI <30) between 19 and 39 years old. Nitish et.al. JCEM 2017,102;5732-1104. PMID: [id number]. Performed By: #### T ESTTOT #### [facility] [address] [place] [address] Dr. Fatmata Mays TSHon 04-24-2022 TSH 0.878 uIU/mL Normal 0.358-3.740 [facility] Comment on above: Performed By: #### T SH #### [facility] [address] [place] [address] Dr. Fatmata Mays CBC AUTO DIFFon 12-12-2021 BASO # 0.0 103/ul Normal 0.0-0.1 [facility] Comment on above: Performed By: #### C BC #### [facility] [address] [place] [address] Dr. Fatmata Mays Basophils/100 WBC (Bld) 0.6 % Normal 0.2-2.0 [facility] Comment on above: Performed By: #### C BC #### [facility] [address] [place] [address] Dr. Fatmata Mays EO # 0.1 103/ul Normal 0.0-0.7 [facility] Comment on above: Performed By: #### C BC #### [facility] [address] [place] [address] Dr. Fatmata Mays Eosinophils/100 WBC (Bld) 1.0 % Normal 0.9-7.0 [facility] Comment on above: Performed By: #### C BC #### [facility] [address] [place] [address] Dr. Fatmata Mays Erythrocyte distribution width (RBC) [Ratio] 13.0 % Normal 11.0-15.0 [facility] Comment on above: Performed By: #### C BC #### [facility] [address] [place] [address] Dr. Fatmata Mays Hematocrit (Bld) [Volume fraction] 41.2 % Critically low 42.0-54.0 [facility] Comment on above: Performed By: #### C BC #### [facility] [address] [place] [address] Dr. Fatmata Mays Hemoglobin (Bld) [Mass/Vol] 13.8 g/dL Critically low 14.0-18.0 [facility] Comment on above: Performed By: #### C BC #### [facility] [address] [place] [address] Dr. Fatmata Mays IG # 0.02 10e3/ul Normal 0.00-0.03 [facility] Comment on above: Performed By: #### C BC #### [facility] [address] [place] [address] Dr. Fatmata Mays IG % 0.3 % Normal 0.0-0.5 [facility] Comment on above: Performed By: #### C BC #### [facility] [address] [place] [address] Dr. Fatmata Mays LYMPH # 1.5 103/ul Normal 1.2-3.8 [facility] Comment on above: Performed By: #### C BC #### [facility] [address] [place] [address] Dr. Fatmata Mays Lymphocytes/100 WBC (Bld) 21.9 % Normal 20.5-60.0 [facility] Comment on above: Performed By: #### C BC #### [facility] [address] [place] [address] Dr. Fatmata Mays MANUAL DIFF REQ NO Normal [facility] Comment on above: Performed By: #### C BC #### [facility] [address] [place] [address] Dr. Fatmata Mays MCH (RBC) [Entitic mass] 32.4 pg Normal 25.9-34.0 [facility] Comment on above: Performed By: #### C BC #### [facility] [address] [address] [address] Fatmata Mays MCHC (RBC) [Mass/Vol] 33.5 g/dL Normal 29.9-35.2 [facility] Comment on above: Performed By: #### C BC #### [facility] [address] [address] [address] Fatmata Mays MCV (RBC) [Entitic vol] 96.7 fL Critically high 80.0-94.0 [facility] Comment on above: Performed By: #### C BC #### [facility] [address] [address] [address] Fatmata Mays MONO # 1.0 103/ul Critically high 0.3-0.8 [facility] Comment on above: Performed By: #### C BC #### [facility] [address] [place] [address] Dr. Fatmata Mays Monocytes/100 WBC (Bld) 13.8 % Critically high 1.7-12.0 [facility] Comment on above: Performed By: #### C BC #### [facility] [address] [place] [address] Dr. Fatmata Mays NEUT # 4.4 103/ul Normal 1.4-6.5 [facility] Comment on above: Performed By: #### C BC #### [facility] [address] [place] [address] Dr. Fatmata Mays Neutrophils/100 WBC (Bld) 62.4 % Normal 43.0-75.0 [facility] Comment on above: Performed By: #### C BC #### [facility] [address] [address] [address] Fatmata Mays Platelet mean volume (Bld) [Entitic vol] 9.7 fL Normal 9.5-13.5 [facility] Comment on above: Performed By: #### C BC #### [facility] [address] [place] [address] Dr. Fatmata Mays PLT 163 103/ul Normal 150-450 [facility] Comment on above: Performed By: #### C BC #### [facility] [address] [address] [address] Fatmata Mays RBC 4.26 106/ul Critically low 4.70-6.10 [facility] Comment on above: Performed By: #### C BC #### [facility] [address] [address] [address] Fatmata Mays WBC 7.0 103/ul Normal 4.0-11.0 [facility] Comment on above: Performed By: #### C BC #### [facility] [address] [address] [address] Fatmata Mays LIPID PROFILEon 12-12-2021 CHOL-HDL RATIO NORM SEE BELOW Normal [facility] Comment on above: Result Comment: 3.3 - 4.4 LOW RISK 4.4 - 7.1 AVERAGE RISK 7.1 - 11.0 MODERATE RISK >11.0 HIGH RISK Performed By: #### C MP, TSH, LIPID #### [facility] [address] [address] [address] Fatmata Mays Cholesterol [Mass/Vol] 193 mg/dL Normal <=200 [facility] Comment on above: Performed By: #### C MP, TSH, LIPID #### [facility] [address] [address] [address] Fatmata Mays Cholesterol in HDL [Mass/Vol] 81 mg/dL Critically high 40-60 [facility] Comment on above: Performed By: #### C MP, TSH, LIPID #### [facility] [address] [address] [address] Fatmata Mays Cholesterol in LDL [Mass/Vol] 94.0 mg/dL Normal [facility] Comment on above: Performed By: #### C MP, TSH, LIPID #### [facility] [address] [address] [address] Fatmata Mays Cholesterol.total/ Cholesterol in HDL [Mass ratio] 2.4 {ratio} Normal [facility] Comment on above: Performed By: #### C MP, TSH, LIPID #### [facility] [address] [address] [address] Fatmata Mays HDL NORMAL > or = 60 mg/dl - LO W CARDIOVASCULAR RISK <40 mg/dl - HIGH CARDIOVASCULAR RISK Normal [facility] Comment on above: Performed By: #### C MP, TSH, LIPID #### [facility] [address] [address] [address] Fatmata Mays LDL CALC NORMAL SEE BELOW Normal [facility] Comment on above: Result Comment: <100 mg/dl OPTIMAL 100 - 129 mg/dl NEAR OR ABOVE OPTIMAL 130 - 159 mg/dl BORDERLINE HIGH 160 - 189 mg/dl HIGH >190 mg/dl VERY HIGH Performed By: #### C MP, TSH, LIPID #### [facility] [address] [address] [address] Fatmata Mays Triglyceride [Mass/Vol] 90 mg/dL Normal <=150 [facility] Comment on above: Performed By: #### C MP, TSH, LIPID #### [facility] [address] [address] [address] Fatmata Mays VLDL CALC 18.0 mg/dL Normal [facility] Comment on above: Performed By: #### C MP, TSH, LIPID #### [facility] [address] [address] [address] Fatmata Mays PROF 14(COMP METB)on 022 Albumin [Mass/Vol] 3.3 g/dL Critically low 3.4-5.0 [facility] Comment on above: Performed By: #### C MP, TSH, LIPID #### [facility] [address] [address] [address] Fatmata Mays Albumin/Globulin [Mass ratio] 1.0 {ratio} Normal [facility] Comment on above: Performed By: #### C MP, TSH, LIPID #### [facility] [address] [address] [address] Fatmata Mays ALP [Catalytic activity/Vol] 153 U/L Critically high 46-116 [facility] Comment on above: Performed By: #### C MP, TSH, LIPID #### [facility] [address] [address] [address] Fatmata Mays ALT [Catalytic activity/Vol] 22 U/L Normal 16-63 [facility] Comment on above: Performed By: #### C MP, TSH, LIPID #### [facility] [address] [address] [address] Fatmata Mays Anion gap [Moles/Vol] 10.6 mmol/L Normal [facility] Comment on above: Performed By: #### C MP, TSH, LIPID #### [facility] [address] [place] [address] Dr. Fatmata Mays AST [Catalytic activity/Vol] 11 U/L Critically low 15-37 [facility] Comment on above: Performed By: #### C MP, TSH, LIPID #### [facility] [address] [place] [address] Dr. Fatmata Mays Bilirubin [Mass/Vol] 0.8 mg/dL Normal 0.2-1.3 [facility] Comment on above: Performed By: #### C MP, TSH, LIPID #### [facility] [address] [place] [address] Dr. Fatmata Mays Calcium [Mass/Vol] 8.2 mg/dL Critically low 8.5-10.1 [facility] Comment on above: Performed By: #### C MP, TSH, LIPID #### [facility] [address] [place] [address] Dr. Fatmata Mays Chloride [Moles/Vol] 104 mmol/L Normal 98-107 [facility] Comment on above: Performed By: #### C MP, TSH, LIPID #### [facility] [address] [place] [address] Dr. Fatmata Mays CO2 [Moles/Vol] 30.0 mmol/L Normal 22.0-30.0 [facility] Comment on above: Performed By: #### C MP, TSH, LIPID #### [facility] [address] [place] [address] Dr. Fatmaat Mays Creatinine [Mass/Vol] 0.85 mg/dL Normal 0.66-1.25 [facility] Comment on above: Performed By: #### C MP, TSH, LIPID #### [facility] [address] [place] [address] Dr. Fatmata Mays EGFR-AF FILIPINO >60 Normal >=60 [facility] Comment on above: Performed By: #### C MP, TSH, LIPID #### [facility] [address] [place] [address] Dr. Fatmata Mays EGFR-NON AF FILIPINO >60 Normal >=60 [facility] Comment on above: Performed By: #### C MP, TSH, LIPID #### [facility] [address] [place] [address] Dr. Fatmata Mays Globulin (S) [Mass/Vol] 3.4 g/dL Normal [facility] Comment on above: Performed By: #### C MP, TSH, LIPID #### [facility] [address] [place] [address] Dr. Fatmata Mays Glucose [Mass/Vol] 113 mg/dL Critically high 74-106 [facility] Comment on above: Performed By: #### C MP, TSH, LIPID #### [facility] [address] [place] [address] Dr. Fatmata Mays Potassium [Moles/Vol] 4.6 mmol/L Normal 3.4-5.0 [facility] Comment on above: Performed By: #### C MP, TSH, LIPID #### [facility] [address] [place] [address] Dr. Fatmata Mays Protein [Mass/Vol] 6.7 g/dL Normal 6.1-8.2 [facility] Comment on above: Performed By: #### C MP, TSH, LIPID #### [facility] [address] [place] [address] Dr. Fatmata Mays Sodium [Moles/Vol] 140 mmol/L Normal 137-145 [facility] Comment on above: Performed By: #### C MP, TSH, LIPID #### [facility] [address] [place] [address] Dr. Fatmata Mays Urea nitrogen [Mass/Vol] 16.0 mg/dL Normal 7.0-18.0 [facility] Comment on above: Performed By: #### C MP, TSH, LIPID #### [facility] [address] [place] [address] Dr. Fatmata Mays Urea nitrogen/Creatinin e [Mass ratio] 18.8 mg/mg Normal [facility] Comment on above: Performed By: #### C MP, TSH, LIPID #### [facility] [address] [address] [address] Fatmata Mays TSHon 12-12-2021 TSH 1.468 uIU/mL Normal 0.470-4.680 [facility] Comment on above: Performed By: #### C MP, TSH, LIPID #### [facility] [address] [address] [address] Fatmata Mays TSH RANGE SEE BELOW Normal [facility] Comment on above: Result Comment: <0.3 4 UIU/ml HYPERTHYROID 0.34-5.60 UIU/ml EUTHYROID >5.60 UIU/ml HYPOTHYROID Performed By: #### C MP, TSH, LIPID #### [facility] [address] [place] [address] Dr. Fatmata Mays Otolaryngology Office/Clinic Noteon 07-13-2021 [...] qualifying data Procedure/Surgical History Kidney stones Medications [place] Thyroid 60 mg oral tablet, 60 mg= 1 tabs, Daily Allergies No Known Medication Allergies Social History Alcohol Current, Beer, Several times per day Substance Abuse Denies All Tobacco Never (less than 100 in lifetime) Use:. Family History Family history is unknown Electronically signed by _ Lola Reardon PA-C 07/14/21 11:49 EST Normal [facility] Otolaryngology Office/Clinic Noteon 07-20-2020 Otolaryngology Office/Clinic [...] qualifying data Procedure/Surgical History Kidney stones Medications [place] Thyroid 60 mg oral tablet, 60 mg, 1 tabs, Daily Allergies No Known Medication Allergies Social History Tobacco Never (less than 100 in lifetime) Use:. Family History Family history is unknown Diagnostic Results No qualifying data available (XRay) No qualifying data available (CT) No qualifying data available (Ultrasound) No qualifying data available (MRI) Electronically signed by _ Alexys STACY Lolaprema Bradford 07/20/20 15:06 EST Normal [facility] Vital Signs Date Time Vital Sign Value Performing Clinician Facility 10-21-2024 14:58-0500 Body height 182.88 cm [facility] 10-21-2024 14:58-0500 Body mass index (BMI) [Ratio] 25.9 kg/m2 [facility] 10-21-2024 14:58-0500 Body weight 86.8 kg [facility] 10-21-2024 14:58-0500 Diastolic blood pressure 89 mm[Hg] [facility] 10-21-2024 14:58-0500 Heart rate 73 /min [facility] 10-21-2024 14:58-0500 Respiratory rate 12 /min [facility] 10-21-2024 14:58-0500 Systolic blood pressure 139 mm[Hg] [facility] 07-29-2024 13:43-0500 Body height 182.88 cm [facility] 07-29-2024 13:43-0500 Body mass index (BMI) [Ratio] 26 kg/m2 [facility] 07-29-2024 13:43-0500 Body weight 87.08 kg [facility] 07-29-2024 13:43-0500 Diastolic blood pressure 90 mm[Hg] [facility] 07-29-2024 13:43-0500 Heart rate 81 /min [facility] 07-29-2024 13:43-0500 Respiratory rate 12 /min [facility] 07-29-2024 13:43-0500 Systolic blood pressure 140 mm[Hg] [facility] 03-28-2024 11:47-0400 Body height 182.88 cm [facility] 03-28-2024 11:47-0400 Body mass index (BMI) [Ratio] 26.3 kg/m2 [facility] 03-28-2024 11:47-0400 Body weight 88.11 kg [facility] 03-28-2024 11:47-0400 Diastolic blood pressure 65 mm[Hg] [facility] 03-28-2024 11:47-0400 Heart rate 73 /min [facility] 03-28-2024 11:47-0400 Respiratory rate 12 /min [facility] 03-28-2024 11:47-0400 Systolic blood pressure 136 mm[Hg] [facility] 01-08-2024 12:53-0400 Diastolic blood pressure 89 mm[Hg] Luis Alberto Perkins MD Work Phone: [facility] 01-08-2024 12:53-0400 Heart rate 83 /min Luis Alberto Perkins MD Work Phone: [facility] 01-08-2024 12:53-0400 Systolic blood pressure 144 mm[Hg] Luis Alberto Perkins MD Work Phone: [facility] 11-20-2023 15:01-0400 Body height 185.4 cm Luis Alberto Perkins MD Work Phone: [facility] 11-20-2023 15:01-0400 Body mass index (BMI) [Ratio] 26.78 kg/m2 Luis Alberto Perkins MD Work Phone: [facility] 11-20-2023 15:01-0400 Body weight 92.08 kg Luis Alberto Perkins MD Work Phone: [facility] 11-20-2023 15:01-0400 Diastolic blood pressure 92 mm[Hg] Luis Alberto Perkins MD Work Phone: [facility] 11-20-2023 15:01-0400 Heart rate 83 /min Luis Alberto Perkins MD Work Phone: [facility] 11-20-2023 15:01-0400 Systolic blood pressure 153 mm[Hg] Luis Alberto Perkins MD Work Phone: [facility] 07-04-2023 12:15-0500 Body height 182.88 cm Mian Ball Other [facility] Other 07-04-2023 12:15-0500 Body mass index (BMI) [Ratio] 28.07 kg/m2 [facility] Other [facility] Other 07-04-2023 12:15-0500 Body weight 93.9 kg Main Ball Other [facility] Other 02-13-2023 10:45-0400 Body height 182.88 cm Main Ball Other [facility] Other 02-13-2023 10:45-0400 Body mass index (BMI) [Ratio] 28.07 kg/m2 Main [facility] Other [facility] Other 02-13-2023 10:45-0400 Body weight 93.9 kg Main Ball Other [facility] Other 02-13-2023 10:45-0400 Diastolic blood pressure 82 mm[Hg] Main Ball Other [facility] Other 02-13-2023 10:45-0400 Respiratory rate 12 /min Main Ball Other [facility] Other 02-13-2023 10:45-0400 Systolic blood pressure 169 mm[Hg] Main [facility] Other [facility] Other 10-13-2022 14:00-0500 Body height 182.88 cm Main [facility] Other [facility] Other 10-13-2022 14:00-0500 Body mass index (BMI) [Ratio] 28.91 kg/m2 Main [facility] Other [facility] Other 10-13-2022 14:00-0500 Body weight 96.71 kg Main Ball Other [facility] Other 10-13-2022 14:00-0500 Diastolic blood pressure 68 mm[Hg] Main [facility] Other [facility] Other 10-13-2022 14:00-0500 Respiratory rate 20 /min Main Holt Other [facility] Other 10-13-2022 14:00-0500 Systolic blood pressure 118 mm[Hg] Main [facility] Other [facility] Other Encounters Encounter Date Encounter Type Care Provider Facility Start: 01-23-2025 End: 01-23-2025 Orders Only Elisa Mayra RODGERS Work Phone: [facility] Start: 01-20-2025 End: 01-20-2025 Telephone encounter Luis Alberto Perkins MD Work Phone: [facility] Start: 01-20-2025 ambulatory MAIN Botello [facility] Start: 01-13-2025 End: 01-13-2025 Telephone encounter Luis Alberto Perkins MD Work Phone: [facility] Start: 01-06-2025 End: 01-14-2025 Telephone encounter Luis Alberto Perkins MD Work Phone: [facility] Start: 01-06-2025 End: 01-06-2025 Patient encounter procedure Luis Alberto Perkins MD Work Phone: [facility] Comment on above: 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 Start: 12-09-2024 End: 12-09-2024 Telephone encounter LuisA lberto Perkins MD Work Phone: [facility] Start: 12-02-2024 End: 12-02-2024 Telephone encounter Eneida Weber LPN [facility] Start: 11-25-2024 End: 11-25-2024 Telephone encounter Main Holt DO Work Phone: [facility] Start: 11-21-2024 End: 11-21-2024 ambulatory MAIN Botello [facility] Start: 11-20-2024 End: 11-20-2024 Telephone encounter Saray Bautista CMA [facility] Start: 10-21-2024 End: 10-21-2024 ambulatory [facility] Work Phone: Start: 10-21-2024 End: 10-21-2024 Patient encounter procedure [facility] Work Phone: Start: 10-15-2024 Non-patient / Non-visit [facility] [place] Work Phone: Start: 10-03-2024 End: 10-03-2024 Tele[facility] Start: 08-13-2024 Non-patient / Non-visit [facility] [place] Work Phone: Start: 08-13-2024 End: 08-13-2024 ambulatory MAIN Botello CARL [facility] Start: 07-29-2024 End: 07-29-2024 Patient encounter procedure [facility] Work Phone: Start: 07-23-2024 Non-patient / Non-visit [facility] Work Phone: Start: 07-23-2024 Non-patient / Non-visit [facility] Work Phone: Start: 07-19-2024 End: 07-22-2024 ambulatory MAIN Botello CAR[facility] Start: 07-19-2024 End: 07-19-2024 Telephone encounter Erin Singletaryews [facility] Comment on above: Rectal Bleeding Start: 07-08-2024 End: 07-08-2024 amb[address]O G NAYLA [facility] Start: 07-08-2024 End: 07-08-2024 Patient encounter procedure Luis Alberto Perkins MD Work Phone: [facility] Comment on above: 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); Benign prostatic hyperplasia with urinary retention Start: 03-28-2024 End: 03-28-2024 ambulatory [facility] Work Phone: Start: 03-28-2024 End: 03-28-2024 Patient encounter procedure [facility] Work Phone: Start: 03-11-2024 End: 03-11-2024 Telephone encounter Eneida Weber LPN [facility] Comment on above: Urinary tract infect ion without hematuria, site unspecified (Primary Dx) Start: 03-11-2024 End: 03-11-2024 ambulatory LUIS ALBERTO PERKINS [facility] Start: 01-08-2024 End: 01-08-2024 Telephone encounter Luis Alberto Perkins MD Work Phone: [facility] Start: 01-08-2024 End: 01-08-2024 ambulatory Luis Alberto Perkins MD Work Phone: [facility] Comment on above: 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) Start: 12-14-2023 End: 12-14-2023 Documentation procedure Luis Alberto Perkins MD Work Phone: [facility] Start: 11-20-2023 End: 11-20-2023 Office outpatient visit 15 minutes Luis Alberto Perkins MD Work Phone: [facility] Comment on above: Calculus of other lo wer urinary tract location (Primary Dx); Hypogonadism male Start: 10-08-2023 Chart abstracting Evelia clements MD Work Phone: [facility] Start: 09-07-2023 Telephone encounter Luis Alberto Perkins MD Work Phone: [facility] Start: 07-04-2023 End: 07-04-2023 ambulatory [facility] Other [facility] Other Start: 07-04-2023 Office outpatient vi sit 15 minutes Main Holt [place] Start: 02-13-2023 End: 02-13-2023 ambulatory Main Holt Other [facility] Other Start: 02-13-2023 Office outpatient vi sit 15 minutes Main [facility] [place] Start: 10-15-2022 End: 10-16-[address] MAIN HOLT Facility:[facility] Start: 10-14-2022 End: 10-15-[address] MAIN HOLT Facility:[facility] Start: 10-13-2022 Office outpatient vi sit 15 minutes Main Holt [facility] Start: 10-13-2022 End: 10-14-2022 ambulatory FELICIA PARRA Facility:[facility] Start: 04-24-2022 End: 04-25-[address] MAIN HOLT Facility:[facility] Start: 03-29-2022 Adult health examination Hans justin Holt Other [facility] Other Start: 12-12-2021 End: 12-13-[address] MAIN HOLT Facility:[facility] Start: 02-17-2017 End: 02-19-2017 Evaluation and management of inpatient [facility] Procedures Date Procedure Procedure Detail Performing Clinician Start: 07-20-2024 Adult depression scr eening assessment Uma Call Start: 03-04-2019 Diabetes mellitus screening Main [facility] Other Start: 03-04-2019 Hyperlipidemia screening Main [facility] Other Depression screening Almaz Holt Other Plan of Treatment Date Care Activity Detail Author Start: 07-21-2025 Tobacco Screening Tobacco Screening [facility] Start: 07-20-2025 Depression Screening Depression Scre ening [facility] Start: 07-19-2025 Tobacco Screening Tobacco Screening [facility] Start: 07-07-2025 End: 07-07-2025 Patient encounter procedure 07/07/2025 12:00 PM EST Office Visit [facility] [phone] [place] [phone] Luis Alberto Perkins MD [address] [place] [id number] [facility] Start: 04-27-2025 Influenza vaccination Influenza Vacc ine [facility] Start: 01-07-2025 Tobacco Screening Tobacco Screening [facility] Start: 01-06-2025 End: 01-06-2025 Patient encounter procedure 01/06/2025 11:30 AM EDT Office Visit [facility] [address] [place] [phone] Luis Alberto Perkins MD [address] [place] [phone] [facility] Start: 11-25-2024 End: 11-25-2024 Patient encounter procedure 11/25/2024 2:45 PM EDT Office Visit [facility] [address] [place] [phone] Luis Alberto Perkins MD [address] [place] [phone] [facility] Start: 11-19-2024 Adult BMI Screening Adult BMI Screen ing [facility] Start: 11-19-2024 Tobacco Screening Tobacco Screening [facility] Start: 11-19-2024 End: 11-19-2025 XR Abdomen AP X-ray abdomen ap 1 view Imaging Routine Hypogonadism male Expected: 11/19/2024, Expires: 11/19/2025 [facility] Work Phone: Comment on above: Expected: 11/19/2024 , Expires: 11/19/2025 Start: 08-07-2024 End: 07-08-2025 CBC panel - Blood by Automated count CBC without diff Lab Routine Hypogonadism male Expected: 08/07/2024 (Approximate), Expires: 07/08/2025 [facility] Comment on above: Expected: 08/07/2024 (Approximate), Expires: 07/08/2025 Start: 08-07-2024 End: 07-08-2025 Liver panel Liver panel Lab Routine Hypogonadism male Expected: 08/07/2024 (Approximate), Expires: 07/08/2025 [facility] Comment on above: Expected: 08/07/2024 (Approximate), Expires: 07/08/2025 Start: 08-07-2024 End: 07-08-2025 Prostatic specific antigen, diagnostic Prostatic specific antigen, diagnostic Lab Routine Benign prostatic hyperplasia with urinary retention Expected: 08/07/2024 (Approximate), Expires: 07/08/2025 [facility] Comment on above: Expected: 08/07/2024 (Approximate), Expires: 07/08/2025 Start: 08-07-2024 End: 07-08-2025 Testosterone [Mass/volume] in Serum or Plasma Testosterone Lab Routine Hypogonadism male Expected: 08/07/2024 (Approximate), Expires: 07/08/2025 [employer] Work Phone: Comment on above: Expected: 08/07/2024 (Approximate), Expires: 07/08/2025 Start: 07-08-2024 End: 07-08-2024 Patient encounter procedure 07/08/2024 12:00 PM EST Office Visit [facility] [address] [place] [address] [place] [phone] Luis Alberto Perkins MD [address] [place] [phone] [facility] Start: 07-03-2024 Tobacco Screening [facility]ening [email or web address] Start: 04-27-2024 Influenza vaccination Influenza Vacc ine [facility] Start: 03-11-2024 End: 03-11-2025 Bacteria identified in Urine by Culture Urine Culture Microbiology Routine Urinary tract infection without hematuria, site unspecified Expected: 03/11/2024 (Approximate), Expires: 03/11/2025 [facility] Work Phone: Comment on above: Expected: 03/11/2024 (Approximate), Expires: 03/11/2025 Start: 01-04-2024 Adult BMI Screening Adult BMI Screen ing [email or web address] Start: 11-20-2023 End: 11-20-2023 Patient encounter procedure 11/20/2023 2:45 PM EDT Office Visit [facility] [address] [place] [address] [place] [phone] Luis Alberto Perkins MD [address] [place] [address] [facility] Start: 04-27-2023 Influenza vaccination Influenza Vacc ine [email or web address] Start: 11-26-2000 Fall Risk Screening Fall Risk Screen ing [email or web address] Start: 11-26-1985 Administration of varicella zoster vaccine Zoster (Shingles) Vaccine (1 of 2) [email or web address] Start: 11-26-1954 Administration of varicella zoster vaccine Zoster (Shingles) Vaccine (1 of 2) [email or web address] Start: 11-26-1954 DTaP,Tdap and Td Vac cines (1 - Tdap) DTaP,Tdap and Td Vaccines (1 - Tdap) [email or web address] Start: 11-26-1953 Adult BMI Follow Up Plan Adult BMI Follow Up Plan [email or web address] Start: 1947 Depression Screening Depression Scre ening [email or web address] Start: 1935 Medicare Annual Well ness Visit Medicare Annual Wellness Visit [email or web address] Comprehensive metabo lic 2000 panel - Serum or Plasma [facility] End: 02-20-2024 Testosterone [Mass/volume] in Serum or Plasma Testosterone Lab Routine Hypogonadism male 1 month for 3 Occurrences starting 11/20/2023 until 02/20/2024 [employer] Comment on above: 1 month for 3 Occurr ences starting 11/20/2023 until 02/20/2024 [facility] Immunizations Immunization Date Immunization Notes Care Provider Chad greenmajo 04-21-2018 influenza virus vaccine, split virus (incl. purified surface antigen) [facility] Other [facility] Other 04-21-2018 influenza virus vaccine, unspecified formulation [facility] 04-21-2018 pneumococcal conjuga te vaccine, 13 valent [facility] Other [facility] Payers Date Payer Category Payer Medicare [id number] 2012 Medicare HMO [employer] MEDICARE [id number] 1959 Medicare [id number] 1935 Unknown [id number] 1935 Unknown [id number] 1935 Unknown [id number] 1935 Unknown [id number] 1935 Unknown [id number] 1935 Unknown [id number] 6 1935 Unknown [id number] 6 1935 Unknown [id number] 6 1935 Unknown [id number] 6 1935 Unknown [id number] 6 1935 Unknown [id number] [id number] 6 1935 Unknown [id number] 6 Self-pay Self Pay [id number] Social History Date Type Detail Facility Start: 10-07-2020 End: 05-14-2023 Sex Assigned At [facility] Other Start: 02-20-2023 Tobacco smoking stat [facility] Ex-smoker [facility] End: 08-27-2012 History of tobacco use Current smoker [facility] End: 08-27-2012 History of tobacco use Cigarette Smoker [facility] Start: 02-20-2023 Tobacco use and exposure Smokeless tobacco non-user [facility] Start: 10-08-2023 Alcohol intake Ex-drinker (finding) [facility] Start: 10-07-2020 End: 05-14-2023 History of Social function [facility] Start: 1935 Sex Assigned At Not on file P [facility] Start: 1935 Sex Assigned At Male F [facility] Start: 11-14-2022 Tobacco smoking stat [facility] Never smoked tobacco [facility] Start: 11-14-2022 Tobacco use and exposure Former smokeless tobacco user [facility] End: 04-03-1988 History of tobacco use Snuff User [facility] Start: 07-19-2024 End: 07-21-2024 Alcoholic beverage intake Current drinker of alcohol (finding) [facility] Has the [employer], [employer], or water company threatened to shut off services in your home in past 12Mo No [facility] How often to you hav e a drink containing alcohol? Patient declined [facility] Start: 12-30-2022 Alcohol Comment 2-3 drinks per day [employer] [facility] Start: 04-01-2015 End: 10-21-2024 Sex Male (finding) [facility] Tobacco smoking stat [facility] Unknown if ever smoked [facility] Work Phone: Medical Equipment Procedure Code Equipment Code Equipment Origin al Text Equipment Identifier Dates Stnt Uret 6fr 28 cm Pgtl Crv Rpl [id number] - [facility] - [id number] Start: 03-12-2018 Stnt Uret 6fr 28 cm Pgtl Crv Rpl [id number] - [id number] Start: 04-10-2018 Goals Date Patient Goal Desired Activity /State Personal health goal Comment on above: Formatting of this n ote might be different from the original. Evaluation of progress towards goal: Return home with family support Personal health goal Comment on above: Formatting of this n ote might be different from the original. Evaluation of progress towards goal: Patient plans to discharge home. Care Navigation team will continue to follow. - Kanika Traore RN Delivery Supervisor 04/11/18 1:35 PM Clinical Notes 10-13-2022 to 01-20-2025 Telephone Encounter - Rebeca Taveras - 01/20/2025 8:13 AM EDTTelephone Encounter - Rebeca Taveras - 01/20/2025 8:13 AM EDTTelephone Encounter - Rebeca Taveras - 01/13/2025 11:06 AM EDT Note Date & Type Note Facility 01-20-2025 Miscellaneous Notes Formattin g of this note might be different from the original. Pt was in office and states Dr. Perkins wants him to have a urine specimen. Pt states he is not having any symptoms. Pt stated he went to the hospital lab and there is not a urine specimen order over at the lab for him. Pt requested an order to go to the hospital lab and get for Dr. Perkins. I advised pt I will call him when order is placed and he can go to the lab. documented in this encounter [facility] 01-20-2025 Telephone encount er Note Pt was in office and states Dr. Perkins wants him to have a urine specimen. Pt states he is not having any symptoms. Pt stated he went to the hospital lab and there is not a urine specimen order over at the lab for him. Pt requested an order to go to the hospital lab and get for Dr. Perkins. I advised pt I will call him when order is placed and he can go to the lab. [facility] 01-13-2025 Miscellaneous Notes Formattin g of this note might be different from the original. Pt stopped in the office and is questioning blasting his kidney stone and wants some information on this. Pt is asking if this is a procedure that he can have done? Pt states he is having trouble urinating. Please advise. documented in this encounter [facility] 01-13-2025 Telephone encount er Note Pt stopped in the office and is questioning blasting his kidney stone and wants some information on this. Pt is asking if this is a procedure that he can have done? Pt states he is having trouble urinating. Please advise. [facility] 01-06-2025 Miscellaneous Notes Formattin g of this note is different from the original. Images from the original note were not included. Please schedule him for testopel injection in 6 months Pt has a testopel appt on 07-07-25 and needs a pa. documented in this encounter [facility] 01-06-2025 Telephone encount er Note Images from the original note were not included. Please schedule him for testopel injection in 6 months [facility] 01-06-2025 Telephone encount er Note Pt has a testopel appt on 07-07-25 and needs a pa. [facility] 01-06-2025 History of Presen t illness Narrative Testopel insertion: Patient was placed in the right lateral position in the outer quadrant of the left hip was prepped with Betadine and draped in sterile fashion. Skin was infiltrated with 5 mL of 1% lidocaine with epinephrine. Each of the to subcutaneous tracts was infiltrated with local anesthetic as well. The # 11 blade was pierced through the skin in the testicle sheath and sharp automatic operator in place was advanced subcutaneously. The [...] difficulty. Total number of pellets inserted: 6 documented in this encounter [facility] 01-06-2025 Miscellaneous Notes Addended by: ENEIDA WEBER on: 01/06/2025 04:39 PM Modules accepted: Orders documented in this encounter [facility] 01-06-2025 Note Addended by: ENEIDA WEBER on: 01/06/2025 04:39 PM Modules accepted: Orders [facility] 12-09-2024 Miscellaneous Notes Formattin g of this note might be different from the original. Pt in office states he has a question about RF ablation for kidney stones. Pt states he is requesting no anesthetic or stent. Pt is asking also, will he have a catheter? I advised pt that we will call him when Dr. Perkins answers his questions. Please advise. RF ablation is done for kidney tumors. Not done for stones. Options for stones is either eswl or ureterocsopy for his size stone but both require anesthesia. If he is not having symptoms from the stone I would do nothing other than follow-up CALLED PT ADVISED MESSAGE FROM DR. PERKINS. PT ADVISED UNDERSTANDING. GAURANG documented in this encounter [facility] 12-09-2024 Telephone encount er Note Pt in office states he has a question about RF ablation for kidney stones. Pt states he is requesting no anesthetic or stent. Pt is asking also, will he have a catheter? I advised pt that we will call him when Dr. Perkins answers his questions. Please advise. [facility] 12-09-2024 Telephone encount er Note RF ablation is done for kidney tumors. Not done for stones. Options for stones is either eswl or ureterocsopy for his size stone but both require anesthesia. If he is not having symptoms from the stone I would do nothing other than follow-up [facility] 12-09-2024 Telephone encount er Note CALLED PT ADVISED MESSAGE FROM DR. PERKINS. PT ADVISED UNDERSTANDING. GAURANG [facility] 12-02-2024 Miscellaneous Notes Formattin g of this note might be different from the original. Pt. Arrived at this office to ask for a copy of his KUB. Pt. Was given a copy of his KUB. No further questions at this time. Pt. Will return on 01/06/2025. documented in this encounter [facility] 12-02-2024 Telephone encount er Note Pt. Arrived at this office to ask for a copy of his KUB. Pt. Was given a copy of his KUB. No further questions at this time. Pt. Will return on 01/06/2025. [facility] 11-25-2024 Miscellaneous Notes Formattin g of this note might be different from the original. Pt called to confirm his upcoming appt. I advised his next appt is 5-13-25 at 11:30am. I advised pt that 4-1-25 appt was cancelled due to having an appt 5-13-25. Pt advised understanding. documented in this encounter [facility] 11-25-2024 Telephone encount er Note Pt called to confirm his upcoming appt. I advised his next appt is 5-13-25 at 11:30am. I advised pt that 4-1-25 appt was cancelled due to having an appt 5-13-25. Pt advised understanding. [facility] 11-20-2024 Miscellaneous Notes Formattin g of this note might be different from the original. Called pt to remind him of getting KUB before upcoming appt with MD Yamila on 11/25/24. Pt stated he would be going to get that done before appt. documented in this encounter [facility] 11-20-2024 Telephone encount er Note Called pt to remind him of getting KUB before upcoming appt with MD Yamila on 11/25/24. Pt stated he would be going to get that done before appt. [facility] 10-03-2024 Miscellaneous Notes Formattin g of this [...] a little bit of time. Thank you! Eneida Per [employer] portal, no PA required for Testopel. Ok, Thank you! documented in this encounter [facility] 10-03-2024 Telephone encount er Note ----- Message [...] a little bit of time. Thank you! Eneida [facility] 10-03-2024 Telephone encount er Note Per Avail[employer] portal, no PA required for Testopel. [facility] 10-03-2024 Telephone encount er Note Ok, Thank you! [employer] 07-29-2024 Evaluation note Diagnosis Onset Date Resolution Hx of malignant neoplasm of colon acute July 29, 2024 1:34pm Hypertension acute July 1:34pm Hypothyroid acute July 29, 2024 1:34pm Lumbar spondylosis acute Decemb er 2023 1:34pm MARIXA (obstructive sleep apnea) acute July 29 1:34pm Rectal bleeding acute July 29, 2024 1:34pm Anemia deleted July 29, 2024 1:34pm Hx of malignant neoplasm of colon acute October 21, 2024 2:39pm Hypertension acute September 2:39pm Hypothyroid acute September 2:39pm Lumbar spondylosis acute Februa 2024 2:39pm MARIXA (obstructive sleep apnea) acute October 21, 025 2:39pm Rectal bleeding acute October 21, 2024 2:39pm [facility] Work Phone: [phone] Miscellaneous Notes* Telephone Encounter - Erin Irwin - 07/19/2024 5:56 PM EST Contract: 19 TT ER New Consult Rectal Bleeding * Telephone Encounter - Erin Irwin - 07/19/2024 5:56 PM EST Contract: 19 Sent Secure chat to Ada Esparza [facility] Telephone encounter Note* Telephone Encounter - Erin Irwin - 07/19/2024 5:56 PM EST Contract: 19 TT ER New Consult Rectal Bleeding [facility]11-23-2024 Telephone encounter Note* Telephone Encounter - Erin Acosta Irwin - 07/19/2024 5:56 PM EST Contract: 19 Sent Secure chat to Ada Esparza [facility]11-12-2024 History of Present illness Narrative* Luis Alberto Perkins MD - 07/08/2024 3:30 PM EST Testopel insertion: Patient was placed in the right lateral position in the outer quadrant of the right hip was preppedwith Betadine and draped in sterile fashion. Skin was infiltrated with 5 mL of 1% lidocaine with epinephrine. Each of the to subcutaneous tracts was infiltrated with local anesthetic as well. The # 11 blade was pierced through the skin in the testicle sheath and sharp automatic operator in place was advancedsubcutaneously. The trocar was removed and 3 pellets [...] PSA ordered 1 month documented in this [facility]11-12-2024 Miscellaneous Notes* Addendum Note - Eneida Weber LPN - 07/08/2024 3:30 PM ESTAddended by: ENEIDA WEBER on: 07/08/2024 04:37 PM Modules accepted: Orders [facility] in [facility] Note* Addendum Note - Eneida Weber LPN - 07/08/2024 3:30 PM ESTAddended by: ENEIDA WEBER on: 07/08/2024 04:37 PM Modules accepted: Orders [facility]07-16-2024 Miscellaneous Notes* Telephone Encounter - Eneida Weber LPN - 03/11/2024 4:32 PM EDT error documented in [facility] Telephone encounter Note* Telephone Encounter - Eneida Weber LPN - 03/11/2024 4:32 PM EDT error [facility]05-14-2024 Miscellaneous Notes* Telephone Encounter - Luis Alberto Perkins MD - 01/08/2024 1:10 PM EDT Please schedule him for testopel injection in 6 months * Telephone Encounter - Zarina Ruelas - 01/08/2024 1:10 PM EDT Scheduled. Auth is good through July 2024. documented in this [facility] Telephone encounter Note* Telephone Encounter - Luis Alberto Perkins MD - 01/08/2024 1:10 PM EDT Please schedule him for testopel injection in 6 months [facility]05-14-2024 Telephone encounter Note* Telephone Encounter - Zarina Ruelas - 01/08/2024 1:10 PM EDT Scheduled. Auth is good through July 2024. [facility]05-14-2024 History of Present illness Narrative* Luis Alberto Perkins MD - 01/08/2024 12:30 PM EDT Testopel insertion: Patient was placed in the left lateral position in the outer quadrant of the right hip was prepped with Betadine and draped in sterile fashion. Skin was infiltrated with 5 mL of 1% lidocaine with epinephrine. Each of the to subcutaneous tracts was infiltrated with local anesthetic as well. The # 11blade was pierced through the skin in the testicle sheath and sharp automatic operator in place was advanced subcutaneously. The trocar was removed and 3 pellets were loaded into the sheath. The blunt obturator was advanced through the sheath while the sheath was removed thereby leaving the pellets behind inthe tract. The sheath was redirected with a [...] Repeat testosterone planned annually documented in this [facility]-20[facility] Miscellaneous Notes* Addendum Note - Sandra Moreno CMA - 01/08/2024 12:30 PM EDTAddended by: SANDRA MORENO on: 01/08/2024 06:06 PM Modules accepted: Orders documented in this encounterAv[facility]-14-2024 Note* Addendum Note - Sandra Moreno CMA - 01/08/2024 12:30 PM EDTAddended by: SANDRA MORENO on: 01/08/2024 06:06 PM Modules accepted: Orders [facility]04-19-2024 History of Present illness Narrative* Luis Alberto Perkins MD - 12/14/2023 4:39 PM EDT His repeat testosterone is now low. Can you schedule him for testpel injection in the office? documented in this encounter[facility] History of Present illness Narrative* Luis Alberto Perkins MD - 11/20/2023 2:45 PM EDT Images from the original note were not included. [address] [place] [address] [facility] [id number] Patient: Juan Oates Date of : 1935 Encounter Date: 11/20/2023 History of Present Illness: The patient is a 87 y.o. male, an established patient, and is here for followup. He has a history of kidney stones and had a right ureteroscopy and a left percutaneous nephrolithotomy in March 2018.Also has a history of urinary retention. He [...] past medical history, past social history, past surgicalhistory and problem list. Past Medical History: Diagnosis Date Anemia Arthritis Back pain Benign prostatic hypertrophy without urinary obstruction Calculus, renal Disease of thyroid gland Hypertension Hypogonadism in male Hypothyroidism Sleep apnea has cpap doesnt use Urinary retention Urinary tract infection Visual impairment glasses Past Surgical History: Procedure Laterality Date ADENOIDECTOMY COLECTOMY COLONOSCOPY COLONOSCOPY N/A 01/02/2023 Performed by Loyd Marvin MD at [facility] CYSTO RETROGRADE GENERAL Right 09/23/2019 Performed by Luis Alberto Perkins MD at [facility] CYSTOSCOPY HOLMIUM LASER BLADDER STONE N/A 03/12/2018 Performed by Luis Alberto Perkins MD at [facility] CYSTOSCOPY HOLMIUM LASER URETEROSCOPY Right 09/23/2019 Performed by Luis Alberto Perkins MD at [facility] CYSTOSCOPY HOLMIUM LASER URETEROSCOPY Left 03/12/2018 Performed by Luis Alberto Perkins MD at [facility] CYSTOSCOPY INSERTION STENT Left 03/26/2018 Performed by Luis Alberto Rangel MD at [facility] CYSTOSCOPY INSERTION STENT Bilateral 03/12/2018 Performed by Luis Alberto Perkins MD at [facility] CYSTOSCOPY RETROGRADE PYELOGRAM Bilateral 03/12/2018 Performed by Luis Alberto Perkins MD at [facility] CYSTOSCOPY URETEROSCOPY Right 03/12/2018 Performed by Luis Alberto Perkins MD at [facility] CYSTOSCOPY URETEROSCOPY LEFT WITH HOLMIUM LASER; LEFT STENT REPLACEMENT Left 04/10/2018 Performed by Luis Alberto Perkins MD at [facility] CYTOSCOPY WITH INSERTION BALLOON OCCLUSION CATHETER RIGHT Right 04/10/2018 Performed by Luis Alberto Perkins MD at [facility] EXAM UNDER ANESTHESIA DIGITAL RECTAL N/A 06/10/2019 Performed by Luis Alberto Perkins MD at [facility] EXTRACORPOREAL SHOCK WAVE LITHOTRIPSY Right 06/10/2019 Performed by Luis Alberto Perkins MD at [facility] LITHOTRIPSY PARATHYROIDECTOMY PERCUTANEOUS NEPHROLITHOTOMY KIDNEY RIGHT Right 04/10/2018 Performed by Luis Alberto Perkins MD at [facility] TESTOSTERONE TOTAL, 06/20/10 pellets implanted TONSILLECTOMY Family History Problem Relation Age of Onset Cancer Mother Heart attack Father Anesthesia problems Neg Hx Current Outpatient Medications Medication Sig Dispense Refill ascorbic acid, vitamin C, (VITAMIN C) 1000 mg tablet Take 1 tablet (1,000 mg total) by mouth in themorning. b complex vitamins capsule Take 1 capsule [...] tablet by mouth every 6 (six) hours asneeded for pain for up to 8 doses. [...] sure if it is helping with his fatiguewe discussed a drug holiday. He will take [...] 4 months with KUB or sooner if anyproblems 02/11/20: KUB shows 8mm calcification over right kidney which appears to be the same stone that was found to be parenchymal. He has had some bilateral lower back pain. Description is more consistent with a musculoskeletal issue but he wants to rule out Urologic source. We will check renal US to makesure there is no obstruction. 08/17/20: Plan kub when returns 04/20/21: Chronic lower back pain. Wants to make sure no new stones. We will check KUB and call withresults. 04/21/21: KUB with bowel content. Right parenchymal [...] small stone. Plan kub 1 year Follow-up: Luis Alberto Perkins MD This note was created with the assistance of a speech recognition program. While intending to generate a timely document that accurately reflects the content of the visit, no guarantee can be provided that every grammatical or spelling mistake has been or will be identified or corrected. Thank you for your understanding. documented in this [facility]01-12-2024 Miscellaneous Notes* Telephone Encounter - Emma Freeman - 09/07/2023 11:48 AM EST 09/07/23-Testopel auth # [id number] roni 04/03/23 to 08/26/24//fw-pgus [facility] Note* Telephone Encounter - Emma Freeman - 09/07/2023 11:48 AM EST 09/07/23-Testopel auth # [id number] [facility] 04/03/23 to 08/26/24//fw-pgus [facility]11-08-2023 Evaluation note* Encounter Date Diagnosis Assessment Notes Treatment Notes Treatment Clinical Notes Jun, Subacute maxillary sinusitis (ICD-10 - J01.00) Instructed to use Robitussin or Mucinex for cough, saline or Flonase NS for congestion, Tylenol for pain and fever. Jun, Suspected sleep apnea (ICD-10 - R29.818) STOP BANG 4 Refer to sleep lab Riffyn Other 06-20-2023 Evaluation note* Encounter Date Diagnosis Assessment Notes Treatment Notes Treatment Clinical Notes Jan, Seasonal allergic rhinitis due to pollen (ICD-10 - J30.1) Avoid allergens Begin Flonase and Matilda daily 20 Ascencion, 2023 Acute non-recurrent maxillary sinusitis (ICD-10 - J01.00) Instructed to use Robitussin or Mucinex for cough, saline or Flonase NS for congestion, Tylenol for pain and fever. 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 Riffyn Other Evaluation note* Diagnosis Onset Date Resolution Status Benign prostatic hyperplasia with lower urinary tract symptoms acute History of nephrolithiasis a cute Hx of malignant neoplasm of colon acute Hypercholesterolemia acute Hypothyroid acute MARIXA (obstructive sleep apnea) acute Primary osteoarthritis of both knees acute [facility] Work Phone: Evaluation note* Diagnosis Hypogonadism male- Primary Other testicular hypofunction [facility] in this [facility] Diagnosis Flank pain- Primary Abdominal pain, unspecified site documented in this [facility]* Diagnosis Urinary tract infection without hematuria, site unspecified- Primary [facility] this [facility]* Diagnosis Calculus of other lower urinary tract location- Primary 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 documented in this encounter [facility]* Diagnosis Calculus of other lower [...] with urinary retention documented in this encounter [facility]* Diagnosis Calculus of other lower urinary tract location- Primary Abnormal finding on urinalysis Benign prostatic hyperplasia with urinary retention Urinary tract infection without hematuria, site unspecified- Primary Calculus of other lower urinary tract location Calculus of other lower urinary tract location- Primary Abnormal finding on urinalysis Hypogonadism male- Primary Other testicular hypofunction Calculus of other lower urinary tract location Hypogonadism male [E29.1]- Primary Other testicular hypofunction [facility] - [facility]* Type Description Date [...] History APPENDECTOMY 2013 Hospitalization History SEE SURGICAL Riffyn Other History general Narrative - Reported* Type [...] History HEMICOLECTOMY 2013 Surgical History APPENDECTOMY 2013 Surgical History Colonoscopy, polypectomy 12/2022 Hospitalization History SEE SURGICAL Riffyn Other InstructionsNot on filedocumented in this encounter [facility] filedocumented in this encounter [facility]Not on filedocumented in this encounter [facility] on filedocumented in this encounter [facility]ructionsNot on filedocumented in this encounter [facility]* Attachments The following attachments cannot be sent through Care Everywhere. * Benign prostatic hyperplasia (enlarged prostate) (Faroese) documented in this encounterPro[facility] SystemInstructionsNot on file documented in this encounterProMedica Health SystemInstructionsNot on file documented in this encounterProMedica Health SystemInstructionsNot on file documented in this encounterProWilson Health SystemInstructionsNot on file documented in this encounterProWilson Health SystemReason for referral (narrative)* Reason *FU 02/20 Referral for allergy symptoms Diagnosis 1 Seasonal allergic rh initis due to pollen (J30.1) Referral Organization [facility] Polly benavidez Referring Provider First Name Main Referring Provider Last Name Carl Referring Provider Specialty Internal Me dicine Referred Organization [facility] Referred Provider Saurabh Ramos Referred Address ,[place], [place],[address] Referred Provider Specialty Allergy/Immu nology Referral Priority Routine General Notes Patient w/ tearing, rhinorrhea, cough, phlegm and facial pressure. Requested referral for allergy evaluation. Fadia Oviedo 02/13/2023 12:48:55 PM >received today, notes locked, ins attached, referral faxed Riffyn Other Summary Purpose Family History No Family History Records FoundNo Family History Records FoundNo Family History Records FoundNo Family History Records FoundNo Family History Records FoundNo Family History Records Found Advance Directives Advance Directive Response Recorded Date/ Time Advance Directives No March 28, 2 024 11:29am Date Activated Date Inactivated Comments 07/20/2024 12:55 PM 07/22/2024 3:28 PM Date Activated Date Inactivated Comments 12/30/2022 8:54 PM 01/03/2023 1:00 PM Date Activated Date Inactivated Comments 04/08/2018 7:39 PM 04/12/2018 4:49 PM Date Activated Date Inactivated Comments 03/25/2018 7:09 PM 03/27/2018 1:20 PM Date Activated Date Inactivated Comments 12/30/2022 [...] Advance Directives No March 28, 2 024 10:29am Chief Complaint and Reason for Visit Chief Complaint lower back pain, kne e pain Reason for Visit Benign prostatic hyp erplasia with lower urinary tract symptoms History of nephrolithiasis Hx of malignant neoplasm of colon Hypercholesterolemia Hypothyroid MARIXA (obstructive sleep apnea) Primary osteoarthritis of both knees Chief Complaint Admit Date Amb Documentation July 23, 2024 9:26am CC Adult Risk Stratification July 232023 11:49am IP f/u GI bleed July 29, 2024 1 :34pm 2 month f/u October 21, 2024 2:39pm Reason for Visit Admit Date Hx of malignant neoplasm of colon Decemb 2023 1:34pm Hypertension July 29, 2024 1 :34pm Hypothyroid July 29, 2024 1 :34pm Lumbar spondylosis July 29, 2024 1 :34pm MARIXA (obstructive sleep apnea) July 292023 1:34pm Rectal bleeding July 29, 2024 1 :34pm Anemia July 29, 2024 1 :34pm Hx of malignant neoplasm of colon Februa 2024 2:39pm Hypertension October 21, 2024 2:39pm Hypothyroid October 21, 2024 2:39pm Lumbar spondylosis October 21, 2024 2:39pm MARIXA (obstructive sleep apnea) September 282024 2:39pm Rectal bleeding October 21, 2024 2:39pm Additional Source Comments (unrecognized sect ion and content) No Status Records FoundNo Status Records FoundNo Status Records FoundNo Status Records FoundNo Status Records FoundNo Status Records Found INFORMATION SOURCE (unrecogn ized section and content) DATE CREATED AUTHOR 02/20/2018 [facility] DATE CREATED AUTHOR AUTHOR'S ORGANIZ ATION 07/15/2021 [facility] DATE CREATED AUTHOR AUTHOR'S ORGANIZ ATION 10/19/2022 [facility] DATE CREATED AUTHOR AUTHOR'S ORGANIZ ATION 07/27/2024 [facility] DATE CREATED AUTHOR AUTHOR'S ORGANIZ ATION 01/07/2025 [facility] DATE CREATED AUTHOR AUTHOR'S ORGANIZ ATION 01/23/2025 [facility] REASON FOR VISIT (unrecogniz ed section and content) Reason Comments Follow-up Reason Comments Testpel Procedure Reason Onset Date Comments Rectal Bleeding 07/19/2024 Reason Comments Hypogonadism Care Teams (unrecognized sec tion and content) Team Status: Active Member Role Status Dates Main Holt DO Primary Care Provider Active Team Status: Active Member Role Status Dates Main Holt DO Primary Care Provider Active Start: July 23, 2024 Cinthia Davidson CMA Attending Provider Active Start: July 23, 2024 Team Status: Active Member Role Status Dates Main Holt DO Primary Care Provide r, Attending Provider Active Start: July 23, 2024 Team Status: Inactive Member Role Status Dates Main Holt , DO Primary Care Provide r, Attending Provider Active Start: July 29, 2024 End: July 29, 2024 Team Status: Active Member Role Status Dates Main Holt DO Primary Care Provide r, Attending Provider Active Start: August 13, 2024 Team Status: Active Member Role Status Dates Main Holt DO Primary Care Provide r, Attending Provider Active Start: October 15, 2024 Team Status: Inactive Member Role Status Dates Main Holt DO Primary Care Provide r, Attending Provider Active Start: October 21, 2024 End: October 21, 2024 Services Engineer Relationship Specialty Start Date End Date Main Holt MD [address] [place] [address] PCP - General Internal Medicine 02/14/23 Team Status: Inactive Member Role Status Dates Main Holt DO Primary Care Provide r, Attending Provider Active Start: March 28, 2024 End: March 28, 2024 Services Engineer Relationship Specialty Start Date End Date Main Holt DO [address] [place] [address] [id number] PCP - General 03/28/17 Services Engineer Relationship Specialty [place] [address] [place] [address] [id number] PCP - General 03/28/17 Services Engineer Relationship Specialty [place] [address] [place] [address] [id number] PCP - General 03/28/17 Services Engineer Relationship Specialty Start Date End Date Main Holt DO [address] [place] [address] PCP - General 03/28/17 Services Engineer Relationship Specialty Start Date End Date Main Holt DO [address] [place] [address] PCP - General 03/28/17 Services Engineer Relationship Specialty Start Date End Date Main Holt DO [address] [place] [address] PCP - General 03/28/17 Services Engineer Relationship Specialty Start Date End Date Main Holt DO [address] [place] [address] PCP - General 03/28/17 Services Engineer Relationship Specialty Start Date End Date Main Holt DO [address] [place] [address] PCP - General 03/28/17 Services Engineer Relationship Specialty Start Date End Date Main Holt DO [address] [place] [address] PCP - General 03/28/17 Services Engineer Relationship Specialty Start Date End Date Main Holt DO [address] [place] [address] PCP - General 03/28/17 Services Engineer Relationship Specialty Start Date End Date Main Holt DO [address] [place] [address] PCP - General 03/28/17 Goals (unrecognized section [...] BE BASED ON THE PRIMARY CLINICAL RECORDS. [facility]. provides no warranty or guarantee of the accuracy or completeness of information in this document.
--- OUTSIDE RECORDS SUMMARY | 2025-02-14 08:37 | XMS_ITS ---
Author Organization [employer] tem Address [id number] [address] [place] [address] Care Team Providers Care [employer] Services Supervisor Name Role Phone Main Holt DO Primary Care Provider [phone] Active Problems Problem Noted Date Diagnosed Date GI bleed 07/19/2024 Diverticulosis 12/30/2022 Hematochezia 12/30/2022 Overview (01/01/2023): Added automatically from request for surgery [id number] Urinary tract infection without hematuria 2020 Overview (06/15/2021): 06/15/21: Recent ER visit to [place] for confusion. Diagnosed with UTI. We will will review records when available. Follow-up UA today is negative. Assessment & Plan (06/15/2021 9:57 AM EDT): He does take some supplements which he feels has antibacterial properties and would like to see what his urine looks like when he is abstaining from those supplements. I placed a standing order for urine culture. We will call when results are available. Cerumen debris on tympanic membrane of both ears 11/12/2018 Hearing loss 11/12/2018 Sepsis 04/08/2018 Bilateral ureteral calculi 03/25/2018 Stones, urinary tract 03/12/2018 Overview (11/20/2023): Bilateral ureteral stones, right partial staghorn 03/1303/12/18: [...] left small stone. Plan kub 1 year Assessment & Plan (09/21/2022 5:06 PM EST): No recent symptoms. We will have him come back in December for repeat KUB. Assessment & Plan (01/18/2022 5:16 PM EDT): I advised that he follow-up with his family doctor to explore non urologic sources for his pain. We are going to send his urine for microscopic exam and culture. He would like a call with the results. If urine shows blood but no infection, we will need to pursue additional imaging. Assessment & Plan (06/15/2021 9:56 AM EDT): With his history of kidney stones, he does want to make sure that there is no renal source for his pain. I did place an order for an ultrasound. If he continues to have pain, he will call to schedule that. If he is doing well, he will disregard the order. Erectile dysfunction 04/10/2017 Overview (04/10/2017): ED - samples cialis given with rec to start at 10 mg. Use and contraindications discussed Hypogonadism male 04/09/2017 Overview (01/08/2024): Hypogonadism treated successfully with AndroGel 5 g [...] monthly and replace testopel when hypo gonadal 01/08/24: testopel 6 pellets Benign prostatic hyperplasia 04/09/2017 Overview (10/11/2021): luts. some progression on tamsulosin. Addition of finasteride december 2015. Stable. 03/12/18: Rising residual urines. Doubled dose of tamsulosin with no improvement. 03/19/18: Continued urinary retention. Discussed TURP. The risks and benefits as outlined in the consent were discussed. All relevant drawings were reviewed. All questions were answered. The patient expressed understanding and wished to proceed. We are planning to do this after his pcnl 04/02/18: He is scheduled for 05/03. He would like to delay this a little after the stone treatment. 05/07/19: Patient canceled TURP. He is currently content with ISCx 3-4 times a day 10/08/19: Not interested in TURP. Content with ISC 02/11/20: Continues with ISC-no problems 08/17/20: Doing well with isc up to 4 times per day. 04/20/21: He did inquire about surgical options for BPH which we did review today. For now, he would like to continue with ISC. 10/11/21: Is stable. Recommended cathing 4 times per day. Again discussed turp and laser turp. He is going to consider Assessment & Plan (04/20/2021 4:21 PM EDT): He denies any Urinary tract infection symptoms, but UA today is mildly positive for leukocytes and nitrites. We will send for culture and call him with the results. Colon cancer 10/04/2012 Current Treatment and Therapy Plans No current plan information found. Past Treatment and Therapy Plans No past plan information found. Lifetime Dose Tracking * Chemical Lifetime Dose Automatic Entry Manual Entr y Fluoroscopy 71.99 mGy 71.99 mGy 0 mGy
--- OUTSIDE RECORDS SUMMARY | 2025-02-14 08:37 | XMS_ITS | Encounter Summary ---
Author Organization [employer] Sys tem Address [id number] [address] [place] [address] Care Team Providers Care Fabric Worker Name Role Phone Main Holt DO Primary Care Provider [phone] Encounter Details Date Type Department Care Team (Late st Contact Info) Description 04/25/2021 Telephone [facility] [address] [place] [id number] Amy Hook, RN Social History Tobacco Use [...] have Coronavirus / COVID-19? No / Unsure 04/22/2021 1:00 PM EDT documented as of this encounter Miscellaneous Notes * Telephone Encounter - Amy Hook LPN - 04/25/2021 11:35 AM EDT Pt called and wanted to know about his xray he recently had. I read the impression to him. He states understanding but I told him I would let you know we talked and if you needed to, you would try tocall him * Telephone Encounter - MATT Paredes - 04/25/2021 11:35 AM EDT Please let him know that I tried to call him last week but there was no answer so I left him a detailed message. I do not see that he is passing any stones. We will reach out to him when the culture results are final. * Telephone Encounter - MATT Paredes - 04/25/2021 11:35 AM EDT I spoke to him documented in this encounter Plan of Treatment Upcoming Encounters Date Type Department Care Team (Late st Contact Info) Description 07/07/2025 12:00 PM EST Office Visit [facility] [address] [place] [address] [place] [address] [place] [address] Quintin Perkins MD [address] [place] [id number] documented as of this encounter Visit Diagnoses Not on filedocumented in this encounter Care Teams Fabric Worker Relationship Specialty Start Date End Date Main Holt DO [address] [place] [id number] PCP - General 03/28/17 documented as of this encounter
--- OUTSIDE RECORDS SUMMARY | 2025-02-14 08:37 | XMS_ITS | Clinical Summary ---
Author Organization Local Dirts tem Address [id number] [address] [place] [address] Care Team Providers Care Revenue Investigator Name Role Phone JonathonMain Rosmery CASTANEDA Primary Care Provider [phone] Allergies No known active allergies Medications b complex vitamins capsule Take 1 capsule by mouth in the morning. Active MULTIVITAMIN (MULTIPLE VITAMINS ORAL) Take 1 tablet by mouth daily. Active coenzyme Q10 30 mg capsule Take 1 capsule (30 mg total) by mouth in the morning and 1 capsule (30 mg total) before bedtime. Active milk thistle 175 mg tablet Take 1 tablet (175 mg total) by mouth in the morning. Active garlic 1 mg capsule Take 1 capsule by mouth daily. Active ascorbic acid, vitamin C, (VITAMIN C) 1000 mg tablet Take 1 tablet (1,000 mg total) by mouth in the morning. Active DOCOSAHEXANOIC ACID/EPA (FISH OIL ORAL) Take 1 capsule by mouth daily. Active thyroid, pork, (ARMOUR) 60 mg tablet Take 1 tablet (60 mg total) by mouth nightly. Active cefDINIR (OMNICEF) 300 mg capsule Take 1 capsule (300 mg total) by mouth in the morning and 1 capsule (300 mg total) before bedtime. Do all this for 7 days. 14 capsule 01/23/2025 01/31/20 25 Active Problems Problem Noted Date Diagnosed Date GI bleed 07/19/2024 Diverticulosis 12/30/2022 Hematochezia 12/30/2022 Overview (01/01/2023): Added automatically from request for surgery [id number] Urinary tract infection without hematuria 2020 Overview (06/15/2021): 06/15/21: Recent ER visit to [facility] for confusion. Diagnosed with UTI. We will [...] him with the results. Colon cancer 10/04/2012 Encounters Date Type Department Care Team Description 01/23/2025 Orders Only [facility] [address] [place] [address] Elisa Nunez APRN-PRESSER HAND 01/20/2025 Travel 01/20/2025 Telephone [facility] [address] [place] [address] [place] [address] Quintin Perkins MD 01/13/2025 Telephone [facility] [address] [place] [address] A [facility] [place] [address] Quintin Perkins MD 01/06/2025 11:30 AM EDT Office Visit [facility] [address] [place] [address] [place] [address] Quintin Perkins MD 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) 01/06/2025 Telephone [facility] [address] [place] [address] Quintin Perkins MD 12/09/2024 Telephone [facility] [address] [place] [address] [place] [address] Quintin Perkins MD 12/02/2024 Telephone [facility] [address] [place] [address] [place] [address] Eneida Cordova LPN 11/25/2024 Telephone [facility] [address] [place] [address] [place] [address] Main Holt DO 11/21/2024 8:30 AM EDT - 11/21/2024 11:59 PM EDT Hospital Encounter [facility] [address] [place] [address] Quintin Perkins MD Hypogonadism male Discharge Disposition: Home 11/21/2024 Travel 11/20/2024 Telephone [facility] [address] [address] Saray Bautista CMA from Last 3 Months Immunizations Immunization Administration Dates Next Due Influenza, Unspecified 04/21/2018 Pneumococcal Conjugate 13-Valent 04/21/2018 Family History Medical History Relation Name Comments Heart attack Father Cancer Mother Anesthesia problems Neg Hx Relation Name Status Comments Father Mother Social History Tobacco Use Types Packs/Day Years Used Date Smoking Tobacco: Never Smokeless Tobacco: Former Snuff Quit: 04/03/1988 Tobacco Cessation:Counseling Given: Not Answered Alcohol Use Standard Drinks/Week Comments Yes 20 (1 standard drink = 0.6 oz pu re alcohol) 2-3 drinks per day [facility] UM Labsities Answer Date Recorded In the past 12 months has Skimbl, gas, oil, or water Compass threatened to shut off services in your home? No 07/20/2024 AUDIT-C Answer Date Recorded Q1: How often do you have a drink containing alc ohol? Patient declined 07/20/2024 Q2: How many drinks containi ng alcohol do you have on a typical day when you are drinking? Patient declined 07/20/2024 Q3: How often do you have si x or more drinks on one occasion? Patient declined 07/20/2024 PHQ-2 Answer Date Recorded Total Score 1 07/20/2024 PRAPARE - Transportation Answer Date Re corded In the past 12 months, has l ack of transportation kept you from medical appointments or from getting medications? No 06/28 In the past 12 months, has l ack of transportation kept you from meetings, work, or from getting things needed for daily living? No 07/20/2024 Housing Instability Answer Date Recorde d Are you worried or concerned that in the next two months you may not have stable housing that you own, rent or stay in as a part of a household? No 07/20/2024 Childcare Answer Date Recorded Childcare Unknown 02/05/2019 Employment Answer Date Recorded Employment Unknown 02/05/2019 Hunger Screening Answer Date Recorded Within the past 12 months we worried whether our food would run out before we got money to buy more. Never True 07/20/2024 Within the past 12 months th e food we bought just didn't last and we didn't have money to get more. Never True 07/20/2024 Purpose - Life Answer Date Recorded Purpose and direction in life Unknown Sex and Gender Information Value Date Recorded Sex Assigned at Not on file Legal Sex Male 11:32 AM EDT Gender Identity Not on file Sexual Orientation Not on file Last Filed Vital Signs Vital Sign Reading Time Taken Comments Blood Pressure 146/78 07/22/2024 7:26 AM EST Pulse 78 07/22/2024 7:26 AM EST Temperature 36.6 C (97.9 F) 07/22/2024 7:26 AM EST Respiratory Rate 18 07/22/2024 7:26 AM EST Oxygen Saturation 97% 07/22/2024 7:26 AM EST Inhaled Oxygen Concentration - - Weight 84.8 kg (186 lb 15.2 oz) 07/22/2024 5:00 AM EST Height 185.4 cm (6' 1 ) 07/19/2024 7:50 PM EST Body Mass Index 24.67 07/19/2024 7:50 PM EST Plan of Treatment Upcoming Encounters Date Type Department Care Team (Late st Contact Info) Description 07/07/2025 12:00 PM EST Office Visit [facility] [address] [place] [address] [place] [address] Quintin Perkins MD [address] [place] [address] Health Maintenance Due Date Last Done Comments DTaP,Tdap and Td Vaccines (1 - Tdap) 11/26/1954 Zoster (Shingles) Vaccine (1 of 2) 11[birth year]26/1954 Fall Risk Screening 11/26/2000 Influenza Vaccine 04/27/2025 04/21/2018 Depression Screening 07/20/2025 07/20/2024 Tobacco Screening 07/21/2025 07/21/2024 Goals Goal Patient Goal Type Associated Problems Recent Progress Patient-Stated? Author home General Yes Cha Rajan, RN Note: Evaluation of progress towards goal: Return home with family support Medical Devices Implanted Type Area Energy Assistant Device Identifier Shelf Expiration Date Model / Serial / Lot Stnt Uret 6fr 28cm Pgtl Crv Rpl [id number] - [id number] - [id number] Implanted:Qty: 2 on 03/12/2018 by Quintin Perkins MD at [facility] Stent Bilateral: Ureter [employer] 03/05/2020 [id number] 0 / NA / [id number] Stnt Uret 6fr 28cm Pgtl Crv Rpl [id number] - [id number] Implanted:Qty: 1 on 04/10/2018 at [facility] Stent Left: Ureter [employer] 11/13/2020 [id number] / / [id number] Explanted Type Area Energy Assistant Device Identifier Shelf Expiration Date Model / Serial / Lot Stnt Uret 6fr 28cm Pgtl Crv Rpl [id number] - [id number] - [id number] Implanted:Qty: 1 on 03/26/2018 by Quintin Rangel MD at [facility] Explanted:Qty: 1 on 04/10/2018 at [facility] Stent Left: Ureter [employer] 03/11/2020 [id number] / [id number] / [id number] Procedures Procedure Name Priority Date/Time Associated Diagnosis Comments URINE CULTURE Routine 01/20/2025 10:09 AM EDT Calculus of other lower urinary tract location XR ABDOMEN AP 1 VW Routine 11/21/2024 8: 49 AM EDT Hypogonadism male from Last 3 Months Results * (ABNORMAL) Urine Culture (01/20/2025 10:09 AM EDT) CULTURE RESULTS >100,000 CFU/mL Citrobacter freundii(A) 01/23/2025 8:31 AM EDT [facility] CULTURE RESULTS 50,000-100,000 CFU/mL Klebsiella oxytoca(A) 01/23/2025 8:31 AM EDT [facility] Urine Urine specimen collection, clean catch / Unknown 01/20/2025 10:09 AM EDT 01/20/2025 10:09 AM EDT Narrative Organism Antibiotic Method Susceptibility Citrobacter freundii PIPERACIL/TAZOBACTAM <=4.0: Susceptible Citrobacter freundii Cefazolin (non-urinary) >=32.0: Resistant Citrobacter freundii Cefazolin (urinary) >=32.0: Resistant Citrobacter freundii Ceftriaxone <=0.25: Susceptible Citrobacter freundii Gentamicin <=1.0: Susceptible Citrobacter freundii Ciprofloxacin <=0.06: Susceptible Citrobacter freundii Levofloxacin <=0.12: Susceptible Citrobacter freundii Nitrofurantoin <=16.0: Susceptible Citrobacter freundii Trimethoprim + Sulfamethoxazole <=1.0: Susceptible Klebsiella oxytoca Ampicillin >=32.0: Resistant Klebsiella oxytoca AMP/SULBACTAM 8.0: Susceptible Klebsiella oxytoca PIPERACIL/TAZOBACTAM <=4.0: Susceptible Klebsiella oxytoca Cefazolin (non-urinary) >=32.0: Resistant Klebsiella oxytoca Cefazolin (urinary) >=32.0: Resistant Klebsiella oxytoca Ceftriaxone <=0.25: Susceptible Klebsiella oxytoca Gentamicin <=1.0: Susceptible Klebsiella oxytoca Ciprofloxacin <=0.06: Susceptible Klebsiella oxytoca Levofloxacin <=0.12: Susceptible Klebsiella oxytoca Nitrofurantoin 32: Susceptible Klebsiella oxytoca Trimethoprim + Sulfamethoxazole <=1.0: Susceptible us Quintin Perkins MD MICROBIOLOGY - GENERAL ORD ERABLES Final Result [facility] [address] [place] [address], * X-ray abdomen ap 1 view (11/21/2024 8:49 AM EDT) Anatomical Region Laterality Modality Body, Abdomen N/A Computed Radiogr aphy 11/22/2024 6:13 PM EDT Narrative 11/22/2024 6:16 PM EDT History: Nephrolithiasis. EXAM: Abdomen supine COMPARISON: CT of the pelvis 07/19/2024 FINDINGS: Nonobstructive bowel gas pattern. Moderate stool burden. 1 cm stone projects over the mid right kidney. Pelvic phleboliths. IMPRESSION: Right nephrolithiasis. Finalized by Mango Whitney MD on 11/22/2024 6:16 PM Procedure Note Mango Whitney MD - 11/22/2024 History: Nephrolithiasis. EXAM: Abdomen supine COMPARISON: CT of the pelvis 07/19/2024 FINDINGS: Nonobstructive bowel gas pattern. Moderate stool burden. 1 cmstone projects over the mid right kidney. Pelvic phleboliths. IMPRESSION: Right nephrolithiasis. Finalized by Mango Whitney MD on 11/22/2024 6:16 PM Quintin Perkins MD IMG DIAGNOSTIC IMAGING ORD ERABLES Final Result from Last 3 Months Insurance [employer] MEDICARE Advance Directives * Full Code (Latest Code Status on File) Date Activated Date Inactivated Comments 07/20/2024 12:55 PM 07/22/2024 3:28 PM * Full Code Date Activated Date Inactivated Comments 12/30/2022 8:54 PM 01/03/2023 1:00 PM * Full Code Date Activated Date Inactivated Comments 04/08/2018 7:39 PM 04/12/2018 4:49 PM * Full Code Date Activated Date Inactivated Comments 03/25/2018 7:09 PM 03/27/2018 1:20 PM Care Teams Revenue Investigator Relationship Specialty [place] [address] [place] [address] [facility] - General 03/28/17
--- OUTSIDE RECORDS SUMMARY | 2025-02-14 08:38 | XMS_ITS | Referral Summary ---
Author Organization [facility] Address [address] [place] [address] Care Team Providers Care Manager Data Center Name Role Phone Unavailable Primary Care Provider Unavailabl e Social History Tobacco Use Types Packs/Day Years Used Date Smoking Tobacco: Never Assessed Sex and Gender Information Value Date Recorded Sex Assigned at Not on file Legal Sex Male 10:45 PM EDT Gender Identity Not on file Sexual Orientation Not on file Plan of Treatment Not on file Insurance [facility] MEDICARE ADVANTAGE
--- OUTSIDE RECORDS SUMMARY | 2025-02-14 08:38 | XMS_ITS | Encounter Summary ---
Author Organization [employer] Address [id number] [address] [place] [address] Care Team Providers Care Hockey Scout Name Role Phone Main Holt DO Primary Care Provider [phone] Encounter Details Date Type Department Care Team (Late Contact Info) Description 03/14/2024 Orders Only [facility] [address] [place] [id number] Quintin Perkins MD [address] [place] [id number] Social History Tobacco Use Types Packs/Day Years [...] got money to buy more. Never True 11/20/2023 Within the past 12 months th e food we bought just didn't last and we didn't have money to get more. Never True 11/20/2023 Purpose - Life Answer Date Recorded Purpose [...] Office Visit [facility] [address] [place] [address] [place] [address] Quintin Perkins MD [facility] [place] [address] documented as of this encounter Visit Diagnoses Not on filedocumented in this encounter Care Teams Hockey Scout Relationship Specialty Start Date End Date Main Holt DO [address] [place] [address] PCP - General 03/28/17 documented as of this encounter
--- OUTSIDE RECORDS SUMMARY | 2025-02-14 08:38 | XMS_ITS | Clinical Summary ---
Author Organization [facility] Address [address] [place] [address] Care Team Providers Care Plate And Frame Filter Operator Name Role Phone Main Holt DO Primary Care Provider [phone] Allergies No known active allergies Medications levothyroxine (SYNTHROID) 100 MCG tablet Take 100 mcg by mouth Daily. Active tamsulosin (FLOMAX) 0.4 MG capsule Take 0.4 mg by mouth daily. Active allopurinol (ZYLOPRIM) 100 MG tablet Take 100 mg by mouth daily. Active multivitamin (THERAGRAN) per tablet Take 1 tablet by mouth daily. Active FISH OIL 1,000 mg by Does not apply route daily. Active vitamin B-1 (THIAMINE) 100 MG tablet Take 100 mg by mouth daily. Active Active Problems Problem Noted Date Diagnosed Date Colon cancer 11/14/2012 Family History Medical History Relation Name Comments Heart Disease Father Cancer Mother Substance Abuse Son Relation Name Status Comments Brother Alive Daughter 1 Alive Daughter 2 Alive Father Mother Son Social History Tobacco Use Types Packs/Day Years Used Date Smoking Tobacco: Never Alcohol Use Standard Drinks/Week Comments Yes 0 (1 standard drink = 0.6 oz pur e alcohol) 3-4 drinks per day Sex and Gender Information Value Date Recorded Sex Assigned at Not on file Legal Sex Male 1:57 PM EST Gender Identity Not on file Sexual Orientation Not on file Last Filed Vital Signs Vital Sign Reading Time Taken Comments Blood Pressure 131/91 11/14/2012 4:13 PM EDT Pulse 104 11/14/2012 4:13 PM EDT Temperature 36.7 C (98.1 F) 11/14/2012 4:13 PM EDT Respiratory Rate 18 11/14/2012 4:13 PM EDT Oxygen Saturation - - Inhaled Oxygen Concentration - - Weight 108.8 kg (239 lb 14.4 oz) 11/14/2012 4:13 PM EDT Height 182.9 cm (6') 11/14/2012 4:13 PM EDT Body Mass Index 32.54 11/14/2012 4:13 PM EDT Plan of Treatment Not on file Care Teams Plate And Frame Filter Operator Relationship Specialty Start Date End Date Main Holt DO PCP - General 11/14/12
--- OUTSIDE RECORDS SUMMARY | 2025-02-14 08:38 | XMS_ITS | Encounter Summary ---
Author Organization [employer] Address [id number] [address] [place] [address] Care Team Providers Care Blender / Cook Name Role Phone Main Holt Primary Care Provider [phone] Encounter Details Date Type Department Care Team (Late st Contact Info) Description 12/18/2023 Telephone [facility] [address] [address] Robinson Bolivar CMA Social History Tobacco Use Types Packs/Day Years [...] encounter Miscellaneous Notes * Telephone Encounter - Robinson Bolivar CMA - 12/18/2023 4:49 PM EDT * * Telephone Encounter - Sandra Moreno CMA - 12/18/2023 4:49 PM EDT Robinson Ng---We are ok on this pts testopel there in [place]. I checked with Eneida and she has all the supplies needed. Thanks. documented in this encounter Plan of Treatment Upcoming Encounters Date Type Department Care Team (Late st Contact Info) Description 07/07/2025 12:00 PM EST Office Visit [facility] [address] [place] [address] [place] [address] Quintin Perkins MD Formerly named [facility] [place] [address] documented as of this encounter Visit Diagnoses Not on filedocumented in this encounter Care Teams Blender / Cook Relationship Specialty Start Date End Date Main Holt DO [facility] [place] [address] PCP - General 03/28/17 documented as of this encounter
--- OUTSIDE RECORDS SUMMARY | 2025-02-14 08:38 | XMS_ITS | Clinical Summary ---
Author Organization [facility] Address [address] [place] [address] Care Team Providers Care Set Up Mechanic Heading Machines Name Role Phone Unavailable Primary Care Provider Unavailabl e Social History Tobacco Use Types Packs/Day Years Used Date Smoking Tobacco: Never Assessed Sex and Gender Information Value Date Recorded Sex Assigned at Not on file Legal Sex Male 10:45 PM EDT Gender Identity Not on file Sexual Orientation Not on file Plan of Treatment Health Maintenance Due Date Last Done Comments Medicare Annual Wellness (AWV) 1935 Depression Screening 1947 Adult Tetanus 11/26/1957 Pneumococcal Vaccine: 50+ Ye ars (1 of 1 - PCV) 11/26/1985 Zoster Vaccines (1 of 2) 11/26/1985 Fall Risk Screening 11/26/2000 COVID-19 Vaccine (2023-2 5 season) 2024 Influenza Vaccine (Season Ended) 2025 HIB Vaccines Aged Out No longer eligi ble based on patient's age to complete this topic HPV Vaccines Aged Out No longer eligi ble based on patient's age to complete this topic IPV Vaccines Aged Out No longer eligi ble based on patient's age to complete this topic Meningococcal B Vaccine Aged Out No l onger eligible based on patient's age to complete this topic Meningococcal Vaccine Aged Out No bashir ramon eligible based on patient's age to complete this topic Rotavirus Vaccines Aged Out No longer eligible based on patient's age to complete this topic Insurance [facility] MEDICARE ADVANTAGE
--- OUTSIDE RECORDS SUMMARY | 2025-02-14 08:38 | XMS_ITS | Clinical Summary ---
Author Organization [facility] Address [address] [place] [address] Care Team Providers Care Supervisor Pipe Finishing Name Role Phone Main Holt DO Primary Care Provider [phone] Allergies No known active allergies Medications thyroid ([place]) 60 MG tablet Take 60 mg by mouth 1 (one) time each day at the same time. Active omega-3 (FISH OIL) 300 MG capsule 1,000 mg. Active MILK THISTLE EXTRACT PO Take 175 mg by mouth in the morning. Active thiamine (Vitamin B-1) 100 MG tablet Take 100 mg by mouth in the morning. Active testosterone cypionate (Depo-Testoster one) 200 MG/ML injection Inject 200 mg into the shoulder, thigh, or buttocks every 14 (fourteen) days. 3 Active tamsulosin (Flomax) 0.4 MG 24 hr capsule Take 0.4 mg by mouth in the morning. Active multivitamin (Theragran) tablet Take 1 tablet by mouth in the morning. Active co-enzyme Q-10 30 MG capsule Take 30 mg by mouth in the morning and 30 mg in the evening. Active cholecalciferol (Vitamin D-3) 75 MCG (3000 UT) tablet Take 7,000 Units by mouth. Active allopurinol (Zyloprim) 100 MG tablet Take 100 mg by mouth in the morning. Active ipratropium (Atrovent) 0.06 % nasal sprayIndication s:Vasomotor rhinitis Administer 2 sprays into each nostril in the morning and 2 sprays in the evening and 2 sprays before bedtime. 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 Diagnosed with UTI. We will will review records when available. Follow-up UA today is negative. Last Assessment & Plan: He does take some supplements which he feels has antibacterial properties and would like to see what his urine looks like when he is abstaining from those supplements. I placed a standing order for urine culture. We will call when results are available. Hearing loss 11/12/2018 02/20/2023 Sepsis 04/08/2018 02/20/2023 Bilateral ureteral calculi 03/25/2018 0 02/20/2023 Stones, urinary tract 03/12/20182022 Overview (02/20/2023): Bilateral ureteral stones, right partial staghorn 03/1303/12/18: [...] stable right calcifications. Plan KUB 1 year Last Assessment & Plan: No recent symptoms. We will have him come back in December for repeat KUB. Erectile dysfunction 04/10/2017 023 Overview (02/20/2023): ED - samples cialis given with rec to start at 10 mg. Use and contraindications discussed Benign prostatic hyperplasia 04/09/2017 02/20/2023 Overview (02/20/2023): luts. some progression on tamsulosin. Addition of [...] laser turp. He is going to consider Last Assessment & Plan: He denies any Urinary tract infection symptoms, but UA today is mildly positive for leukocytes and nitrites. We will send for culture and call him with the results. Hypogonadism male 04/09/2017 02/20/2023 Overview (02/20/2023): Hypogonadism treated successfully with AndroGel 5 g [...] labs now, 6 months and a year Colon cancer 10/04/2012 02/20/2023 Family History Medical History Relation Name Comments Heart failure Father Heart failure Mother Relation Name Status Comments Father Mother Social History Tobacco Use Types Packs/Day Years Used Date Smoking Tobacco: Former Cigarettes Q uit: 2013 Smokeless Tobacco: Never Tobacco Cessation:Counseling Given: Not Answered Alcohol Use Standard Drinks/Week Comments Not Currently 0 (1 standard drink = 0.6 oz pur e alcohol) Sex and Gender Information Value Date Recorded Sex Assigned at Not on file Legal Sex Male 9:28 PM EDT Gender Identity Not on file Sexual Orientation Not on file Last Filed Vital Signs Vital Sign Reading Time Taken Comments Blood Pressure 159/80 03/07/2023 8:20 AM EDT Pulse - - Temperature - - Respiratory Rate - - Oxygen Saturation - - Inhaled Oxygen Concentration - - Weight 91.2 kg (201 lb) 05/14/2023 10:33 AM EDT Height 182.9 cm (6') 05/14/2023 10:33 AM EDT Body Mass Index 27.26 05/14/2023 10:33 AM EDT Plan of Treatment Not on file Insurance [employer] MEDICARE ADVANTAGE Care Teams Supervisor Pipe Finishing Relationship Specialty Start Date End Date Main Holt DO PCP - General Internal Medicine 02/14/23
[2025-02-14 09:03] LABS: Basophils Percent Auto 0.6 % (0.2-2.0); Eosinophils Absolute Auto 0.1 10^3/uL (0.0-0.7); Eosinophils Percent Auto 1.9 % (0.9-7.0); Hematocrit 39.5 % (42.0-54.0); Hemoglobin 13.1 g/dL (14.0-18.0); Immature Granulocytes Abs Auto 0.02 10^3/uL (0.00-0.03); Immature Granulocytes Pct Auto 0.3 % (0.0-0.5); Lymphocytes Absolute Auto 1.6 10^3/uL (1.2-3.8); Lymphocytes Percent Auto 22.2 % (20.5-60.0); Mean Corpuscular HGB Conc 33.2 g/dL (29.9-35.2); Mean Corpuscular Hemoglobin 32.4 pg (25.9-34.0); Mean Corpuscular Volume 97.8 fL (80.0-94.0); Mean Platelet Volume 9.7 fL (9.5-13.5); Monocytes Percent Auto 14.1 % (1.7-12.0); Neutrophils Absolute Auto 4.3 10^3/uL (1.4-6.5); Neutrophils Percent Auto 60.9 % (43.0-75.0); Platelet Count 200 10^3/uL (150-450); Red Blood Count 4.04 10^6/uL (4.70-6.10); Red Cell Distribution Width 13.4 % (11.0-15.0)
[2025-02-14 09:39] LABS: Alanine Aminotransferase 15 U/L (16-63); Albumin Globulin Ratio 0.8; Albumin Level 2.8 g/dL (3.4-5.0); Alkaline Phosphatase 147 U/L (46-116); Anion Gap 8.4; Aspartate Amino Transferase 17 U/L (15-37); BUN Creatinine Ratio 17.3; Bilirubin Total 0.6 mg/dL (0.2-1.0); Carbon Dioxide 33.7 mmol/L (21.0-32.0); Chloride 104 mmol/L (98-107); Estimated GFR (African America >60 (>=60 mL/min/1.73m^2); Estimated GFR (Non-African Ame >60 (>=60 mL/min/1.73m^2); Globulin 3.3 g/dL; Glucose 107 mg/dL (74-106); Potassium 4.1 mmol/L (3.5-5.1); Sodium 142 mmol/L (136-145); Thyroid Stimulating Hormone 1.399 uIU/mL (0.358-3.740); Total Protein 6.1 g/dL (6.4-8.2)
== END 2025-02-14 08:35 | disposition home or self-care (01) ==
LOC: LAB 08:34
PROVIDERS: PCP Internal Medicine; Visit Provider Internal Medicine
DX: E78.00 Pure hypercholesterolemia, unspecified (principal); I10 Essential (primary) hypertension; D50.0 Iron deficiency anemia secondary to blood loss (chronic); E06.3 Autoimmune thyroiditis
CPT/HCPCS: 36415; 80053; 82728; 84443; 85025